=== PATIENT | male | born 1935 | race Caucasian/White ===

== ENCOUNTER 2022-09-03 10:24 | Outpatient (REF) | payer MEDICARE, SELFPAY ==
[2022-09-03 10:58] LABS: MANUAL DIFF FLAG NO
[2022-09-03 11:45] LABS: Basophils Percent Auto 0.4 % (0-2); Eosinophils Absolute Auto 0.2 X10*3/uL (0.0-0.4); Eosinophils Percent Auto 2.1 % (0-4); Hemoglobin 14.7 g/dl (14.0-18.0); Imm Gran Abs Auto 0.02 X10*3/uL (0.00-0.03); Imm Gran Pct Auto 0.3 % (0.0-0.4); Lymphocytes Absolute Auto 1.5 X10*3/uL (1.2-4.9); Lymphocytes Percent Auto 20.7 % (20-40); Mean Corpuscular Hemoglobin 29.1 pg (27.0-33.0); Mean Corpuscular Volume 91.1 fL (80.0-98.0); Mean Platelet Volume 9.2 fL (9.4-12.4); Monocytes Absolute Auto 0.7 X10*3/uL (0.1-1.2); Monocytes Percent Auto 9.5 % (2-11); Neutrophils Absolute Auto 4.9 x10*3/uL (2.0-8.3); Platelet Count 308 X10*3/uL (160-400); Red Blood Count 5.05 X10*6/uL (4.60-5.80); Red Cell Distribution Width 14.5 % (11.0-16.0); White Blood Count 7.3 X10*3/uL (4.8-10.8)
[2022-09-03 12:59] LABS: Alanine Aminotransferase 15 U/L (0-40); Albumin Level 4.3 g/dL (3.5-5.0); Alkaline Phosphatase 86 U/L (39-117); Anion Gap 12 (12-20); Aspartate Amino Transferase 20 U/L (5-37); Bilirubin Total 1.4 mg/dL (0.0-1.0); Blood Urea Nitrogen 18 mg/dL (9-16); Calcium 9.9 mg/dL (8.4-10.2); Carbon Dioxide 28 mmol/L (22-29); Chloride 105 mmol/L (96-108); Cholesterol 179 mg/dL; Estimated Glomerular Filt Rate > 60; Glucose Fasting 105 mg/dL (60-99); HDL Cholesterol 74 mg/dL; LDL Cholesterol Calculated 81 mg/dl; Potassium 5.7 mmol/L (3.3-5.1); Sodium 139 mmol/L (135-145); Total Protein 6.7 g/dL (6.5-8.0); Triglycerides 121 mg/dL
[2022-09-03 13:18] LABS: Prostate Specific Antigen 0.44 ng/mL (<0.05-4.0)
== END 2022-09-03 10:25 | disposition home or self-care (01) ==
LOC: HO.LAB 10:24
PROVIDERS: PCP Internal Medicine; Visit Provider Internal Medicine
DX: Z12.5 Encounter for screening for malignant neoplasm of prostate (principal); I25.10 Atherosclerotic heart disease of native coronary artery without angina pectoris; I10 Essential (primary) hypertension; E78.00 Pure hypercholesterolemia, unspecified; N40.0 Benign prostatic hyperplasia without lower urinary tract symptoms
CPT/HCPCS: 36415; 80053; 80061; 84153; 85025

== ENCOUNTER 2022-10-01 12:22 | Outpatient (REF) | payer MEDICARE, SELFPAY ==
--- NOTE | ~2022-10-01 | XR_ITS ---
EXAMINATION: XR HIP, RIGHT CLINICAL INFORMATION: Right hip pain COMPARISON: None TECHNIQUE: Two views of the right hip. FINDINGS: Anatomic alignment of the right hip joint. Mild superolateral joint space narrowing, lateral acetabular osteophyte, acetabular roof sclerosis. No acute fracture or dislocation. There is apparent prominent area of sclerosis in the right ilium, extending to the SI joint. There appears to be right sacral sclerosis marginating the joint as well. Spondylosis in the visualized lower lumbar spine. Abnormal soft tissue calcification.. XR/XR hip RT min 2V IMPRESSION: Mild right hip arthritis. No acute fracture or dislocation. Apparent prominent sclerosis in the right ilium of indeterminate etiology., Apparent right sacral sclerosis marginating the SI joint as well.. Recommend pelvic radiograph for further evaluation.
== END 2022-10-01 12:23 | disposition home or self-care (01) ==
LOC: HO.XRAY 12:22
PROVIDERS: PCP Internal Medicine; Visit Provider Internal Medicine
DX: M25.551 Pain in right hip (principal)
CPT/HCPCS: 73502

== ENCOUNTER 2022-10-03 12:54 | Outpatient (REF) | payer MEDICARE, SELFPAY | END 2022-10-03 12:55 | disposition home or self-care (01) | LOC: HO.MRI 12:54 | PROVIDERS: Visit Provider Internal Medicine | DX: Z13.89 Encounter for screening for other disorder (principal) ==

== ENCOUNTER 2022-10-04 05:51 | Emergency (ER) | payer OTHER, SELFPAY ==
[2022-10-04] VITALS (7 sets, daily range): BP systolic 115–178; BP diastolic 64–90; PULSE 71–83; RESP 14–20; TEMP 36.7; O2SAT 94–99; BMI 27.1
--- NOTE | ~2022-10-04 | MR_ITS ---
EXAMINATION: MR LUMBAR SPINE WITHOUT CONTRAST CLINICAL INFORMATION: Radicular pain. COMPARISON: None TECHNIQUE: MRI of the lumbar spine was obtained using routine sequences without contrast. The examination is markedly motion degraded and was prematurely terminated. The axial acquisitions are nondiagnostic. FINDINGS: The lumbar vertebral bodies maintain normal heights. There is minimal retrolisthesis of L2 on L3 and grade 1 anterolisthesis of L4 on L5. There is multilevel intervertebral disc height loss. At L3-L4 there is disc bulging with large disc herniation resulting in severe spinal canal stenosis with compression of the thecal sac. At L4-L5 there is apparent high-grade spinal canal stenosis related to disc bulging with ligamentum flavum infolding. MR/MR lumbar spine wo con IMPRESSION: Limited exam which was prematurely terminated. High-grade spinal canal stenosis with thecal sac compression at L3-L4 and L4-L5. Repeat examination recommended when patient is able.
--- NOTE | 2022-10-04 06:11 | ECG_ITS ---
Test Reason : FALL Blood Pressure : / mmHG Vent. Rate : 074 BPM Atrial Rate : 074 BPM P-R Int : 180 ms QRS Dur : 074 ms QT Int : 404 ms P-R-T Axes : 102 021 045 degrees QTc Int : 448 ms Sinus rhythm with Premature atrial complexes Otherwise normal ECG No previous ECGs available Referred By: Generic ED Physician Electronically Signed By:Monroe Garsia
--- NOTE | 2022-10-04 06:50 | ED.FALL ---
HPI - Fall General Chief Complaint: Fall Stated Complaint: fall Time Seen by Provider: 10/04/22 06:44 Source: patient Mode of arrival: EMS Limitations: no limitations History of Present Illness HPI Narrative: went to get into his wheelchair but he fell. His right leg does not work well at baseline. Yesterday he was unable to get an MRI do to pain. The pain is in the lumbar area. His pain is worse when her moves his left leg complaint: fall Onset (ago): week(s) Fall from: standing Fall witnessed: yes, by family Place fall occurred: home Loss of consciousness: none Context: tripped/slipped Location of injury: other (no new injury) Related Data Allergies Allergy/AdvReac Type Severity Reaction Status Date / Time No Known Allergies Allergy Verified 10/04/22 07:36 Review of Systems Review of Systems: Yes all other systems are reviewed and are negative Musculoskeletal: Musculoskeletal: Reports back pain Neurologic: Denies Sensory deficit (Neuro) [facility] Social History Social History Advance Directives: Yes Advance Directives Information Provided: Yes Advance Directives on File: No Physical Exam Vital Signs: Vital Signs: Last Vital Signs Temp 98.1 F 10/04/22 06:02 Pulse 83 10/04/22 14:46 Resp 18 10/04/22 14:46 BP 145/80 H 10/04/22 14:46 Pulse Ox 97 10/04/22 14:46 O2 Del Method 10/04/22 14:46 BMI result Body Mass Index 27.1 Const: Other: elderly male Nutritional Appearance: average body habitus Orientation/consciousness: oriented to person and patient oriented x3 Limitations: no limitations HEENT: Head: Yes normal to inspection Ears: external ears normal General nose exam: Normal external nose present Mouth: Normal oral and palatal mucosa present and oropharynx normal Throat: Yes posterior oropharynx normal Eyes: General: appearance normal, both eyes and all related structures Neck: Other: supple Neck: Yes normal visual inspection Chest: Chest palpation & inspection: normal inspection of the chest Resp: Auscultation: clear to auscultation bilaterally Cardio: Jugular venous distension: no JVD Rate: regular rate Rhythm: regular rhythm Heart sounds: S1 normal heart sound present and S2 normal heart sound present GI: Inspection: Yes normal to inspection Palpation (GI): Soft to palpation, nontender and No hepatosplenomegaly present Auscultation: normal bowel sounds Back/Spine/Pelvis: Other: lumbar back pain Skin: General skin exam: no rashes or lesions noted Neuro: General: oriented to person and patient oriented x3 Cranial nerves: Yes CN's II-XII intact bilaterally Motor exam (neuro): 5/5 motor strength present throughout Sensory Exam: No Sensory deficit (Neuro) Extrem: General: Yes normal to inspection Psych: Appearance: grossly normal Course Reevaluation(s) Reevaluation #1: patient unable to get MRI due to pain will give ketamine and ativan and retry Time: 15:12 Reevaluation #2: despite being sedated patient unable to keep still for his MRI will dc home Time: 16:41 Medications Administered Discontinued Medications Generic Name Dose Route Start Last Admin Trade Name Freq PRN Reason Stop Dose Admin Ketamine HCl 180 mg 10/04/22 15:10 10/04/22 16:05 Ketamine Hcl/Ns 50 Mg/5 Ml Syringe IVPUSH 10/04/22 15:11 180 mg ONCE ONE Administration Lorazepam 2 mg 10/04/22 12:21 10/04/22 13:01 Lorazepam 2 Mg/Ml Vial IVPUSH 10/04/22 12:22 2 mg ONCE ONE Administration Lorazepam 2 mg 10/04/22 15:10 10/04/22 16:05 Lorazepam 2 Mg/Ml Vial IVPUSH 10/04/22 15:11 2 mg ONCE ONE Administration Morphine Sulfate 4 mg 10/04/22 07:39 10/04/22 11:28 Morphine Sulfate 4 Mg/Ml Cartridge IVPUSH 10/04/22 07:40 4 mg ONCE ONE Administration Protocol Morphine Sulfate 4 mg 10/04/22 12:21 10/04/22 13:01 Morphine Sulfate 4 Mg/Ml Cartridge IVPUSH 10/04/22 12:22 4 mg ONCE ONE Administration Protocol Medical Decision Making Differential Diagnosis Differential Diagnoses: The differential diagnosis associated with the presentation includes disc herniation, lumbar radiculopathy Independent Interpretation Interpretation: MRI was not able to be done Independent Historian Clinical information obtained from an independent historian. History obtained from or confirmed by: Spouse Discharge Plan Discharge Clinical Impression: Lumbar radiculopathy, Back pain Patient Disposition: Home, Self-Care Instructions: Acute Low Back Pain (ED), Lumbar Radiculopathy (ED), Back Pain (ED) Referrals: Mauro Richards MD [Primary Care Provider] - 1 week
--- NOTE | 2022-10-04 09:00 | PC.NURSE ---
PT TO ED FOR FALL EVAL. WAS TO HAVE MRI DONE YESTERDAY BUT NOT DONE DUE TO L LEG PAIN R/T TO THE FALL. NEW ORDER FOR MRI TO BE DONE TODAY. MRI BOOKED, WILL CALL ED WHEN READY FOR PT TO BE BROUGHT DOWN.
[2022-10-04] MEDS: Morphine Sulfate 4 MG/ML CARTRIDGE IVPUSH ×2 (11:28→13:01)
[2022-10-04] MEDS: LORazepam 2 MG/ML VIAL IVPUSH ×2 (13:01→16:05)
[2022-10-04] MEDS: Ketamine HCl/NS 50 MG/5 ML SYRINGE 180 MG IVPUSH (16:05)
--- NOTE | 2022-10-04 17:00 | PC.NURSE ---
PT WAS PREMEDICATED AND BROUGHT TO MRI. MRI CALLED AND REPORTED THAT PT NOT TOLERATING PROCEDURE, PT MEDICATED IN MRI BY THIS RN. PT BROUGHT BACK FROM MRI WITH REPORT THAT HE DID NOT TOLERATE PROCEDURE THEREFORE MRI NOT DONE. PT PREMEDICATED ONCE MORE AND BROUGHT TO MRI BY DR. AMIN AND ANOTHER RN. MRI WAS DONE. PT'S AND DAUGHTER AT HIS BEDSIDE.
[2022-10-04 17:11] LABS: MANUAL DIFF FLAG NO
[2022-10-04 17:12] LABS: Basophils Percent Auto 0.4 % (0-2); Eosinophils Absolute Auto 0.1 X10*3/uL (0.0-0.4); Eosinophils Percent Auto 1.6 % (0-4); Hematocrit 39.7 % (42.0-52.0); Hemoglobin 13.2 g/dl (14.0-18.0); Imm Gran Abs Auto 0.02 X10*3/uL (0.00-0.03); Imm Gran Pct Auto 0.3 % (0.0-0.4); Lymphocytes Absolute Auto 1.4 X10*3/uL (1.2-4.9); Lymphocytes Percent Auto 18.2 % (20-40); Mean Corpuscular HGB Conc 33.2 g/dl (31.0-36.0); Mean Corpuscular Hemoglobin 29.9 pg (27.0-33.0); Mean Corpuscular Volume 89.8 fL (80.0-98.0); Monocytes Absolute Auto 0.9 X10*3/uL (0.1-1.2); Monocytes Percent Auto 12.1 % (2-11); Neutrophils Absolute Auto 5.1 x10*3/uL (2.0-8.3); Neutrophils Percent Auto 67.4 % (45-73); Platelet Count 288 X10*3/uL (160-400); Red Blood Count 4.42 X10*6/uL (4.60-5.80); Red Cell Distribution Width 14.2 % (11.0-16.0); White Blood Count 7.5 X10*3/uL (4.8-10.8)
[2022-10-04 17:27] LABS: COVID-19 Test Negative (Negative); IDNOW Serial# 16C4AD1C
[2022-10-04 17:33] LABS: Anion Gap 16 (12-20); Blood Urea Nitrogen 19 mg/dL (9-16); Calcium 8.9 mg/dL (8.4-10.2); Carbon Dioxide 22 mmol/L (22-29); Chloride 105 mmol/L (96-108); Creatinine Clr Calc Pharmacy 67.6; Estimated Glomerular Filt Rate > 60; Glucose Random 119 mg/dL (60-115); Potassium 4.1 mmol/L (3.3-5.1); Sodium 139 mmol/L (135-145)
--- NOTE | 2022-10-04 18:28 | MHC.CM.ED ---
CM referral from Dr. Reyna. Pt with multiple falls and lumbar back pain. HX Spinal Stenosis. Attempted MRI, with pre-medication. Pt unable to complete testing. Pt and live at [facility], independent living. Recently moved here from [place] in July. 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 Family involved, but do not live locally. HCP/daughter China ([phone]). Not on file. Attempting to obtain copy. If unavailable, will obtain when patient wakes. Pt sleeping after being medicated for MRI. Unable to participate in CM interview. Spoke with , Sally ([phone] H) and daughter, Radhika. Pt and recently (Jul) moved into [facility] from [place]. 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 Family lives in [facility]. Pt was very independent and mobile until about 2 weeks ago. Worsening back pain. Family reports about 10 falls in past 10 days. Pt [place] services [place] [facility] and [place] [facility] [place] for some of his medications. Dr. Love is provider at [facility] and Dr. Richards is PCP. Pt has received 5 vaccinations for Covid (09/21/20, 10/12/20, 05/29/21, 11/28/21 and 07/31/22). Pt had Covid in March. Uses a walker and recently a wheelchair. Family agreeable to STR. Will review when patient wakes. PT pending. Local referrals placed. Care Port and CM contact card given to daughter, Radhika and Sally. CM will follow for discharge planning.
--- NOTE | 2022-10-04 18:49 | PC.NURSE ---
INCONTINENT CARE AND COMPLETE BED CHANGE DONE
--- NOTE | 2022-10-04 19:58 | PC.NURSE ---
This investment underwriter assumed care of this PT at 1900. PT A&O to self. PT states I thought we went to [place] but we are in [place] and it's sailing . PT reports 11/08 R leg pain. Incontinent care provided. Family at bedside.
--- NOTE | 2022-10-04 22:05 | MHC.EDTECH ---
PT Soiled Linen and gown changed. Pt changed into clean gown and stretcher dressed with fresh linens
[2022-10-04 23:44] LABS: Appearance Urine Clear; Color Urine Yellow; Glucose Urine UA Negative (Negative); Leukocyte Esterase Urine Negative (Negative); Nitrite Urine Negative (Negative); Specific Gravity - Urine 1.025 (1.005-1.025); Urine Blood Negative (Negative); Urine Ketones 15 mg/dL (Negative); Urine Protein Negative (Neg-Trace)
[2022-10-05 02:53] VITALS: BP 152/91; PULSE 82; RESP 18; O2SAT 94
[2022-10-05 06:50] VITALS: BP 133/70; PULSE 89; RESP 14; TEMP 36.9; O2SAT 97
[2022-10-05 11:25] VITALS: BP 150/86; PULSE 87; RESP 16; O2SAT 99
--- NOTE | 2022-10-05 13:48 | MHC.CM.ED ---
Addendum entered by Nori Short 10/05/22 15:46: [facility] accept patient on Friday 10/06. Transport booked for 1pm. Patient, Radhika English, Arlene RN and Doretha MITCHELL. Original Note: Patient remains in ER. Physical therapy eval completed. Short term rehab is recommended. Met with patient, Amando and daughter Radhika. All are aware [facility] is unable to offer a bed. Patient has VA benefits but is not service connected for short term rehab benefits. Patient will go to short term rehab under Medicare. Facility choices discussed with patient and family. [facility] choice. Clinical updates sent via [facility]. [facility] completed, signed and witnessed. Original given to patient. Copy placed in chart. Continue to monitor for d/c needs.
[2022-10-05 16:53] VITALS: BP 147/79; PULSE 86; RESP 16; O2SAT 97
[2022-10-05] MEDS: Acetaminophen 325 MG TABLET 975 MG PO (17:42)
[2022-10-05] MEDS: Cyclobenzaprine HCl 10 MG TABLET PO (17:43)
[2022-10-05 20:17] VITALS: BP 143/84; PULSE 91; RESP 20; TEMP 36.8; O2SAT 96
--- NOTE | 2022-10-05 22:05 | PC.NURSE ---
[place] cathether was previously placed on pt. Pt reported [place] catheter came off. Pt noted to be incontinent of urine.Rn and tech provided shwetha care. Pt reported R 6/10 buttock pain; skin is intact. pillow placed under R buttock.
--- NOTE | 2022-10-05 22:13 | PC.NURSE ---
See previous note. Per Dr. Sampson will review pt chart.
[2022-10-05] MEDS: oxyCODONE HCl Immed Release 5 MG TABLET PO (23:33)
--- NOTE | 2022-10-05 23:39 | PC.NURSE ---
Pt medicated per MAR.
--- NOTE | 2022-10-06 00:57 | PC.NURSE ---
Pt prefers to sleep in position. Pt transferred to a hospital bed. Heat pack applied to pt Right buttock to aid in pain management. Pt reports he feels more comfortable in hospital bed. texas cath continues to drain well.
[2022-10-06] MEDS: Acetaminophen 325 MG TABLET 975 MG PO ×2 (01:50→09:23)
[2022-10-06] MEDS: Cyclobenzaprine HCl 10 MG TABLET PO ×2 (01:51→09:23)
--- NOTE | 2022-10-06 01:53 | PC.NURSE ---
Pt c/o 12/09 R leg R hip pain. Pt medicated per Oct.
--- NOTE | 2022-10-06 03:14 | MHC.EDTECH ---
PT got out of bed alone and went to bedside commode. PT tex[place] fell off. Pt 1x assisted back to bed. Pt given pericare and lino lópez hendrix applied. Pt bed alarm armed and pt reminded to use call haq when assistance is needed. Pt reminded that he is a high risk for falls and needs assistance when getting out bed. PT stated I understand and will call for help PT given warm blankets. Pt hendrix emptied at 600cc
[2022-10-06 06:47] VITALS: BP 146/95; PULSE 92; RESP 16; TEMP 36.2; O2SAT 95
[2022-10-06] MEDS: Docusate Sodium 100 MG CAPSULE PO ×2 (09:42→12:59)
--- NOTE | 2022-10-06 09:46 | PC.NURSE ---
pt is a/o x 4 no sob/bandar noted lungs -diminished all lobes. speaks in full sentences. heart sounds - irregular. abd soft and non-tender, bx + x 4 quads. no edema noted. pt c/o constipation, multi attempts in using the commode without any success. colace 100mg po given prn. pt is eating breakfast. daughter and at bedside. pt to be [facility] later today. pt c/0 8/10 r hip/buttocks pain med as per oct. pt/family aware of plan of care.
[2022-10-06 10:43] VITALS: BP 137/62; PULSE 92; RESP 16; TEMP 36.4; O2SAT 98
--- NOTE | 2022-10-06 10:43 | MHC.EDTECH ---
Patient helped to commode. Linen and hospital gown soiled; changed bedding and helped Patient clean up, fresh hospital gown given. Patient assisted back to bed. Family (daughter, ) at bedside.
[2022-10-06] MEDS: DULoxetine HCl 30 MG CAPSULE.DR PO (10:47)
[2022-10-06] MEDS: Aspirin Enteric Coated 81 MG TABLET.DR PO (10:49)
[2022-10-06] MEDS: Multivitamin TABLET 1 TAB PO (10:49)
[2022-10-06] MEDS: Metoprolol Tartrate 25 MG TABLET PO (10:49)
[2022-10-06] MEDS: Clopidogrel Bisulfate 75 MG TABLET PO (10:49)
--- NOTE | 2022-10-06 11:29 | PC.NURSE ---
rn to rn report given to akbar at [facility]. pt/family aware of plan of care for transfer to [facility] via [facility].
[2022-10-06 12:11] VITALS: BP 155/97; PULSE 80; TEMP 36.6; O2SAT 96
[2022-10-06] MEDS: polyethylene glycoL 3350 17 GM POWD.PACK PO (12:59)
[2022-10-06] MEDS: Finasteride 5 MG TABLET PO (12:59)
--- NOTE | 2022-10-06 13:26 | PC.NURSE ---
report given to em[facility].
== END 2022-10-06 13:49 | disposition skilled nursing facility (03) ==
PROVIDERS: Emergency Provider Emergency Medicine; PCP Internal Medicine
DX: M54.16 Radiculopathy, lumbar region (principal); M54.50 Low back pain, unspecified; Z20.822 Contact with and (suspected) exposure to COVID-19; Z20.828 Contact with and (suspected) exposure to other viral communicable diseases; Z79.899 Other long term (current) drug therapy
CPT/HCPCS: 72148; 80048; 81003; 85025; 87635; 93005; 96374; 96375; 96376; 97163; 99285; J2060; J2270

== ENCOUNTER 2023-02-03 11:05 | Outpatient (REF) | payer MEDICARE, SELFPAY ==
--- NOTE | ~2023-02-03 | CT_ITS ---
EXAMINATION: CT CHEST WITH CONTRAST CLINICAL INFORMATION: Paraesophageal hernia COMPARISON: None available. TECHNIQUE: Multidetector volumetric CT imaging of the chest was obtained after the administration of 65 mL of Omnipaque 350 intravenous contrast without immediate adverse reactions. Axial MIP volume rendering provided. Sagittal and coronal reformatted images were obtained. This CT examination was performed using dose optimization techniques as appropriate, variously including the following: *Automated exposure control *Adjustment of mA and/or kV according to patient size (this includes techniques or standardized protocols for targeted exams where dose is matched to indication/reason for exam; i.e. extremities or head) *Use of iterative reconstruction technique DLP: 241 mGy-cm FINDINGS: LUNGS: Irregularly-shaped nodule in the right upper lobe. This is difficult to measure due to irregular shape. This measures 0.5 x 1.5 cm axial image 51 series 7 and may contain air bronchogram component. There are adjacent smaller satellite nodules measuring 2 to 3 mm. There is adjacent pleural thickening axial image 54 series 7. 5 mm calcified right upper lobe nodule near the major and minor fissure axial image 113 series 7. 5 mm and 5 x 8 mm calcified left lower lobe nodules axial image 183 series 7 and 197 series 7. These probably represent calcified granulomas. Scarring or subsegmental atelectasis in the medial right lower lobe adjacent to vertebral body bony osteophyte. Question mild increased peripheral reticular markings and traction bronchiolectasis in the right lower lobe/mild interstitial lung disease. MEDIASTINUM: There is a moderate size esophageal hernia. By CT this appears to represent a hiatal hernia. No paraesophageal hernia is seen. Normal heart size. No pericardial effusion. Normal caliber thoracic aorta. Small partially calcified right precarinal mediastinal lymph node. Probably related to old granulomatous disease. Mild coronary artery calcification. PLEURA: There is no pleural effusion. No pleural mass or thickening. AXILLA: No lymphadenopathy. UPPER ABDOMEN: 2 low-attenuation liver lesions in the left lobe suggestive of simple cysts. 8 mm slightly complex cyst with wall calcification high in the dome of the right lobe axial image 50 series 3. Probable right renal peripelvic cyst. This is partially visualized. OSSEOUS STRUCTURES: Degenerative changes of the spine and shoulders. CT/CT chest w IV con IMPRESSION: Moderate size hiatal hernia. Evidence of old granulomatous disease. Irregularly shaped right upper lobe nodule. Chest CT follow-up in 6-12 and 18-24 months recommended. Question mild interstitial lung disease at the lung bases. Fleischner guidelines were followed.
[2023-02-03] MEDS: iohexoL 350 MG/ML 100 ML INFUS..BTL 65 ML IV (13:34)
[2023-02-03 14:42] LABS: Creatinine POC 0.5 mg/dL (0.5-1.4); GFR POC > 60
== END 2023-02-03 11:06 | disposition home or self-care (01) ==
LOC: HO.CT 11:05
PROVIDERS: PCP Internal Medicine; Visit Provider Student in an Organized Health Care Education/Training Program
DX: K44.9 Diaphragmatic hernia without obstruction or gangrene (principal)
CPT/HCPCS: 71260; 82565; Q9967

== ENCOUNTER 2023-02-07 08:20 | Outpatient (REF) | payer MEDICARE, SELFPAY ==
--- NOTE | ~2023-02-07 | FL_ITS ---
EXAMINATION: FL BARIUM SWALLOW CLINICAL INFORMATION: Diaphragmatic hernia COMPARISON: Previous chest CT 02/03/2023 TECHNIQUE: Barium swallow examination is performed using fluoroscopic evaluation in addition to multiple fluoroscopic spot views. The patient is imaged both upright and prone and using both thick and thin sulfate along with effervescent granules. Barium tablet was also administered. Exam is limited due to patient mobility. Fluoroscopy time: 1.5 minutes DAP: 13.7 Gycm2 total dose 72 mg Images: 54 FINDINGS: Exam is limited due to limited patient mobility. The swallowing mechanism is normal. No aspiration or penetration. Esophageal motility is normal. There is a moderate size hiatal hernia. There is mild gastroesophageal reflux. Barium tablet passed freely into the stomach. FL/FL barium swallow IMPRESSION: Moderate size hiatal hernia. Mild gastroesophageal reflux.
== END 2023-02-07 08:21 | disposition home or self-care (01) ==
LOC: HO.XRAY 08:20
PROVIDERS: PCP Internal Medicine; Visit Provider Student in an Organized Health Care Education/Training Program
DX: K44.9 Diaphragmatic hernia without obstruction or gangrene (principal)
CPT/HCPCS: 74220

== ENCOUNTER 2023-02-17 10:08 | Outpatient (REF) | payer MEDICARE, SELFPAY ==
[2023-02-17 11:33] LABS: Hematocrit 32.2 % (42.0-52.0); Hemoglobin 9.8 g/dl (14.0-18.0); Mean Corpuscular HGB Conc 30.4 g/dl (31.0-36.0); Mean Corpuscular Hemoglobin 21.5 pg (27.0-33.0); Mean Corpuscular Volume 70.8 fL (80.0-98.0); Platelet Count 432 X10*3/uL (160-400); Red Blood Count 4.55 X10*6/uL (4.60-5.80); Red Cell Distribution Width 20.6 % (11.0-16.0); White Blood Count 6.7 X10*3/uL (4.8-10.8)
== END 2023-02-17 10:09 | disposition home or self-care (01) ==
LOC: HO.LAB 10:08
PROVIDERS: PCP Internal Medicine; Visit Provider Internal Medicine
DX: K44.9 Diaphragmatic hernia without obstruction or gangrene (principal); K92.2 Gastrointestinal hemorrhage, unspecified; I25.10 Atherosclerotic heart disease of native coronary artery without angina pectoris
CPT/HCPCS: 36415; 85027; 99202

== ENCOUNTER 2023-03-28 15:06 | Outpatient (REF) | payer OTHER, MEDICARE, SELFPAY ==
[2023-03-28 16:10] LABS: Basophils Percent Auto 0.4 % (0-2); Eosinophils Absolute Auto 0.2 X10*3/uL (0.0-0.4); Eosinophils Percent Auto 3.1 % (0-4); Hematocrit 40.4 % (42.0-52.0); Hemoglobin 12.5 g/dl (14.0-18.0); Imm Gran Abs Auto 0.03 X10*3/uL (0.00-0.03); Imm Gran Pct Auto 0.4 % (0.0-0.4); Lymphocytes Absolute Auto 1.4 X10*3/uL (1.2-4.9); Lymphocytes Percent Auto 20.8 % (20-40); Mean Corpuscular HGB Conc 30.9 g/dl (31.0-36.0); Mean Corpuscular Hemoglobin 24.1 pg (27.0-33.0); Mean Corpuscular Volume 77.8 fL (80.0-98.0); Mean Platelet Volume 9.1 fL (9.4-12.4); Monocytes Absolute Auto 0.7 X10*3/uL (0.1-1.2); Monocytes Percent Auto 10.5 % (2-11); Neutrophils Absolute Auto 4.3 x10*3/uL (2.0-8.3); Neutrophils Percent Auto 64.8 % (45-73); White Blood Count 6.7 X10*3/uL (4.8-10.8)
[2023-03-28 16:14] LABS: MANUAL DIFF FLAG SCAN
[2023-03-28 17:00] LABS: Alanine Aminotransferase 16 U/L (0-40); Alkaline Phosphatase 93 U/L (39-117); Anion Gap 18 (12-20); Aspartate Amino Transferase 14 U/L (5-37); Bilirubin Total 0.5 mg/dL (0.0-1.0); Blood Urea Nitrogen 19 mg/dL (9-16); Calcium 9.8 mg/dL (8.4-10.2); Carbon Dioxide 20 mmol/L (22-29); Chloride 104 mmol/L (96-108); Estimated Glomerular Filt Rate > 60; Glucose Random 126 mg/dL (60-115); Potassium 4.2 mmol/L (3.3-5.1); Sodium 138 mmol/L (135-145); Total Protein 6.9 g/dL (6.5-8.0)
[2023-03-28 17:31] LABS: Red Blood Count 5.19 X10*6/uL (4.60-5.80)
[2023-03-28 17:32] LABS: Platelet Count 327 X10*3/uL (160-400); SLIDE REVIEW VERIFIED
== END 2023-03-28 15:07 | disposition home or self-care (01) ==
LOC: HO.LAB 15:06
PROVIDERS: PCP Internal Medicine; Visit Provider Internal Medicine
DX: I10 Essential (primary) hypertension (principal); E78.00 Pure hypercholesterolemia, unspecified; N40.0 Benign prostatic hyperplasia without lower urinary tract symptoms
CPT/HCPCS: 36415; 80053; 85025

== ENCOUNTER 2023-04-22 11:25 | Outpatient (AMB) | payer OTHER, MEDICARE, SELFPAY ==
--- NOTE | 2023-04-22 11:25 | MHC.OFFVIS ---
Intake Intake Visit Reasons: BPH/Incontinence Intake Note: New Patient presents for initial visit BPH/Incontinence Urology Medications: none Blood Thinner: aspirin, clopidogrel PVR: 264ml's Senior Living Sales Counselor Required: No Accompanied by: Self / Same As Patient Allergies No Known Allergies Allergy (Verified 04/22/23 13:13) Medication List - Last Reconciled 04/22/23 by JENI Cesar- aspirin 81 mg PO DAILY atorvastatin 20 mg PO BEDTIME bethanechol chloride 50 mg PO BID 30 days duloxetine 30 mg PO DAILY ferrous sulfate 325 mg PO DAILY finasteride 5 mg PO DAILY latanoprost 0.005% 1 drp ophthalmic (eye) QPM metoprolol tartrate 25 mg PO DAILY omeprazole 20 mg PO DAILY simvastatin 20 mg PO DAILY vit C,G-Jy-grilb-lutein-zeaxan 250-90-40-1 mg (PreserVision AREDS-2) 1 tab PO BID HPI HPI Comments History of Present Illness Details Liliam Hsieh Is a very pleasant 87-year-old male patient of Dr. Richards the was accompanied by his Shannan at today's visit. He has a past medical history of coronary disease status post PCI 2016, hypertension, hyperlipidemia, glaucoma, macular degeneration, type 3 paraesophageal hernia, recent L3-L4 lumbar spinal stenosis leading to cauda equina syndrome status post lumbar decompression and partial laminectomy October 2022 with resultant right leg weakness.?He presents to the office today as a new patient for ongoing lower urinary tract symptoms. In discussed with the patient today he reports having had recent spinal surgery in October of this year and is feeling much better in regards to lower back pain and bilateral lower extremity pain he had been experiencing however, he reports feeling lower urinary tract symptoms he has been experiencing for many years have worsened. He discusses for many years following up with the [facility] at which time they have been following his PSA and he has been taking finasteride 5 mg daily. He discusses noting an increase in sense of urgency with episodes of incontinence as well as having fecal incontinence. He discusses living at [facility] in a 1 bedroom apartment in feels the bathroom is not far from his bedroom and he is unable to make it there and experiences incontinence. Unable to obtain urine for urinalysis as patient unable to void however PVR 264 mL. Discussed obtaining retroperitoneal ultrasound for further assessment evaluation.Discussed at length affects and potential causes for incomplete bladder emptying. Discussed attempting to sit when voiding to assist with incomplete bladder emptying. Discussed at length potential side effects of most recent spinal surgery could be related however will attempt to assist in improving symptoms if possible. In review of patient's chart it appears PSA 09/23--0.4. PFSH Surgical History History of esophagogastroduodenoscopy (EGD) History of lumbar surgery Hx of colonoscopy Social History Alcohol intake: current Alcohol intake frequency: holidays/special occasions only Patient Tobacco Use Status: Never used Tobacco Review of Systems Const Reports as per HPI Eyes Reports no additional complaints ENT Reports no additional complaints Card Reports as per HPI Resp Reports no additional complaints GI Reports no additional complaints Reports as per HPI Musc Reports as per HPI Neuro Reports as per HPI Psych Reports no additional complaints Bam/Lymph Reports no additional complaints Aller/Immun Reports no additional complaints Physical Exam Const General: cooperative, healthy appearing, comfortable, no acute distress, well developed, alert and awake Orientation/consciousness: patient oriented x3 Limitations: wheelchair HEENT Head: Yes normal to inspection, Yes normocephalic and Yes atraumatic Ears: hearing grossly normal bilaterally Eyes General: appearance normal, both eyes and all related structures Neck Neck: Yes normal visual inspection and Yes trachea midline Chest Chest palpation & inspection: normal inspection of the chest Resp Effort & Inspection: normal respiratory effort and able to speak in complete sentences Cardio Rate: regular rate GI Inspection: Yes normal to inspection General: Yes no CVA tenderness Back/Spine/Pelvis Back: no CVA tenderness Skin General skin exam: no rashes or lesions noted Neuro General: patient oriented x3 Extrem General: Yes normal to inspection Psych Appearance: grossly normal and well kempt Mental Status: mental status grossly normal Speech and movement: Clear speech present Affect: normal affect Attitude: cooperative Thought process: Normal thought process present Thought content: Normal thought content present Insight: Fair insight present (Psych) Judgement: Fair judgement present (Psych) Office Procedures Post Void Residual Post Residual Void Post Void Residual (PVR): 264 20743-Ywgy Void Residual by ultrasound Assessment & Plan Assessment & Plan (1) Urinary incontinence, urge: Code(s): N39.41 - Urge incontinence (2) Urinary urgency: Code(s): R39.15 - Urgency of urination Plan Unable to obtain urine for urinalysis today as patient unable to void PVR 264 mL. Discussed at length potential causes as well as affects of incomplete bladder emptying. Discussed obtaining retroperitoneal ultrasound for further assessment evaluation. Discussed possible near future in office cystoscopy if symptoms persist and/or worsen. Start bethanechol as discussed and prescribed. Discussed possible InterStim placement however patient with recent spinal surgery discussed at length importance of allowing time for healing Discussed worsening urinary urgency, urinary incontinence, and fecal incontinence could possibly related to most recent spinal surgery however will attempt to further investigate and manage symptoms Follow-up in 6-8 weeks with imaging to be completed prior or sooner with any issues, concerns, or questions Orders: Orders US retroperitoneal comp Today N39.41 - Urge incontinence, R39.15 - Urgency of urination AMB Urinalysis Automated Today Z13.9 - Encounter for screening, unspecified AMB Post Void Residual by ultrasound Today Z13.9 - Encounter for screening, unspecified Medications: New bethanechol chloride 50 mg PO BID 30 days 60 tabs 1RF N39.0 - Urinary tract infection, site not specified Patient Instructions: The patient had an opportunity to ask questions regarding the treatment plan. All questions were answered. Physical exam, labs, and imaging were discussed and reviewed in detail. As well as risks, benefits, and discussion of treatment choices. No major barriers to understanding were identified. The patient expressed understanding and agreement with the above treatment plan. The patient was made aware they should contact our office by phone for worsening of their current condition, the appearance of new symptoms, or with any questions or concerns. Compliance is encouraged with any medications and follow up testing that is ordered. It is a privilege to be allowed the opportunity to participate in? your urological care.? Again, if you have any questions or concerns If you have any questions or concerns please do not hesitate to contact me. The office is [phone]. This note is constructed using voice recognition software. While every effort has been made to ensure accuracy pathology laboratory aides teacher errors may have been included. Yours sincerely, ESTELA Cesar Coding Level of Care Code New Pt Level 4 (88624) Diagnoses Urinary incontinence, urge N39.41 Urinary urgency R39.15 CPT Codes Post Residual Void - PVR CPT Code: 56826-Dwji Void Residual by ultrasound ([id number])
== END 2023-04-22 12:29 | disposition home or self-care (01) ==
LOC: HO.HUSH 11:25
PROVIDERS: PCP Internal Medicine; Visit Provider Nurse Practitioner Family
DX: N39.41 Urge incontinence (principal); R39.15 Urgency of urination
CPT/HCPCS: 99204

== ENCOUNTER → 2023-04-22 11:25 | Outpatient (BNVA) | payer OTHER, MEDICARE, SELFPAY | PROVIDERS: PCP Internal Medicine; Visit Provider Nurse Practitioner Family | DX: N39.41 Urge incontinence (principal); R39.15 Urgency of urination | CPT/HCPCS: 51798; 99202 ==

== ENCOUNTER 2023-05-28 15:00 | Outpatient (REF) | payer OTHER, MEDICARE, SELFPAY ==
--- NOTE | ~2023-05-28 | US_ITS ---
EXAMINATION: US RETROPERITONEAL COMPLETE (RENAL) CLINICAL INFORMATION: Urgency of urination. COMPARISON: None available. TECHNIQUE: Real-time imaging of the kidneys and bladder. FINDINGS: RIGHT KIDNEY: 11.7 x 6.2 x 5.3 cm (SAG x AP x TRV). The kidney is normal in size, contour, and echogenicity. Renal cortical thickness is normal. No renal calculi or hydronephrosis. 2.4 cm simple parapelvic cyst. No follow-up imaging is recommended. LEFT KIDNEY: 10.4 x 5.4 x 4.0 cm (SAG x AP x TRV). The kidney is normal in size, contour, and echogenicity. Renal cortical thickness is normal. No renal calculi or hydronephrosis. 1.5 cm simple cyst in the mid kidney. No follow-up imaging is recommended. BLADDER: Partially distended. Bilateral ureteral jets are demonstrated. Prevoid bladder volume is 132 mL. The patient was not able to void. ADDITIONAL FINDINGS: Enlarged prostate measuring 43 mL. US/US retroperitoneal comp IMPRESSION: Enlarged prostate. No hydronephrosis. The patient was unable to void for a post void residual measurement.
== END 2023-05-28 15:01 | disposition home or self-care (01) ==
LOC: HO.US 15:00
PROVIDERS: PCP Internal Medicine; Visit Provider Nurse Practitioner Family
DX: R39.15 Urgency of urination (principal)
CPT/HCPCS: 76770

== ENCOUNTER 2023-06-02 09:42 | Outpatient (AMB) | payer OTHER, SELFPAY ==
--- NOTE | 2023-06-02 10:37 | MHC.OFFVIS ---
Intake Intake Visit Reasons: BPH/Incontinence- follow up/US(set) Intake Note: Patient presents for tele visit follow up visit BPH/Incontinence Urology Medications: Finasteride, Bethanechol (stopped taking a week ago was only taking 1/2 dose ) Blood Thinner: aspirin Card Tape Converter Operator Required: No Accompanied by: Self / Same As Patient Allergies No Known Allergies Allergy (Verified 06/02/23 18:51) Medication List - Last Reconciled 06/02/23 by JENI Cesar- aspirin 81 mg PO DAILY atorvastatin 20 mg PO BEDTIME bethanechol chloride 50 mg PO BID 30 days duloxetine 30 mg PO DAILY ferrous sulfate 325 mg PO DAILY finasteride 5 mg PO DAILY latanoprost 0.005% 1 drp ophthalmic (eye) QPM metoprolol tartrate 25 mg PO DAILY omeprazole 20 mg PO DAILY simvastatin 20 mg PO DAILY vit C,A-Gf-elgny-lutein-zeaxan 250-90-40-1 mg (PreserVision AREDS-2) 1 tab PO BID HPI HPI Comments History of Present Illness Details Liliam Hsieh Is a very pleasant 88-year-old male patient of Dr. Richards the was accompanied by his Shannan at today's visit. He has a past medical history of coronary disease status post PCI 2016, hypertension, hyperlipidemia, glaucoma, macular degeneration, type 3 paraesophageal hernia, recent L3-L4 lumbar spinal stenosis leading to cauda equina syndrome status post lumbar decompression and partial laminectomy October 2022 with resultant right leg weakness.?He is being followed up on today telehealth. Of note, patient was to follow up in office today for a PVR and further assessment however patient has recently been exposed to COVID and does not feel well thus this appointment was switched to telehealth. Patient was seen approximately 6 weeks ago as a new patient for ongoing lower urinary tract symptoms at which time the patient was noted to have increased PVR. The patient was started on bethanechol and a retroperitoneal ultrasound was ordered for further assessment evaluation. These results were reviewed with the patient today. Right kidney with no calculi or hydronephrosis. 2.4 cm simple peripelvic cysts. No follow-up imaging is recommended. Left kidney with no calculi or hydronephrosis. 1.5 cm simple cyst in the mid kidney. No follow-up imaging is recommended per radiology report. The bladder is partially distended. Bilateral ureteral jets are demonstrated. Pre void bladder volume is 132 mL. The patient was not able to void. The prostate is enlarged at 43 mLs. When asked patient reports feeling urinary symptoms have somewhat improved on bethanechol. However, recommendations were made for 50 mg bethanechol b.i.d. patient reports he has been taking 50 mg daily. He continues to be compliant with 5 mg of finasteride daily. Discussed importance of follow-up in office to assess PVR. Discussed attempting to sit when voiding to assist with incomplete bladder emptying. Discussed at length potential side effects of most recent spinal surgery could be related however will attempt to assist in improving symptoms if possible. In review of patient's chart it appears PSA 09/23--0.4. Patient otherwise denies hematuria, dysuria, foul smelling urine, changes to urinary stream, flank pain, fever, and or chills. PFSH Surgical History History of esophagogastroduodenoscopy (EGD) History of lumbar surgery Hx of colonoscopy Social History Alcohol intake: current Alcohol intake frequency: holidays/special occasions only Patient Tobacco Use Status: Never used Tobacco Review of Systems Const Reports as per HPI Eyes Reports no additional complaints ENT Reports no additional complaints Card Reports as per HPI Resp Reports no additional complaints GI Reports no additional complaints Reports as per HPI Musc Reports as per HPI Neuro Reports as per HPI Psych Reports no additional complaints Bam/Lymph Reports no additional complaints Aller/Immun Reports no additional complaints Physical Exam Const General: cooperative Resp Effort & Inspection: able to speak in complete sentences Psych Speech and movement: Clear speech present Attitude: cooperative Insight: Fair insight present (Psych) Judgement: Fair judgement present (Psych) Results Reviewed Results Reviewed: Date of Service: 05/28/23 EXAMINATION: US RETROPERITONEAL COMPLETE (RENAL) FINDINGS: RIGHT KIDNEY: 11.7 x 6.2 x 5.3 cm (SAG x AP x TRV). The kidney is normal in size, contour, and echogenicity. Renal cortical thickness is normal. No renal calculi or hydronephrosis. 2.4 cm simple parapelvic cyst. No follow-up imaging is recommended. LEFT KIDNEY: 10.4 x 5.4 x 4.0 cm (SAG x AP x TRV). The kidney is normal in size, contour, and echogenicity. Renal cortical thickness is normal. No renal calculi or hydronephrosis. 1.5 cm simple cyst in the mid kidney. No follow-up imaging is recommended. BLADDER: Partially distended. Bilateral ureteral jets are demonstrated. Prevoid bladder volume is 132 mL. The patient was not able to void. ADDITIONAL FINDINGS: Enlarged prostate measuring 43 mL. IMPRESSION: Enlarged prostate. No hydronephrosis. The patient was unable to void for a post void residual measurement. Assessment & Plan Assessment & Plan (1) Incomplete bladder emptying: Code(s): R33.9 - Retention of urine, unspecified (2) Urinary urgency: Code(s): R39.15 - Urgency of urination (3) Peripelvic (lymphatic) cyst: Code(s): N28.1 - Cyst of kidney, acquired Plan Recent retroperitoneal ultrasound results reviewed with the patient today; as noted above. Continue finasteride 5 mg daily as discussed and prescribed. Continue bethanechol as discussed and prescribed. Patient reports somewhat improvement in lower urinary tract symptoms on bethanechol will continue. Discussed follow-up in office with PVR for further assessment evaluation Follow-up in 1 month with PVR; or sooner with any issues, concerns, and or questions. Patient Instructions: The patient had an opportunity to ask questions regarding the treatment plan. All questions were answered. Physical exam, labs, and imaging were discussed and reviewed in detail. As well as risks, benefits, and discussion of treatment choices. No major barriers to understanding were identified. The patient expressed understanding and agreement with the above treatment plan. The patient was made aware they should contact our office by phone for worsening of their current condition, the appearance of new symptoms, or with any questions or concerns. Compliance is encouraged with any medications and follow up testing that is ordered. It is a privilege to be allowed the opportunity to participate in? your urological care.? Again, if you have any questions or concerns If you have any questions or concerns please do not hesitate to contact me. The office is [phone]. This note is constructed using voice recognition software. While every effort has been made to ensure accuracy customer success intern errors may have been included. Yours sincerely, Ml Narayanan [facility] Telehealth Telehealth Location of provider rendering services: practice address Location of patient: address on file Patient Identification confirmed using: Name, : Yes Telehealth method: voice only Patient verbally consented to treatment: Yes Patient verbally consented to billing insurance company: Yes Patient informed of any privacy concerns related to visit: Yes Minutes spent on Phone/Video with Pt.: 15 Coding Level of Care Code Tele Est Pt Level 3 (09549) Diagnoses Incomplete bladder emptying R33.9 Urinary urgency R39.15 Peripelvic (lymphatic) cyst N28.1
== END 2023-06-02 11:41 | disposition home or self-care (01) ==
PROVIDERS: PCP Internal Medicine; Visit Provider Nurse Practitioner Family
DX: R33.9 Retention of urine, unspecified (principal); R39.15 Urgency of urination; N28.1 Cyst of kidney, acquired
CPT/HCPCS: 99213

== ENCOUNTER → 2023-06-02 09:42 | Outpatient (BNVA) | payer OTHER, MEDICARE, SELFPAY | PROVIDERS: PCP Internal Medicine; Visit Provider Nurse Practitioner Family ==

== ENCOUNTER 2023-06-12 14:19 | Outpatient (REF) | payer MEDICARE, OTHER, SELFPAY ==
[2023-06-12 14:33] LABS: MANUAL DIFF FLAG NO
[2023-06-12 15:41] LABS: Basophils Percent Auto 0.3 % (0-2); Eosinophils Absolute Auto 0.2 X10*3/uL (0.0-0.4); Eosinophils Percent Auto 2.3 % (0-4); Hematocrit 45.4 % (42.0-52.0); Hemoglobin 14.7 g/dl (14.0-18.0); Imm Gran Abs Auto 0.02 X10*3/uL (0.00-0.03); Imm Gran Pct Auto 0.3 % (0.0-0.4); Lymphocytes Absolute Auto 1.4 X10*3/uL (1.2-4.9); Lymphocytes Percent Auto 19.1 % (20-40); Mean Corpuscular HGB Conc 32.4 g/dl (31.0-36.0); Mean Corpuscular Hemoglobin 28.1 pg (27.0-33.0); Mean Corpuscular Volume 86.8 fL (80.0-98.0); Monocytes Absolute Auto 0.7 X10*3/uL (0.1-1.2); Monocytes Percent Auto 9.7 % (2-11); Neutrophils Absolute Auto 5.2 x10*3/uL (2.0-8.3); Neutrophils Percent Auto 68.3 % (45-73); Platelet Count 310 X10*3/uL (160-400); Red Blood Count 5.23 X10*6/uL (4.60-5.80); Red Cell Distribution Width 16.2 % (11.0-16.0); White Blood Count 7.5 X10*3/uL (4.8-10.8)
[2023-06-12 16:21] LABS: Alanine Aminotransferase 11 U/L (0-40); Alkaline Phosphatase 98 U/L (39-117); Anion Gap 16 (12-20); Aspartate Amino Transferase 14 U/L (5-37); Bilirubin Total 0.6 mg/dL (0.0-1.0); Blood Urea Nitrogen 16 mg/dL (9-16); Calcium 9.6 mg/dL (8.4-10.2); Carbon Dioxide 25 mmol/L (22-29); Chloride 105 mmol/L (96-108); Estimated Glomerular Filt Rate > 60; Glucose Random 99 mg/dL (60-115); Iron 62 mcg/dL (45-160); Percent Iron Saturation 25 % (15-50); Potassium 4.7 mmol/L (3.3-5.1); Sodium 141 mmol/L (135-145); Total Iron Binding Capacity 244 mcg/dL (228-428); Total Protein 6.6 g/dL (6.5-8.0); Unsaturated Iron Binding 182 ug/dL
== END 2023-06-12 14:20 | disposition home or self-care (01) ==
LOC: HO.LAB 14:19
PROVIDERS: PCP Internal Medicine; Visit Provider Internal Medicine
DX: D64.9 Anemia, unspecified (principal); I25.10 Atherosclerotic heart disease of native coronary artery without angina pectoris; I10 Essential (primary) hypertension; N40.0 Benign prostatic hyperplasia without lower urinary tract symptoms
CPT/HCPCS: 36415; 80053; 83540; 85025

== ENCOUNTER → 2023-06-13 10:58 | Outpatient (BNVA) | payer MEDICARE, OTHER, SELFPAY | PROVIDERS: PCP Internal Medicine; Visit Provider Nurse Practitioner Family | DX: R33.9 Retention of urine, unspecified (principal) | CPT/HCPCS: 51701; 51798 ==

== ENCOUNTER 2023-07-15 11:27 | Outpatient (AMB) | payer OTHER, SELFPAY ==
--- NOTE | 2023-07-15 11:47 | A.OFFVIS_ITS ---
Intake Intake Visit Reasons: 1m/PVR Intake Note: Patient presents for tele visit follow up visit BPH/Incontinence Urology Medications: Finasteride, Bethanechol Blood Thinner: aspirin PVR: 0ml's Carbide Tool Maker Required: No Accompanied by: Spouse Allergies No Known Allergies Allergy (Verified 07/15/23 22:24) Medication List - Last Reconciled 07/15/23 by JENI Cesar- aspirin 81 mg PO DAILY atorvastatin 20 mg PO BEDTIME bethanechol chloride 50 mg PO BID 30 days duloxetine 30 mg PO DAILY ferrous sulfate 325 mg PO DAILY finasteride 5 mg PO DAILY latanoprost 0.005% 1 drp ophthalmic (eye) QPM metoprolol tartrate 25 mg PO DAILY omeprazole 20 mg PO DAILY simvastatin 20 mg PO DAILY vit C,Y-Ty-fhjlm-lutein-zeaxan 250-90-40-1 mg (PreserVision AREDS-2) 1 tab PO BID HPI HPI Comments History of Present Illness Details Liliam Hsieh Is a very pleasant 88-year-old male patient of Dr. Richards the was accompanied by his Shannan at today's visit. He has a past medical history of coronary disease status post PCI 2016, hypertension, hyperlipidemia, glaucoma, macular degeneration, type 3 paraesophageal hernia, recent L3-L4 lumbar spinal stenosis leading to cauda equina syndrome status post lumbar decompression and partial laminectomy October 2022 with resultant right leg weakness.? He presents to the office today for follow-up of his incomplete bladder emptying, neurogenic bladder, and lower urinary tract symptoms. In discussion with the patient today reports compliance with bethanechol and finasteride daily as prescribed. He reports to be doing and feeling well. In office urinalysis unable to be obtain as patient is unable to void however PVR 0 mL. Patient discusses feeling timed voiding is helpful. Recent workup has included a retroperitoneal ultrasound noting right kidney with no calculi or hydronephrosis. 2.4 cm simple peripelvic cysts. No follow-up imaging is recommended per radiology report. Left kidney with no calculi or hydronephrosis. 1.5 cm simple cyst in the mid kidney. No follow-up imaging is recommended per radiology report. The bladder is partially distended. Bilateral ureteral jets are demonstrated. Pre void bladder volume is 132 mL. The patient was not able to void. The prostate is enlarged at 43 mLs. Discussed at length potential side effects of most recent spinal surgery could be related however will attempt to assist in improving symptoms if possible. In review of patient's chart it appears PSA 09/23--0.4. Patient otherwise denies hematuria, dysuria, foul smelling urine, changes to urinary stream, flank pain, fever, and or chills. PFSH Surgical History History of lumbar surgery History of esophagogastroduodenoscopy (EGD) Hx of colonoscopy Social History Alcohol intake: current Alcohol intake frequency: holidays/special occasions only Patient Tobacco Use Status: Never used Tobacco Review of Systems Const Reports as per HPI Eyes Reports no additional complaints ENT Reports no additional complaints Card Reports as per HPI Resp Reports no additional complaints GI Reports no additional complaints Reports as per HPI Musc Reports as per HPI Neuro Reports as per HPI Psych Reports no additional complaints Bam/Lymph Reports no additional complaints Aller/Immun Reports no additional complaints Physical Exam Const General: cooperative, healthy appearing, comfortable, no acute distress, well developed, alert and awake Orientation/consciousness: patient oriented x3 Limitations: wheelchair HEENT Head: Yes normal to inspection, Yes normocephalic and Yes atraumatic Ears: hearing grossly normal bilaterally Eyes General: appearance normal, both eyes and all related structures Neck Neck: Yes normal visual inspection and Yes trachea midline Chest Chest palpation & inspection: normal inspection of the chest Resp Effort & Inspection: able to speak in complete sentences Cardio Rate: regular rate GI Inspection: Yes normal to inspection General: Yes no CVA tenderness Back/Spine/Pelvis Back: no CVA tenderness Skin General skin exam: no rashes or lesions noted Neuro General: patient oriented x3 Extrem General: Yes normal to inspection Psych Appearance: grossly normal and well kempt Mental Status: mental status grossly normal Speech and movement: Clear speech present Affect: normal affect Attitude: cooperative Thought process: Normal thought process present Thought content: Normal thought content present Insight: Fair insight present (Psych) Judgement: Fair judgement present (Psych) Office Procedures Post Void Residual Post Residual Void Post Void Residual (PVR): 0 [id number]-[id number] Void Residual by ultrasound Assessment & Plan Assessment & Plan (1) Incomplete bladder emptying: Code(s): R33.9 - Retention of urine, unspecified (2) Urinary incontinence, urge: Code(s): N39.41 - Urge incontinence (3) Renal cyst: Code(s): N28.1 - Cyst of kidney, acquired (4) Neurogenic bladder: Code(s): N31.9 - Neuromuscular dysfunction of bladder, unspecified Plan Unable to obtain urine for urinalysis as patient unable to void however PVR 0 mL. Continue bethanechol and finasteride as discussed and prescribed. Patient denies any bothersome urinary issues or concerns at this time. Continue with scheduled toileting Follow-up in 3 months with PVR; or sooner with any issues, concerns, and or questions. Orders: Orders AMB Post Void Residual by ultrasound Today N39.41 - Urge incontinence Medications: Refilled bethanechol chloride 50 mg PO BID 30 days 60 tabs 3RF N39.0 - Urinary tract infection, site not specified Patient Instructions: The patient had an opportunity to ask questions regarding the treatment plan. All questions were answered. Physical exam, labs, and imaging were discussed and reviewed in detail. As well as risks, benefits, and discussion of treatment choices. No major barriers to understanding were identified. The patient expressed understanding and agreement with the above treatment plan. The patient was made aware they should contact our office by phone for worsening of their current condition, the appearance of new symptoms, or with any questions or concerns. Compliance is encouraged with any medications and follow up testing that is ordered. It is a privilege to be allowed the opportunity to participate in? your urological care.? Again, if you have any questions or concerns If you have any questions or concerns please do not hesitate to contact me. The office is [phone]. This note is constructed using voice recognition software. While every effort has been made to ensure accuracy office support clerk errors may have been included. Yours sincerely, ESTELA Cesar Coding Level of Care Code Est Pt Level 3 (76399) Diagnoses Incomplete bladder emptying R33.9 Urinary incontinence, urge N39.41 Renal cyst N28.1 Neurogenic bladder N31.9 CPT Codes Post Residual Void - PVR CPT Code: 36857-Lfnc Void Residual by ultrasound ([id number])
== END 2023-07-15 12:14 | disposition home or self-care (01) ==
LOC: HO.HUSH 11:27
PROVIDERS: PCP Internal Medicine; Visit Provider Nurse Practitioner Family
DX: R33.9 Retention of urine, unspecified (principal); N39.41 Urge incontinence; N28.1 Cyst of kidney, acquired; N31.9 Neuromuscular dysfunction of bladder, unspecified
CPT/HCPCS: 99213

== ENCOUNTER → 2023-07-15 11:27 | Outpatient (BNVA) | payer OTHER, SELFPAY | PROVIDERS: PCP Internal Medicine; Visit Provider Nurse Practitioner Family | DX: N39.41 Urge incontinence (principal); N28.1 Cyst of kidney, acquired; N31.9 Neuromuscular dysfunction of bladder, unspecified; R33.9 Retention of urine, unspecified | CPT/HCPCS: 51798; 99212 ==

== ENCOUNTER 2023-10-07 15:34 | Outpatient (REF) | payer MEDICARE, SELFPAY ==
[2023-10-07 15:50] LABS: MANUAL DIFF FLAG NO
[2023-10-07 17:09] LABS: Basophils Percent Auto 0.4 % (0-2); Eosinophils Absolute Auto 0.4 X10*3/uL (0.0-0.4); Eosinophils Percent Auto 5.2 % (0-4); Hematocrit 43.3 % (42.0-52.0); Hemoglobin 14.6 g/dl (14.0-18.0); Imm Gran Abs Auto 0.03 X10*3/uL (0.00-0.03); Imm Gran Pct Auto 0.4 % (0.0-0.4); Lymphocytes Absolute Auto 1.2 X10*3/uL (1.2-4.9); Lymphocytes Percent Auto 14.5 % (20-40); Mean Corpuscular HGB Conc 33.7 g/dl (31.0-36.0); Mean Corpuscular Hemoglobin 29.9 pg (27.0-33.0); Mean Corpuscular Volume 88.7 fL (80.0-98.0); Mean Platelet Volume 9.4 fL (9.4-12.4); Monocytes Absolute Auto 0.8 X10*3/uL (0.1-1.2); Monocytes Percent Auto 10.2 % (2-11); Neutrophils Absolute Auto 5.6 x10*3/uL (2.0-8.3); Neutrophils Percent Auto 69.3 % (45-73); Platelet Count 292 X10*3/uL (160-400); Red Blood Count 4.88 X10*6/uL (4.60-5.80); Red Cell Distribution Width 13.2 % (11.0-16.0); White Blood Count 8.1 X10*3/uL (4.8-10.8)
[2023-10-07 17:46] LABS: Alanine Aminotransferase 22 U/L (0-40); Albumin Level 3.8 g/dL (3.5-5.0); Alkaline Phosphatase 124 U/L (39-117); Anion Gap 15 (12-20); Aspartate Amino Transferase 18 U/L (5-37); Bilirubin Total 0.5 mg/dL (0.0-1.0); Blood Urea Nitrogen 16 mg/dL (9-16); Calcium 9.1 mg/dL (8.4-10.2); Carbon Dioxide 22 mmol/L (22-29); Chloride 106 mmol/L (96-108); Estimated Glomerular Filt Rate > 60; Glucose Random 109 mg/dL (60-115); Potassium 4.1 mmol/L (3.3-5.1); Sodium 139 mmol/L (135-145); Total Protein 6.7 g/dL (6.5-8.0)
== END 2023-10-07 15:35 | disposition home or self-care (01) ==
LOC: HO.LAB 15:34
PROVIDERS: PCP Internal Medicine; Visit Provider Internal Medicine
DX: I10 Essential (primary) hypertension (principal); I25.10 Atherosclerotic heart disease of native coronary artery without angina pectoris; R25.1 Tremor, unspecified
CPT/HCPCS: 36415; 80053; 84439; 85025

== ENCOUNTER 2023-11-18 11:52 | Outpatient (AMB) | payer OTHER, SELFPAY ==
--- NOTE | 2023-11-18 11:57 | A.OFFVIS_ITS ---
Intake Intake Visit Reasons: 3 month flu PVR Intake Note: Patient presents today for a follow-up Meds- Finasteride Allergies to Antibiotic- No Known Allergies Blood Thinner- Aspirin Post Void Residual: 72ml No urine was provided in today's visit Customs And Immigration Officer Required: No Accompanied by: Self / Same As Patient Allergies No Known Allergies Allergy (Verified 11/18/23 20:21) Medication List - Last Reconciled 11/18/23 by JENI Cesar- aspirin 81 mg PO DAILY atorvastatin 20 mg PO BEDTIME bethanechol chloride 50 mg PO BID 30 days duloxetine 30 mg PO DAILY ferrous sulfate 325 mg PO DAILY finasteride 5 mg PO DAILY latanoprost 0.005% 1 drp ophthalmic (eye) QPM metoprolol tartrate 25 mg PO DAILY omeprazole 20 mg PO DAILY simvastatin 20 mg PO DAILY vit C,C-Og-vnkxb-lutein-zeaxan 250-90-40-1 mg (PreserVision AREDS-2) 1 tab PO BID HPI HPI Comments History of Present Illness Details Liliam Hsieh Is a very pleasant 88-year-old male patient of Dr. Richards the was accompanied by his Shannan at today's visit. He has a past medical history of coronary disease status post PCI 2016, hypertension, hyperlipidemia, glaucoma, macular degeneration, type 3 paraesophageal hernia, recent L3-L4 lumbar spinal stenosis leading to cauda equina syndrome status post lumbar decompression and partial laminectomy October 2022 with resultant right leg weakness.? He presents to the office today for follow-up of his incomplete bladder emptying, neurogenic bladder, and lower urinary tract symptoms. In discussion with the patient today reports compliance with bethanechol and finasteride daily as prescribed. He reports to be doing and feeling well. Unable to obtain urine for urinalysis however PVR 72mls. Previous workup has included a retroperitoneal ultrasound noting right kidney with no calculi or hydronephrosis. 2.4 cm simple peripelvic cysts. No follow-up imaging is recommended per radiology report. Left kidney with no calculi or hydronephrosis. 1.5 cm simple cyst in the mid kidney. No follow-up imaging is recommended per radiology report. The bladder is partially distended. Bilateral ureteral jets are demonstrated. Pre void bladder volume is 132 mL. The patient was not able to void. The prostate is enlarged at 43 mLs. Discussed at length potential side effects of most recent spinal surgery could be related however will attempt to assist in improving symptoms if possible. In review of patient's chart it appears PSA 09/23--0.4. He discusses continuation of urinary incontinence. He otherwise denies hematuria, dysuria, foul smelling urine, changes to urinary stream, flank pain, fever, and or chills. PFSH Surgical History History of lumbar surgery History of esophagogastroduodenoscopy (EGD) Hx of colonoscopy Social History Alcohol intake: current Alcohol intake frequency: holidays/special occasions only Patient Tobacco Use Status: Never used Tobacco Review of Systems Const Reports as per HPI Eyes Reports no additional complaints ENT Reports no additional complaints Card Reports as per [facility] Resp Reports no additional complaints GI Reports no additional complaints Reports as per HPI Musc Reports as per HPI Neuro Reports as per HPI Psych Reports no additional complaints Bam/Lymph Reports no additional complaints Aller/Immun Reports no additional complaints Physical Exam Const General: cooperative, healthy appearing, comfortable, no acute distress, well developed, alert and awake Orientation/consciousness: patient oriented x3 Limitations: wheelchair HEENT Head: Yes normal to inspection, Yes normocephalic and Yes atraumatic Ears: hearing grossly normal bilaterally Eyes General: appearance normal, both eyes and all related structures Neck Neck: Yes normal visual inspection and Yes trachea midline Chest Chest palpation & inspection: normal inspection of the chest Resp Effort & Inspection: able to speak in complete sentences Cardio Rate: regular rate GI Inspection: Yes normal to inspection General: Yes no CVA tenderness Back/Spine/Pelvis Back: no CVA tenderness Skin General skin exam: no rashes or lesions noted Neuro General: patient oriented x3 Extrem General: Yes normal to inspection Psych Appearance: grossly normal and well kempt Mental Status: mental status grossly normal Speech and movement: Clear speech present Affect: normal affect Attitude: cooperative Thought process: Normal thought process present Thought content: Normal thought content present Insight: Fair insight present (Psych) Judgement: Fair judgement present (Psych) Office Procedures Post Void Residual Post Residual Void Post Void Residual (PVR): 72 [id number]-[id number] Void Residual by ultrasound Assessment & Plan Assessment & Plan (1) Incomplete bladder emptying: Code(s): R33.9 - Retention of urine, unspecified (2) Urinary incontinence, urge: Code(s): N39.41 - Urge incontinence (3) Renal cyst: Code(s): N28.1 - Cyst of kidney, acquired (4) Neurogenic bladder: Code(s): N31.9 - Neuromuscular dysfunction of bladder, unspecified Plan Unable to obtain urine for urinalysis as patient unable to void however PVR 72ml's Continue bethanechol and finasteride as discussed and prescribed. Discussed obtaining dribble stop to assist with urinary incontinence. Continue with scheduled toileting. Discussed in office cystoscopy for further assessment evaluation. Discussed given history of incomplete bladder emptying/urinary retention ove ractive bladder medications can cause an increase in these issues. Follow-up in office cystoscopy; or sooner with any issues, concerns, and or questions. Orders: Orders AMB Post Void Residual by ultrasound Today R33.9 - Retention of urine, unspecified Patient Instructions: The patient had an opportunity to ask questions regarding the treatment plan. All questions were answered. Physical exam, labs, and imaging were discussed and reviewed in detail. As well as risks, benefits, and discussion of treatment choices. No major barriers to understanding were identified. The patient expressed understanding and agreement with the above treatment plan. The patient was made aware they should contact our office by phone for worsening of their current condition, the appearance of new symptoms, or with any questions or concerns. Compliance is encouraged with any medications and follow up testing that is ordered. It is a privilege to be allowed the opportunity to participate in? your urological care.? Again, if you have any questions or concerns If you have any questions or concerns please do not hesitate to contact me. The office is [phone]. This note is constructed using voice recognition software. While every effort h as been made to ensure accuracy keg varnisher errors may have been included. Yours sincerely, ESTELA Cesar Coding Level of Care Code Est Pt Level 3 (38831) Diagnoses Incomplete bladder emptying R33.9 Urinary incontinence, urge N39.41 Renal cyst N28.1 Neurogenic bladder N31.9 CPT Codes Post Residual Void - PVR CPT Code: 36344-Sgoz Void Residual by ultrasound ([id number])
== END 2023-11-18 12:26 | disposition home or self-care (01) ==
LOC: HO.HUSH 11:52
PROVIDERS: PCP Internal Medicine; Visit Provider Nurse Practitioner Family
DX: R33.9 Retention of urine, unspecified (principal); N39.41 Urge incontinence; N28.1 Cyst of kidney, acquired; N31.9 Neuromuscular dysfunction of bladder, unspecified
CPT/HCPCS: 99213

== ENCOUNTER → 2023-11-18 11:52 | Outpatient (BNVA) | payer OTHER, SELFPAY | PROVIDERS: PCP Internal Medicine; Visit Provider Nurse Practitioner Family | DX: N40.1 Benign prostatic hyperplasia with lower urinary tract symptoms (principal); N13.8 Other obstructive and reflux uropathy; R33.9 Retention of urine, unspecified; N31.9 Neuromuscular dysfunction of bladder, unspecified; N39.41 Urge incontinence; N28.1 Cyst of kidney, acquired | CPT/HCPCS: 51798; 99212 ==

== ENCOUNTER 2024-01-01 16:03 | Outpatient (REF) | payer OTHER, SELFPAY ==
[2024-01-01 17:50] LABS: Prostate Specific Antigen 0.55 ng/mL (<0.05-4.0)
== END 2024-01-01 16:04 | disposition home or self-care (01) ==
LOC: HO.LAB 16:03
PROVIDERS: PCP Internal Medicine; Visit Provider Nurse Practitioner Family
DX: Z12.5 Encounter for screening for malignant neoplasm of prostate (principal); R33.9 Retention of urine, unspecified
CPT/HCPCS: 36415; 84153

== ENCOUNTER 2024-01-08 10:27 | Outpatient (AMB) | payer OTHER, SELFPAY ==
--- NOTE | 2024-01-08 10:33 | MHC.OFFVIS ---
Intake Visit Reasons: cysto/PSA(set) Intake Note: Patient is Present for Cystoscopy. Previously seen Ml JESSICA Urology Med: Bethanechol, Finasteride Antibiotic Allergy:None Blood Thinner:Aspirin Last PVR: 72 URO- G Disposable Cystoscope lot:[id number] exp:07/10/26 Allergies No Known Allergies Allergy (Verified 01/08/24 10:34) HPI Comments Details: Jori is a very pleasant male. He is a patient of Dr. Richards. He seen for the following urologic conditions - neurogenic bladder - lower urinary tract symptoms Cystoscopy with incomplete bladder emptying Has combination of overflow incontinence in on sensor incontinence Discussed CIC versus penile clamp Will trial CIC. May need suprapubic catheter with clamp or deflux injection Successful CIC teaching. Is expected to use 14 Anguillan straight catheter indefinitely for neurogenic bladder. Lower urinary tract symptoms Symptoms started after lumbar decompression and partial laminectomy in October 2022 Has been treated with bethanechol and finasteride Prior PVR under 100 cc Prostate ultrasound measured at 40 cc PSA 09/23 0.4, 01/22 0.6 PFSH Surgical History History of lumbar surgery History of esophagogastroduodenoscopy (EGD) Hx of colonoscopy Social History Alcohol intake: current Alcohol intake frequency: holidays/special occasions only Patient Tobacco Use Status: Never used Tobacco Review of Systems Const Denies chills and Denies fever(s) Card Reports no additional complaints and Denies syncope Resp Denies cough GI Denies abdominal pain and Denies heartburn Reports as per HPI and Denies change in libido Neuro Denies syncope Psych Denies change in libido Endo Denies change in libido Physical Exam Const General: cooperative, healthy appearing, comfortable and no acute distress Orientation/consciousness: patient oriented x3 HEENT Face and sinus: Yes normal facial exam Mouth: moist mucous membranes Neck Neck: Yes normal visual inspection, Yes full ROM and Yes trachea midline Chest Chest palpation & inspection: normal inspection of the chest Resp Effort & Inspection: normal respiratory effort, able to speak in complete sentences and no respiratory distress GI Inspection: Yes normal to inspection Back/Spine/Pelvis Cervical Spine: normal cervical lordosis Thoracic/Lumbar Spine: thoracic and lumbar spine normal to inspection Skin General skin exam: no rashes or lesions noted Neuro General: patient oriented x3, gait normal, tone normal and moves all extremities Extrem General: Yes normal to inspection and Yes capillary refill normal Office Procedures Cystoscopy Consent Discussed risk and benefit or proposed procedure with the patient. Information consent for procedure given to the patient. Discussed technical aspects, risks, benefits and alternatives in full. Addressed all of the patient's questions and concerns regarding the procedure. The patient demonstrated knowledge and understanding. They wish to proceed with this procedure. Preparation The patient was prepped in the usual manner. A log raft worker was present and in the room. Genitalia was prepped with betadine solution in a sterile manner. Lidocaine Jelly 2% was placed into the urethra and 16Fr flexible Olympus cystoscope was inserted into the meatus after adequate lubrication. Procedure Cystoscopy performed using a disposable Urovue digital 16 Anguillan cystoscope. Meatus circumcised Urethra anterior and posterior urethra normal Prostatic Urethra unremarkable Bladder examination with retroflexion of cystoscope Bladder Orifices normal shape and position Bladder Capacity large Trabeculations moderate Cellule Formation - Diverticulum Formation - Mucosal Erythema -- Bladder Tumor - 29310-[id number] DISPOSABLE SCOPE URO-G FLEXIBLE SCOPE Procedure code (CPT) selection complete Office Meds lidocaine HCl 2 % mucosal jelly in applicator Performing Provider: Calro Camacho MD Performing Location: [facility] Administered by: Kia Shi RN on 01/08/24 10:49 Dose Route Admin Location Dispensed Lot Number Expiration Date ND Shank Threader 10 mL intra-urethral 10 mL nitrofurantoin monohydrate/macrocrystals 100 mg capsule Performing Provider: Carlo Camacho MD Performing Location: [facility] Administered by: Kia Shi RN on 01/08/24 10:49 Dose Route Admin Location Dispensed Lot Number Expiration Date NDC Shank Threader 100 mg PO 1 cap naproxen 500 mg tablet Performing Provider: Carlo Camacho MD Performing Location: [facility] Administered by: Kia Shi RN on 01/08/24 10:49 Dose Route Admin Location Dispensed Lot Number Expiration Date NDC Shank Threader 500 mg PO 1 tab Assessment & Plan Assessment & Plan (1) Neurogenic bladder: Code(s): N31.9 - Neuromuscular dysfunction of bladder, unspecified Category: Medical (2) Urinary incontinence, urge: Code(s): N39.41 - Urge incontinence Category: Medical (3) Incomplete bladder emptying: Code(s): R33.9 - Retention of urine, unspecified Category: Medical Plan Progressive neurogenic bladder Nursing staff was able to instruct and teach CIC Fourteen Anguillan straight cath Initial instruction 4 times daily Orders: Orders AMB Cystoscopy Today R33.9 - Retention of urine, unspecified AMB Urinalysis Automated Today Z13.9 - Encounter for screening, unspecified Patient Instructions: Imaging studies, laboratory and physical exam results were discussed and reviewed in detail. No major barriers to patient understanding were identified. An opportunity to ask questions regarding the treatment plan was provided. All questions were answered. The patient expressed understanding and agreement with the above treatment plan. The patient is aware they should contact our office by phone for worsening of their current condition or the appearance of new urologic symptoms. Compliance is encouraged with any medications and followup testing that is ordered. It is a privilege to participate in the urologic care of your patient. If you have any questions or concerns regarding treatment for the above conditions, or other urologic issues, please do not hesitate to contact me. The office telephone contact is [phone]. This note is constructed using voice recognition software. While every effort has been made to ensure accuracy regional medical director errors may have been included. Yours sincerely, Dr Carlo Camacho MD, [facility] - Urology Providers of Expert, Compassionate Care for the Genitourinary System Coding Level of Care Code Est Pt Level 5 (68254) Diagnoses Neurogenic bladder N31.9 Urinary incontinence, urge N39.41 Incomplete bladder emptying R33.9 CPT Codes Cystoscopy - CPT: 62702-Rjlaejubeb ([id number])
== END 2024-01-08 11:44 | disposition home or self-care (01) ==
LOC: HO.HUSH 10:27
PROVIDERS: PCP Internal Medicine; Visit Provider Urology
DX: N31.9 Neuromuscular dysfunction of bladder, unspecified (principal); N39.41 Urge incontinence; R33.9 Retention of urine, unspecified
CPT/HCPCS: 52000; 99214

== ENCOUNTER → 2024-01-08 10:27 | Outpatient (BNVA) | payer OTHER, SELFPAY | PROVIDERS: PCP Internal Medicine; Visit Provider Urology | DX: N31.9 Neuromuscular dysfunction of bladder, unspecified (principal); N39.41 Urge incontinence; R33.9 Retention of urine, unspecified | CPT/HCPCS: 52000; 99212 ==

== ENCOUNTER 2024-07-09 10:43 | Outpatient (AMB) | payer MEDICARE, SELFPAY ==
--- NOTE | 2024-07-09 11:10 | MHC.OFFVIS ---
Intake Visit Reasons: 6m follow up Intake Note: Patient is Present for Follow Up Neurogenic Bladder Urology Medication: Bethanechol, Finasteride Antibiotic Allergies: None Blood Thinners: Aspirin Had successful CIC Teaching Recent PSA: 01/01/2024 0.55 Circular Sawyer Stone Required: No Slitter And Cutter Operator: Slitter And Cutter Operator Present Accompanied by: Spouse Allergies No Known Allergies Allergy (Verified 07/09/24 11:17) HPI Comments Details: Jori is a very pleasant male. He is a patient of Dr. Richards. He seen for the following urologic conditions - neurogenic bladder - lower urinary tract symptoms Follow-up from CIC teaching - has been unable to perform secondary to hand dexterity issues Uses 14 Estonian straight catheter Expected to continue for indefinite period secondary to neurogenic bladder with detrusor dysfunction Using 5-6 pads per day Trial Hendrix catheter Neurogenic bladder Prior cystoscopy with incomplete emptying Combination of overflow incontinence and unsensed incontinence Lower urinary tract symptoms Symptoms started after lumbar decompression and partial laminectomy in October 2022 Has been treated with bethanechol and finasteride Prior PVR under 100 cc Prostate ultrasound measured at 40 cc PSA 09/23 0.4, 01/22 0.6 PFSH Surgical History History of lumbar surgery History of esophagogastroduodenoscopy (EGD) Hx of colonoscopy Social History Alcohol intake: current Alcohol intake frequency: holidays/special occasions only Patient Tobacco Use Status: Never used Tobacco Review of Systems Const Denies chills and Denies fever(s) Card Reports no additional complaints and Denies syncope Resp Denies cough GI Denies abdominal pain and Denies heartburn Reports as per HPI and Denies change in libido Neuro Denies syncope Psych Denies change in libido Endo Denies change in libido Physical Exam Const General: cooperative, healthy appearing, comfortable and no acute distress Orientation/consciousness: patient oriented x3 HEENT Face and sinus: Yes normal facial exam Mouth: moist mucous membranes Neck Neck: Yes normal visual inspection, Yes full ROM and Yes trachea midline Chest Chest palpation & inspection: normal inspection of the chest Resp Effort & Inspection: normal respiratory effort, able to speak in complete sentences and no respiratory distress GI Inspection: Yes normal to inspection Back/Spine/Pelvis Cervical Spine: normal cervical lordosis Thoracic/Lumbar Spine: thoracic and lumbar spine normal to inspection Skin General skin exam: no rashes or lesions noted Neuro General: patient oriented x3, gait normal, tone normal and moves all extremities Extrem General: Yes normal to inspection and Yes capillary refill normal Office Procedures Bladder/Catheter Procedure Details: Per Dr. Camacho insert catheter for patient as he continues to have trouble with doing CIC. Inserted 16fr hendrix catheter 10ml balloon with blue plug, patient tolerated well. Patient to schedule change in 4 weeks with nursing and provider to schedule SPT if patient cannot void at next scheduled appt with nursing. [id number] Temporary Bladder Catheter Procedure code (CPT) selection complete Assessment & Plan Assessment & Plan (1) Urinary incontinence, urge: Code(s): N39.41 - Urge incontinence Category: Medical (2) Neurogenic bladder: Code(s): N31.9 - Neuromuscular dysfunction of bladder, unspecified Category: Medical Plan Indwelling Hendrix catheter with cap Orders: Orders AMB Bladder/Catheter Procedure 07/09/24 N31.9 - Neuromuscular dysfunction of bladder, unspecified, N39.41 - Urge incontinence, R39.15 - Urgency of urination Patient Instructions: Imaging studies, laboratory and physical exam results were discussed and reviewed in detail. No major barriers to patient understanding were identified. An opportunity to ask questions regarding the treatment plan was provided. All questions were answered. The patient expressed understanding and agreement with the above treatment plan. The patient is aware they should contact our office by phone for worsening of their current condition or the appearance of new urologic symptoms. Compliance is encouraged with any medications and followup testing that is ordered. It is a privilege to participate in the urologic care of your patient. If you have any questions or concerns regarding treatment for the above conditions, or other urologic issues, please do not hesitate to contact me. The office telephone contact is [phone]. This note is constructed using voice recognition software. While every effort has been made to ensure accuracy wool sorter errors may have been included. Yours sincerely, Dr Carlo Camacho MD, [facility] - Urology Providers of Expert, Compassionate Care for the Genitourinary System Coding Level of Care Code Est Pt Level 4 (33470) Diagnoses Urinary incontinence, urge N39.41 Neurogenic bladder N31.9 CPT Codes Bladder/Catheter Procedure - CPT: 63624-[id number] Temporary Bladder Catheter ([id number])
== END 2024-07-09 11:51 | disposition home or self-care (01) ==
PROVIDERS: PCP Internal Medicine; Visit Provider Urology
DX: N31.9 Neuromuscular dysfunction of bladder, unspecified (principal)
CPT/HCPCS: 51702; 99214

== ENCOUNTER → 2024-07-09 10:43 | Outpatient (BNVA) | payer MEDICARE, SELFPAY | PROVIDERS: PCP Internal Medicine; Visit Provider Urology | DX: N31.9 Neuromuscular dysfunction of bladder, unspecified (principal); N39.41 Urge incontinence | CPT/HCPCS: 51702; 99212 ==

== ENCOUNTER 2025-01-12 11:39 | Outpatient (AMB) | payer MEDICARE, SELFPAY ==
--- NOTE | 2025-01-12 09:14 | MHC.PC.OV ---
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 Accompanied by: Self / Same As Patient Allergies No Known Allergies Allergy (Verified 01/12/25 09:15) Tobacco use date assessed: 01/12/25 Fall risk assessment: 1 Fall in past year Last assessed Fall Risk: 01/12/25 Dental Screening Dental Screen Date: 01/12/25 Did you have a dental visit in the last 12 months?: Yes Did you have a dental problem in the last 6 months where you did not have access to dental care?: No [facility] Surgical History History of lumbar surgery History of esophagogastroduodenoscopy (EGD) Hx of colonoscopy Family History (Updated 01/12/25 @ 11:52 by Eliz Soares MA) Mother No problems noted. Father No problems noted. Social History Housing: House Alcohol intake: current Alcohol intake frequency: holidays/special occasions only Patient Tobacco Use Status: Former Tobacco user e-Cigarette/Vaping Use: Former Use service: No Current occupational status: retired Cognitive needs: Yes (walker) Hearing needs: Yes (bilateral hearing aids) Vision needs: Yes (rx glasses) Questionnaire PHQ-9 Over the last 2 weeks, how often have you been bothered by any of the following problems? 1. Little interest or pleasure in doing things: not at all 2. Feeling down, depressed, or hopeless: not at all 3. Trouble falling or staying asleep, or sleeping too much: not at all 4. Feeling tired or having little energy: not at all 5. Poor appetite or overeating: not at all 6. Feeling bad about yourself - or that you are a failure or have let yourself or your family down: not at all 7. Trouble concentrating on things, such as reading the newspaper or watching television: not at all 8. Moving or speaking so slowly that other people could have noticed. Or the opposite - being so fidgety or restless that you have been moving around a lot more than usual: not at all 9. Thoughts that you would be better off or of hurting yourself in some way: not at all Total score: 0 Source: Developed by Drs. Octavio Carrillo, Shannan Vargas, Rene Carrillo and colleagues, with an educational glenna from [employer]. Thrive Questionnaire Date Thrive assessed: 01/12/25 I am a: Patient Within the past 12 months, did the food you bought not last and you didn't have the money to get more?: Never true Within the past 12 months, did you worry whether your food would run out before you got money to buy more?: Never true Do you have trouble paying for medicines?: No Do you have trouble getting transportation to medical appointments?: No Do you have trouble paying your heating and electricity bill?: No Do you have trouble taking care of your child, family member or friend?: No Do you have trouble with day-to-day activities such as bathing, preparing meals, shopping, managing finances, etc.?: No Are you currently unemployed and looking for a job?: No Are you interested in more education?: No THRIVE Score: 0 AUDIT C Alcohol Use Questionnaire (AUDIT-C) 1. How often do you have a drink containing alcohol?: Monthly or less 2. How many drinks containing alcohol do you have on a typical day when you are drinking?: 1 or 2 3. How often do you have six or more drinks on one occasion?: Less than monthly Total Score: 2 DAISY-7 AMB Questionnaire DAISY-7 Date DAISY - 7 assessed: 01/12/25 Feeling nervous, anxious, or on edge: 0 = Not at all Not being able to stop or control worryin = Not at all Worrying too much about different things: 0 = Not at all Trouble relaxin = Not at all Being so restless that it is hard to sit still: 0 = Not at all Becoming easily annoyed or irritable: 0 = Not at all Feeling afraid as if something awful might happen: 0 = Not at all Total DAISY-7 score (0-4 normal; 5-9 mild; 10-14 moderate; 15-21 severe): 0 Source: Developed by Drs. Octavio Carrillo, Shannan Vargas, Rene Carrillo and colleagues, with an educational glenna from [employer]. Physical exam (Primary Care) Vital Signs: Last Vital Signs Temp 97.6 F 01/12/25 09:22 Pulse 80 01/12/25 09:22 BP 130/76 01/12/25 09:22 Pulse Ox 98 01/12/25 09:22 Oxygen Delivery Method Room Air 01/12/25 09:22 BMI result Body Mass Index 31.0 Tobacco/Smoking Status: Tobacco use Status Tobacco use date assessed 01/12/25 01/12/25 09:18 Patient Tobacco Use Status Former Tobacco user 01/12/25 11:53 e-Cigarette/Vaping Use Former Use 01/12/25 11:53 PHQ-9: PHQ-9 Score PHQ-9: Total score 0 01/12/25 11:58 Thrive Assessment: Date of Thrive Assessment Date Thrive assessed 01/12/25 01/12/25 09:20 Coding Level of Care Code New Pt Level 4 (16922) Complex EM visit Add On G2211 Diagnoses Coronary artery disease I25.10 Assessment & Plan Assessment & Plan (1) Coronary artery disease: Code(s): I25.10 - Atherosclerotic heart disease of [place] coronary artery without angina pectoris Category: Medical Plan: Condition is stable Plan History of Present Illness The patient is an 89-year-old male presenting with the need for medication review and management of his chronic conditions. Recently, the patient and his family discussed stopping some medications, raising concerns about their necessity. He mentions post-surgical diminished sensation and struggles with urinary incontinence ever since a spinal decompression surgery. Previously, he had a suspected urinary tract infection in July, which caused dizziness and instability. The patient has had intermittent physical therapy which is now ongoing, but a lapse due to provider transition had adversely affected his strength and brace use. Concerns regarding memory issues were expressed. Furthermore, findings of a hiatal and esophageal hernia revealed in a past follow-up after spinal surgery have currently shown no symptoms warranting immediate surgery. The patient lives independently with his spouse at a long term facility. Social History - Resides in an independent long term facility, [facility], with his . - Meals are provided at his residence. 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 - Has a daughter who is actively involved in his care. - Patient has not been personally driving for the past year. Review of Systems - Neurological: Reports challenges with memory. - Gastrointestinal: Reports no current symptoms from hiatal hernia. - Genitourinary: Reports urinary incontinence. Denies urinary retention. - Musculoskeletal: Reports using physical therapy for strengthening. - Psychiatric: Reports history of depression. Physical Exam General: Cooperative and healthy appearing Nutritional Appearance: Well nourished Orientation/consciousness: Patient oriented x3 Limitations: No limitations Head: Normal to inspection General: Appearance normal, both eyes and all related structures Neck: Normal visual inspection Chest: Normal palpation of entire chest wall Respiratory: N ormal respiratory effort Neurology: Patient occasionally feels confused and does not keep track of the day and dates. Results Plan 1. Urinary Incontinence - Continue finasteride, monitor symptoms, consult urologist as required. 2. Spinal Decompression Surgery - Maintain physical therapy, reinforce leg brace use. 3. Hiatal And Esophageal Hernia - Monitor symptoms, not currently requiring surgery. 4. Memory Loss - Provide supportive measures for memory maintenance. 5. Hyperlipidemia - Option to stop statin discussed. 6. Depression - Continue duloxetine. 7. Prostatic Hypertrophy - Maintain current management. Discussion Notes During the consultation, we discussed the patient's multiple chronic conditions and their management. Urinary incontinence management was emphasized, with a focus on the continuing need for finasteride. We thoroughly reviewed his medication regimen, allowing the option to discontinue certain medications like the statin if desired, while emphasizing the importance of his current prostate medications. The role of physical therapy in recovering muscle strength post-spinal surgery was underscored. The patient and family were reassured about the current symptom-free status of his hiatal hernia, which does not need surgical intervention at this time. Memory concerns were addressed with suggestions on supportive strategies. I advised on making necessary changes to ensure continuity in his physical therapy to prevent loss of progress due to care gaps, and we agreed to continue ongoing management strategies for his depression. Patient Instructions - Continue taking current prescribed medications unless advised otherwise. - Stay consistent with physical therapy to improve strength and mobility. - Monitor and report any changes in urinary symptoms or new health concerns. - Optionally discontinue the statin medication, but keep in touch regularly to reassess. - Use supportive measures for memory, such as a routine and memory aids. - Contact my office if any new or worsening symptoms arise or for further assistance with physical therapy needs. - Bloodwork can be done at convenience, but not urgently needed. Orders: Orders Lipid Panel 01/12/25 I25.10 - Atherosclerotic heart disease of [place] coronary artery without angina pectoris Basic Metabolic Panel 01/12/25 I25.10 - Atherosclerotic heart disease of [place] coronary artery without angina pectoris Complete Blood Count no Diff 01/12/25 I25.10 - Atherosclerotic heart disease of [place] coronary artery without angina pectoris Liver Panel 01/12/25 I25.10 - Atherosclerotic heart disease of [place] coronary artery without angina pectoris Thyroid Stimulating Hormone 01/12/25 I25.10 - Atherosclerotic heart disease of [place] coronary artery without angina pectoris UA and rflx microscopic 01/12/25 I25.10 - Atherosclerotic heart disease of [place] coronary artery without angina pectoris
[2025-01-12 09:22] VITALS: BP 130/76; PULSE 80; TEMP 36.4; O2SAT 98; BMI 31.0
--- OUTSIDE RECORDS SUMMARY | 2025-01-12 12:32 | XMS_ITS ---
Author Name [facility] [place] [facility] [place] Address [address] [place] [id number] Care Team Providers Care Slubber Hand Name Role Phone RUEL DOUGLASS Primary Care Provider Unav ailable SILVIA DAVID Primary Care Provider Unavailabl e Insurance Providers: All historical and current Section Date Range: From patient's date of to the date document was created. This section includes the names of all active insurance providers for the patient. Insurance Provider Type of Coverage Plan Name Start of Policy Coverage End of Policy Coverage Group Number Member ID Insurance Provider's Telephone Number Policy Soliz's Name Patient's Relationship to Policy Soliz [employer] MEDICARE SUPPLEMEN RUBÉN PLAN G Aug 01, 2017 PLAN G [id number] Raymond ARAIZA PATIENT AARP MED SUPP MEDIGAP PLAN G PLAN G Aug 01, 2017 PLAN G [id number] Raymond ARAIZA PATIENT AARP MED SUPP MEDICARE SUPPLEMEN RUBÉN PLANG Aug 01, 2017 PLANG [id number] [phone] Raymond ARAIZA PATIENT AARP MED SUPP MEDICARE SUPPLEMEN RUBÉN PLANG Aug 01, 2017 PLANG [id number] [phone] Raymond ARAIZA PATIENT AARP MED SUPP MEDIGAP PLAN G PLAN G Aug 01, 2017 PLAN G [id number] GERRIRaymond MALHOTRASWORTH PATIENT AARP MED SUPP MEDIGAP PLAN G PLAN G Aug 01, 2017 PLAN G [id number] GERRITZ,E LLSWORTH PATIENT MEDICARE (WNR) MEDICARE (M) PART B Sep 01, 2002 PART B [id number] GERRITZ,E LLSWORTH PATIENT MEDICARE (WNR) MEDICARE (M) PART B Sep 01, 2002 PART B [id number] GERRITZ,E LLSWORTH PATIENT MEDICARE (WNR) MEDICARE (M) PART B Sep 01, 2002 PART B [id number] GERRITZ,E LLSWORTH PATIENT MEDICARE (WNR) MEDICARE (M) PART B Sep 01, 2002 PART B [id number] GERRITZ,E LLSWORTH PATIENT MEDICARE (WNR) MEDICARE (M) PART A Apr 01, 2002 PART A [id number] GERRITZ,E LLSWORTH PATIENT MEDICARE (WNR) MEDICARE (M) PART A Apr 01, 2002 PART A [id number] GERRITZ,E LLSWORTH PATIENT MEDICARE (WNR) MEDICARE (M) PART A Apr 01, 2002 PART A [id number] GERRITZ,E LLSWORTH PATIENT MEDICARE (WNR) MEDICARE (M) PART A Apr 01, 2002 PART A [id number] GERRITZ,Raymond LLSWORTH PATIENT Selected Encounter This section includes the information on record at [place] for the Encounter. Date/Time Encounter Type Encounter Description Reason Provider Source Feb 02, 2024 11:00 AM OFFICE O/P EST MOD 30 MIN PRIMARY CARE/MEDICINE ICD-10-CM M25.562 Pain in left knee CAROLYN DOUGLASS Encounter Template Text not used by [place] Assessments - Encounter Diagnoses This section includes the primary and secondary diagnoses documented for the Encounter. Date/Time Primary/Secondary Diagnosis Diagnosis Name Provider Source Feb 02, 2024 11:40 AM PRIMARY Pain in left knee Davy DOUGLASS [place] [facility] [place] [facility] Feb 02, 2024 11:40 AM SECONDARY Seborrheic dermatitis, unspecified Davy DOUGLASS [place] [facility] [place] [facility] Plan of Treatment: Future Appointments (+ 6 months) and Future Tests (+/- 45 days) The Plan of Treatment section includes future care activities for the patient from all [place] [facility]. This section includes future appointments and future orders which are active, pending or scheduled. Future Appointments This section includes appointments that were scheduled to occur 6 months from the date of the Encounter, up to a maximum of 20 appointments. The data comes from all [place] treatment facilities. Appointment Date/Time Appointment Type Appointme nt Facility Name Feb 19, 2024 10:30 AM AMBULATORY [facility] MEDICINE [facility] [place] [facility] Mar 10, 2024 09:30 AM AMBULATORY - REHAB MEDICIN E [facility] [place] [facility] Mar 29, 2024 03:30 PM AMBULATORY - MEDICINE [place] [facility] [place] [facility] Apr 12, 2024 10:30 AM AMBULATORY - REHAB MEDICIN E [facility] Apr 20, 2024 12:00 PM AMBULATORY - REHAB MEDICIN E [facility] [place] [facility] Apr 21, 2024 02:30 PM AMBULATORY - REHAB MEDICIN E [facility] [place] [facility] Apr 27, 2024 11:00 AM AMBULATORY - REHAB MEDICIN E [facility] [place] [facility] May 04, 2024 11:00 AM AMBULATORY - REHAB MEDICIN E [facility] [place] [facility] May 18, 2024 10:30 AM AMBULATORY - MEDICINE [facility] [place] [facility] May 18, 2024 11:00 AM AMBULATORY - REHAB MEDICIN E [facility] [place] [facility] May 25, 2024 10:30 AM AMBULATORY - REHAB MEDICIN E [facility] [place] [facility] May 25, 2024 11:00 AM AMBULATORY - REHAB MEDICIN E [facility] [place] [facility] Jun 08, 2024 11:30 AM AMBULATORY - REHAB MEDICIN E [facility] Jul 09, 2024 11:00 AM AMBULATORY - MEDICINE [facility] [place] [facility] Jul 21, 2024 11:00 AM AMBULATORY - REHAB MEDICIN E [facility] Lab Results: +/- 30 days of the encounter This section includes the Chemistry and Hematology Lab Results on record with [facility] for the patient. Radiology Reports and Pathology Reports are provided separately, in subsequent sections. Lab Results This section contains the Chemistry/Hematology Results that were resulted 30 days before or 30 daysafter the date of the Encounter. Date/Time Source Result Type Result - Unit Interpretation Reference Range Specimen Type Comment Feb 02, 2024 11:37 AM [facility] BASIC METABOLIC PANEL (non-fasting) SERUM Spe cimen Type: SERUM No comment entered. Ordering Provider: CAROLYN DOUGLASS Report Released Date/Time: Feb 02, 2024 11:25 AM Reporting Lab: [address] [address] Performing Lab: [address] [address] UREA NITROGEN 17 mg/dL 7-25 GLUCOSE 119 mg/dL H 65-100 SODIUM 136 mmol/L 135-145 POTASSIUM 4.4 mmol/L 3.5-5.0 CHLORIDE 105 mmol/L 100-110 CO2 23 meq/L 20-30 CREATININE, Serum 0.86 mg/dL 0.50-1.40 eGFR(CKD-EPI 2020) 84 mL/min >60 Feb 02, 2024 11:37 AM [facility] LIVER FUNCTION SERUM Specimen Type: SERUM No comment entered. Ordering Provider: RUEL DOUGLASS Report Released Date/Time: Feb 02, 2024 11:25 AM Reporting Lab: [facility] [address] [facility] [address] Performing Lab: [address] [address] PROTEIN,TOTAL 6.2 g/dL 6.0-8.3 ALBUMIN 3.8 g/dL 3.5-5.0 ALKALINE PHOSPHATASE 106 U/L 40-150 AST 16 U/L 5-34 ALT 14 U/L BILIRUBIN, TOTAL 0.8 mg/dL 0.2-1.2 Feb 02, 2024 11:37 AM [facility]ENTERAvvenu [facility] HEMOGLOBIN A1C PANEL BLOOD Specimen Type: BLO OD Comment: Values obtained from A1C measurements can vary. For atypical A1C assays, a reported value of 7.0 could actually be between 6.72 and 7.28 if measured by a reference method. A reported value of 9.0 could actually be between 8.73 and 9.27. Ref: http://www.ngsp.org/CAPdata.asp Ordering Provider: RUEL DOUGLASS Report Released Date/Time: Feb 02, 2024 11:25 AM Reporting Lab: [facility] [id number] [address] Performing Lab: [address] [address] HEMOGLOBIN A1C 5.7 H 4.0-5.6 Feb 02, 2024 11:37 AM [facility] TSH SERUM Specimen Type: SERUM No comment entered. Ordering Provider: RUEL DOUGLASS Report Released Date/Time: Feb 02, 2024 11:25 AM Reporting Lab: [address] [address] Performing Lab: [address] [address] TSH 1.65 u[IU]/mL 0.35-5.00 Vital Signs: All taken on the encounter date This section contains inpatient and outpatient Vital Signs collected on the date of the Encounter. Date/Time Temperature Pulse Blood Pressure Respiratory Rate SP02 Pain Height Weight Body Mass Index Source Feb 02, 2024 11:14 AM 96.3 93 136/80 16 95 4 [facility] Social History: Smoking Status (Most current) and Tobacco Use (All prior to encounter date) This section includes the most current, and the historical, smoking and tobacco- related health factors from the [place] facility where the Encounter took place. Current Smoking Status This section includes the most current smoking, or tobacco-related health factor, from the [place] facility where the Encounter took place. Date/Time Current Smoking Status Comment Chris quigley Nov 20, 2023 11:00 AM VA-TOBACCO FORMER USER [facility] Tobacco Use History This section includes a history of the smoking, or tobacco-related health factors, that were collected on or before the date of the Encounter. The data comes from the [place] facility where the Encounter took place. Date/Time Smoking Status/Tobacco Use Comment F acility Nov 20, 2023 11:00 AM VA-TOBACCO QUIT 15 YRS OR MORE [facility] Sep 05, 2022 11:00 AM VA-TOBACCO FORMER USER [facility] Sep 05, 2022 11:00 AM [place]-TOBACCO QUIT 15 YRS OR MORE [facility] Radiology Reports: +/- 30 days of the encounter Radiology Reports For cases when an order for radiology services may have been completed prior to the date of the Encounter, the report list includes the Radiology Reports that were completed up to 30 days before dateof the Encounter. For cases when an order for radiology services may have been completed after the date of the Encounter, the report list also includes the Radiology Reports that were completed up to30 days after date of the Encounter. The data comes from all [place] treatment facilities. Date/Time Radiology Report Provider Source Feb 02, 2024 11:52 AM KNEE 3 VIEWS (LEFT ): LUBNA ARAIZA [id number] -[id number] M Ex Date: FEB 02, 2024@11:52 Req Phys: RUEL DOUGLASS Loc: CWM/NO/PACT 4 (Req'g Loc) Im Loc: [facility] 1 Service: Unknown [facility] , (Case 42 COMPLETE) KNEE 3 VIEWS (LEFT) (RAD Detailed) CPT:35631 Reason for Study: long hx of left knee pain Clinical History: Report Status: Verified Date Reported: FEB 02, 2024 Date Verified: FEB 02, 2024 Secondary Spanish Teacher E-Sig:/ES/COLLEEN SILVERIO JR Report: Study: AP weight-bearing views of the knees with lateral and sunrise views of the left knee. Comparison: None. Findings: Moderate bilateral medial compartment degenerative narrowing is present. The left knee lateral joint compartment is well maintained while there is moderate narrowing of the right knee lateral joint compartment. The patella is moderately laterally subluxated with prominent narrowing of the lateral patellofemoral joint space. There is no suprapatellar joint effusion present. No bony fracture, dislocation or subluxation is seen. The bony mineralization is normal. Scattered vascular calcifications present. Impression: Bilateral knee degenerative osteoarthritic changes, as described above. Primary Diagnostic Code: No immediate attention required Primary Interpreting Staff: COLLEEN SILVERIO JR, Radiologist (Secondary Spanish Teacher) /COLLEEN MILLIGAN JR [facility] Encounter Notes: All associated encounter notes This section contains the clinical notes associated to the Encounter. Date/Time Encounter Note(s) Provider Source Feb 02, 2024 11:17 AM PREVENTIVE MEDICINE NURSING NOTE: LOCAL TITLE: CLINICAL REMINDERS/NURSING STANDARD TITLE: PREVENTIVE MEDICINE NURSING NOTE DATE OF NOTE: FEB 02, 2024@11:17 ENTRY DATE: FEB 02, 2024@11:17:49 AUTHOR: LUCILLE SALAZAR EXP COSIGNER: URGENCY: STATUS: COMPLETED Sexual Orientation: The patient thinks of their sexual orientation as: Straight or Heterosexual /es/ LUCILLE SALAZAR LPN License Practical Nurse Signed: 02/02/2024 11:18 LUCILLE SALAZAR [facility] Feb 02, 2024 08:38 AM PHYSICIAN NOTE: LOCAL TITLE: MD NOTE STANDARD TITLE: PHYSICIAN NOTE DATE OF NOTE: FEB 02, 2024@08:38 ENTRY DATE: FEB 02, 2024@08:38:38 AUTHOR: NÉSTOR DOUGLASS EXP COSIGNER: URGENCY: STATUS: COMPLETED HISTORY OF PRESENT ILLNESS: = LUBNA ARAIZA, is a 88 yo WHITE MALE who [facility] [place] [facility]. left knee pain HPI. vet has noted intermittent left knee pain for past year. worse in past 3 mos due to his walking with limp and favoring right side due to back pain. vet had spine surgery few mos ago. he has NO hx of signif left knee effusion/no injury, no hx of joint replacement in past. multilevel DJD of spine. 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 [facility] nonsmoker Active problems - Computerized Problem List is the source for the followin. History of actinic keratosis 2. Onychomycosis of toenails 3. Urinary incontinence 4. Hyperlipidemia ([facility] [id number]) 5. CAD - Coronary artery disease 6. Benign Prostatic Hypertrophy with Outflow Obstruction ([facility]CT [id number]) 7. Varicose veins of lower extremity 8. HTN - Hypertension ([facility] [id number]) 9. Degenerative lumbar spinal stenosis 10. 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 COMBAT SERVICE INDICATED: No SERVICE CONNECTED % - NONE FOUND VITAL SIGNS: Temperature 97.8 F [36.6 C] (03/06/2023 15:04) Blood Pressure 111/73 (11/20/2023 11:15) Pulse 86 (11/20/2023 11:15) Respiration 20 (11/20/2023 11:15) Pain 3 (03/06/2023 15:04) BMI BMI: 0.0 Weight Unavailable (11/20/2023 11:16) Pulse Oximetry 98% (11/20/2023 11:15) Review of Systems: CONSTITUTIONAL: No fever, no loss of appetite ENT: No sore throat, no cough CARDIOVASCULAR: No chest pain, no palpitations RESPIRATORY: No SOB, no wheezing GASTROINTESTINAL: No abd pain, no N/V/D, no change in stool EXAMINATION General: this is older gentleman in no obvious distress./seated in transport chair Mental Status: Alert and oriented x 3 Head: Normocephalic. Ext: bilat bony enlargement both knees/left worse than Right. NONtender to palpation around joint line bilat Integument: Skin is warm and dry/forehead glabella area with scale/excoriation and scale. mild redness/ no open ulcers/no concerning lesions for neoplasms Psych: Normal mood and affect. Normal judgment. DATA REVIEW >> MEDICATIONS Reviewed Today (VA & Non VA) ALLERGIES: Patient has answered NKA Active Outpatient Medications (including Supplies): Issue Date Status Last Fill Active Outpatient Medications Refills Expiration 1) ASPIRIN 81MG EC TAB Qty: 120 for 90 ACTIVE Issu:08-11-23 days Sig: TAKE ONE TABLET BY MOUTH Refills: 2 Last:11-01-23 ONCE DAILY TO PREVENT STROKE/HEART Expr:08-11-24 ATTACK 2) BETHANECHOL CHLORIDE 25MG TAB Qty: 360 ACTIVE Issu:12-12-23 for 90 days Sig: TAKE TWO TABLETS BY Refills: 3 Last:12-14-23 MOUTH TWICE DAILY FOR URINARY Expr:12-12-24 RETENTION 3) CLOPIDOGREL BISULFATE 75MG TAB Qty: 90 ACTIVE Issu:07-28-23 for 90 days Sig: TAKE ONE TABLET BY Refills: 2 Last:11-05-23 MOUTH ONCE DAILY TO PREVENT BLOOD Expr:07-28-24 CLOTS 4) DULOXETINE HCL 30MG EC CAP Qty: 90 for ACTIVE Issu:11-06-23 90 days Sig: TAKE ONE CAPSULE BY Refills: 3 Last:11-07-23 MOUTH ONCE DAILY Expr:11-06-24 5) FERROUS SULFATE 325MG TAB Qty: 100 for ACTIVE Issu:07-28-23 90 days Sig: TAKE ONE TABLET BY MOUTH Refills: 1 Last:11-05-23 ONCE DAILY TO SUPPLEMENT IRON Expr:07-28-24 6) FINASTERIDE 5MG TAB Qty: 90 for 90 days ACTIVE Issu:11-03-23 Sig: TAKE ONE TABLET BY MOUTH ONCE Refills: 3 Last:11-04-23 DAILY Expr:11-03-24 7) LATANOPROST 0.005% OPH SOLN Qty: 7.5 ACTIVE (S) Issu:12-04-23 for 90 days Sig: INSTILL 1 DROP INTO Refills: 2 Last:04-01-24 EACH EYE AT BEDTIME FOR INCREASED Expr:12-04-24 PRESSURE IN THE EYE 8) METOPROLOL SUCCINATE 25MG SA TAB Qty: ACTIVE Issu:11-06-23 90 for 90 days Sig: TAKE ONE TABLET Refills: 3 Last:11-20-23 BY MOUTH ONCE DAILY FOR BLOOD Expr:11-06-24 PRESSURE/HEART 9) MULTIVIT/OPHTH AREDS2/LUTE/ZEAX CAP/TAB ACTIVE Issu:10-13-23 Qty: 120 for 60 days Sig: TAKE 1 Refills: 4 Last:12-04-23 CAPSULE BY MOUTH TWICE DAILY IN THE Expr:10-13-24 MORNING AND EVENING, WITH FOOD 10) OMEPRAZOLE 20MG EC CAP Qty: 90 for 90 ACTIVE Issu:03-31-23 days Sig: TAKE ONE CAPSULE BY MOUTH Refills: 0 Last:09-17-23 ONCE DAILY Expr:03-31-24 11) SIMVASTATIN 40MG TAB Qty: 90 for 90 ACTIVE Issu:11-06-23 days Sig: TAKE ONE TABLET BY MOUTH Refills: 3 Last:11-07-23 ONCE DAILY FOR CHOLESTEROL Expr:11-06-24 Start Date Active Non-VA Medications Refills Expiration 1) Non-VA ASPIRIN 81MG EC TAB SiMG BY ACTIVE MOUTH ONCE DAILY 2) Non-VA MULTIVIT/OPHTH AREDS2/LUTE/ZEAX ACTIVE CHEW TAB Si TABLETS BY MOUTH ONCE DAILY 13 Total Medications >> LABS REVIEWED TODAY: CHEM 7 TREND LAB CUMULATIVE SELECTED Collection DT Spec GLUCOSE BUN CREATIN Sodium K+/Pot CL CO2 03/06/2023 16:08 SERUM 132 H 21 1.11 138 4.6 105 25 LAB CUMULATIVE SELECTED 2 No selection items chosen for this component. CHEM 7 Results Collection DT Spec Sodium K+/Pot CL CO2 GLUCOSE BUN 03/06/2023 16:08 SERUM 138 4.6 105 25 132 H 21 === CBC TREND Collection DT Spec WBC RBC HGB HCT MCV MCH PLT 07/28/2023 13:55 BLOOD 8.28 4.58 13.2 40.7 88.9 28.8 314 03/06/2023 16:08 BLOOD 7.30 4.72 10.3 L 34.5 L 73.1 L 21.8 L 410 H === HEMOGLOBIN A1C TREND Collection DT Spec HGBA1c 03/06/2023 16:08 BLOOD 5.5 === LIPID PANEL TREND Collection DT Spec CHOL HDL CHO/HDL LDL-c TRIG 03/06/2023 16:08 SERUM 151 70 H 2.2 64 83 === UREA NITROGEN 03/06/23 16:08 21 CREATININE-EGFR 7/6/23 16:08 1.11 === LIVER PANEL TREND Collection DT Spec AST ALT T BILI ALK SAJI T. PROT ALBUMIN 03/06/2023 16:08 SERUM 15 11 0.5 96 6.3 3.8 === PSA TREND No data available = Collection DT Spec TSH 03/06/2023 16:08 SERUM 1.16 == ANEMIA PANEL TREND Collection DT Spec HCT Ferrit IRON TIBC 07/28/2023 13:55 BLOOD 40.7 07/28/2023 13:55 SERUM 76 32 L 259 03/06/2023 16:08 BLOOD 34.5 L 03/06/2023 16:08 SERUM 25 === PT INR TREND No data available === >> HEALTH MAINTENANCE PREVENTIVE MEDICINE GOALS Advance Directive Screen MH AD January 25 Toxic Exposure Screening DUE NOW Medication Reconciliation DUE NOW COVID-19 Immunization DUE NOW Herpes Zoster (Shingles) Vaccine DUE NOW Sexual Orientation Sep 05 RHS Screen DUE NOW Eye Care At-Risk Screen Mar 20 (Optional) Whole Health Documentation DUE NOW ASSESSMENT/PLAN: 1. left knee pain 2. seborrhea/glabella-forehe ad area Plan 1. check baseline labs/use tylenol PRN/heating pad also 2. check knee films today/plus med rehab consult for injxn 3. reassured about skin appearance/consider derm consult in future 4. f/u w/ PCP in 3 mos LAB ORDERS FOR NEXT APPT. spent in patient care and education No barriers; Patient understands and agrees to current treatment plan. If pt has any questions, concerns, or changes in current health status he/she will call or come in to the [facility]. Medication Reconciliation: Outpatient: Has the patient been taking medications as documented in the EMLR? YES: The patient has been taking medications as documented in the EMLR. Essential Medication List for Review used to complete this medication reconciliation. INCLUDED IN THIS LIST: Alphabetical list of active outpatient prescriptions dispensed from this [facility] (local) and dispensed from another VA or DoD facility (remote) as well as inpatient orders (local, pending and active), local clinic medications, locally documented non-VA medications, and local prescriptions that have or been discontinued in the past 90 days. - All changes in medications, including all non-VA/Herbal/OTC medications were entered into CPRS. - If there were any medications the patient should no longer take, they were discontinued. - The patient/caregiver was instructed to update this list, discard old lists, and take this list to the next appointment, whether with a VA or non-VA provider. /berenice/ RUEL DOUGLASS MD PHYSICIAN Signed: 02/02/2024 11:40 NÉSTOR DOUGLASS [facility]
--- OUTSIDE RECORDS SUMMARY | 2025-01-12 12:32 | XMS_ITS ---
Author Name [facility] Organization [facility] [place] Address [address] [place] [id number] Care Team Providers Care Director Housekeeping Name Role Phone RUEL DOUGLASS Primary Care Provider Unanereyda ailable SILVIA DAVID Primary Care Provider Unavailabl [...] PLAN G Aug 01, 2017 PLAN G [id number] [phone] Raymond ARAIZA PATIENT AARP MED SUPP MEDICARE SUPPLEMEN RUBÉN PLANG Aug 01, 2017 PLANG [id number] [phone] Raymond ARAIZA PATIENT AARP MED SUPP MEDICARE SUPPLEMEN RUBÉN PLANG Aug 01, 2017 PLANG [id number] [phone] Raymond ARAIZA PATIENT AARP MED SUPP MEDIGAP PLAN G PLAN G Aug 01, 2017 PLAN G [id number] [phone] Raymond ARAIZA PATIENT AARP MED SUPP MEDIGAP PLAN G PLAN G Aug 01, 2017 PLAN G [id number] [phone] ARIRIRaymond MALHOTRA PATIENT AARP MED SUPP MEDIGAP PLAN G PLAN G Aug 01, 2017 PLAN G [id number] [phone] GERRITZ,Raymond LLSWORTH PATIENT MEDICARE (WNR) MEDICARE (M) PART B Sep 01, 2002 PART B [id number] GERRITZ,E LLSWORTH PATIENT MEDICARE (WNR) MEDICARE (M) PART B Sep 01, 2002 PART B [id number] [phone] GERRITZ,E LLSWORTH PATIENT MEDICARE (WNR) MEDICARE (M) PART B Sep 01, 2002 PART B [id number] [phone] GERRITZ,E LLSWORTH PATIENT MEDICARE (WNR) MEDICARE (M) PART B Sep 01, 2002 PART B [id number] GERRITZ,Raymond LLSWORTH PATIENT MEDICARE (WNR) MEDICARE (M) PART A Apr 01, 2002 PART A [id number] [phone] GERRITZ,Raymond LLSWORTH PATIENT MEDICARE (WNR) MEDICARE (M) PART A Apr 01, 2002 PART A [id number] GERRITZ,Raymond LLSWORTH PATIENT MEDICARE (WNR) MEDICARE (M) PART A Apr 01, 2002 PART A [id number] [phone] GERRITZ,Raymond LLSWORTH PATIENT MEDICARE (WNR) MEDICARE (M) PART A Apr 01, 2002 PART A [id number] GERRITZRaymondSWORTH PATIENT Selected Encounter This section includes the information on record at [place] for the Encounter. Date/Time Encounter Type Encounter Description Reason Provider Source Nov 15, 2024 02:00 PM OFFICE O/P EST MOD 30 MIN PRIMARY CARE/MEDICINE ICD-10-CM N31.9 Neuromuscular dysfunction of bladder, unspecified RUEL DOUGLASS [facility] Encounter Template Text not used by [place] Assessments - Encounter Diagnoses This section includes the primary and secondary diagnoses documented for the Encounter. Date/Time Primary/Secondary Diagnosis Diagnosis Name Provider Source Nov 15, 2024 04:24 PM PRIMARY Neuromuscular dysfunction of bladder, unspecified RUEL DOUGLASS [facility] [place] [facility] Nov 15, 2024 04:24 PM SECONDARY Athscl heart disease of [place] coronary artery w/o ang pctrs LaneTimmyFLORESRUEL [place] [facility] [place] [facility] Nov 15, 2024 04:24 PM SECONDARY Pain in left knee RUEL DOUGLASS [facility] [place] [facility] Nov 15, 2024 04:24 PM SECONDARY Unspecified glaucoma LaneTimmyFLORESRUEL [facility] Plan of Treatment: Future Appointments (+ 6 months) and Future Tests (+/- 45 days) The Plan of Treatment section includes future care activities for the patient [facility] [place] [facility] This section includes future appointments and future orders which are active, pending or scheduled. Future Appointments This section includes appointments that were scheduled to occur 6 months from the date of the Encounter, up to a maximum of 20 appointments. The data comes from all [place] treatment facilities. Appointment Date/Time Appointment Type Appointme nt Facility Name Dec 03, 2024 09:45 AM AMBULATORY - MEDICINE [place] [facility] [place] [facility] Dec 06, 2024 10:00 AM AMBULATORY - SURGERY DE [facility] [place] [facility] Feb 01, 2025 11:30 AM AMBULATORY - MEDICINE [place] [facility] [place] [facility] Mar 11, 2025 02:00 PM AMBULATORY - MEDICINE [place] [facility] [place] [facility] Mar 30, 2025 02:00 PM AMBULATORY - MEDICINE [place] [facility] [place] [facility] Active, Pending, and Scheduled Orders This section includes a listing of several types of active, pending, and scheduled orders, including clinic medications orders, diagnostic test orders, procedure orders and consult orders; where the start date of the order is 45 days before the date of the Encounter or 45 days after the date of theEncounter. The data comes from all [place] treatment facilities. Test Date/Time Test Type Test Details Facility Name Nov 30, 2024 05:13 PM Consult Order COMMUNITY CARE-RADIOLOGY XRAY [employer] [place] [facility] [place] [facility] Dec 01, 2024 08:48 AM Consult Order COMMUNITY CARE-THORACIC SURGERY [employer] [facility] Vital Signs: All taken on the encounter date This section contains inpatient and outpatient Vital Signs collected on the date of the Encounter. Date/Time Temperature Pulse Blood Pressure Respiratory Rate SP02 Pain Height Weight Body Mass Index Source Nov 15, 2024 02:15 PM 86 133/78 20 95 194 27 [place] [facility] [place] [facility] Social History: Smoking Status (Most current) and Tobacco Use (All prior to encounter date) This section includes the most current, and the historical, smoking and tobacco- related health factors from the [place] facility where the Encounter took place. Current Smoking Status This section includes the most current smoking, or tobacco-related health factor, from the [place] facility where the Encounter took place. Date/Time Current Smoking Status Comment Facil ity Nov 15, 2024 02:00 PM VA-TOBACCO NEVER U SED OTHER TYPE DE [facility]TR [facility] Tobacco Use History This section includes a history of the smoking, or tobacco-related health factors, that were collected on or before the date of the Encounter. The data comes from the [place] facility where the Encounter took place. Date/Time Smoking Status/Tobacco Use Comment F acility Nov 15, 2024 02:00 PM VA-TOBACCO NEVER U SED OTHER TYPE [place] [facility] [place] [facility] Nov 20, 2023 11:00 AM VA-TOBACCO FORMER USER [place] [facility] [place] [facility] Nov 20, 2023 11:00 AM VA-TOBACCO QUIT 15 YRS OR MORE [facility] [place] [facility] Sep 05, 2022 11:00 AM VA-TOBACCO FORMER USER [place] [facility] [place] [facility] Sep 05, 2022 11:00 AM VA-TOBACCO QUIT 15 YRS OR MORE [facility] [place] [facility] Encounter Notes: All associated encounter notes This section contains the clinical notes associated to the Encounter. Date/Time Encounter Note(s) Provider Source Nov 15, 2024 02:25 PM PREVENTIVE MEDICINE NURSING NOTE: LOCAL TITLE: CLINICAL REMINDERS/NURSING STANDARD TITLE: PREVENTIVE MEDICINE NURSING NOTE DATE OF NOTE: NOV 15, 2024@14:25 ENTRY DATE: NOV 15, 2024@14:25:48 AUTHOR: STEPHANIE SZYMANSKI COSIGNER: URGENCY: STATUS: COMPLETED Suicide Screen: C-SSRS Screening Jamul Suicide Severity Rating Scale (C-SSRS) screener 1. Over the past month, have you wished you were or wished you could go to sleep and not wake up? No 2. Over the past month, have you had any actual thoughts of killing yourself? No 3. Over the past month, have you been thinking about how you might do this? Response not required due to responses to other questions. 4. Over the past month, have you had these thoughts and had some intention of acting on them? Response not required due to responses to other questions. 5. Over the past month, have you started to work out or worked out the details of how to kill yourself? Response not required due to responses to other questions. 6. If yes, at any time in the past month did you intend to carry out this plan? Response not required due to responses to other questions. 7. In your lifetime, have you ever done anything, started to do anything, or prepared to do anything to end your life (for example, collected pills, obtained a gun, gave away valuables, went to the roof but didn't jump)? No 8. If YES, was this within the past 3 months? Response not required due to responses to other questions. Depression Screening: Perform PHQ-2 A PHQ-2 screen was performed. The score was 0 which is a negative screen for depression. Over the past two weeks, how often have you been bothered by the following problems? 1. Little interest or pleasure in doing things Not at all 2. Feeling down, depressed, or hopeless Not at all Falls & Incontinence Screen: Falls Screen: During the past 12 months, did the patient report any falls? 4. No falls within the past year. Incontinence Screen: During the past 12 months, has the patient has any characteristics of incontinence (ability, voiding, leakage, etc.)? No incontinence. Tobacco Use Screening: The patient has never smoked cigarettes. The patient has never used other types of tobacco. Influenza Immunization: Deferral / Refusal The patient declines to receive the recommended dose of seasonal influenza vaccine. Immunization: INFLUENZA, UNSPECIFIED FORMULATION Refusal Reason: PATIENT DECISION Patient refuses all immunization(s) in the FLU group Date Documented: 11/15/24 14:36 Alcohol Use Screen (AUDIT-C): Alcohol Screen: SCREEN FOR ALCOHOL (AUDIT-C) An alcohol screening test (AUDIT-C) was negative (score=0). 1. How often did you have a drink containing alcohol in the past year? Consider a drink to be a 12 ounce can or bottle of regular beer, 8 ounces of malt liquor, a 5 ounce glass of table wine, or a 1.5 ounce shot of liquor (like scotch, gin, or vodka). Never 2. How many drinks containing alcohol did you have on a typical day when you were drinking in the past year? Response not required due to responses to other questions. 3. How often did you have six or more drinks on one occasion in the past year? Response not required due to responses to other questions. COVID-19 Immunization: Refused Moderna Monovalent COVID-19 vaccine Immunization: COVID-19 (MODERNA), MRNA, LNP-S, PF, 50 MCG/0.5 ML (AGES 12+ YEARS) Refusal Reason: PATIENT DECISION Patient refuses all immunization(s) in the COVID-19 group Date Documented: 11/15/24 14:37 Herpes Zoster (Shingles) Vaccine: The patient declines to receive the recommended dose of zoster (shingles) vaccine. Immunization: ZOSTER RECOMBINANT Refusal Reason: PATIENT DECISION Patient refuses all immunization(s) in the ZOSTER group Date Documented: 11/15/24 14:37 /berenice/ STEPHANIE Cummings [facility] Primary Care Staff Nurse Signed: 11/15/2024 14:38 [facility] Nov 15, 2024 09:00 AM PHYSICIAN NOTE: LOCAL TITLE: MD NOTE STANDARD TITLE: PHYSICIAN NOTE DATE OF NOTE: NOV 15, 2024@09:00 ENTRY DATE: NOV 15, 2024@09:00:12 AUTHOR: NÉSTOR DOUGLASS EXP COSIGNER: URGENCY: STATUS: COMPLETED HISTORY OF PRESENT ILLNESS: LUBNA Moyer TEODORA, is a 89 yo WHITE MALE Naylor who presents at the [place] [facility]. vet has questions about his medical problems and meds HPI. he admits to poor memory and did not recall that he was hospitalize for UTI with possible sepsis at [facility] 5mos ago. he has hx of BPH with neurogenic bladder and sees [facility]/Dr Camacho . BUT vet and did NOT recall seeing the specialist nor about the problem. Vet denies dysuria, he does c/o knee pain but no effusion, no fevers, no hematuria. he has hx of CAD and needs meds for BP and chol, no chest pain, no cough. d[facility] also [facility] and [facility] but could not recall if he had glaucoma. SH, nonsmoker Active problems - Computerized Problem List is the source for the followin. Neurogenic dysfunction of urinary bladder 2. Pain of left knee joint 3. History of actinic keratosis 4. Onychomycosis of toenails 5. Urinary incontinence 6. Hyperlipidemia ([facility] [id number]) 7. CAD - Coronary artery disease 8. Benign Prostatic Hypertrophy with Outflow Obstruction ([facility] [id number]) 9. Varicose veins of lower extremity 10. HTN - Hypertension ([facility] [id number]) 11. Degenerative lumbar spinal stenosis 12. 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 COMBAT SERVICE INDICATED: No SERVICE CONNECTED % - NONE FOUND VITAL SIGNS: Temperature 97.3 F [36.3 C] (03/29/2024 15:33) Blood Pressure 130/70 (05/18/2024 10:41) Pulse 80 (03/29/2024 15:33) Respiration 16 (03/29/2024 15:33) Pain 5 (05/18/2024 10:41) BMI BMI: 0.0 Weight Unavailable (11/20/2023 11:16) Pulse Oximetry 94% (03/29/2024 15:33) Review of Systems: CONSTITUTIONAL: No fever, no loss of appetite ENT: No sore throat, no cough CARDIOVASCULAR: No chest pain, no palpitations RESPIRATORY: No SOB, no wheezing GASTROINTESTINAL: No abd pain, no N/V/D, no change in stool EXAMINATION General: this is chronically ill-appearing, 89 yo gentleman in no obvious distress/ seated in transport chair and transfers to exam table in exam room with difficulty but is able to slowly stand and pivot onto exam table and back to chair. Mental Status: Alert Head: Normocephalic. Lungs: CTA. no crackles, no wheezing CV: RRR. No murmur Neuro: Normal speech & very limited gait/ vet has poor short term memory DATA REVIEW >> MEDICATIONS Reviewed Today (VA & Non VA) ALLERGIES: Patient has answered NKA Active Outpatient Medications (including Supplies): Issue Date Status Last Fill Active Outpatient Medications Refills Expiration 1) BETHANECHOL CHLORIDE 25MG TAB Qty: 360 for ACTIVE Issue: 12/12/23 90 days Sig: TAKE TWO TABLETS BY MOUTH TWICE Refills: 0 Last : 08/30/24 DAILY Expr : 12/12/24 Indication: FOR URINARY RETENTION 2) BRIEF,PROTECTIVE EXTRA ABS X-LG ATTENDS Qty: ACTIVE Issue: 02/11/24 112 for 28 days Sig: USE 1 BRIEF DIRECTED Refills: 2 Last : 11/05/24 FOUR TIMES A DAY Expr : 02/11/25 Indication: INCONTINENCE 3) CLOTRIMAZOLE 1% TOP SOLN Qty: 60 for 90 days ACTIVE Issue: 02/19/24 Sig: APPLY 1 DROP TOPICALLY ONCE DAILY FOR Refills: 3 Last : 02/19/24 FUNGAL INFECTION APPLY TO AFFECTED TOE NAILS Expr : 02/19/25 WHEN DRY Indication: TOE NAIL FUNGUS 4) DULOXETINE HCL 30MG EC CAP Qty: 90 for 90 ACTIVE Issue: 03/29/24 days Sig: TAKE ONE CAPSULE BY MOUTH ONCE Refills: 3 Last : 03/30/24 DAILY Expr : 03/30/25 Indication: FOR CHRONIC MUSCLE OR BONE PAIN 5) INCONT LINER DEPEND GUARDS Qty: 208 for 55 ACTIVE Issue: 08/12/24 days Sig: USE 1 PAD TOPICALLY FOUR TIMES A Refills: 1 Last : 11/20/24 DAY Expr : 08/13/25 Indication: INCONTINENCE 6) IPRATROPIUM BR 0.06% NASAL SPRAY Qty: 45 for ACTIVE Issue: 03/29/24 90 days Sig: INSTILL 2 SPRAYS INTO EACH Refills: 2 Last : 03/30/24 NOSTRIL THREE TIMES A DAY Expr : 03/30/25 Indication: FOR RUNNY NOSE 7) LATANOPROST 0.005% OPH SOLN Qty: 7.5 for 90 ACTIVE Issue: 12/04/23 days Sig: INSTILL 1 DROP INTO EACH EYE AT Refills: 1 Last : 11/11/24 BEDTIME Expr : 12/04/24 Indication: FOR INCREASED PRESSURE IN THE EYE 8) OMEPRAZOLE 20MG EC CAP Qty: 90 for 90 days ACTIVE Issue: 03/11/24 Sig: TAKE ONE CAPSULE BY MOUTH EVERY MORNING Refills: 1 Last : 08/28/24 30 MINUTES BEFORE BREAKFAST Expr : 03/12/25 Indication: FOR EXCESSIVE PRODUCTION OF STOMACH ACID 9) SUCRALFATE 1GM TAB Qty: 180 for 90 days Sig: ACTIVE Issue: 03/11/24 TAKE ONE TABLET BY MOUTH TWICE DAILY Refills: 1 Last : 03/11/24 Indication: FOR ULCER Expr : 03/12/25 Start Date Active Non-VA Medications Status Stop Date 1) Non-VA ASPIRIN 81MG EC TAB SiMG BY ACTIVE MOUTH ONCE DAILY Indication: FOR MYOCARDIAL REINFARCTION PREVENTION 2) Non-VA MULTIVIT/OPHTH AREDS2/LUTE/ZEAX CHEW ACTIVE TAB Si TABLETS BY MOUTH ONCE DAILY Indication: FOR VITAMIN SUPPLEMENTATION 11 Total Medications >> LABS REVIEWED TODAY: CHEM 7 TREND LAB CUMULATIVE SELECTED Collection DT Spec GLUCOSE BUN CREATIN Sodium K+/Pot CL CO2 02/02/2024 11:37 SERUM 119 H 17 0.86 136 4.4 105 23 03/06/2023 16:08 SERUM 132 H 21 1.11 138 4.6 105 25 LAB CUMULATIVE SELECTED 2 No selection items chosen for this component. CHEM 7 Results Collection DT Spec Sodium K+/Pot CL CO2 GLUCOSE BUN 02/02/2024 11:37 SERUM 136 4.4 105 23 119 H 17 03/06/2023 16:08 SERUM 138 4.6 105 25 132 H 21 CBC TREND Collection DT Spec WBC RBC HGB HCT MCV MCH PLT 07/28/2023 13:55 BLOOD 8.28 4.58 13.2 40.7 88.9 28.8 314 03/06/2023 16:08 BLOOD 7.30 4.72 10.3 L 34.5 L 73.1 L 21.8 L 410 H HEMOGLOBIN A1C TREND Collection DT Spec HGBA1c 02/02/2024 11:37 BLOOD 5.7 H 03/06/2023 16:08 BLOOD 5.5 LIPID PANEL TREND Collection DT Spec CHOL HDL CHO/HDL LDL-c TRIG 03/06/2023 16:08 SERUM 151 70 H 2.2 64 83 UREA NITROGEN 02/02/24 11:37 17 CREATININE-EGFR 02/02/24 11:37 0.86 LIVER PANEL TREND Collection DT Spec AST ALT T BILI ALK SAJI T. PROT ALBUMIN 02/02/2024 11:37 SERUM 16 14 0.8 106 6.2 3.8 03/06/2023 16:08 SERUM 15 11 0.5 96 6.3 3.8 PSA TREND No data available Collection DT Spec TSH 02/02/2024 11:37 SERUM 1.65 ANEMIA PANEL TREND Collection DT Spec HCT Ferrit IRON TIBC 07/28/2023 13:55 BLOOD 40.7 07/28/2023 13:55 SERUM 76 32 L 259 03/06/2023 16:08 BLOOD 34.5 L 03/06/2023 16:08 SERUM 25 PT INR TREND No data available >> HEALTH MAINTENANCE PREVENTIVE MEDICINE GOALS Advance Directive Screen MH AD January 25 Suicide Screen Nov 19 Toxic Exposure Screening DUE NOW Depression Screening Nov 19 Falls & Incontinence Screen DUE NOW Tobacco Use Screening Nov 19 Influenza Immunization DUE NOW Medication Reconciliation DUE NOW Alcohol Use Screen (AUDIT-C) Nov 19 COVID-19 Immunization DUE NOW Herpes Zoster (Shingles) Vaccine DUE NOW RSV Immunization DUE NOW RHS Screen DUE NOW Eye Care At-Risk Screen DUE NOW (Optional) Whole Health Documentation DUE NOW ASSESSMENT/PLAN: 1. neurogenic bladder 2. glaucoma 3. knee osteoarthritis 4. CAD Plan 1. vet needs f/u w/ [facility]-/vet given verbal and written instructions with name/# of Dr Camacho in [facility]-continue bethanecol until conversation with urology 2. [facility], he will remain on eye meds and vits 3. prosthetics consult for hector wrap for knee pain 4. vet may need med rehab injxn if pain persists 5. vet will continue beta carmela and ASA and statin 6. [facility]4 [facility] LAB ORDERS FOR NEXT APPT. spent [...] of active outpatient prescriptions dispensed from this [place] (local) and dispensed from another [place] or [facility] facility (remote) as well as inpatient orders [...] provider. /berenice/ RUEL DOUGLASS MD PHYSICIAN Signed: 11/15/2024 16:24 DARRON DOUGLASS DE [facility]
--- OUTSIDE RECORDS SUMMARY | 2025-01-12 12:32 | XMS_ITS ---
Author Name [facility] Address [address] [place] [address] Care Team Providers Care Mold Stamper Name Role Phone RUEL DOUGLASS Primary Care [...] PLAN G Aug 01, 2017 PLAN G [id number] Raymond ARAIZA PATIENT AARP MED SUPP MEDIGAP PLAN G PLAN G Aug 01, 2017 PLAN G [id number] Raymond ARAIZA PATIENT AARP MED SUPP MEDIGAP PLAN G PLAN G Aug 01, 2017 PLAN G [id number] Raymond ARAIZA PATIENT AARP MED SUPP MEDICARE SUPPLEMEN RUBÉN PLANG Aug 01, 2017 PLANG [id number] Raymond ARAIZA PATIENT AARP MED SUPP MEDICARE SUPPLEMEN RUBÉN PLANG Aug 01, 2017 PLANG [id number] Raymond ARAIZA PATIENT AARP MED SUPP MEDIGAP PLAN G PLAN G Aug 01, 2017 PLAN G [id number] ARIRITZRaymond PATIENT MEDICARE (WNR) MEDICARE (M) PART B Sep 01, 2002 PART B [id number] GERRITZRaymondSWORTH PATIENT MEDICARE (WNR) MEDICARE (M) PART B Sep 01, 2002 PART B [id number] GERRITZ,Raymond HALLMANSWORTH PATIENT MEDICARE (WNR) MEDICARE (M) PART B Sep 01, 2002 PART B [id number] [phone] GERRITZRaymondSWRONDA PATIENT MEDICARE (WNR) MEDICARE (M) PART B Sep 01, 2002 PART B [id number] GERRITZRaymondSWRONDA PATIENT MEDICARE (WNR) MEDICARE (M) PART A Apr 01, 2002 PART A [id number] GERRITZRaymondSWORTH PATIENT MEDICARE (WNR) MEDICARE (M) PART A Apr 01, 2002 PART A [id number] GERRITZRaymondSWORTH PATIENT MEDICARE (WNR) MEDICARE (M) PART A Apr 01, 2002 PART A [id number] GERRIRaymond MALHOTRA PATIENT MEDICARE (WNR) MEDICARE (M) PART A Apr 01, 2002 PART A [id number] ARIRIRaymond MALHOTRA PATIENT Selected Encounter This section includes the information on record at [place] for the Encounter. Date/Time Encounter Type Encounter Description Reason Pro vider Source Feb 11, 2024 02:14 PM Outpatient Encounter ADMIN PAT ACTIVTIES (MASNONCT) IHE Encounter Template Text not used by [place] Plan of Treatment: Future Appointments (+ 6 months) and Future Tests (+/- 45 days) The Plan of Treatment section includes future care activities for the patient from all [place] treatmentfacilities. This section includes future appointments and future orders which are active, pending or scheduled. Future Appointments This section includes appointments that were scheduled to occur 6 months from the date of the Encounter, up to a maximum of 20 appointments. The data comes from all [place] treatment facilities. Appointment Date/Time Appointment Type Appointme nt Facility Name Feb 19, 2024 10:30 AM AMBULATORY [facility] MEDICINE [facility] [place] [facility] Mar 10, 2024 09:30 AM AMBULATORY - REHAB MEDICIN [facility] [place] [facility] Mar 29, 2024 03:30 PM AMBULATORY - MEDICINE [facility] [place] [facility] Apr 12, 2024 10:30 AM AMBULATORY - [facility] MEDICIN [place] Apr 20, 2024 12:00 PM AMBULATORY - REHAB MEDICIN E [facility] [place] [facility] Apr 21, 2024 02:30 PM AMBULATORY - REHAB MEDICIN E [facility] [place] [facility] Apr 27, 2024 11:00 AM AMBULATORY - REHAB MEDICIN E [facility] [place] [facility] May 04, 2024 11:00 AM AMBULATORY - REHAB MEDICIN E [facility] [place] [facility] May 18, 2024 10:30 AM AMBULATORY - MEDICINE [facility] [place] [facility] May 18, 2024 11:00 AM AMBULATORY - REHAB MEDICIN [facility] [place] [facility] May 25, 2024 10:30 AM AMBULATORY - REHAB MEDICIN E [facility] [place] [facility] May 25, 2024 11:00 AM AMBULATORY - REHAB MEDICIN E [facility] [place] [facility] Jun 08, 2024 11:30 AM AMBULATORY - [facility]IN [facility] [place] Jul 09, 2024 11:00 AM AMBULATORY - MEDICINE [facility] [place] [facility] Jul 21, 2024 11:00 AM AMBULATORY - REHAB MEDICIN [facility] [place] [facility] Lab Results: +/- 30 days of the encounter This section includes the Chemistry and Hematology Lab Results on record with [place] for the patient. Radiology Reports and Pathology Reports are provided separately, in subsequent sections. Lab Results This section contains the Chemistry/Hematology Results that were resulted 30 days before or 30 daysafter the date of the Encounter. Date/Time Source Result Type Result - Unit Interpretation Reference Range Specimen Type Comment Feb 02, 2024 11:37 AM [facility] [place] [facility] LIVER FUNCTION SERUM Specimen Type: SERUM No comment entered. Ordering Provider: DANGELO DOUGLASS Report Released Date/Time: Feb 02, 2024 11:25 AM Reporting Lab: [facility] [address] [facility] [address] Performing Lab: [address] [address] PROTEIN,TOTAL 6.2 g/dL 6.0-8.3 ALBUMIN 3.8 g/dL 3.5-5.0 ALKALINE PHOSPHATASE 106 U/L 40-150 AST 16 U/L 5-34 ALT 14 U/L BILIRUBIN, TOTAL 0.8 mg/dL 0.2-1.2 Feb 02, 2024 11:37 AM [facility] HEMOGLOBIN A1C PANEL BLOOD Specimen [...] Feb 02, 2024 11:25 AM Reporting Lab: [address] [address] Performing Lab: [address] [address] HEMOGLOBIN A1C 5.7 H 4.0-5.6 Feb 02, 2024 11:37 AM [facility] BASIC METABOLIC PANEL (non-fasting) SERUM Spe cimen Type: SERUM No comment entered. Ordering Provider: RUEL DOUGLASS Report Released Date/Time: Feb 02, 2024 11:25 AM Reporting Lab: [facility] [address] [facility] [address] Performing Lab: [address] [address] UREA NITROGEN 17 mg/dL 7-25 GLUCOSE 119 mg/dL H 65-100 SODIUM 136 mmol/L 135-145 POTASSIUM 4.4 mmol/L 3.5-5.0 CHLORIDE 105 mmol/L 100-110 CO2 23 meq/L 20-30 CREATININE, Serum 0.86 mg/dL 0.50-1.40 eGFR(CKD-EPI 2020) 84 mL/min >60 Feb 02, 2024 11:37 AM [facility] TSH SERUM Specimen Type: SERUM No comment entered. Ordering Provider: RUEL DOUGLASS Report Released Date/Time: Feb 02, 2024 11:25 AM Reporting Lab: [address] [address] Performing Lab: [address] [address] TSH 1.65 u[IU]/mL 0.35-5.00 Social History: Smoking Status (Most current) and Tobacco Use (All prior to encounter date) This section includes the most current, and the historical, smoking and tobacco- related health factors from the [place] facility where the Encounter took place. Current Smoking Status This section includes the most current smoking, or tobacco-related health factor, from the [place] facility where the Encounter took place. Date/Time Current Smoking Status Comment Chris quigley Nov 20, 2023 11:00 AM [place]-TOBACCO FORMER USER [facility] Tobacco Use History This section includes a history of the smoking, or tobacco-related health factors, that were collected on or before the date of the Encounter. The data comes from the [place] facility where the Encounter took place. Date/Time Smoking Status/Tobacco Use Comment F acnelson Nov 20, 2023 11:00 AM AR-TOBACCO QUIT 15 YRS OR MORE [facility] Sep 05, 2022 11:00 AM AR-TOBACCO FORMER USER [facility] Sep 05, 2022 11:00 AM AR-TOBACCO QUIT 15 YRS OR MORE [facility] Radiology Reports: +/- 30 days [...] the Encounter. The data comes from all [place] treatment facilities. Date/Time Radiology Report Provider Source Feb 02, 2024 11:52 AM KNEE 3 VIEWS (LEFT ): LUBNA ARAIZA [id number] -[id number] M Exm Date: FEB 02, 2024@11:52 Req Phys: RUEL DOUGLASS Loc: CWM/NO/PACT 4 (Req'g Loc) Img Loc: [facility] 1 Service: Unknown [facility] , (Case [id number] COMPLETE) KNEE 3 VIEWS (LEFT) (RAD Detailed) CPT:94930 Reason for Study: long hx of left knee pain Clinical History: Report Status: Verified Date Reported: FEB 02, 2024 Date Verified: FEB 02, 2024 Humane Officer E-Sig:/ES/COLLEEN SILVERIO JR Report: Study: AP weight-bearing [...] Primary Interpreting Staff: COLLEEN SILVERIO JR, Radiologist (Humane Officer) /COLLEEN MILLIGAN JR [facility] Encounter Notes: All associated encounter notes This section contains the clinical notes associated to the Encounter. Date/Time Encounter Note(s) Provider Source Feb 11, 2024 02:14 PM PHARMACY NOTE: LOCAL TITLE: V1 PHARMACY CUSTOMER CARE MEDICATION RENEWAL STANDARD TITLE: PHARMACY NOTE DATE OF NOTE: FEB 11, 2024@14:14 ENTRY DATE: FEB 11, 2024@14:14:30 AUTHOR: BETO CARDENAS V EXP COSIGNER: URGENCY: STATUS: COMPLETED Date: Jan Division: [facility] referred by Pharmacy Call Center for medication renewal: Non-controlled/maintenan ce medication Medications requested: [id number] BRIEF,PROTECTIVE EXTRA ABS X-LG ATTENDS Defer to primary care provider To be mailed . Please review and renew if appropriate. *This note was generated by [facility]/ID Pharmacy Customer Care. If you have any questions or need assistance, do not contact this author. Please refer all questions to your local, on-site pharmacy departments. /berenice/ BETO CARDENAS CPhT Validation Architect, MS/Pharmacy Customer Care Signed: 02/11/2024 14:15 Receipt Acknowledged By: 02/11/2024 15:04 /berenice/ RUEL DOUGLASS MD PHYSICIAN 02/11/2024 15:44 /berenice/ SURAJ LOVE, MSN, RN, CNL PRIMARY CARE TEAM NURSE BETO CARDENAS [facility]
--- OUTSIDE RECORDS SUMMARY | 2025-01-12 12:32 | XMS_ITS | Continuity of Care Document ---
Author Name [facility] Organization [facility] Care Team Providers Care Repair Cameraman Name Role Phone [facility] Unavailable Unavailable Problems Combined list of problems from Department of Defense and Veterans Affairs facilities. It does not include entries that were removed or entered in error. 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 [facility] Bilateral osteoarthritis of knees Active Condition Nov 15, 2024 Entered By: CAROLYN DOUGLASS Comment: mod DJD per xrays done 2023 [facility] CAD - Coronary artery disease Active Condition [facility] Coronary artery disease Active Condition [facility] Degenerative lumbar spinal stenosis Active Condition Sep 05, 2022 Entered By: CAROLYN DOUGLASS Comment: vet has tried epidural injxns w/o relief/ Duloxetine helps [facility] Dry skin dermatitis Active Condition [facility] Enlarged prostate Active Condition [facility] First myocardial infarction Active Condition Feb 05, 2017 Entered By: ATUL FAUSTIN Comment: 01/31/17 with stent placement [facility] Glaucoma Active Condition [facility] History of actinic keratosis Active Condition [facility] HTN - Hypertension (SCT [id number]) Active Condition [facility] Hyperlipidemia Active Condition [facility] Hyperlipidemia (SCT 76146665) Active Condition [facility] Hypertension Active Condition [facility] Neurogenic dysfunction of urinary bladder Active Condition Jun 23, 2024 Entered By: CAROLYN DOUGLASS Comment: followed by [facility] Onychomycosis of toenails Active Condition Jul 28, 2023 Entered By: CAROLYN DOUGLASS Comment: vet needs podiatry eval [facility] Pain of left knee joint Active Condition Feb 02, 2024 Entered By: CAROLYN DOUGLASS Comment: intermittent pain/bony enlargement on exam-2023 [facility] Seborrheic dermatitis Active Condition [facility] Seborrhoeic eczema Active Condition Sep 05, 2022 Entered By: CAROLYN DOUGLASS Comment[facility] for precancerous growths- 2019 [facility] Tinea unguium Active Condition [facility] Urinary incontinence Active Condition [facility] Varicose veins of bilateral lower limbs Active Condition [facility] Varicose veins of lower extremity Active Condition [facility] Diagnosis: ICD-10-CM N31.9 Neuromuscular dysfunction of bladder, unspecified Active Diagnosis [facility] Diagnosis: ICD-10-CM 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 Active Diagnosis [facility] Diagnosis: ICD-10-CM M48.062 Spinal stenosis, lumbar region with neurogenic claudication Active Diagnosis [place] Diagnosis: ICD-10-CM Z46.1 Encounter for fitting and adjustment of hearing aid Active Diagnosis [facility] Diagnosis: ICD-10-CM M17.12 Unilateral primary osteoarthritis, left knee Active Diagnosis [facility] Diagnosis: ICD-10-CM 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 [facility] Diagnosis: ICD-10-CM M25.562 Pain in left knee Active Diagnosis [facility] Diagnosis: ICD-10-CM B35.1 Tinea unguium Active Diagnosis [facility] Diagnosis: ICD-10-CM L21.9 Seborrheic dermatitis, unspecified Active Diagnosis [facility] Diagnosis: ICD-10-CM R60.1 Generalized edema Active Diagnosis [facility] Diagnosis: ICD-10-CM M48.061 Spinal stenosis, lumbar region without neurogenic ying Active Diagnosis [facility] Medications Combined list of outpatient medications from Department of Defense and [facility] Affairs facilities.Medications provided include 1) outpatient medications from the last 15 months, and 2) patient-reported medications. Medication Details Route Status Patient Instructions Prescription Expires Prescription Number Last Dispense Date Ordering Provider Order Date Order Qty Source AMMONIUM LACTATE 12% LOTION APPLY MODERATE AMOUNT TO AFFECTED AREA TWICE A DAY NEEDED JOANA ALVERTO JONES 2015 [facility] ASPIRIN 81MG TAB,EC TAKE ONE TABLET BY MOUTH ONCE DAILY TO PREVENT STROKE/H EART ATTACK ORAL 08/11/2024 [id number] 4 DARRON OSMAN 2022 120 [facility] ASPIRIN 81MG TAB,EC TAKE ONE TABLET BY MOUTH ONCE DAILY ORAL DARRON HICKS 2022 [facility] ASPIRIN EC (U/D) 81 MG ORAL TBEC TAKE ONE TABLET BY MOUTH ONCE DAILY TO PREVENT STROKE/H EART ATTACK 08/11/2024 [id number] 4 RUEL PRICE 2023 120 [facility] ASPIRIN. TAB TAKE 81MG BY MOUTH EVERY OTHER DAY ORAL ALVERTO REESE 2015 [facility] atorvastati n (U/D) 20 MG ORAL TAB TAKE ONE TABLET BY MOUTH ONCE DAILYFOR CHOLESTE ROL 01/14/2024 [id number] STEFFANY MCINTOSH 2023 30 [facility] ATORVASTATI N CA 20MG TAB TAKE ONE TABLET BY MOUTH ONCE DAILY FOR CHOLESTE ROL ORAL 01/14/2024 [id number] 4 GERMANIA MCINTOSHS M 2022 30 [facility] Bethanechol Chloride (Urecholine Eq.) Tablet 25mg Oral TAKE TWO TABLETS BY MOUTH TWICE DAILY FOR URINARY RETENTIO N 12/12/2024 [id number] RUEL PRICE 2023 360 [facility] Bethanechol Chloride (Urecholine Eq.) Tablet 25mg Oral TAKE TWO TABLETS BY MOUTH TWICE DAILYFOR URINARY RETENTIO N Discont inued 07/15/2024 [id number] 4 EDGAR MUNOZ 2023 120 [facility] BETHANECHOL CL 25MG TAB TAKE TWO TABLETS BY MOUTH TWICE DAILY FOR URINARY RETENTIO N ORAL DISCONT INUED (EDIT) 07/15/2024 [id number] 4 YULIANA MUNOZ [address] [facility] BETHANECHOL CL 25MG TAB TAKE TWO TABLETS BY MOUTH TWICE DAILY FOR URINARY RETENTIO N ORAL 12/12/2024 [id number] 4 DARRON OSMAN [address] [facility] CARAFATE (BRAND) 1 GM/10 ML ORAL SUSP TAKE 5ML (1 TEASPOON ) BY MOUTH TWICE DAILY FOR ULCER Active 02/16/2025 [id number] 4 RUEL PRICE 2023 828 [facility] CHOLECALCIF BOBBY (VITAMIN D3) LOW TAB TAKE 200 UNITS BY MOUTH EVERY DAY ORAL ACTIVE ALVERTO SANTOS 2015 [facility] CLOPIDOGREL (U/D) 75 MG ORAL TAB TAKE ONE TABLET BY MOUTH ONCE DAILY TO PREVENT BLOOD CLOTS 07/28/2024 [id number] 4 RUEL PRICE 2023 90 [facility] CLOPIDOGREL BISULFATE 75MG TAB TAKE ONE TABLET BY MOUTH ONCE DAILY TO PREVENT BLOOD CLOTS ORAL 07/28/2024 [id number] 4 DARRON OSMAN 2022 90 [facility] CLOPIDOGREL BISULFATE 75MG TAB TAKE ONE TABLET BY MOUTH EVERY DAY ORAL ACTIVE ALVERTO SANTOS 2017 [facility] [place] CLOTRIMAZOL E 1 % TOP SOLN [30 ML] APPLY 1 DROP TOPICALL Y ONCE DAILY FOR FUNGAL INFECTIO N APPLY TO AFFECTED TOE NAILS WHEN DRY Active 02/19/2025 [id number] 4 CORINA WAYNE D 2023 60 [facility] CLOTRIMAZOL E 1% SOLN,TOP APPLY 1 DROP TOPICALL Y ONCE DAILY FOR FUNGAL INFECTIO N APPLY TO AFFECTED TOE NAILS WHEN DRY TOPICA L ACTIVE 02/19/2025 [id number] 4 GERMÁN WAYNE D 2023 60 [facility] CYMBALTA (BRAND) 30 MG ORAL CPDR TAKE ONE CAPSULE BY MOUTH ONCE DAILY 11/06/2024 [id number] 4 RUEL PRICE 2023 90 [facility] DULOXETINE HCL 30MG CAP,EC TAKE ONE CAPSULE BY MOUTH ONCE DAILY ORAL ACTIVE 03/30/2025 [id number] 4 DARRON OSMAN 2023 90 [facility] DULOXETINE HCL 30MG CAP,EC TAKE ONE CAPSULE BY MOUTH ONCE DAILY ORAL DISCONT INUED (EDIT) 11/06/2024 [id number] 4 DARRON OSMAN 2023 90 [facility] FERROUS SO4 325MG TAB TAKE ONE TABLET BY MOUTH ONCE DAILY TO SUPPLEME NT IRON ORAL 07/28/2024 [id number] 4 DARRON OSMAN 2022 100 [facility] ferrous sulf (U/D) 65MG (325MG) ORAL TAB TAKE ONE TABLET BY MOUTH ONCE DAILYTO SUPPLEME NT IRON 07/28/2024 [id number] 4 RUEL PRICE 2023 100 [facility] FINASTERIDE 5 MG ORAL TAB TAKE ONE TABLET BY MOUTH ONCE DAILY 11/03/2024 [id number] 4 RUEL PRICE 2023 90 [facility] FINASTERIDE 5MG TAB TAKE ONE TABLET BY MOUTH ONCE DAILY ORAL 11/03/2024 [id number] 4 DARRON OSMAN 2023 90 [facility] FINASTERIDE 5MG TAB TAKE ONE TABLET BY MOUTH EVERY DAY ORAL ACTIVE JOSE SALGUERO 2015 [facility] Hydrocortis one (ProctoCrea m-HC Eq.) Cream 2.5% Topical APPLY A SMALL AMOUNT TOPICALL Y ONCE DAILY NEEDED FOR ITCHING 12/20/2023 [id number] 4 RYLEY KING RUEL Carney 2023 60 [facility] HYDROCORTIS ONE 2.5% CREAM,TOP APPLY A SMALL AMOUNT TOPICALL Y ONCE DAILY NEEDED FOR ITCHING TOPICA L 12/20/2023 [id number] 4 DARRON OSMAN 2023 60 [facility] IPRATROPIUM BR 0.06% SOLN,SPRAY, NASAL INSTILL 2 SPRAYS INTO EACH NOSTRIL THREE TIMES A DAY FOR RUNNY NOSE NASAL ACTIVE 03/30/2025 [id number] 4 DARRON OSMAN 2023 45 [facility] KETOCONAZOL E 2% SHAMPOO SHAMPOO MODERATE AMOUNT INTO AFFECTED AREA DIRECTED TOPICA L ACTIVE ALVERTO SANTOS 2015 [facility] Latanoprost (Xalatan Eq.) Solution 0.005% Optical INSTILL 1 DROP INTO EACH EYE AT BEDTIME FOR INCREASE D PRESSURE IN THE EYE 12/04/2024 [id number] 4 KHARI WRIGHT 2023 0 [facility] Latanoprost (Xalatan Eq.) Solution 0.005% Optical INSTILL 1 DROP INTO EACH EYE AT BEDTIME FOR INCREASE D PRESSURE IN THE EYE Discont inued 11/06/2024 [id number] 4 [facility], KHARI B 2023 0 [facility] LATANOPROST 0.005% SOLN,OPH INSTILL 1 DROP INTO EACH EYE AT BEDTIME FOR INCREASE D PRESSURE IN THE EYE OPHTHA LMIC DISCONT INUED 11/06/2024 [id number] 4 [facility] B 2023 12.5 [facility] LATANOPROST 0.005% SOLN,OPH INSTILL 1 DROP INTO EACH EYE AT BEDTIME FOR INCREASE D PRESSURE IN THE EYE OPHTHA LMIC 12/04/2024 [id number] 5 [facility] 2023 7.5 [facility] LATANOPROST 0.005% SOLN,OPH INSTILL 1 DROP INTO BOTH EYES EVERY DAY OPHTHA LMIC ACTIVE ALVERTO SANTOS 2015 [facility] LATANOPROST 0.005% SOLN,OPH INSTILL 1 DROP INTO BOTH EYES DAILY AT BEDTIME BOTH EYES complet ed MACARIO KING 2018 [facility] metoprolol succ (U/D) 25 MG ORAL TB24 TAKE ONE TABLET BY MOUTH ONCE DAILY FOR BLOOD PRESSURE /HEART 11/06/2024 [id number] 4 RUEL PRICE 2023 90 [facility] METOPROLOL SUCCINATE 100MG TAB,SA TAKE ONE-HALF TABLET BY MOUTH EVERY DAY ORAL ACTIVE SALLIE LEROY 2016 [facility] METOPROLOL SUCCINATE 25MG TAB,SA TAKE ONE TABLET BY MOUTH ONCE DAILY FOR BLOOD PRESSURE /HEART ORAL 11/06/2024 [id number] 4 DARRON OSMAN 2023 90 [facility] MULTIVIT/OP HTH AREDS2/LUTE IN/ZEAXANTH IN CAP/TAB TAKE 1 CAPSULE BY MOUTH TWICE DAILY IN THE MORNING AND EVENING, WITH FOOD ORAL 10/13/2024 [id number] 4 CHAPO WRIGHT 2023 120 [facility] MULTIVIT/OP HTH AREDS2/LUTE IN/ZEAXANTH IN CAP/TAB TAKE 1 CAP/TAB BY MOUTH TWICE DAILY WITH MEALS ORAL ACTIVE [facility]ANTOS [facility] MULT[facility]/OP HTH AREDS2/LUTE IN/ZEAXANTH IN TAB,CHEW CHEW TWO TABLETS BY MOUTH ONCE DAILY ORAL ACTIVE DARRON OSMAN [address] [facility] MULTIVITAMI N/OPTH AREDS2/LUTE /ZEAX CAP/TAB TAKE BY MOUTH TWICE DAILY WITH MEALS ORAL complet MACARIO Puentes 2018 [facility] MULTIVITAMI NS CAP/TAB TAKE 1 CAP/TAB BY MOUTH EVERY DAY ORAL ACTIVE ALVERTO SANTOS 2015 [facility] OMEPRAZOLE 20MG CAP,EC TAKE ONE CAPSULE BY MOUTH EVERY MORNING 30 MINUTES BEFORE BREAKFAS T ORAL ACTIVE 03/12/2025 [id number] 4 DARRON OSMAN 2023 90 [facility] simvastatin (U/D) 40 MG ORAL TAB TAKE ONE TABLET BY MOUTH ONCE DAILY FOR CHOLESTE ROL 11/06/2024 [id number] RUEL PRICE 2023 90 [facility] SIMVASTATIN 40MG TAB TAKE ONE TABLET BY MOUTH ONCE DAILY FOR CHOLESTE ROL ORAL 11/06/2024 [id number] 4 DARRON OSMAN [address] [facility] SIMVASTATIN 80MG TAB TAKE ONE-HALF TABLET BY MOUTH EVERY EVENING ORAL ACTIVE ALVERTO SANTOS 2017 [facility] sucralfate (U/D) 1 GM ORAL TAB TAKE ONE TABLET BY MOUTH TWICE DAILY 01/31/2024 [id number] RUEL PRICE 2023 180 [facility] sucralfate (U/D) 1 GM ORAL TAB TAKE ONE TABLET BY MOUTH TWICE DAILY 01/31/2024 [id number] 4 RUEL PRICE 2023 180 [facility] SUCRALFATE 1GM TAB TAKE ONE TABLET BY MOUTH TWICE DAILY FOR ULCER ORAL ACTIVE 03/12/2025 [id number] 4 DARRON OSMAN 2023 180 [facility] SUCRALFATE 1GM TAB TAKE ONE TABLET BY MOUTH TWICE DAILY ORAL 01/31/2024 [id number] 4 DARRON OSMAN 2022 180 [facility] SUCRALFATE 500MG/5ML SUSP,ORAL TAKE 5ML (1 TEASPOON ) BY MOUTH TWICE DAILY FOR ULCER ORAL DISCONT INUED BY PROVIDE R 02/16/2025 [id number] 4 D[facility] OSMAN [facility]23 [facility] Immunizations Combined list of available immunizations from the Department of Defense and Veterans Affairs facilities. Immunization Series Date Given Administered By Site Reaction Lot Number CVX Code Drug Brand Marketing Coordinator Status Comments Source INFLUENZA, UNSPECIFIED FORMULATION 2022 88 complet ed HISTORICA L INFORMATI ON - SOURCE UNSPECIFI , [facility] COVID-19 (MODERNA), MRNA, LNP-S, BIVALENT BOOSTER, PF, 50 MCG/0.5 ML OR 25MCG/0.25 ML DOSE 2021 229 complet ed HISTORICA L INFORMATI ON - SOURCE UNSPECIFI , [facility] INFLUENZA, UNSPECIFIED FORMULATION 2021 88 complet ed HISTORICA L INFORMATI ON - SOURCE UNSPECIFI ED, [facility] (MODERNA), MRNA, LNP-S, PF, 100 MCG/0.5ML DOSE OR 50 MCG/0.25ML DOSE 2021 207 complet ed HISTORICA L INFORMATI ON - SOURCE UNSPECIFI ED, [facility] COVID-19 (MODERNA), MRNA, LNP-S, PF, 100 MCG/0.5ML DOSE OR 50 MCG/0.25ML DOSE 3 2020 207 complet ed HISTORICA L INFORMATI ON - SOURCE UNSPECIFI ED, [facility] COVID-19 (MODERNA), MRNA, LNP-S, PF, 100 MCG/0.5ML DOSE OR 50 MCG/0.25ML DOSE 2 2020 207 complet ed HISTORICA L INFORMATI ON - SOURCE UNSPECIFI ED, [facility]-19 (MODERNA), MRNA, LNP-S, PF, 100 MCG/0.5ML DOSE OR 50 MCG/0.25ML DOSE 1 2020 207 complet ed HISTORICA L INFORMATI ON - SOURCE UNSPECIFI ED, [facility] INFLUENZA, UNSPECIFIED FORMULATION 2019 88 complet ed [facility] INFLU[facility], UNSPECIFIED FORMULATION 2018 88 complet ed verbal [facility] TDAP 2017 115 complet ed HISTORICA L INFORMATI ON - SOURCE UNSPECIFI ED, Given at another [facility] PNEUMOCOCCAL POLYSACCHARID E PPV23 2016 33 complet ed HISTORICA L INFORMATI ON - FROM OTHER REGISTRY, Records in [facility] PNEUMOCOCCAL POLYSACCHARID E PPV23 2016 33 complet ed yes [facility] INFLUEN[facility], UNSPECIFIED FORMULATION 2015 88 complet ed Verbal [facility] PNEUMOCOCCAL CONJUGATE PCV 13 2014 133 complet ed HISTORICA L INFORMATI ON - FROM OTHER REGISTRY, Had out another [facility] PNEUMOCOCCAL CONJUGATE PCV 13 2014 133 complet ed Yes. ASHLI GONZALEZ [facility] Results Combined list of recent chemistry, hematology and other laboratory results from Department of Defense and Veterans Affairs, ranging from 15 months to all on record, depending upon the facility. Order Name Results Value Reference Range Date Interpretation Specimen Comments Source LIVER FUNCTION PROTEIN [MASS/VOLUM E] IN SERUM OR PLASMA 6.2 g/dL 6.0 - 8.3 02/01 Specimen Type: SERUM No comment entered. Ordering Provider: RUEL BROOKS Report Released Date/Time: Feb 02, 2024 11:25 AM Reporting Lab: [facility] [place] [address] [address] Performing Lab: [facility] [place] [address] [address] [facility] LIVER FUNCTION ALBUMIN [MASS/VOLUM E] IN SERUM OR PLASMA 3.8 g/dL 3.5 - 5.0 02/01 Specimen Type: SERUM No comment entered. Ordering Provider: RUEL BROOKS Report Released Date/Time: Feb 02, 2024 11:25 AM Reporting Lab: [facility] [place] [address] [address] Performing Lab: [facility] [place] [address] [address] [facility] LIVER FUNCTION ALKALINE PHOSPHATASE [ENZYMATIC ACTIVITY/VO LUME] IN SERUM OR PLASMA 106 U/L 40 - 150 02/01 Specimen Type: SERUM No comment entered. Ordering Provider: RUEL BROOKS Report Released Date/Time: Feb 02, 2024 11:25 AM Reporting Lab: [facility] [place] [facility] [address] [facility] [address] Performing Lab: [facility] [place] [address] [address] [facility] [place] [facility] LIVER FUNCTION ASPARTATE AMINOTRANSF ERASE [ENZYMATIC ACTIVITY/VO LUME] IN SERUM OR PLASMA 16 U/L 5 - 34 02/01 Specimen Type: SERUM No comment entered. Ordering Provider: RUEL BROOKS Report Released Date/Time: Feb 02, 2024 11:25 AM Reporting Lab: [facility] [place] [address] [address] Performing Lab: [facility] [place] [address] [address] [facility] [place] [facility] LIVER FUNCTION ALANINE AMINOTRANSF ERASE [ENZYMATIC ACTIVITY/VO LUME] IN SERUM OR PLASMA 14 U/L 02/01 Specimen Type: SERUM No comment entered. Ordering Provider: RUEL BROOKS Report Released Date/Time: Feb 02, 2024 11:25 AM Reporting Lab: [facility] [place] [address] [address] Performing Lab: [facility] [place] [address] [address] [facility] [facility] LIVER FUNCTION BILIRUBIN.T OTAL [MASS/VOLUM E] IN SERUM OR PLASMA 0.8 mg/dL 0.2 - 1.2 02/01 Specimen Type: SERUM No comment entered. Ordering Provider: RUEL BROOKS Report Released Date/Time: Feb 02, 2024 11:25 AM Reporting Lab: [facility] [place] [address] [address] Performing Lab: [facility] [place] [address] [address] [facility] [place] [facility] BASIC METABOLIC PANEL (non-fast ing) UREA NITROGEN [MASS/VOLUM E] IN SERUM OR PLASMA 17 mg/dL 7 - 02/01 Specimen Type: SERUM No comment entered. Ordering Provider: RUEL BROOKS Report Released Date/Time: Feb 02, 2024 11:25 AM Reporting Lab: [facility] [place] [address] [address] Performing Lab: [facility] [place] [facility] [address] [facility] [address] [facility] BASIC METABOLIC PANEL (non-fast ing) GLUCOSE [MASS/VOLUM E] IN SERUM OR PLASMA 119 mg/dL 65 - 100 02/01 H Specimen Type: SERUM No comment entered. Ordering Provider: RUEL BROOKS Report Released Date/Time: Feb 02, 2024 11:25 AM Reporting Lab: [facility] [address] [facility] [address] Performing Lab: [address] [address] [facility] BASIC METABOLIC PANEL (non-fast ing) SODIUM [MOLES/VOLU ME] IN SERUM OR PLASMA 136 mmol/L 135 - 145 02/01 Specimen Type: SERUM No comment entered. Ordering Provider: RUEL BROOKS Report Released Date/Time: Feb 02, 2024 11:25 AM Reporting Lab: [facility] [address] [facility] [address] Performing Lab: [address] [address] [facility] BASIC METABOLIC PANEL (non-fast ing) POTASSIUM [MOLES/VOLU ME] IN SERUM OR PLASMA 4.4 mmol/L 3.5 - 5.0 02/01 Specimen Type: SERUM No comment entered. Ordering Provider: RUEL BROOKS Report Released Date/Time: Feb 02, 2024 11:25 AM Reporting Lab: [facility] [address] [facility] [address] Performing Lab: [address] [address] [facility] BASIC METABOLIC PANEL (non-fast ing) CHLORIDE [MOLES/VOLU ME] IN SERUM OR PLASMA 105 mmol/L 100 - 110 02/01 Specimen Type: SERUM No comment entered. Ordering Provider: RUEL BROOKS Report Released Date/Time: Feb 02, 2024 11:25 AM Reporting Lab: [facility] [address] Performing Lab: [facility] [address] [facility] BASIC METABOLIC PANEL (non-fast ing) CARBON DIOXIDE, TOTAL [MOLES/VOLU ME] IN SERUM OR PLASMA 23 meq/L 20 - 30 02/01 Specimen Type: SERUM No comment entered. Ordering Provider: RUEL BROOKS Report Released Date/Time: Feb 02, 2024 11:25 AM Reporting Lab: [facility] [address] Performing Lab: [facility] [address] [facility] BASIC METABOLIC PANEL (non-fast ing) CREATININE [MASS/VOLUM E] IN SERUM OR PLASMA 0.86 mg/dL 0.50 - 1.40 02/01 Specimen Type: SERUM No comment entered. Ordering Provider: RUEL BROOKS Report Released Date/Time: Feb 02, 2024 11:25 AM Reporting Lab: [facility] [address] [address] Performing Lab: [facility] [address] [facility] BASIC METABOLIC PANEL (non-fast ing) GLOMERULAR FILTRATION RATE/1.73 SQ M.PREDICTED [VOLUME RATE/AREA] IN SERUM, PLASMA OR BLOOD BY CREATININE- BASED FORMULA (CKD-EPI 2020) 84 mL/min 60 02/01 Specimen Type: SERUM No comment entered. Ordering Provider: RUEL BROOKS Report Released Date/Time: Feb 02, 2024 11:25 AM Reporting Lab: [facility] [address] [address] Performing Lab: [facility] [address] [facility] [place] [facility] HEMOGLOBI N A1C PANEL HEMOGLOBIN A1C/HEMOGLO BIN.TOTAL IN BLOOD BY HPLC 5.7 4.0 - 5.6 02/01 H Specimen Type: BLOOD Comment: Values obtained from A1C measurement s can vary. For atypical A1C assays, a reported value of 7.0 could actually be between 6.72 and 7.28 if measured by a reference method. A reported value of 9.0 could actually be between 8.73 and 9.27. Ref: [email or web address] ngsp.org/[place] Pdata.asp Ordering Provider: RUEL BROOKS Report Released Date/Time: Feb 02, 2024 11:25 AM Reporting Lab: [facility] [address] Performing Lab: [facility] [address] [address] [facility] TSH THYROTROPIN [UNITS/VOLU ME] IN SERUM OR PLASMA 1.65 u[IU]/ mL 0.35 - 5.00 02/01 Specimen Type: SERUM No comment entered. Ordering Provider: RUEL BROOKS Report Released Date/Time: Feb 02, 2024 11:25 AM Reporting Lab: [facility] [address] Performing Lab: [facility] [address] [facility] IRON & TIBC PANEL IRON BINDING CAPACITY [MASS/VOLUM E] IN SERUM OR PLASMA 259 ug/dL 204 - 475 07/28 Specimen Type: SERUM No comment entered. Ordering Provider: RUEL BROOKS Report Released Date/Time: Jul 28, 2023 01:41 PM Reporting Lab: [facility] [address] Performing Lab: [facility] [address] [facility] IRON & TIBC PANEL IRON [MASS/VOLUM E] IN SERUM OR PLASMA 32 ug/dL 40 - 160 07/28 L Specimen Type: SERUM No comment entered. Ordering Provider: RUEL BROOKS Report Released Date/Time: Jul 28, 2023 01:41 PM Reporting Lab: [facility] [facility] [address] [facility] [address] Performing Lab: [facility] [place] [facility] [address] [facility] [address] [facility] IRON & TIBC PANEL IRON/IRON BINDING CAPACITY.TO RUBÉN [MASS RATIO] IN SERUM OR PLASMA 12.4 20.0 - 50.0 07/28 L Specimen Type: SERUM No comment entered. Ordering Provider: RUEL BROOKS Report Released Date/Time: Jul 28, 2023 01:41 PM Reporting Lab: [facility] [address] Performing Lab: [facility] [address] [facility] FERRITIN FERRITIN [MASS/VOLUM E] IN SERUM OR PLASMA 76 ng/mL 20 - 300 07/28 Specimen Type: SERUM No comment entered. Ordering Provider: RUEL BROOKS Report Released Date/Time: Jul 28, 2023 01:41 PM Reporting Lab: [facility] [address] Performing Lab: [facility]OMERYN [facility] [address] [facility]ITALUSE [facility] CBC AND DIFF (AUTO) LEUKOCYTES [#/VOLUME] IN BLOOD BY AUTOMATED COUNT 8.28 10*3/u L 4.50 - 11.00 07/28 Specimen Type: BLOOD No comment entered. Ordering Provider: RUEL BROOKS Report Released Date/Time: Jul 28, 2023 01:41 PM Reporting Lab: [facility]ERY[facility] [address] Performing Lab: [facility] [place] [facility] [address] [facility] [address] [facility] [place] [facility] CBC AND DIFF (AUTO) ERYTHROCYTE S [#/VOLUME] IN BLOOD BY AUTOMATED COUNT 4.58 10*6/u L 4.23 - 5.66 07/28 Specimen Type: BLOOD No comment entered. Ordering Provider: RUEL BROOKS Report Released Date/Time: Jul 28, 2023 01:41 PM Reporting Lab: [facility] [place] [facility] [address] [facility] [address] Performing Lab: [facility] [place] [facility] [address] [facility] [address] [facility] [place] [facility] CBC AND DIFF (AUTO) HEMOGLOBIN [MASS/VOLUM E] IN BLOOD 13.2 g/dL 12.8 - 17 07/28 Specimen Type: BLOOD No comment entered. Ordering Provider: RUEL BROOKS Report Released Date/Time: Jul 28, 2023 01:41 PM Reporting Lab: [facility] [place] [facility] [address] [facility] [address] Performing Lab: [facility] [place] [facility] [address] [facility] [address] [facility] [place] [facility] CBC AND DIFF (AUTO) HEMATOCRIT [VOLUME FRACTION] OF BLOOD BY AUTOMATED COUNT 40.7 39.2 - 50.4 07/28 Specimen Type: BLOOD No comment entered. Ordering Provider: RUEL BROOKS Report Released Date/Time: Jul 28, 2023 01:41 PM Reporting Lab: [facility] [place] [facility] [address] [facility] [address] Performing Lab: [facility] [place] [facility] [address] [facility] [address] [facility] [place] [facility] CBC AND DIFF (AUTO) MCV [ENTITIC VOLUME] BY AUTOMATED COUNT 88.9 fL 82 - 99 07/28 Specimen Type: BLOOD No comment entered. Ordering Provider: RUEL BROOKS Report Released Date/Time: Jul 28, 2023 01:41 PM Reporting Lab: [facility] [place] [facility] [address] [facility] [address] Performing Lab: [facility] [place] [facility] [address] [facility] [address] [facility] CBC AND DIFF (AUTO) MCHC [MASS/VOLUM E] BY AUTOMATED COUNT 32.4 g/dL 30.8 - 35.1 07/28 Specimen Type: BLOOD No comment entered. Ordering Provider: RUEL BROOKS Report Released Date/Time: Jul 28, 2023 01:41 PM Reporting Lab: [facility] [place] [facility] [address] [facility] [address] Performing Lab: [facility] [place] [facility] [address] [facility] [address] [facility] [place] [facility] CBC AND DIFF (AUTO) PLATELETS [#/VOLUME] IN BLOOD BY AUTOMATED COUNT 314 10*3/u L 140 - 360 07/28 Specimen Type: BLOOD No comment entered. Ordering Provider: RUEL BROOKS Report Released Date/Time: Jul 28, 2023 01:41 PM Reporting Lab: [facility] [place] [facility] [address] [facility] [address] Performing Lab: [facility] [place] [address] [address] [facility] CBC AND DIFF (AUTO) ERYTHROCYTE DISTRIBUTIO N WIDTH [RATIO] BY AUTOMATED COUNT 14.2 12.0 - 16.0 07/28 Specimen Type: BLOOD No comment entered. Ordering Provider: RUEL BROOKS Report Released Date/Time: Jul 28, 2023 01:41 PM Reporting Lab: [facility] [place] [facility] [address] [facility] [address] Performing Lab: [facility] [place] [address] [address] [facility] [place] CBC AND DIFF (AUTO) MONOCYTES [#/VOLUME] IN BLOOD BY AUTOMATED COUNT 0.97 10*3/u L 0.30 - 1.10 07/28 Specimen Type: BLOOD No comment entered. Ordering Provider: RUEL BROOKS Report Released Date/Time: Jul 28, 2023 01:41 PM Reporting Lab: [facility] [place] [address] [address] Performing Lab: [facility] [place] [facility] [address] [facility] [address] [facility] [place] [facility] CBC AND DIFF (AUTO) MCH [ENTITIC MASS] BY AUTOMATED COUNT 28.8 pg 26.2 - 32.6 07/28 Specimen Type: BLOOD No comment entered. Ordering Provider: RUEL BROOKS Report Released Date/Time: Jul 28, 2023 01:41 PM Reporting Lab: [facility] [place] [address] [address] Performing Lab: [facility] [place] [address] [address] [facility] [place] [facility] CBC AND DIFF (AUTO) NEUTROPHILS /100 LEUKOCYTES IN BLOOD BY AUTOMATED COUNT 66.7 43.7 - 75.8 07/28 Specimen Type: BLOOD No comment entered. Ordering Provider: RUEL BROOKS Report Released Date/Time: Jul 28, 2023 01:41 PM Reporting Lab: [facility] [place] [address] [address] Performing Lab: [facility] [place] [address] [address] [facility] [place] [facility] CBC AND DIFF (AUTO) LYMPHOCYTES /100 LEUKOCYTES IN BLOOD BY AUTOMATED COUNT 17.3 14.0 - 42.3 07/28 Specimen Type: BLOOD No comment entered. Ordering Provider: RUEL BROOKS Report Released Date/Time: Jul 28, 2023 01:41 PM Reporting Lab: [facility] [place] [address] [address] Performing Lab: [facility] [place] [facility] [address] [facility] [address] [facility] [place] [facility] CBC AND DIFF (AUTO) MONOCYTES/1 00 LEUKOCYTES IN BLOOD BY AUTOMATED COUNT 11.7 5.1 - 13.7 07/28 Specimen Type: BLOOD No comment entered. Ordering Provider: RUEL BROOKS Report Released Date/Time: Jul 28, 2023 01:41 PM Reporting Lab: [facility] [place] [facility] [address] [facility] [address] Performing Lab: [facility] [place] [facility] [address] [facility] [address] [facility] [place] [facility] CBC AND DIFF (AUTO) EOSINOPHILS /100 LEUKOCYTES IN BLOOD BY AUTOMATED COUNT 3.7 0.4 - 6.8 07/28 Specimen Type: BLOOD No comment entered. Ordering Provider: RUEL BROOKS Report Released Date/Time: Jul 28, 2023 01:41 PM Reporting Lab: [facility] [place] [facility] [address] [facility] [address] Performing Lab: [facility] [place] [facility] [address] [facility] [address] [facility] [place] [facility] CBC AND DIFF (AUTO) BASOPHILS/1 00 LEUKOCYTES IN BLOOD BY AUTOMATED COUNT 0.4 0.1 - 2.0 07/28 Specimen Type: BLOOD No comment entered. Ordering Provider: RUEL BROOKS Report Released Date/Time: Jul 28, 2023 01:41 PM Reporting Lab: [facility] [place] [facility] [address] [facility] [address] Performing Lab: [facility] [place] [facility] [address] [facility] [address] [facility] [place] CBC AND DIFF (AUTO) NEUTROPHILS [#/VOLUME] IN BLOOD BY AUTOMATED COUNT 5.52 10*3/u L 2.20 - 7.60 07/28 Specimen Type: BLOOD No comment entered. Ordering Provider: RUEL BROOKS Report Released Date/Time: Jul 28, 2023 01:41 PM Reporting Lab: [facility] [place] [facility] [address] [facility] [address] Performing Lab: [facility] [place] [facility] [address] [facility] [address] [facility] CBC AND DIFF (AUTO) LYMPHOCYTES [#/VOLUME] IN BLOOD BY AUTOMATED COUNT 1.43 10*3/u L 1.00 - 3.20 07/28 Specimen Type: BLOOD No comment entered. Ordering Provider: RUEL BROOKS Report Released Date/Time: Jul 28, 2023 01:41 PM Reporting Lab: [facility] [place] [facility] [address] [facility] [address] Performing Lab: [facility] [place] [facility] [address] [facility] [address] [facility] CBC AND DIFF (AUTO) EOSINOPHILS [#/VOLUME] IN BLOOD BY AUTOMATED COUNT 0.31 10*3/u L 0.03 - 0.44 07/28 Specimen Type: BLOOD No comment entered. Ordering Provider: RUEL BROOKS Report Released Date/Time: Jul 28, 2023 01:41 PM Reporting Lab: [facility] [place] [facility] [address] [facility] [address] Performing Lab: [facility] [place] [facility] [address] [facility] [address] [facility] [place] CBC AND DIFF (AUTO) BASOPHILS [#/VOLUME] IN BLOOD BY AUTOMATED COUNT 0.03 10*3/u L 0.01 - 0.13 07/28 Specimen Type: BLOOD No comment entered. Ordering Provider: RUEL BROOKS Report Released Date/Time: Jul 28, 2023 01:41 PM Reporting Lab: [facility] [place] [facility] [address] [facility] [address] Performing Lab: [facility] [place] [facility] [address] [facility] [address] [facility] [place] CBC AND DIFF (AUTO) IMMATURE GRANULOCYTE S/100 LEUKOCYTES IN BLOOD BY AUTOMATED COUNT 0.2 0.0 - 0.7 07/28 Specimen Type: BLOOD No comment entered. Ordering Provider: RUEL BROOKS Report Released Date/Time: Jul 28, 2023 01:41 PM Reporting Lab: [facility] [address] [address] Performing Lab: [facility] [address] [facility] CBC AND DIFF (AUTO) IMMATURE GRANULOCYTE S [#/VOLUME] IN BLOOD 0.02 10*3/u L 0.00 - 0.06 07/28 Specimen Type: BLOOD No comment entered. Ordering Provider: RUEL BROOKS Report Released Date/Time: Jul 28, 2023 01:41 PM Reporting Lab: [facility] [address] [address] Performing Lab: [facility] [address] [address] [facility] THYROID T4 FREE(FT4) THYROXINE (T4) FREE [MASS/VOLUM E] IN SERUM OR PLASMA 0.80 ng/dL 0.6 - 1.6 03/06 Specimen Type: SERUM No comment entered. Ordering Provider: RUEL BROOKS Report Released Date/Time: Mar 06, 2023 03:28 PM Reporting Lab: [facility] [address] Performing Lab: [facility] [address] [facility] [address] [facility] SMEAR EXAMINATI ON PLATELET MORPHOLOGY FINDING [IDENTIFIER ] IN BLOOD ADEQ10 *3/uL 03/06 Specimen Type: BLOOD No comment entered. Ordering Provider: RUEL BROOKS Report Released Date/Time: Mar 06, 2023 03:28 PM Reporting Lab: [facility] [address] [place] [address] Performing Lab: [facility] [place] [facility] [address] [facility] [address] [facility] SMEAR EXAMINATI ON ANISOCYTOSI S [PRESENCE] IN BLOOD BY LIGHT MICROSCOPY 03/06 Specimen Type: BLOOD No comment entered. Ordering Provider: RUEL BROOKS Report Released Date/Time: Mar 06, 2023 03:28 PM Reporting Lab: [facility] [place] [facility] [address] [facility] [address] Performing Lab: [facility] [place] [facility] [address] [facility] [address] [facility] [place] [facility] SMEAR EXAMINATI ON MICROCYTES [PRESENCE] IN BLOOD BY LIGHT MICROSCOPY 03/06 Specimen Type: BLOOD No comment entered. Ordering Provider: RUEL BROOKS Report Released Date/Time: Mar 06, 2023 03:28 PM Reporting Lab: [facility] [place] [facility] [address] [facility] [address] Performing Lab: [facility] [place] [facility] [address] [facility] [address] [facility] [place] [facility] SMEAR EXAMINATI ON MACROCYTES [PRESENCE] IN BLOOD BY LIGHT MICROSCOPY 03/06 Specimen Type: BLOOD No comment entered. Ordering Provider: RUEL BROOKS Report Released Date/Time: Mar 06, 2023 03:28 PM Reporting Lab: [facility] [place] [facility] [address] [facility] [address] Performing Lab: [facility] [place] [facility] [address] [facility] [address] [facility] [place] [facility] SMEAR EXAMINATI ON POLYCHROMAS IA [PRESENCE] IN BLOOD BY LIGHT MICROSCOPY 03/06 Specimen Type: BLOOD No comment entered. Ordering Provider: RUEL BROOKS Report Released Date/Time: Mar 06, 2023 03:28 PM Reporting Lab: [facility] [place] [facility] [address] [facility] [address] Performing Lab: [facility] [place] [facility] [address] [facility] [address] [facility] [place] [facility] SMEAR EXAMINATI ON HYPOCHROMIA [PRESENCE] IN BLOOD BY LIGHT MICROSCOPY 1+ 03/06 Specimen Type: BLOOD No comment entered. Ordering Provider: RUEL BROOKS Report Released Date/Time: Mar 06, 2023 03:28 PM Reporting Lab: [facility] [place] [facility] [address] [facility] [address] Performing Lab: [facility] [place] [facility] [address] [facility] [address] [facility] [place] [facility] HEMOGLOBI N A1C PANEL HEMOGLOBIN A1C/HEMOGLO BIN.TOTAL IN BLOOD BY HPLC 5.5 4.0 - 5.6 03/06 Specimen Type: BLOOD Comment: Values obtained from A1C measurement s can vary. For atypical A1C assays, a reported value of 7.0 could actually be between 6.72 and 7.28 if measured by a reference method. A reported value of 9.0 could actually be between 8.73 and 9.27. Ref: http://www. ngsp.org/[place] Pdata.asp Ordering Provider: RUEL BROOKS Report Released Date/Time: Mar 06, 2023 03:28 PM Reporting Lab: [facility] [place] [facility] [address] [facility] [address] Performing Lab: [facility] [place] [facility] [address] [facility] [address] [facility] Vital Signs Combined list of inpatient and outpatient Vital Signs from Department of Defense and Veterans Affairs, ranging from 12 months to all on record, depending upon the facility. Vital Sign Value Date Comments Source SYSTOLIC BLOOD PRESSURE 133 11/16/19 25 14:15:15 [facility] [place] [facility] DIASTOLIC BLOOD PRESSURE 78 025 14:15:15 [facility] [place] [facility] PULSE OXIMETRY 95 11/15/2024 14:15:15 [facility] WEIGHT 194 11/15/2024 14[facility]15:15 [facility] BMI 27 kg/m2 11/15/2024 14:15:15 [facility] PULSE 86 11/15/2024 14:15:15 [facility] RESPIRATION 20 11/15/2024 14:15:15 [facility] SYSTOLIC BLOOD PRESSURE 130 05/18/20 24 10:41:17 [facility] DIASTOLIC BLOOD PRESSURE 70 024 10:41:17 [facility] PAIN 5 05/18/2024 10:41:17 [facility] [place] SYSTOLIC BLOOD PRESSURE 110 03/29/20 24 15:33:04 [facility] DIASTOLIC BLOOD PRESSURE 70 024 15:33:04 [facility] PULSE OXIMETRY 94 03/29/2024 15:33:04 [facility] PAIN 2 03/29/2024 15:33:04 [facility] TEMPERATURE 97.3 03/29/2024 15:33:04 [facility] PULSE 80 03/29/2024 15[facility]33:04 [facility] RESPIRATION 16 03/29/2024 15:33:04 [facility] SYSTOLIC BLOOD PRESSURE 122 03/10/20 24 09:56:45 [facility] DIASTOLIC BLOOD PRESSURE 80 024 09:56:45 [facility] PAIN 2 03/10/2024 09:56:45 [facility] SYSTOLIC BLOOD PRESSURE 136 02/02/20 24 11:14:35 [facility] DIASTOLIC BLOOD PRESSURE 80 024 11:14:35 [facility] PULSE OXIMETRY 95 02/02/2024 11:14:35 [facility] PAIN 4 02/02/2024 11:14:35 [facility] TEMPERATURE 96.3 02/02/2024 11:14:35 [facility] PULSE 93 02/02/2024 11:14:35 [facility] RESPIRATION 16 02/02/2024 11:14:35 [facility] Encounters Combined list of: 1) Encounters from Department of Veterans Affairs facilities going backup to the last 18 months, not all VA inpatient encounters are included; 2) Encounters from the Department of Defense facilities going backup to 280 months. Location Location Details Encounter Type Encounter Number Reason For Visit Attending Provider ADM Date DC Date Status Disposition Source [facility] OUTPATIENT [id number] LUMBAR SPINE STENOSI S PARIS GARZA 03/19 Released w/o Limitations [facility] Encounter [id number] 07/15 [facility] OFF[facility] O/P EST MOD 30-39 MIN [id number] Diagnos is: ICD-10- CM M48.061 Spinal stenosi s, lumbar region without neuroge ashley ying KIARA SZYMANSKI H 07/28 [facility] En[facility] [id number] 08/04 [facility] En[facility] [id number] 08/11 [facility] OFFICE O/P NEW SF 15 MIN [id number] Diagnos is: ICD-10- CM R60.[address] edema [address] PHIPPS JUAN PABLOD 10/01 [facility] En[facility] [id number] 10/01 [facility] En[facility] [id number] 10/13 [facility] En[facility] [id number] 11/02 [facility] En[facility] [id number] 11/05 [facility] Encounter [id number] 11/05 [facility] [id number] 11/17 [facility] Encounter [id number] DAKSHA WAYNE 11/18 [facility] OFF[facility] O/P EST MOD 30 MIN [id number] Diagnos is: ICD-10- CM L21.9 Seborrh eic dermati tis, unspeci RUEL Bowens 11/19 [facility] En[facility] [id number] 11/25 [facility] En[facility] [id number] 12/11 [facility] Encounter [id number] 12/22 [facility] En[facility] [id number] 01/04 [facility] En[facility] [id number] 01/07 [facility] En[facility] [id number] 01/21 [facility] En[facility] [id number]/21 [facility] HEARING AID REPAIR/MOD IFYING [id number] Diagnos is: ICD-10- CM Z46.1 Encount er for fitting and adjustm ent of hearing aid AKIL HOLDEN 01/29 [facility] OFF[facility] O/P EST MOD 30 MIN [id number] Diagnos is: ICD-10- CM M25.562 Pain in left knee DRUEL WILSON 02/01 [facility] En[facility] [id number] 02/10 [facility] En[facility] [id number] 02/15 [facility] TRIM NAIL(S) ANY NUMBER [id number] Diagnos is: ICD-10- CM B35.1 Tinea unguialex WAYNE CHA DELTAM[address]LEINE Lane 02/18 [facility] En[facility] [id number] 03/01 [facility] OFFICE O/P NEW MOD 45 MIN [id number] Diagnos is: ICD-10- CM M25.562 Pain in left knee [address] ROME 03/10 [facility] Out[facility] Encounter [id number] 03/11 [facility]counter [id number] 03/19 [facility] Out[facility]counter [id number] 03/26 [facility] Out[facility]counter [id number] 03/26 [facility] Out[facility] Encounter [id number] 03/26 [facility] OFF[facility] O/P EST LOW 20 MIN [id number] Diagnos is: ICD-10- CM J30.0 Vasomot or rhiniti s RUEL RICE 03/29 [facility] Out[facility] Encounter [id number] 03/30 [facility] GAIT TRAINING THERAPY [id number] Diagnos is: ICD-10- CM M48.062 Spinal stenosi s, lumbar region with neuroge ashley claudic ation ALBARADO TOBIAS REA 04/12 [place] [facility] Out[facility] Encounter [id number] SCOT KINGRUEL Carney 04/12 [facility] HEARING AID REPAIR/MOD IFYING [id number] Diagnos is: ICD-10- CM Z46.1 Encount er for fitting and adjustm ent of hearing aid ORTIZ REAL 04/20 [facility] THERAPEUTI C EXERCISES [id number] Diagnos is: ICD-10- CM M48.062 Spinal stenosi s, lumbar region with neuroge ashley claudic ation Davy ALANIZ JODIE 04/21 [facility] THERAPEUTI C EXERCISES [id number] Diagnos is: ICD-10- CM M48.062 Spinal stenosi s, lumbar region with neuroge ashley claudic ation Davy ALANIZ JODIE 04/27 [facility] THERAPEUTI C EXERCISES [id number] Diagnos is: ICD-10- CM M48.062 Spinal stenosi s, lumbar region with neuroge ashley claudic ation Davy ALANIZ JODIE 05/04 [facility] OFFICE O/P EST LOW 20 MIN [id number] Diagnos is: ICD-10- CM M17.12 Unilate ral primary osteoar thritis , left knee WILDLane MATHEW Norm 05/18 [facility] Out[facility] Encounter [id number] 05/18 [facility] SELF CARE MNGMENT TRAINING [id number] Diagnos is: ICD-10- CM M48.062 Spinal stenosi s, lumbar region with neuroge ashley Davy Mathews 05/18 [facility] Out[facility] Encounter [id number] RUEL RICE 05/19 [facility] HEARING AID REPAIR/MOD IFYING [id number] Diagnos is: ICD-10- CM Z46.1 Encount er for fitting and adjustm ent of hearing aid SENIORASHLEY 05/25 [facility] THERAPEUTI C EXERCISES [id number] Diagnos is: ICD-10- CM M48.062 Spinal stenosi s, lumbar region with neuroge ashley claudDavy Alonso 05/25 [facility] [place] S[facility]ARE MNGMENT TRAINING [id number] Diagnos is: ICD-10- CM M48.062 Spinal stenosi s, lumbar region with neuroge ashley claudic atTOBIAS Andrews 06/08 [place] [facility] Outpatient Encounter [id number] [facility] Encounter [id number] [facility] Out[facility] Encounter [id number] 07/09 [facility]counter [id number] 07/13 [facility] Encounter [id number] 1.07/13 [facility] [id number] 1.07/14 [facility]counter [id number] 07/15 [facility]counter [id number] 07/21 [facility]counter [id number] 08/11 [facility] [id number] 1.08/11 [facility] Encounter [id number] 1[facility]08/12 [facility] [id number] 1.08/13 [facility]counter [id number] 08/13 [facility] [id number] 08/14 [facility] Encounter [id number] 08/16 [facility] OFFICE O/P EST MOD 30 MIN [id number] Diagnos is: ICD-10- CM 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 ROSANA,JESSICA RLES D 08/19 [facility] En[facility] [id number] 08/19 [facility] En[facility] [id number] [facility] Encounter [id number] 09/03 [facility] Encounter [id number] 09/09 [facility] Encounter [id number] 09/14 [facility] Encounter [id number] 09/15 [facility] Encounter [id number] 09/16 [facility] Encounter [id number] 09/29 [facility] Encounter [id number] 09/29 [facility] Encounter [id number] 09/29 [facility] Encounter [id number] 10/01 [facility] Encounter [id number] 10/04 [facility] Out[facility] Encounter [id number] 10/06 [facility]counter [id number] 10/08 [facility] Encounter [id number] 10/08 [facility] Encounter [id number] 10/11 [facility] Out[facility] Encounter [id number] 10/11 [facility] Out[facility] Encounter [id number] RUEL RICE 10/12 [facility] Encounter [id number] 10/14 [facility]counter [id number] 10/20 [facility] Out[facility] Encounter [id number] 10/20 [facility] Out[facility] Encounter [id number] 11/15 [facility] OFFICE O/P EST MOD 30 MIN [id number] Diagnos is: ICD-10- CM 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 , unspeci fied RUEL RICE 11/15 [facility] Out[facility] En[facility] [id number] 11/19 [facility] Encounter [id number] 11/30 [facility] Out[facility] Encounter [id number] 12/03 [facility] Out[facility] Encounter [id number] 12/06 [facility] [id number] 04/10 /2025 [facility] Out[facility] En[facility] [id number] 12/30 [facility] Out[facility] Encounter [id number] 01/04 [facility] Out[facility] Encounter [id number] 01/10 [facility] Out[facility] Encounter [id number] 01/12 [facility] Social History Combined list of available smoking, tobacco, and other social history from Department of Defense and Veterans Affairs facilities. Social History Type Response Date Comment Sour e Tobacco smoking status NHIS VA-TOBACCO NEVER USED CIGARETTES 11/15/2024 [facility] History of tobacco use SC-TOBACCO NEVER USED OTHER TYPE 11/15/2024 [facility] History of tobacco use VA-TOBACCO FORMER USER 11/20/2023 [facility] History of tobacco use VA-TOBACCO FORMER USER 09/05/2022 [facility] History of tobacco use VA-TOBACCO FORMER USER 03/26/2021 [facility] [place] of [place] use VA-TOBACCO NEVER USED 03[place]2020 [facility] [place] of tobacco use LIFETIME NON-USER OF TOBACCO 04/15/2017 [facility] [place] This section is an empty social history section. DoD Plan of Care List of future care activities from Department of Veterans Affairs facilities. Additional future care activities may be listed in the Assessment and Plan section. Date/Time Care Activity Care Activity Detail Facili ty 02/01/2025 AMBULATORY - MEDICINE AMBULATORY - MEDICI [facility]
--- OUTSIDE RECORDS SUMMARY | 2025-01-12 12:32 | XMS_ITS | Encounter Summary ---
Author Organization [facility] Address [address] [place] [address] Care Team Providers Care Bed Worker Name Role Phone Keaton Anton MD Primary Care Provider [phone] Encounter Details Date Type Department Care Team (Latest Contact Info) Description 07/23/2024 Lab Requisition [facility] - Main Lab [address] [place] [address] Keaton Anton MD [address] [place] [phone] Atherosclerotic heart disease of [place] coronary artery without angina pectoris; Elevated lipoprotein(a) Social History Tobacco Use Types Packs/Day Years Used Date Smoking Tobacco: Never Assessed Sex and Gender Information Value Date Recorded Sex Assigned at Not on file Legal Sex Male 8:27 PM EST Gender Identity Not on file Sexual Orientation Not on file documented as of this encounter Plan of Treatment Not on file documented as of this encounter Procedures Procedure Name Priority Date/Time Associated Diagnosis Comments COMPLETE BLOOD COUNT Routine 07/26/2024 6:19 AM EST 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 Potassium 4.6 3.5 - 5.5 mmol/L LAB CHEMISTRY METHOD 07/26/2024 10:19 AM [facility] Chloride 108 96 - 110 mmol/L LAB CHEMISTRY METHOD 07/26/2024 10:19 AM [facility] CO2 24 21 - 32 mmol/L LAB CHEMISTRY METHOD 07/26/2024 10:19 AM [facility] Anion Gap 7 3 - 11 LAB CHEMISTRY METHOD 07/26/2024 10:19 AM [facility] Glucose 96 70 - 100 mg/dL LAB CHEMISTRY METHOD 07/26/2024 10:19 AM [facility] BUN 18 5 - 25 mg/dL LAB CHEMISTRY METHOD 07/26/2024 10:19 AM [facility] Creatinine 0.87 0.70 - 1.30 mg/dL LAB CHEMISTRY METHOD 07/26/2024 10:19 AM [facility] eGFR 84 >=60 mL/min/1. 73m2 LAB CHEMISTRY METHOD 07/26/2024 10:19 AM [facility] Comment:Calculation based on the??Chronic Kidney Disease Epidemiology Collaboration (CKD-EPI) equation refit??without adjustment for race. BUN/Creatinine Ratio 20.7 LAB CHEMISTRY METHOD 07/26/2024 10:19 AM [facility] Calcium 8.9 8.5 - 10.5 mg/dL LAB CHEMISTRY METHOD 07/26/2024 10:19 AM [facility] AST (SGOT) 19 10 - 42 unit/L LAB CHEMISTRY METHOD 07/26/2024 10:19 AM [facility] ALT (SGPT) 28 10 - 60 unit/L LAB CHEMISTRY METHOD 07/26/2024 10:19 AM [facility] Alkaline Phosphatase 111 42 - 121 unit/L LAB CHEMISTRY METHOD 07/26/2024 10:19 AM [facility] Total Protein 5.8(L) 6.0 - 8.0 g/dL LAB CHEMISTRY METHOD 07/26/2024 10:19 AM [facility] Albumin 3.1(L) 3.2 - 5.0 g/dL LAB CHEMISTRY METHOD 07/26/2024 10:19 AM [facility] Total Bilirubin 0.9 0.0 - 1.4 mg/dL LAB CHEMISTRY METHOD 07/26/2024 10:19 AM [facility] Blood Venous blood specimen / Unknown Venipuncture / Unknown 07/26/2024 6:19 AM EST 07/26/2024 9:35 AM EST us Keaton Anton MD LAB BLOOD ORDERABLES Final Resu lt [facility] [address] [place] [address], [place] [phone] * Complete blood count (07/26/2024 6:19 AM EST) WBC 7.0 4.8 - 10.8 K/mcL LAB HEMETOLOGY METHOD 07/26/2024 9:53 AM [facility] RBC 4.80 4.50 - 5.50 M/mcL LAB HEMETOLOGY METHOD 07/26/2024 9:53 AM [facility] Hemoglobin 14.0 13.5 - 17.5 g/dL LAB HEMETOLOGY METHOD 07/26/2024 9:53 AM [facility] Hematocrit 43.3 42.0 - 54.0 % LAB HEMETOLOGY METHOD 07/26/2024 9:53 AM [facility] MCV 91.2 79.0 - 98.0 FL LAB HEMETOLOGY METHOD 07/26/2024 9:53 AM [facility] MCH 29.5 27.0 - 32.0 pcg LAB HEMETOLOGY METHOD 07/26/2024 9:53 AM [facility] MCHC 32.3 32.0 - 37.0 g/dL LAB HEMETOLOGY METHOD 07/26/2024 9:53 AM EST [facility] RDW 13.8 11.0 - 15.0 % LAB HEMETOLOGY METHOD 07/26/2024 9:53 AM EST [facility] Platelets 382 130 - 400 K/mcL LAB HEMETOLOGY METHOD 07/26/2024 9:53 AM [facility] MPV 9.6 7.0 - 11.0 FL LAB HEMETOLOGY METHOD 07/26/2024 9:53 AM EST [facility] NRBC 0.0 <1.0 % LAB HEMETOLOGY METHOD 07/26/2024 9:53 AM [facility] NRBC Absolute 0.00 <0.10 K/mcL LAB HEMETOLOGY METHOD 07/26/2024 9:53 AM [facility] Blood Venous blood specimen / Unknown Venipuncture / Unknown 07/26/2024 6:19 AM EST 07/26/2024 9:35 AM EST us Keaton Anton MD LAB BLOOD ORDERABLES Final Resu lt [facility] [address] [place] [address], documented in this encounter Visit Diagnoses Diagnosis 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
--- OUTSIDE RECORDS SUMMARY | 2025-01-12 12:32 | XMS_ITS ---
Author Name [facility] [place] Address [address] [place] [id number] Care Team Providers Care Enrober Tender Name Role Phone SILVIA DAVID Primary Care Provider RUEL Claudio Primary Care Provider Unanereyda ailable Insurance Providers: All historical and current Section [...] PLAN G Aug 01, 2017 PLAN G [id number] Raymond ARAIZA PATIENT AARP MED SUPP MEDIGAP PLAN G PLAN G Aug 01, 2017 PLAN G [id number] Raymond ARAIZA PATIENT AARP MED SUPP MEDIGAP PLAN G PLAN G Aug 01, 2017 PLAN G [id number] Raymond ARAIZA PATIENT AARP MED SUPP MEDICARE SUPPLEMEN RUBÉN PLANG Aug 01, 2017 PLAN [id number] Raymond ARAIZA PATIENT AARP MED SUPP MEDICARE SUPPLEMEN RUBÉN PLANG Aug 01, 2017 PLANG [id number] GERRIRaymond MALHOTRASWORTH PATIENT AARP MED SUPP MEDIGAP PLAN G PLAN G Aug 01, 2017 PLAN G [id number] GERRITZ,Raymond LLSWORTH PATIENT MEDICARE (WNR) MEDICARE () PART B Sep 01, 2002 PART B [id number] GERRITZ,E LLSWORTH PATIENT MEDICARE (WNR) MEDICARE (M) PART B Sep 01, 2002 PART B [id number] GERRITZ,E LLSWORTH PATIENT MEDICARE (WNR) MEDICARE (M) PART B Sep 01, 2002 PART B [id number] [id number] GERRITZ,E LLSWORTH PATIENT MEDICARE (WNR) MEDICARE () PART B Sep 01, 2002 PART B [id number] GERRITZ,E LLSWORTH PATIENT MEDICARE (WNR) MEDICARE () PART A Apr 01, 2002 PART A [id number] GERRITZ,Raymond LLSWORTH PATIENT MEDICARE (WNR) MEDICARE () PART A Apr 01, 2002 PART A [id number] [phone] GERRITZ,Raymond LLSWORTH PATIENT MEDICARE (WNR) MEDICARE () PART A Apr 01, 2002 PART A [id number] GERRITZ,Raymond LLSWORTH PATIENT MEDICARE (WNR) MEDICARE () PART A Apr 01, 2002 PART A [id number] GERRITZ,Raymond HALLMANSWORTH PATIENT Selected Encounter This section includes the information on record at [place] for the Encounter. 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 Date/Time Primary/Secondary Diagnosis Diagnosis Name Provider Source Mar 29, 2024 04:10 PM PRIMARY Vasomotor rhinitis Davy DOUGLASS [place] [facility] [place] [facility] Mar 29, 2024 04:10 PM SECONDARY Other fatigue Davy DOUGLASS [place] [facility] [place] [facility] Mar 29, 2024 04:10 PM SECONDARY Spinal stenosis, lumbar region without neurogenic ying Davy DOUGLASS [place] [facility] [place] [facility] Plan of Treatment: Future Appointments (+ 6 months) and Future Tests (+/- 45 days) The Plan of Treatment section includes future care activities for the patient from all [place] [facility]. This section includes future appointments and future orders which are active, pending or scheduled. Future Appointments This section includes appointments that were scheduled to occur 6 months from the date of the Encounter, up to a maximum of 20 appointments. The data comes from all [place] treatment facilities. Appointment Date/Time Appointment Type Appointme nt Facility Name Apr 12, 2024 10:30 AM AM[facility]ULATORY - [facility] [place] Apr 20, 2024 12:00 PM [facility]BUL[facility] [place] [facility] [place] [facility] Apr 21, 2024 02:30 PM AMBULATORY - [facility] [place] [facility] Apr 27, 2024 11:00 AM AMBULATORY - [facility] [place] [facility] May 04, 2024 11:00 AM AMBULATORY - [facility] [place] [facility] May 18, 2024 10:30 AM AMBULATORY - MEDICINE [place] [facility] [place] [facility] May 18, 2024 11:00 AM AMBULATORY - [facility] [place] [facility] May 25, 2024 10:30 AM AMBULATORY - [facility] [place] [facility] May 25, 2024 11:00 AM AMBULATORY - [facility] [place] [facility] Jun 08, 2024 11:30 AM AMBULATORY - [facility] [facility] [place] Jul 09, 2024 11:00 AM AMBULATORY - MEDICINE [place] [facility] [facility] Jul 21, 2024 11:00 AM AMBULATORY - [facility] [place] [facility] Aug 19, 2024 11:30 AM [facility] Vital Signs: All taken on the encounter date This section contains inpatient and outpatient Vital Signs collected on the date of the Encounter. Date/Time Temperature Pulse Blood Pressure Respiratory Rate SP02 Pain Height Weight Body Mass Index Source Mar 29, 2024 03:33 PM 97.3 80 110/70 16 94 2 [facility] Social History: Smoking Status (Most current) and Tobacco Use (All prior to encounter date) This section includes the most current, and the historical, smoking and tobacco- related health factors from the [place] facility where the Encounter took place. Current Smoking Status This section includes the most current smoking, or tobacco-related health factor, from the [place] facility where the Encounter took place. Date/Time Current Smoking Status Comment Facil ity Nov 20, 2023 11:00 AM [place]-TOBACCO [facility] Tobacco Use History This section includes a history of the smoking, or tobacco-related health factors, that were collected on or before the date of the Encounter. The data comes from the [place] facility where the Encounter took place. Date/Time Smoking Status/Tobacco Use Comment F acility Nov 20, 2023 11:00 AM [place]-TOBACCO QUIT 15 YRS OR MORE [place] [facility] Sep 05, 2022 11:00 AM [place]-[facility]AC[facility] Sep 05, 2022 11:00 AM [place]-TOBACCO QUIT [facility] YRS OR MORE [facility] Encounter Notes: All associated encounter notes This section contains the clinical notes associated to the Encounter. Date/Time Encounter Note(s) Provider Source Mar 29, 2024 03:35 PM PHYSICIAN NOTE: LOCAL TITLE: MD NOTE STANDARD TITLE: PHYSICIAN NOTE DATE OF NOTE: MAR 29, 2024@15:35 ENTRY DATE: MAR 29, 2024@15:35:15 AUTHOR: NÉSTOR DOUGLASS EXP COSIGNER: URGENCY: STATUS: COMPLETED HISTORY OF PRESENT ILLNESS: = LUBNA Moyer TEODORA, is a 88 yo WHITE MALE who presents at the [place] [facility] CC. fatigue and other problems HPI. vet has used duloxetine for many years. It was started at [facility] in [place] and dora has been on low dose for chronic back pain for years. He admits to some forgetfulness but this med has not been refilled for almost 5 mos. He reports feeling fatigue which is multifactorial ( age/ s/p back surgery/ deconditioned-comorbiditi es etc...). He has no fevers, angina or cough. He reprts he has clear rhinorrhea with no signif sneezing, no itchy water eyes. dora is pleased that surg for lumbar stenosis relieved most of his chronic back pain. SH. nonsmoker Active problems - Computerized Problem List is the source for the followin. Pain of left knee joint 2. History of actinic keratosis 3. Onychomycosis of toenails 4. Urinary incontinence 5. Hyperlipidemia ([facility] [id number]) 6. CAD - Coronary artery disease 7. Benign Prostatic Hypertrophy with Outflow Obstruction ([facility] [id number]) 8. Varicose veins of lower extremity 9. HTN - Hypertension ([facility] [id number]) 10. Degenerative lumbar spinal stenosis 11. 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 HISTORY: PERIOD OF SERVICE - Hochy eto FROM Jan TO Apr COMBAT SERVICE INDICATED: No SERVICE CONNECTED % - NONE FOUND VITAL SIGNS: Temperature 96.3 F [35.7 C] (02/02/2024 11:14) Blood Pressure 122/80 (03/10/2024 09:56) Pulse 93 (02/02/2024 11:14) Respiration 16 (02/02/2024 11:14) Pain 2 (03/10/2024 09:56) BMI BMI: 0.0 Weight Unavailable (11/20/2023 11:16) Pulse Oximetry 95% (02/02/2024 11:14) Review of Systems: CONSTITUTIONAL: No fever, no loss of appetite ENT: No sore throat, no cough CARDIOVASCULAR: No chest pain, no palpitations RESPIRATORY: No SOB, no wheezing GASTROINTESTINAL: No abd pain, no N/V/D, no change in stool EXAMINATION General: this is a pleasant, older gentleman in no obvious distress./seated in transport chair Mental Status: Alert and oriented x 3 Head: Normocephalic. Lungs: CTA. no crackles, no wheezing CV: RRR. No murmur DATA REVIEW >> MEDICATIONS Reviewed Today (VA [...] days Sig: TAKE TWO TABLETS BY Refills: 2 Last:03-03-24 MOUTH TWICE DAILY FOR URINARY Expr:12-12-24 RETENTION 3) BRIEF,PROTECTIVE EXTRA ABS X-LG ATTENDS ACTIVE Issu:02-11-24 Qty: 112 for 28 days Sig: USE 1 BRIEF Refills: 6 Last:03-23-24 DIRECTED FOUR TIMES A DAY Expr:02-11-25 4) CLOPIDOGREL BISULFATE 75MG TAB Qty: 90 ACTIVE Issu:07-28-23 for 90 days Sig: TAKE ONE TABLET BY Refills: 2 Last:11-05-23 MOUTH ONCE DAILY TO PREVENT BLOOD Expr:07-28-24 CLOTS 5) CLOTRIMAZOLE 1% TOP SOLN Qty: 60 for 90 ACTIVE Issu:02-19-24 days Sig: APPLY 1 DROP TOPICALLY ONCE Refills: 3 Last:02-19-24 DAILY FOR FUNGAL INFECTION APPLY TO Expr:02-19-25 AFFECTED TOE NAILS WHEN DRY 6) DULOXETINE HCL 30MG EC CAP Qty: 90 for ACTIVE Issu:11-06-23 90 days Sig: TAKE ONE CAPSULE BY Refills: 3 Last:11-07-23 MOUTH ONCE DAILY Expr:11-06-24 7) FERROUS SULFATE 325MG TAB Qty: 100 for ACTIVE Issu:07-28-23 90 days Sig: TAKE ONE TABLET BY MOUTH Refills: 1 Last:11-05-23 ONCE DAILY TO SUPPLEMENT IRON Expr:07-28-24 8) FINASTERIDE 5MG TAB Qty: 90 for 90 days ACTIVE Issu:11-03-23 Sig: TAKE ONE TABLET BY MOUTH ONCE Refills: 3 Last:11-04-23 DAILY Expr:11-03-24 9) LATANOPROST 0.005% OPH SOLN Qty: 7.5 ACTIVE Issu:12-04-23 for 90 days Sig: INSTILL 1 DROP INTO Refills: 2 Last:04-01-24 EACH EYE AT BEDTIME FOR INCREASED Expr:12-04-24 PRESSURE IN THE EYE 10) METOPROLOL SUCCINATE 25MG SA TAB Qty: ACTIVE Issu:11-06-23 90 for 90 days Sig: TAKE ONE TABLET Refills: 2 Last:03-23-24 BY MOUTH ONCE DAILY FOR BLOOD Expr:11-06-24 PRESSURE/HEART 11) MULTIVIT/OPHTH AREDS2/LUTE/ZEAX CAP/TAB ACTIVE Issu:10-13-23 Qty: 120 for 60 days Sig: TAKE 1 Refills: 3 Last:02-29-24 CAPSULE BY MOUTH TWICE DAILY IN THE Expr:10-13-24 MORNING AND EVENING, WITH FOOD 12) OMEPRAZOLE 20MG EC CAP Qty: 90 for 90 ACTIVE (S) Issu:03-11-24 days Sig: TAKE ONE CAPSULE BY MOUTH Refills: 2 Last:05-30-24 EVERY MORNING 30 MINUTES BEFORE Expr:03-12-25 BREAKFAST 13) SIMVASTATIN 40MG TAB Qty: 90 for 90 ACTIVE Issu:11-06-23 days Sig: TAKE ONE TABLET BY MOUTH Refills: 3 Last:11-07-23 ONCE DAILY FOR CHOLESTEROL Expr:11-06-24 14) SUCRALFATE 1GM TAB Qty: 180 for 90 days ACTIVE Issu:03-11-24 Sig: TAKE ONE TABLET BY MOUTH TWICE Refills: 1 Last:03-11-24 DAILY FOR ULCER Expr:03-12-25 Start Date Active Non-VA Medications Refills Expiration 1) Non-VA ASPIRIN 81MG EC TAB SiMG BY ACTIVE MOUTH ONCE DAILY 2) Non-VA MULTIVIT/OPHTH AREDS2/LUTE/ZEAX ACTIVE CHEW TAB Si TABLETS BY MOUTH ONCE DAILY 16 Total Medications >> LABS REVIEWED TODAY: CHEM [...] BLOOD 5.7 H 03/06/2023 16:08 BLOOD 5.5 === LIPID PANEL TREND Collection DT Spec CHOL HDL CHO/HDL LDL-c TRIG 03/06/2023 16:08 SERUM 151 70 H 2.2 64 83 === UREA NITROGEN 02/02/24 11:37 17 CREATININE-EGFR 02/02/24 11:37 0.86 === LIVER PANEL TREND Collection DT Spec AST ALT T BILI ALK SAJI T. PROT ALBUMIN 02/02/2024 11:37 SERUM 16 14 0.8 106 6.2 3.8 03/06/2023 16:08 SERUM 15 11 0.5 96 6.3 3.8 === PSA TREND No data available = Collection DT Spec TSH 02/02/2024 11:37 SERUM 1.65 == ANEMIA PANEL TREND Collection DT Spec HCT Ferrit IRON TIBC 07/28/2023 13:55 BLOOD 40.7 07/28/2023 13:55 SERUM 76 32 L 259 03/06/2023 16:08 BLOOD 34.5 L 03/06/2023 16:08 SERUM 25 === PT INR TREND No data available === >> HEALTH MAINTENANCE PREVENTIVE MEDICINE GOALS Advance Directive Screen MH AD May Toxic Exposure Screening DUE NOW Medication Reconciliation DUE NOW COVID-19 Immunization DUE NOW Herpes Zoster (Shingles) Vaccine DUE NOW RHS Screen DUE NOW (Optional) Whole Health Documentation DUE NOW ASSESSMENT/PLAN: 1. chronic rhinitis/ probably vasomotor 2. lumbar stenosis 3. fatigue Plan 1. ipratropium 0.6 % nasal spray 2 sprays tid 2. refill duloxetine 3. reassured vet that labs are normal and is deconditioned/he needs to do more walking on daily basis 4. reassess in 10 weeks w/ PCP LAB ORDERS FOR NEXT APPT. spent in [...] of active outpatient prescriptions dispensed from this [place] (local) and dispensed from another [place] or [place] facility (remote) as well as [...] provider. /berenice/ RUEL DOUGLASS MD PHYSICIAN Signed: 03/29/2024 16:11 [facility]
--- OUTSIDE RECORDS SUMMARY | 2025-01-12 12:32 | XMS_ITS | Encounter Summary ---
Author Name Department of [place] Organization [facility] Address [address] [place] [address] Care Team Providers Care Floral Design Teacher Name Role Phone RUEL DOUGLASS Primary Care [...] PLAN G Aug 01, 2017 PLAN G [id number] Raymond ARAIZA PATIENT AARP MED SUPP MEDICARE SUPPLEMEN RUBÉN PLANG Aug 01, 2017 PLANG [id number] Raymond ARAIZA PATIENT AARP MED SUPP MEDICARE SUPPLEMEN RUBÉN PLANG Aug 01, 2017 PLANG [id number] Raymond ARAIZA PATIENT AARP MED SUPP MEDIGAP PLAN G PLAN G Aug 01, 2017 PLAN G [phone] Raymond ARAIZA PATIENT AARP MED SUPP MEDIGAP PLAN G PLAN G Aug 01, 2017 PLAN G [id number] GERRITZ,E LLSWORTH PATIENT AARP MED SUPP MEDIGAP PLAN G PLAN G Aug 01, 2017 PLAN G [id number] GERRITZ,Raymond LLSWORTH PATIENT MEDICARE (WNR) MEDICARE (M) PART B Sep 01, 2002 PART B [id number] GERRITZ,Raymond LLSWORTH PATIENT MEDICARE (WNR) MEDICARE (M) PART B Sep 01, 2002 PART B [id number] [phone] GERRITZ,Raymond LLSWORTH PATIENT MEDICARE (WNR) MEDICARE (M) PART B Sep 01, 2002 PART B [id number] [phone] GERRITZ,Raymond LLSWORTH PATIENT MEDICARE (WNR) MEDICARE (M) PART B Sep 01, 2002 PART B [id number] GERRITZ,Raymond LLSWORTH PATIENT MEDICARE (WNR) MEDICARE (M) PART A Apr 01, 2002 PART A [id number] GERRITZ,Raymond LLSWORTH PATIENT MEDICARE (WNR) MEDICARE (M) PART A Apr 01, 2002 PART A [id number] GERRITZ,Raymond LLSWORTH PATIENT MEDICARE (WNR) MEDICARE (M) PART A Apr 01, 2002 PART A [id number] GERRITZ,Raymond LLSWORTH PATIENT MEDICARE (WNR) MEDICARE (M) PART A Apr 01, 2002 PART A [id number] GERRITZ,Raymond HALLMANSWORTH PATIENT Selected Encounter This section includes the information on record at [place] for the Encounter. Date/Time Encounter Type Encounter Description Reason Pro vider Source IHE Encounter Template Text not used by [place]
--- OUTSIDE RECORDS SUMMARY | 2025-01-12 12:33 | XMS_ITS ---
Author Name [facility] [place] Organization [place] Address [address] [place] [address] Care Team Providers Care Lepidopterist Name Role Phone SILVIA DAVID Primary Care [...] PLAN G Aug 01, 2017 PLAN G [id number] Raymond ARAIZA PATIENT AARP MED SUPP MEDIGAP PLAN G PLAN G Aug 01, 2017 PLAN G [id number] Raymond ARAIZA PATIENT AARP MED SUPP MEDIGAP PLAN G PLAN G Aug 01, 2017 PLAN G [id number] Raymond ARAIZA PATIENT AARP MED SUPP MEDICARE SUPPLEMEN RUBÉN PLANG Aug 01, 2017 PLAN [id number] Raymond ARAIZA PATIENT AARP MED SUPP MEDICARE SUPPLEMEN RUBÉN PLANG Aug 01, 2017 PLAN [phone] GERRITZ,E LLSWORTH PATIENT AARP MED SUPP MEDIGAP PLAN G PLAN G Aug 01, 2017 PLAN G [id number] GERRITZ,E LLSWORTH PATIENT MEDICARE (WNR) MEDICARE (M) PART B Sep 01, 2002 PART B [id number] GERRITZ,E LLSWORTH PATIENT MEDICARE (WNR) MEDICARE (M) PART B Sep 01, 2002 PART B [id number] GERRITZ,E LLSWORTH PATIENT MEDICARE (WNR) MEDICARE (M) PART B Sep 01, 2002 PART B [id number] [phone] GERRITZ,E LLSWORTH PATIENT MEDICARE (WNR) MEDICARE (M) PART B Sep 01, 2002 PART B [id number] GERRITZ,E LLSWORTH PATIENT MEDICARE (WNR) MEDICARE (M) PART A Apr 01, 2002 PART A [id number] GERRITZ,E LLSWORTH PATIENT MEDICARE (WNR) MEDICARE (M) PART A Apr 01, 2002 PART A [id number] GERRITZ,E LLSWORTH PATIENT MEDICARE (WNR) MEDICARE (M) PART A Apr 01, 2002 PART A [id number] [phone] GERRITZ,E LLSWORTH PATIENT MEDICARE (WNR) MEDICARE (M) PART A Apr 01, 2002 PART A [id number] [id number] GERRITZ,E LLSWORTH PATIENT Selected Encounter This section includes the information on record at [place] for the Encounter. Date/Time Encounter Type Encounter Description Reason Provider Source May 25, 2024 10:30 AM HEARING AID REPAIR/MODIFYIN G AUDIOLOGY ICD-10-CM Z46.1 Encounter for fitting and adjustment of hearing aid VANGIE WAITE Encounter Template Text not used by [place] Assessments - Encounter Diagnoses This section includes the primary and secondary diagnoses documented for the Encounter. Date/Time Primary/Secondary Diagnosis Diagnosis Name Provider Source May 25, 2024 10:45 AM PRIMARY Encounter for fitting and adjustment of hearing aid [facility] May 25, 2024 10:45 AM SECONDARY Sensorineural hearing loss, bilateral [facility] Plan of Treatment: Future Appointments (+ 6 months) and Future Tests (+/- 45 days) The Plan of Treatment section includes future care activities for the patient from all [place] [facility] This section includes future appointments and future orders which are active, pending or scheduled. Future Appointments This section includes appointments that were scheduled to occur 6 months from the date of the Encounter, up to a maximum of 20 appointments. The data comes from all [place] treatment facilities. Appointment Date/Time Appointment Type Appointme nt Facility Name Jun 08, 2024 11:30 AM AMBULATORY - RE[facility] MEDIC[facility] [place] Jul 09, 2024 11:00 AM AMBULATORY - [facility] Jul 21, 2024 11:00 AM [facility] [place] [facility] Aug 19, 2024 11:30 AM AMBULATORY - MEDICINE [facility] [place] [place] [facility] Oct 04, 2024 11:30 AM AMBULATORY - MEDICINE [facility] [place] [place] [facility] Nov 15, 2024 02:00 PM [facility] Social History: Smoking Status (Most current) [...] 20, 2023 11:00 AM [place]-TOBACCO [facility] Tobacco Use History This section includes a history of the smoking, or tobacco-related health factors, that were collected on or before the date of the Encounter. The data comes from the [place] facility where the Encounter took place. Date/Time Smoking Status/Tobacco Use Comment F eliel Nov 20, 2023 11:00 AM [place]-TOBACCO QUIT 15 YRS OR MORE [facility] Sep 05, 2022 11:00 AM [facility] Sep 05, 2022 11:00 AM [place]-TOBACCO QUIT 15 YRS OR MORE [facility] Encounter Notes: All associated encounter notes This section contains the clinical notes associated to the Encounter. Date/Time Encounter Note(s) Provider Source May 25, 2024 07:50 AM AUDIOLOGY NOTE: LOCAL TITLE: AUDIOLOGY HEALTH SPEECH LANGUAGE PATHOLOGIST ASSISTANT STANDARD TITLE: AUDIOLOGY NOTE DATE OF NOTE: MAY 25, 2024@07:50 ENTRY DATE: MAY 25, 2024@07:50:24 AUTHOR: JERRY HSU COSIGNER: VANGIE WAITE URGENCY: STATUS: COMPLETED May 25, 2024 History/Background: was seen for a hearing aid follow up, accompanied by his . The presented today reporting his tubes are too short. The [place] stated he is not able to get he left dome into the ear canal due to the short wire. Visual inspection confirmed this. Hearing aids: PHONAK [id number] [id number] SAMMI- Issued from [facility] Serial Numbers: [id number] Battery size: 312 Date Issued: 03/01/2022 Hearing aid check: Both hearing aids were cleaned and checked. Replaced 2M assistant family teacher with a 3M assistant family teacher and replaced the medium vented dome with a small vented dome on the LEFT aid. Replaced wax guard, dome and retention line on the right. Biologic check was good for both. The Ol[place]o reported satisfaction with changes made today. Plan: Follow up as needed. /berenice/ JERRY HSU [facility] Brick Mason Signed: 05/25/2024 10:47 /berenice/ PALMA KOWALSKI, [facility]-A STAFF WEBSITE DEVELOPER Cosigned: 05/25/2024 11:50 J[facility]Y [facility]
--- OUTSIDE RECORDS SUMMARY | 2025-01-12 12:33 | XMS_ITS | Encounter Summary ---
Author Organization [facility] Address [address] [place] [address] Care Team Providers Care Advertising Associate Name Role Phone Keaton Anton MD Primary Care Provider [phone] Encounter Details Date Type Department Care Team (Late st Contact Info) Description 07/19/2024 Lab Requisition [facility] - Main Lab [address] [place] [address] Keaton Anton MD [address] [place] [address] Other hyperlipidemia Social History Tobacco Use Types Packs/Day Years [...] Associated Diagnosis Comments COMPLETE BLOOD COUNT Routine 07/19/2024 6:20 AM EST Other hyperlipidemia COMPREHENSIVE METABOLIC PANEL Routine 07/19/2024 6:20 AM EST Other hyperlipidemia BASIC METABOLIC PANEL Routine 07/19/2024 6:20 AM EST Other hyperlipidemia documented in this encounter Results * (ABNORMAL) Comprehensive metabolic panel (07/19/2024 6:20 AM EST) Sodium 136 133 - 145 mmol/L LAB CHEMISTRY METHOD 07/19/2024 12:43 PM EST [facility] Potassium 4.2 3.5 - 5.5 mmol/L LAB CHEMISTRY METHOD 07/19/2024 12:43 PM EST [facility] Chloride 104 96 - 110 mmol/L LAB CHEMISTRY METHOD 07/19/2024 12:[address] [facility] CO2 22 21 - 32 mmol/L LAB CHEMISTRY METHOD 07/19/2024 12:[address] [facility] Anion Gap 10 3 - 11 LAB CHEMISTRY METHOD 07/19/2024 12:[address] [facility] Glucose 87 70 - 100 mg/dL LAB CHEMISTRY METHOD 07/19/2024 12:[address] [facility] BUN 20 5 - 25 mg/dL LAB CHEMISTRY METHOD 07/19/2024 12:[address] [facility] Creatinine 0.82 0.70 - 1.30 mg/dL LAB CHEMISTRY METHOD 07/19/2024 12:[address] [facility] eGFR 85 >=60 mL/min/1. 73m2 LAB CHEMISTRY METHOD 07/19/2024 12:[address] [facility] Comment:Calculation based on the??Chronic Kidney Disease Epidemiology Collaboration (CKD-EPI) equation refit??without adjustment for race. BUN/Creatinine Ratio 24.4 LAB CHEMISTRY METHOD 07/19/2024 12:[address] [facility] Calcium 8.9 8.5 - 10.5 mg/dL LAB CHEMISTRY METHOD 07/19/2024 12:[address] [facility] AST (SGOT) 47(H) 10 - 42 unit/L LAB CHEMISTRY METHOD 07/19/2024 12:[address] [facility] ALT (SGPT) 75(H) 10 - 60 unit/L LAB CHEMISTRY METHOD 07/19/2024 12:[address] [facility] Alkaline Phosphatase 113 42 - 121 unit/L LAB CHEMISTRY METHOD 07/19/2024 12:[address] [facility] Total Protein 5.4(L) 6.0 - 8.0 g/dL LAB CHEMISTRY METHOD 07/19/2024 12:[address] [facility] Albumin 2.9(L) 3.2 - 5.0 g/dL LAB CHEMISTRY METHOD 07/19/2024 12:43 PM EST [facility] Total Bilirubin 0.6 0.0 - 1.4 mg/dL LAB CHEMISTRY METHOD 07/19/2024 12:[address] [facility] Blood Venous blood specimen / Unknown Venipuncture / Unknown 07/19/2024 6:20 AM EST 07/19/2024 9:39 AM EST us Keaton Anton MD LAB BLOOD ORDERABLES Final Resu lt [facility] [address] [place] [address], * Basic metabolic panel (07/19/2024 6:20 AM EST) Sodium 140 133 - 145 mmol/L LAB CHEMISTRY METHOD 07/19/2024 11:[address] [facility] Potassium 4.3 3.5 - 5.5 mmol/L LAB CHEMISTRY METHOD 07/19/2024 11:[address] [facility] Chloride 108 96 - 110 mmol/L LAB CHEMISTRY METHOD 07/19/2024 11:[address] [facility] CO2 23 21 - 32 mmol/L LAB CHEMISTRY METHOD 07/19/2024 11:[address] [facility] Anion Gap 9 3 - 11 LAB CHEMISTRY METHOD 07/19/2024 11:[address] [facility] Glucose 83 70 - 100 mg/dL LAB CHEMISTRY METHOD 07/19/2024 11:[address] [facility] BUN 20 5 - 25 mg/dL LAB CHEMISTRY METHOD 07/19/2024 11:[address] [facility] Creatinine 0.84 0.70 - 1.30 mg/dL LAB CHEMISTRY METHOD 07/19/2024 11:[address] [facility] eGFR 84 >=60 mL/min/1. 73m2 LAB CHEMISTRY METHOD 07/19/2024 11:[address] [facility] Comment:Calculation based on the??Chronic Kidney Disease Epidemiology Collaboration (CKD-EPI) equation refit??without adjustment for race. BUN/Creatinine Ratio 23.8 LAB CHEMISTRY METHOD 07/19/2024 11:[address] [facility] Calcium 8.8 8.5 - 10.5 mg/dL LAB CHEMISTRY METHOD 07/19/2024 11:[address] [facility] Blood Venous blood specimen / Unknown Venipuncture / Unknown 07/19/2024 6:20 AM EST 07/19/2024 9:39 AM EST us Keaton Anton MD LAB BLOOD ORDERABLES Final Resu lt [facility] [address] [place] [address], * (ABNORMAL) Complete blood count (07/19/2024 6:20 AM EST) WBC 11.2(H) 4.8 - 10.8 K/[facility] LAB HEMETOLOGY METHOD 07/19/2024 10:[address] [facility] RBC 4.70 4.50 - 5.50 M/[facility] LAB HEMETOLOGY METHOD 07/19/2024 10:[address] [facility] Hemoglobin 14.0 13.5 - 17.5 g/dL LAB HEMETOLOGY METHOD 07/19/2024 10:[address] [facility] Hematocrit 43.5 42.0 - 54.0 % LAB HEMETOLOGY METHOD 07/19/2024 10:[address] [facility] MCV 91.8 79.0 - 98.0 [place] LAB HEMETOLOGY METHOD 07/19/2024 10:[address] [facility] MCH 29.5 27.0 - 32.0 pcg LAB HEMETOLOGY METHOD 07/19/2024 10:43 AM EST [facility] MCHC 32.2 32.0 - 37.0 g/dL LAB HEMETOLOGY METHOD 07/19/2024 10:[address] [facility] RDW 13.4 11.0 - 15.0 % LAB HEMETOLOGY METHOD 07/19/2024 10:[address] [facility] Platelets 276 130 - 400 K/mcL LAB HEMETOLOGY METHOD 07/19/2024 10:[address] [facility] MPV 9.9 7.0 - 11.0 [place] LAB HEMETOLOGY METHOD 07/19/2024 10:[address] [facility] NRBC 0.0 <1.0 % LAB HEMETOLOGY METHOD 07/19/2024 10:[address] [facility] NRBC Absolute 0.00 <0.10 K/mcL LAB HEMETOLOGY METHOD 07/19/2024 10:[address] [facility] Blood Venous blood specimen / Unknown Venipuncture / Unknown 07/19/2024 6:20 AM EST 07/19/2024 9:39 AM EST us Keatno Anton MD LAB BLOOD ORDERABLES Final Resu lt [facility] [address] [place] [address], documented in this encounter Visit Diagnoses Diagnosis Other hyperlipidemia documented in this encounter Care Teams Advertising Associate Relationship Specialty Start Date End Date Keaton Anton MD [address] [place] [address] PCP - General Internal Medicine 07/19/24 documented as of this encounter
--- OUTSIDE RECORDS SUMMARY | 2025-01-12 12:33 | XMS_ITS ---
Author Name [facility] [place] [facility] [facility] [place] Address [address] [place] [address] Care Team Providers Care Machine Greaser Name Role Phone SILVIA DAVID Primary Care [...] PLAN G Aug 01, 2017 PLAN G [id number] Raymond ARAIZA PATIENT AARP MED SUPP MEDIGAP PLAN G PLAN G Aug 01, 2017 PLAN G [id number] Raymond ARAIZA PATIENT AARP MED SUPP MEDIGAP PLAN G PLAN G Aug 01, 2017 PLAN G [id number] Raymond ARAIZA PATIENT AARP MED SUPP MEDICARE SUPPLEMEN RUBÉN PLANG Aug 01, 2017 PLANG [id number] Raymond ARAIZA PATIENT AARP MED SUPP MEDICARE SUPPLEMEN RUBÉN PLANG Aug 01, 2017 PLANG [id number] Raymond ARAIZA PATIENT AARP MED SUPP MEDIGAP PLAN G PLAN G Aug 01, 2017 PLAN G [id number] ARIRITZ,Raymond YEBOAH PATIENT MEDICARE (WNR) MEDICARE (M) PART B Sep 01, 2002 PART B [id number] GERRITZ,Raymond LLSWORTH PATIENT MEDICARE (WNR) MEDICARE (M) PART B Sep 01, 2002 PART B [id number] GERRITZ,Raymond LLSWORTH PATIENT MEDICARE (WNR) MEDICARE (M) PART B Sep 01, 2002 PART B [id number] GERRITZ,Raymond LLSWORTH PATIENT MEDICARE (WNR) MEDICARE (M) PART B Sep 01, 2002 PART B [id number] GERRITZ,Raymond LLSWORTH PATIENT MEDICARE (WNR) MEDICARE (M) PART A Apr 01, 2002 PART A [id number] GERRITZ,Raymond LLSWORTH PATIENT MEDICARE (WNR) MEDICARE (M) PART A Apr 01, 2002 PART A [id number] GERRITZ,Raymond LLSWORTH PATIENT MEDICARE (WNR) MEDICARE (M) PART A Apr 01, 2002 PART A [id number] [phone] [id number] GERRITZRaymondSWORTH PATIENT MEDICARE (WNR) MEDICARE (M) PART A Apr 01, 2002 PART A [id number] GERRIRaymond MALHOTRA PATIENT Selected Encounter This section includes the information on record at [place] for the Encounter. Date/Time Encounter Type Encounter Description Reason Pro vider Source January 10, 2025 04:19 PM Outpatient Encounter ADMIN PAT ACTIVTIES (MASNONCT) IHE Encounter Template Text not used by [place] Plan of Treatment: Future Appointments (+ 6 months) and Future Tests (+/- 45 days) The Plan of Treatment section includes future care activities for the patient from all [place] treatmentfacilities. This section includes future appointments and future orders which are active, pending or scheduled. Future Appointments This section includes appointments that were scheduled to occur 6 months from the date of the Encounter, up to a maximum of 20 appointments. The data comes from all [place] treatment facilities. Appointment Date/Time Appointment Type Appointme nt Facility Name Feb 01, 2025 11:30 AM AM[place]UL[place] [place]IC[place] [facility] Mar 11, 2025 02:00 PM [facility]BUL[facility] - MEDICINE [facility] Mar 30, 2025 02:00 PM AMBULATORY - MEDICINE [facility] Active, Pending, and Scheduled Orders This section includes a listing of several types of active, pending, and scheduled orders, including clinic medications orders, diagnostic test orders, procedure orders and consult orders; where the start date of the order is 45 days before the date of the Encounter or 45 days after the date of theEncounter. The data comes from all [facility] facilities. Test Date/Time Test Type Test Details Facility Name Nov 30, 2024 05:13 PM Consult Order COMMUNITY CARE-RADIOLOGY XRAY Cons [facility]D [facility] Dec 01, 2024 08:48 AM Consult Order COMMUNITY CARE-THORACIC SURGERY Cons 3D [facility] January 12, 2025 09:21 AM Consult Order BENEFICIAR Y TRAVEL (BT) CONSULT [facility] 3D Technologist's Choice [facility] Social History: Smoking Status (Most current) and Tobacco Use (All prior to encounter date) This section includes the most current, and the historical, smoking and tobacco- related health factors from the [place] facility where the Encounter took place. Current Smoking Status This section includes the most current smoking, or tobacco-related health factor, from the [place] facility where the Encounter took place. Date/Time Current Smoking Status Comment Facil ity Nov 15, 2024 02:00 PM VA-TOBACCO NEVER U SED CIGARETTES [facility] Tobacco Use History This section includes a history of the smoking, or tobacco-related health factors, that were collected on or before the date of the Encounter. The data comes from the [place] facility where the Encounter took place. Date/Time Smoking Status/Tobacco Use Comment F acility Nov 15, 2024 02:00 PM VA-TOBACCO NEVER U SED OTHER [facility] Nov 20, 2023 11:00 AM VA-TOBACCO FORMER USER [facility] [place] [facility] Nov 20, 2023 11:00 AM VA-TOBACCO QUIT 15 YRS OR MORE [facility] [place] [facility] Sep 05, 2022 11:00 AM VA-TOBACCO FORMER USER [facility] [place] [facility] Sep 05, 2022 11:00 AM VA-TOBACCO QUIT 15 YRS OR MORE [place] [facility] [place] [facility] Encounter Notes: All associated encounter notes This section contains the clinical notes associated to the Encounter. Date/Time Encounter Note(s) Provider Source January 10, 2025 04:19 PM ADMINISTRATIVE NOTE: LOCAL TITLE: CCC: SCHEDULING ADMINISTRATION STANDARD TITLE: ADMINISTRATIVE NOTE DATE OF NOTE: JANUARY 10, 2025@16:19:13 ENTRY DATE: JANUARY 10, 2025@16:19:13 AUTHOR: BERNARD CALLES EXP COSIGNER: URGENCY: STATUS: COMPLETED CCC: SCHEDULING ADMINISTRATION Has ADDENDA Caller Verification Emergency Contact: ROMI CHAPMANSOPHIE Emergency Contact Phone: [phone] Caller/Recipient Relation to Patient: Self Caller Name: LUBNA ARAIZA Administrative Administrative Note Reason: Other Administrative Note Comments: Call the [phone] - the is not able to drive anymore and would like to discuss/request transportation for his upcoming appts (Podiatry, optometry and PCP) IMPORTANT: This note was created by [facility] Clinical Contact Center staff. Please do not alert the staff member by adding them as a signer for future communications. Alerts are not monitored by this user. /berenice/ BERNARD CALLES VISN 1 CCC AMSA Signed: 01/10/2025 16:19 Receipt Acknowledged By: * AWAITING SIGNATURE * ATUL REED * AWAITING SIGNATURE * STEPHANIE SZYMANSKI 01/12/2025 ADDENDUM STATUS: COMPLETED review with PCP Rosalind for review entered /berenice/ ATUL REED REGISTERED NURSE Signed: 01/12/2025 09:44 BERNARD CALLES [place] [facility]
--- OUTSIDE RECORDS SUMMARY | 2025-01-12 12:33 | XMS_ITS | Encounter Summary ---
Author Name [facility] [place] Organization [facility] Address [address] [place] [address] Care Team Providers Care Clay Dry Press Helper Name Role Phone SILVIA DAVID Primary Care [...] PLAN G Aug 01, 2017 PLAN G [id number] Raymond ARAIZA PATIENT AARP MED SUPP MEDIGAP PLAN G PLAN G Aug 01, 2017 PLAN G [id number] [phone] Raymond ARAIZA PATIENT AARP MED SUPP MEDICARE SUPPLEMEN RUBÉN PLANG Aug 01, 2017 PLAN [id number] Raymond ARAIZA PATIENT AARP MED SUPP MEDICARE SUPPLEMEN RUBÉN PLANG Aug 01, 2017 PLAN [id number] [phone] Raymond ARAIZA PATIENT AARP MED SUPP MEDIGAP PLAN G PLAN G Aug 01, 2017 PLAN G [id number] GERRITZ,E LLSWORTH PATIENT AARP MED SUPP MEDIGAP PLAN G PLAN G Aug 01, 2017 PLAN G [id number] GERRITZ,Raymond LLSWORTH PATIENT MEDICARE (WNR) MEDICARE (M) PART B Sep 01, 2002 PART B [id number] GERRITZ,Raymond LLSWORTH PATIENT MEDICARE (WNR) MEDICARE (M) PART B Sep 01, 2002 PART B [id number] [phone] GERRITZ,Raymond LLSWORTH PATIENT MEDICARE (WNR) MEDICARE (M) PART B Sep 01, 2002 PART B [id number] GERRITZ,Raymond LLSWORTH PATIENT MEDICARE (WNR) MEDICARE (M) PART B Sep 01, 2002 PART B [id number] [phone] GERRITZ,Raymond LLSWORTH PATIENT MEDICARE (WNR) MEDICARE (M) PART A Apr 01, 2002 PART A [id number] GERRITZ,Raymond LLSWORTH PATIENT MEDICARE (WNR) MEDICARE (M) PART A Apr 01, 2002 PART A [id number] GERRITZ,Raymond LLSWORTH PATIENT MEDICARE (WNR) MEDICARE (M) PART A Apr 01, 2002 PART A [id number] GERRITZ,Raymond LLSWORTH PATIENT MEDICARE (WNR) MEDICARE (M) PART A Apr 01, 2002 PART A [id number] GERRITZ,Raymond LLSWORTH PATIENT Selected Encounter This section includes the information on record at [place] for the Encounter. Date/Time Encounter Type Encounter Description Reason Pro vider Source IHE Encounter Template Text not used by [place]
--- OUTSIDE RECORDS SUMMARY | 2025-01-12 12:33 | XMS_ITS | Encounter Summary ---
Author Organization [employer] [facility] Address [address] [place] [address] Care Team Providers Care Custom Protection Officer Name Role Phone Keaton Anton MD Primary Care Provider [phone] Encounter Details Date Type Department Care Team (Latest Contact Info) Description 07/30/2024 Lab Requisition [facility] - Main Lab [address] [place] [address] Keaton Anton MD [address] [place] [address] Atherosclerotic heart disease of [place] coronary artery without angina pectoris; Elevated lipoprotein(a) [...] Associated Diagnosis Comments COMPLETE BLOOD COUNT Routine 08/02/2024 6:02 AM EST 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) COMPREHENSIVE METABOLIC PANEL Routine 08/02/2024 6:02 AM EST 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) documented in this encounter Results * (ABNORMAL) Comprehensive metabolic panel (08/02/2024 6:02 AM EST) Sodium 140 133 - 145 mmol/L LAB CHEMISTRY METHOD 08/02/2024 9:10 AM EST [facility] Potassium 4.7 3.5 - 5.5 mmol/L LAB CHEMISTRY METHOD 08/02/2024 9:10 AM [facility] Chloride 108 96 - 110 mmol/L LAB CHEMISTRY METHOD 08/02/2024 9:10 AM [facility] CO2 26 21 - 32 mmol/L LAB CHEMISTRY METHOD 08/02/2024 9:10 AM [facility] Anion Gap 6 3 - 11 LAB CHEMISTRY METHOD 08/02/2024 9:10 AM [facility] Glucose 97 70 - 100 mg/dL LAB CHEMISTRY METHOD 08/02/2024 9:10 AM [facility] BUN 17 5 - 25 mg/dL LAB CHEMISTRY METHOD 08/02/2024 9:10 AM [facility] Creatinine 0.94 0.70 - 1.30 mg/dL LAB CHEMISTRY METHOD 08/02/2024 9:10 AM [facility] LAB eGFR 78 >=60 mL/min/1. 73m2 LAB CHEMISTRY METHOD 08/02/2024 9:10 AM [facility] Comment:Calculation based on the??Chronic Kidney Disease Epidemiology Collaboration (CKD-EPI) equation refit??without adjustment for race. BUN/Creatinine Ratio 18.1 LAB CHEMISTRY METHOD 08/02/2024 9:10 AM [facility] Calcium 8.8 8.5 - 10.5 mg/dL LAB CHEMISTRY METHOD 08/02/2024 9:10 AM [facility] AST (SGOT) 20 10 - 42 unit/L LAB CHEMISTRY METHOD 08/02/2024 9:10 AM [facility] ALT (SGPT) 20 10 - 60 unit/L LAB CHEMISTRY METHOD 08/02/2024 9:10 AM [facility] Alkaline Phosphatase 111 42 - 121 unit/L LAB CHEMISTRY METHOD 08/02/2024 9:10 AM [facility] Total Protein 5.7(L) 6.0 - 8.0 g/dL LAB CHEMISTRY METHOD 08/02/2024 9:10 AM [facility] Albumin 3.0(L) 3.2 - 5.0 g/dL LAB CHEMISTRY METHOD 08/02/2024 9:10 AM [facility] Total Bilirubin 0.8 0.0 - 1.4 mg/dL LAB CHEMISTRY METHOD 08/02/2024 9:10 AM [facility] Blood Venous blood specimen / Unknown Venipuncture / Unknown 08/02/2024 6:02 AM EST 08/02/2024 8:25 AM EST us Keaton Anton MD LAB BLOOD ORDERABLES Final Resu lt [facility] [address] [place] [address], [place] [phone] * (ABNORMAL) Complete blood count (08/02/2024 6:02 AM EST) WBC 6.4 4.8 - 10.8 K/mcL LAB HEMETOLOGY METHOD 08/02/2024 8:40 AM [facility] RBC 4.60 4.50 - 5.50 M/mcL LAB HEMETOLOGY METHOD 08/02/2024 8:40 AM [facility] Hemoglobin 13.7 13.5 - 17.5 g/dL LAB HEMETOLOGY METHOD 08/02/2024 8:40 AM [facility] Hematocrit 42.9 42.0 - 54.0 % LAB HEMETOLOGY METHOD 08/02/2024 8:40 AM [facility] MCV 92.9 79.0 - 98.0 [place] LAB HEMETOLOGY METHOD 08/02/2024 8:40 AM [facility] MCH 29.7 27.0 - 32.0 pcg LAB HEMETOLOGY METHOD 08/02/2024 8:40 AM [facility] MCHC 31.9(L) 32.0 - 37.0 g/dL LAB HEMETOLOGY METHOD 08/02/2024 8:40 AM EST [facility] RDW 14.1 11.0 - 15.0 % LAB HEMETOLOGY METHOD 08/02/2024 8:40 AM [facility] Platelets 336 130 - 400 K/mcL LAB HEMETOLOGY METHOD 08/02/2024 8:40 AM EST [facility] MPV 9.6 7.0 - 11.0 [place] LAB HEMETOLOGY METHOD 08/02/2024 8:40 AM EST [facility] NRBC 0.0 <1.0 % LAB HEMETOLOGY METHOD 08/02/2024 8:40 AM [facility] NRBC Absolute 0.00 <0.10 K/mcL LAB HEMETOLOGY METHOD 08/02/2024 8:40 AM [facility] Blood Venous blood specimen / Unknown Venipuncture / Unknown 08/02/2024 6:02 AM EST 08/02/2024 8:17 AM EST us Keaton Anton MD LAB BLOOD ORDERABLES Final Resu lt [facility] [address] [place] [address], documented in this encounter Visit Diagnoses Diagnosis 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
--- OUTSIDE RECORDS SUMMARY | 2025-01-12 12:33 | XMS_ITS ---
Author Name [facility] [place] [facility] [place] Address [address] [place] [address] Care Team Providers Care Vacuum Kettle Cook Name Role Phone SILVIA DAVID Primary Care [...] PLAN G Aug 01, 2017 PLAN G [id number] Raymond ARAIZA PATIENT AARP MED SUPP MEDIGAP PLAN G PLAN G Aug 01, 2017 PLAN G [id number] Raymond ARAIZA PATIENT AARP MED SUPP MEDIGAP PLAN G PLAN G Aug 01, 2017 PLAN G [id number] Raymond ARAIZA PATIENT AARP MED SUPP MEDICARE SUPPLEMEN RUBÉN PLANG Aug 01, 2017 PLAN [id number] Raymond ARAIZA PATIENT AARP MED SUPP MEDICARE SUPPLEMEN RUBÉN PLANG Aug 01, 2017 PLAN [id number] [phone] GERRITZRaymondSWORTH PATIENT AARP MED SUPP MEDIGAP PLAN G PLAN G Aug 01, 2017 PLAN G [id number] [phone] GERRITZ,E LLSWORTH PATIENT MEDICARE (WNR) MEDICARE (M) PART B Sep 01, 2002 PART B [id number] [phone] GERRITZ,E LLSWORTH PATIENT MEDICARE (WNR) MEDICARE (M) PART B Sep 01, 2002 PART B [id number] GERRITZ,E LLSWORTH PATIENT MEDICARE (WNR) MEDICARE (M) PART B Sep 01, 2002 PART B [id number] GERRITZ,E LLSWORTH PATIENT MEDICARE (WNR) MEDICARE (M) PART B Sep 01, 2002 PART B [id number] GERRITZ,E LLSWORTH PATIENT MEDICARE (WNR) MEDICARE (M) PART A Apr 01, 2002 PART A [id number] GERRITZ,E LLSWORTH PATIENT MEDICARE (WNR) MEDICARE (M) PART A Apr 01, 2002 PART A [id number] GERRITZ,E LLSWORTH PATIENT MEDICARE (WNR) MEDICARE (M) PART A Apr 01, 2002 PART A [id number] GERRITZ,E LLSWORTH PATIENT MEDICARE (WNR) MEDICARE (M) PART A Apr 01, 2002 PART A [id number] GERRITZ,Raymond LLSWORTH PATIENT Selected Encounter This section includes the information on record at [place] for the Encounter. Date/Time Encounter Type Encounter Description Reason Provider Source Apr 27, 2024 11:00 AM THERAPEUTIC EXERCISES PHYSICAL THERAPY ICD-10-CM M48.062 Spinal stenosis, lumbar region with neurogenic claudication AGUSTIN ALANIZ IN E Encounter Template Text not used by [facility] Assessments - Encounter Diagnoses This section includes the primary and secondary diagnoses documented for the Encounter. Date/Time Primary/Secondary Diagnosis Diagnosis Name Provider Source Apr 27, 2024 02:07 PM PRIMARY Spinal stenosis, lumbar region with neurogenic claudication AGUSTIN ALANIZ [facility] Plan of Treatment: Future Appointments (+ 6 months) and Future Tests (+/- 45 days) The Plan of Treatment section includes future care activities for the [facility] [place] [facility] This section includes future appointments and future orders which are active, pending or scheduled. Future Appointments This section includes appointments that were scheduled to occur 6 months from the date of the Encounter, up to a maximum of 20 appointments. The data comes from all [place] treatment facilities. Appointment Date/Time Appointment Type Appointme nt Facility Name May 04, 2024 11:00 AM AMBULATORY - [place] [place] [facility] May 18, 2024 10:30 AM AM[place]ATORY [place]IC[place] [facility] [place] [facility] May 18, 2024 11:00 AM AMBULATORY - [facility] MEDICIN [facility] [place] [facility] May 25, 2024 10:30 AM AMBULATORY - RE[facility] MEDICIN [facility] [place] [facility] May 25, 2024 11:00 AM AMBULATORY - [place] [facility] [place] [facility] Jun 08, 2024 11:30 AM AMBULATORY - [place] MEDICIN [place] Jul 09, 2024 11:00 AM AM[place]ULATORY [place] [facility] [facility] Jul 21, 2024 11:00 AM AMBULATORY - REHAB MEDICIN E [facility] [place] [facility] Aug 19, 2024 11:30 AM AMBULATORY - MEDICINE [place] [facility] [place] [facility] Oct 04, 2024 11:30 AM AM[place]ULATORY [place] [facility] [facility] Social History: Smoking Status (Most current) and Tobacco Use (All prior to encounter date) This section includes the most current, and the historical, smoking and tobacco- related health factors from the [place] facility where the Encounter took place. Current Smoking Status This section includes the most current smoking, or tobacco-related health factor, from the [place] facility where the Encounter took place. Date/Time Current Smoking Status Comment Chris ity Nov 20, 2023 11:00 AM [place] Tobacco Use History This section includes a history of the smoking, or tobacco-related health factors, that were collected on or before the date of the Encounter. The data comes from the [place] facility where the Encounter took place. Date/Time Smoking Status/Tobacco Use Comment F acility Nov 20, 2023 11:00 AM [place]-TOBACCO QUIT 15 YRS OR MORE [place] [facility] [facility] Sep 05, 2022 11:00 AM [place]-TOBACCO FORMER USER [place] [facility] [facility] Sep 05, 2022 11:00 AM [place]-TOBACCO QUIT 15 YRS OR MORE [facility] Encounter Notes: All associated encounter notes This section contains the clinical notes associated to the Encounter. Date/Time Encounter Note(s) Provider Source Apr 27, 2024 02:03 PM PHYSICAL THERAPY NOTE: LOCAL TITLE: PHYSICAL THERAPY STANDARD TITLE: PHYSICAL THERAPY NOTE DATE OF NOTE: APR 27, 2024@14:03 ENTRY DATE: APR 27, 2024@14:03:29 AUTHOR: TABATHA ALANIZ COSIGNER: URGENCY: STATUS: COMPLETED Initial Evaluation date: 04/12/24 Treatment #: 2 Treatment time: 30 min Diagnosis: Spinal stenosis, lumbar region with neurogenic claudication (ICD-10- CM M48.062) (Primary) Provider: RAFAT SUBJECTIVE: States that feeling ok, arrived late to appt on this date, states that his L knee is sore, not wearing the brace and he did not bring his AFO OBJECTIVE: THERAPEUTIC EXERCISE: MINUTES: 30 mins Nu-step 10 mins L3 standing marching with counter support standing hip abd with counter support standing mini squats with counter support MANUAL THERAPY: MINUTES: GAIT TRAINING: MINUTES: NEUROMUSCULAR EDUCATION: MINUTES: OTHER: MINUTES: MODALITIES: MINUTES: [] Contraindication screen completed prior to modality [] Skin intact pre/post SELF CARE/EDUCATION: MINUTES: encouraged to bring his knee brace and AFO to the next appt. Access Code: [email or web address] URL: [email or web address] Date: 04/27/2024 Prepared by: [employer] Exercises - Seated March - 1 x daily - 7 x weekly - 3 sets - 10 reps - Seated Long Arc Quad - 1 x daily - 7 x weekly - 3 sets - 10 reps - Seated Hip Adduction Isometrics with Ball - 1 x daily - 7 x weekly - 3 sets - 10 reps - Standing March with Counter Support - 1 x daily - 7 x weekly - 3 sets - 10 reps - Mini Squat with Counter Support - 1 x daily - 7 x weekly - 3 sets - 10 reps - Standing Hip Abduction with Counter Support - 1 x daily - 7 x weekly - 3 sets - 10 reps Patient education was provided for all aspects of care during this clinical encounter. ASSESSMENT: Tolerated session well, no c/o increase discomfort after session PLAN: Please have bring in AFO for right drop foot for education to increase compliancy. Aerobic exercise. Mat hip and core stability. Parallel bars balance and proprioception activities. Functional movement patterns. Pre-gait and gait training. Edu on [employer], may be a possible referral. /berenice/ DONATO TAYLOR LICENSE CHIEF INFORMATION OFFICER Signed: 04/27/2024 14:08 TABATHA ALANIZ [place] [facility]
--- OUTSIDE RECORDS SUMMARY | 2025-01-12 12:33 | XMS_ITS | Encounter Summary ---
Author Organization [facility] Address [address] [place] [address] Care Team Providers Care Graphite Disk Assembler Name Role Phone Keaton Anton MD Primary Care Provider Encounter Details Date Type Department Care Team (Late st Contact Info) Description 07/17/2024 Lab Requisition [facility] - Main Lab [address] [place] [address] Keaton Anton MD [address] [place] [address] Other hyperlipidemia; Atherosclerotic heart disease of [place] coronary artery without angina pectoris Social History Tobacco Use Types Packs/Day Years [...] Associated Diagnosis Comments COMPLETE BLOOD COUNT Routine 07/17/2024 6:46 AM EST Other hyperlipidemia Atherosclerotic heart disease of [place] coronary artery without angina pectoris COMPREHENSIVE METABOLIC PANEL Routine 07/17/2024 6:46 AM EST Other hyperlipidemia Atherosclerotic heart disease of [place] coronary artery without angina pectoris documented in this encounter Results * (ABNORMAL) Comprehensive metabolic panel (07/17/2024 6:46 AM EST) Sodium 138 133 - 145 mmol/L LAB CHEMISTRY METHOD 07/17/2024 8:32 AM EST [facility] Potassium 4.3 3.5 - 5.5 mmol/L LAB CHEMISTRY METHOD 07/17/2024 8:32 AM [facility] LAB Chloride 108 96 - 110 mmol/L LAB CHEMISTRY METHOD 07/17/2024 8:32 AM [facility] LAB CO2 25 21 - 32 mmol/L LAB CHEMISTRY METHOD 07/17/2024 8:32 AM [facility] LAB Anion Gap 5 3 - 11 LAB CHEMISTRY METHOD 07/17/2024 8:32 AM [facility] LAB Glucose 101(H) 70 - 100 mg/dL LAB CHEMISTRY METHOD 07/17/2024 8:32 AM [facility] LAB BUN 19 5 - 25 mg/dL LAB CHEMISTRY METHOD 07/17/2024 8:32 AM [facility] LAB Creatinine 0.80 0.70 - 1.30 mg/dL LAB CHEMISTRY METHOD 07/17/2024 8:32 AM [facility] LAB eGFR 86 >=60 mL/min/1. 73m2 LAB CHEMISTRY METHOD 07/17/2024 8:32 AM [facility] LAB Comment:Calculation based on the??Chronic Kidney Disease Epidemiology Collaboration (CKD-EPI) equation refit??without adjustment for race. BUN/Creatinine Ratio 23.8 LAB CHEMISTRY METHOD 07/17/2024 8:32 AM [facility] LAB Calcium 9.0 8.5 - 10.5 mg/dL LAB CHEMISTRY METHOD 07/17/2024 8:32 AM [facility] LAB AST (SGOT) 55(H) 10 - 42 unit/L LAB CHEMISTRY METHOD 07/17/2024 8:32 AM [facility] LAB ALT (SGPT) 70(H) 10 - 60 unit/L LAB CHEMISTRY METHOD 07/17/2024 8:32 AM [facility] LAB Alkaline Phosphatase 122(H) 42 - 121 unit/L LAB CHEMISTRY METHOD 07/17/2024 8:32 AM [facility] Total Protein 5.5(L) 6.0 - 8.0 g/dL LAB CHEMISTRY METHOD 07/17/2024 8:32 AM [facility] LAB Albumin 2.8(L) 3.2 - 5.0 g/dL LAB CHEMISTRY METHOD 07/17/2024 8:32 AM [facility] LAB Total Bilirubin 0.6 0.0 - 1.4 mg/dL LAB CHEMISTRY METHOD 07/17/2024 8:32 AM [facility] LAB Blood Venous blood specimen / Unknown Venipuncture / Unknown 07/17/2024 6:46 AM EST 07/17/2024 7:29 AM EST us Keaton Anton MD LAB BLOOD ORDERABLES Final Resu lt [facility] [address] [place] [address], [place] [phone] * Complete blood count (07/17/2024 6:46 AM EST) WBC 8.8 4.8 - 10.8 K/mcL LAB HEMETOLOGY METHOD 07/17/2024 8:15 AM [facility] LAB RBC 4.80 4.50 - 5.50 M/[facility] LAB HEMETOLOGY METHOD 07/17/2024 8:15 AM [facility] LAB Hemoglobin 14.2 13.5 - 17.5 g/dL LAB HEMETOLOGY METHOD 07/17/2024 8:15 AM [facility] LAB Hematocrit 43.3 42.0 - 54.0 % LAB HEMETOLOGY METHOD 07/17/2024 8:15 AM [facility] LAB MCV 90.6 79.0 - 98.0 FL LAB HEMETOLOGY METHOD 07/17/2024 8:15 AM [facility] LAB MCH 29.7 27.0 - 32.0 pcg LAB HEMETOLOGY METHOD 07/17/2024 8:15 AM [facility] LAB MCHC 32.8 32.0 - 37.0 g/dL LAB HEMETOLOGY METHOD 07/17/2024 8:15 AM EST [facility] RDW 13.3 11.0 - 15.0 % LAB HEMETOLOGY METHOD 07/17/2024 8:15 AM EST [facility] Platelets 237 130 - 400 K/mcL LAB HEMETOLOGY METHOD 07/17/2024 8:15 AM EST [facility] LAB MPV 10.0 7.0 - 11.0 FL LAB HEMETOLOGY METHOD 07/17/2024 8:15 AM EST [facility] LAB NRBC 0.2 <1.0 % LAB HEMETOLOGY METHOD 07/17/2024 8:15 AM [facility] LAB NRBC Absolute 0.02 <0.10 K/mcL LAB HEMETOLOGY METHOD 07/17/2024 8:15 AM [facility] LAB Blood Venous blood specimen / Unknown Venipuncture / Unknown 07/17/2024 6:46 AM EST 07/17/2024 7:29 AM EST us Keaton Anton MD LAB BLOOD ORDERABLES Final Resu lt [facility] [address] [place] [address], documented in this encounter Visit Diagnoses Diagnosis Other hyperlipidemia Atherosclerotic heart disease of [place] coronary artery without angina pectoris documented in this encounter Care Teams Graphite Disk Assembler Relationship Specialty Start Date End Date Keaton Anton MD [address] [place] [address] PCP - General Internal Medicine 07/19/24 documented as of this encounter
--- OUTSIDE RECORDS SUMMARY | 2025-01-12 12:33 | XMS_ITS | Encounter Summary ---
Author Name [facility] [facility] [place] [facility] [place] Address [address] [place] [address] Care Team Providers Care Structural Ironworker Name Role Phone SILVIA DAVID Primary Care [...] PLAN G Aug 01, 2017 PLAN G [id number] Raymond ARAIZA PATIENT AARP MED SUPP MEDIGAP PLAN G PLAN G Aug 01, 2017 PLAN G [id number] Raymond ARAIZA PATIENT AARP MED SUPP MEDIGAP PLAN G PLAN G Aug 01, 2017 PLAN G [id number] Raymond ARAIZA PATIENT AARP MED SUPP MEDICARE SUPPLEMEN RUBÉN PLANG Aug 01, 2017 PLAN [id number] Raymond ARAIZA PATIENT AARP MED SUPP MEDICARE SUPPLEMEN RUBÉN PLANG Aug 01, 2017 PLAN [id number] [phone] GERRITZRaymondSWORTH PATIENT AARP MED SUPP MEDIGAP PLAN G PLAN G Aug 01, 2017 PLAN G [id number] [phone] GERRITZ,E LLSWORTH PATIENT MEDICARE (WNR) MEDICARE (M) PART B Sep 01, 2002 PART B [id number] [phone] GERRITZ,E LLSWORTH PATIENT MEDICARE (WNR) MEDICARE (M) PART B Sep 01, 2002 PART B [id number] GERRITZ,E LLSWORTH PATIENT MEDICARE (WNR) MEDICARE (M) PART B Sep 01, 2002 PART B [id number] [phone] GERRITZ,E LLSWORTH PATIENT MEDICARE (WNR) MEDICARE (M) PART B Sep 01, 2002 PART B [id number] GERRITZ,E LLSWORTH PATIENT MEDICARE (WNR) MEDICARE (M) PART A Apr 01, 2002 PART A [id number] GERRITZ,E LLSWORTH PATIENT MEDICARE (WNR) MEDICARE (M) PART A Apr 01, 2002 PART A [id number] GERRITZ,E LLSWORTH PATIENT MEDICARE (WNR) MEDICARE (M) PART A Apr 01, 2002 PART A [id number] GERRITZ,E LLSWORTH PATIENT MEDICARE (WNR) MEDICARE (M) PART A Apr 01, 2002 PART A [id number] GERRITZ,Raymond LLSWORTH PATIENT Selected Encounter This section includes the information on record at [place] for the Encounter. Date/Time Encounter Type Encounter Description Reason Provider Source Apr 21, 2024 02:30 PM THERAPEUTIC EXERCISES PHYSICAL THERAPY ICD-10-CM M48.062 Spinal stenosis, lumbar region with neurogenic claudication AGUSTIN ALANIZ IN E Encounter Template Text not used by VA Assessments - Encounter Diagnoses This section includes the primary and secondary diagnoses documented for the Encounter. Date/Time Primary/Secondary Diagnosis Diagnosis Name Provider Source Apr 21, 2024 03:29 PM PRIMARY Spinal stenosis, lumbar region with neurogenic claudication AGUSTIN ALANIZ IN [facility] [place] [facility] Plan of Treatment: Future Appointments (+ 6 months) and Future Tests (+/- 45 days) The Plan of Treatment section includes future care activities for the patient from all [place] [facility]. This section includes future appointments and future orders which are active, pending or scheduled. Future Appointments This section includes appointments that were scheduled to occur 6 months from the date of the Encounter, up to a maximum of 20 appointments. The data comes from all [place] treatment facilities. Appointment Date/Time Appointment Type Appointme nt Facility Name Apr 27, 2024 11:00 AM AMBULATORY - REHAB MEDICIN E [facility] [place] [facility] May 04, 2024 11:00 AM AMBULATORY - REHAB MEDICIN [place] [facility] [facility] May 18, 2024 10:30 AM [place]ORY [place] [facility] May 18, 2024 11:00 AM AMBULATORY - REHAB MEDICIN [place] [facility] [facility] May 25, 2024 10:30 AM AMBULATORY - REHAB MEDICIN [facility] [facility] May 25, 2024 11:00 AM AMBULATORY - REHAB MEDICIN [facility] [place] [facility] Jun 08, 2024 11:30 AM AMBULATORY - REHAB MEDICIN E [place] Jul 09, 2024 11:00 AM AM[place]ATORY [place] [facility] [facility] Jul 21, 2024 11:00 AM AMBULATORY - REHAB MEDICIN [place] [facility] [facility] Aug 19, 2024 11:30 AM AM[place]ATORY [place] [facility] [place] [facility] Oct 04, 2024 11:30 AM AM[place]ORY [place] [facility] [place] [facility] Social History: Smoking Status (Most current) and Tobacco Use (All prior to encounter date) This section includes the most current, and the historical, smoking and tobacco- related health factors from the [place] facility where the Encounter took place. Current Smoking Status This section includes the most current smoking, or tobacco-related health factor, from the [place] facility where the Encounter took place. Date/Time Current Smoking Status Comment Chris quigley Nov 20, 2023 11:00 AM [facility] Tobacco Use History This section includes a history of the smoking, or tobacco-related health factors, that were collected on or before the date of the Encounter. The data comes from the [place] facility where the Encounter took place. Date/Time Smoking Status/Tobacco Use Comment F acility Nov 20, 2023 11:00 AM [place]-TO[place] 15 YRS OR MORE [facility] Sep 05, 2022 11:00 AM [place] FORMER USER [facility] Sep 05, 2022 11:00 AM [place]-TO[place] QUIT 15 YRS OR MORE [facility] Encounter Notes: All associated encounter notes This section contains the clinical notes associated to the Encounter. Date/Time Encounter Note(s) Provider Source Apr 21, 2024 03:23 PM PHYSICAL THERAPY NOTE: LOCAL TITLE: PHYSICAL THERAPY STANDARD TITLE: PHYSICAL THERAPY NOTE DATE OF NOTE: APR 21, 2024@15:23 ENTRY DATE: APR 21, 2024@15:23:15 AUTHOR: TABATHA ALANIZ EXP COSIGNER: URGENCY: STATUS: COMPLETED Initial Evaluation date: 04/12/24 Treatment #: 1 Treatment time: 30 min Diagnosis: Spinal stenosis, lumbar region with neurogenic claudication (ICD-10- CM M48.062) (Primary) Provider: RAFAT PRECAUTIONS: Absent right ankle dorsiflexion strength, high risk of tripping on his right foot. He endorses having an AFO but chooses not to use it. Pt. identified by full name and SUBJECTIVE: States that he's doing ok, arrived in transport chair, did not have his AFO and wasn't wearing his knee brace. OBJECTIVE: Donned his Knee brace on L knee THERAPEUTIC EXERCISE: MINUTES: 20 mins Nu-step 10 mins L3 Seated knee ext seated hip flexor seated hip add. tball squeeze MANUAL THERAPY: MINUTES: GAIT TRAINING: MINUTES: NEUROMUSCULAR EDUCATION: MINUTES: OTHER: MINUTES: MODALITIES: MINUTES: [] Contraindication screen completed prior to modality [] Skin intact pre/post SELF CARE/EDUCATION: MINUTES: 10 mins issued and educated on the use of front wheeled walker Access Code: [email or web address] URL: [email or web address] Date: 04/21/2024 Prepared by: [facility] Exercises - Seated October - x daily - 7 x weekly - [...] this clinical encounter. ASSESSMENT: Tolerated session well, states that the knee pain felt much better with the knee brace on, was able to ambulate with FWW with no issues. PLAN: Please have bring in AFO for right drop foot for education to increase compliancy. Aerobic exercise. Mat hip and core stability. Parallel bars balance and proprioception activities. Functional movement patterns. Pre-gait and gait training. [facility], may be a possible referral. /berenice/ DONATO TAYLOR LICENSE ASSOCIATE PROFESSOR OF PSYCHOLOGY Signed: 04/21/2024 15:30 TABATHA ALANIZ [place] [facility]
--- OUTSIDE RECORDS SUMMARY | 2025-01-12 12:33 | XMS_ITS ---
Author Name [facility] [facility] [place] [facility] [place] Address [address] [place] [address] Care Team Providers Care Epic Cadence Specialists Name Role Phone SILVIA DAVID Primary Care [...] PLAN G Aug 01, 2017 PLAN G [id number] Raymond ARAIZA PATIENT AARP MED SUPP MEDIGAP PLAN G PLAN G Aug 01, 2017 PLAN G [id number] Raymond ARAIZA PATIENT AARP MED SUPP MEDIGAP PLAN G PLAN G Aug 01, 2017 PLAN G [id number] Raymond ARAIZA PATIENT AARP MED SUPP MEDICARE SUPPLEMEN RUBÉN PLANG Aug 01, 2017 PLAN [id number] [phone] Raymond ARAIZA PATIENT AARP MED SUPP MEDICARE SUPPLEMEN RUBÉN PLANG Aug 01, 2017 PLAN [id number] GERRITZ,E LLSWORTH PATIENT AARP MED SUPP MEDIGAP PLAN G PLAN G Aug 01, 2017 PLAN G [id number] [phone] GERRITZ,E LLSWORTH PATIENT MEDICARE (WNR) MEDICARE (M) PART B Sep 01, 2002 PART B [id number] GERRITZ,E LLSWORTH PATIENT MEDICARE (WNR) MEDICARE (M) PART B Sep 01, 2002 PART B [id number] GERRITZ,E LLSWORTH PATIENT MEDICARE (WNR) MEDICARE (M) PART B Sep 01, 2002 PART B [id number] GERRITZ,E LLSWORTH PATIENT MEDICARE (WNR) MEDICARE (M) PART B Sep 01, 2002 PART B [id number] GERRITZ,E LLSWORTH PATIENT MEDICARE (WNR) MEDICARE (M) PART A Apr 01, 2002 PART A [id number] GERRITZ,E LLSWORTH PATIENT MEDICARE (WNR) MEDICARE (M) PART A Apr 01, 2002 PART A [id number] GERRITZ,E LLSWORTH PATIENT MEDICARE (WNR) MEDICARE (M) PART A Apr 01, 2002 PART A [id number] GERRITZ,E LLSWORTH PATIENT MEDICARE (WNR) MEDICARE (M) PART A Apr 01, 2002 PART A [id number] GERRITZ,E LLSWORTH PATIENT Selected Encounter This section includes the information on record at [place] for the Encounter. Date/Time Encounter Type Encounter Description Reason Provider Source Apr 20, 2024 12:00 PM HEARING AID REPAIR/MODIFYING AUDIOLOGY ICD-10-CM Z46.1 Encounter for fitting and adjustment of hearing aid DARION REAL Raymond Encounter Template Text not used by [place] Assessments - Encounter Diagnoses This section includes the primary and secondary diagnoses documented for the Encounter. Date/Time Primary/Secondary Diagnosis Diagnosis Name Provider Source Apr 20, 2024 04:36 PM PRIMARY Encounter for fitting and adjustment of hearing aid DARION REAL [place] [facility] [place] [facility] Apr 20, 2024 04:36 PM SECONDARY Sensorineural hearing loss, bilateral DARION REAL [place] [facility] [place] [facility] Plan of Treatment: Future Appointments (+ 6 months) and Future Tests (+/- 45 days) The Plan of Treatment section includes future care activities for the patient [facility] [place] [facility] This section includes future appointments and future orders which are active, pending or scheduled. Future Appointments This section includes appointments that were scheduled to occur 6 months from the date of the Encounter, up to a maximum of 20 appointments. The data comes from all [place] treatment facilities. Appointment Date/Time Appointment Type Appointme nt Facility Name Apr 21, 2024 02:30 PM AMBULATORY - REHAB MEDICIN E [facility] [place] [facility] Apr 27, 2024 11:00 AM AMBULATORY - REHAB MEDICIN E [facility] [place] [facility] May 04, 2024 11:00 AM AMBULATORY - REHAB MEDICIN E [facility] [place] [facility] May 18, 2024 10:30 AM AMBULATORY - MEDICINE [place] [facility] [place] [facility] May 18, 2024 11:00 AM AMBULATORY - REHAB MEDICIN E [facility] [place] [facility] May 25, 2024 10:30 AM AMBULATORY - REHAB MEDICIN E [facility] [place] [facility] May 25, 2024 11:00 AM AMBULATORY - REHAB MEDICIN E [facility] [place] [facility] Jun 08, 2024 11:30 AM AMBULATORY - REHAB MEDICIN E [place] Jul 09, 2024 11:00 AM AMBULATORY - MEDICINE [place] [facility] [place] [facility] Jul 21, 2024 11:00 AM AMBULATORY - REHAB MEDICIN E [facility] [place] [facility] Aug 19, 2024 11:30 AM AMBULATORY - MEDICINE [place] [facility] [place] [facility] Oct 04, 2024 11:30 AM AMBULATORY - MEDICINE [place] [facility] [place] [facility] Social History: Smoking Status (Most current) and Tobacco Use (All prior to encounter date) This section includes the most current, and the historical, smoking and tobacco- related health factors from the [place] facility where the Encounter took place. Current Smoking Status This section includes the most current smoking, or tobacco-related health factor, from the [place] facility where the Encounter took place. Date/Time Current Smoking Status Comment Facil ity Nov 20, 2023 11:00 AM VA-TOBACCO FORMER USER [facility] Tobacco Use History This section includes a history of the smoking, or tobacco-related health factors, that were collected on or before the date of the Encounter. The data comes from the [place] facility where the Encounter took place. Date/Time Smoking Status/Tobacco Use Comment F acility Nov 20, 2023 11:00 AM [facility] [place] [facility] Sep 05, 2022 11:00 AM [facility] Sep 05, 2022 11:00 AM [place]-TOBACCO QUIT 15 YRS OR MORE [facility] Encounter Notes: All associated encounter notes This section contains the clinical notes associated to the Encounter. Date/Time Encounter Note(s) Provider Source Apr 20, 2024 12:00 PM AUDIOLOGY E & M NO TE: [facility] TITLE: AUDIOLOGY CLINIC STANDARD TITLE: AUDIOLOGY E & M NOTE DATE OF NOTE: APR 20, 2024@12:00 ENTRY DATE: APR 20, 2024@12:00:39 AUTHOR: DARION REAL COSIGNER: URGENCY: STATUS: COMPLETED was seen April 20, 2024 without benefit of appointment reporting his right Phonak aid was . Inspection of both aids revealed receivers completely blocked with cerumen. Domes, retention lines and wax guards replaced on both aids and biologic check good. Otoscopy revealed minimal non-occluding cerumen in both ears. advised to brush aids daily and shown again how to change cerushield wax guards. Willard will contact us with problems/concerns. Patient Education Education provided on the following topics: See above Education provided to: Teja SO Response to Education: AYESHA Russell Patient P Family F Significant Other SO Verbalizes Understanding VU Returns Demonstration RD Performs Independently PI Lacks Comprehension LC Refused Education RE Not Applicable NA /berenice/ DARION Mei, CCC-Emiliano CHIEF, AUDIOLOGY/DIRECTOR CHILD ABUSE THERAPY Signed: 04/20/2024 16:36 DARION REAL [facility]
--- OUTSIDE RECORDS SUMMARY | 2025-01-12 12:33 | XMS_ITS ---
Author Name [facility] [place] [facility] [place] [facility] [place] Address [address] [place] [address] Care Team Providers Care Ribbon Lapper Tender Name Role Phone SILVIA DAVID Primary [...] PLAN G Aug 01, 2017 PLAN G [id number] Raymond ARAIZA PATIENT AARP MED SUPP MEDIGAP PLAN G PLAN G Aug 01, 2017 PLAN G [id number] Raymond ARAIZA PATIENT AARP MED SUPP MEDIGAP PLAN G PLAN G Aug 01, 2017 PLAN G [id number] Raymond ARAIZA PATIENT AARP MED SUPP MEDICARE SUPPLEMEN RUBÉN PLANG Aug 01, 2017 PLAN [id number] Raymond ARAIZA PATIENT AARP MED SUPP MEDICARE SUPPLEMEN RUBÉN PLANG Aug 01, 2017 PLAN [id number] Raymond ARAIZA PATIENT AARP MED SUPP MEDIGAP PLAN G PLAN G Aug 01, 2017 PLAN G [id number] ARIRITZRaymond PATIENT MEDICARE (WNR) MEDICARE (M) PART B Sep 01, 2002 PART B [id number] GERRITZ,Raymond LLSWORTH PATIENT MEDICARE (WNR) MEDICARE (M) PART B Sep 01, 2002 PART B [id number] GERRITZ,Raymond LLSWORTH PATIENT MEDICARE (WNR) MEDICARE (M) PART B Sep 01, 2002 PART B [id number] GERRITZ,Raymond LLSWORTH PATIENT MEDICARE (WNR) MEDICARE (M) PART B Sep 01, 2002 PART B [id number] GERRITZ,Raymond LLSWORTH PATIENT MEDICARE (WNR) MEDICARE (M) PART A Apr 01, 2002 PART A [id number] GERRITZ,Raymond [place] PATIENT MEDICARE (WNR) MEDICARE (M) PART A Apr 01, 2002 PART A [id number] GERRITZ,Raymond LLSWORTH PATIENT MEDICARE (WNR) MEDICARE (M) PART A Apr 01, 2002 PART A [id number] [phone] GERRITZ,Raymond [place] PATIENT MEDICARE (WNR) MEDICARE (M) PART A Apr 01, 2002 PART A [id number] GERRIRaymond MALHOTRA PATIENT Selected Encounter This section includes the information on record at [place] for the Encounter. Date/Time Encounter Type Encounter Description Reason Pro vider Source Nov 30, 2024 02:28 PM Outpatient Encounter COMM[facility]ITY CARE CONSULT I[facility] Encounter Template Text not used by [facility] Plan of Treatment: Future Appointments (+ 6 months) and Future Tests (+/- 45 days) The Plan of Treatment section includes future care activities for the patient from all [place] treatmentfacilities. This section includes future appointments and future orders which are active, pending or scheduled. Future Appointments This section includes appointments that were scheduled to occur 6 months from the date of the Encounter, up to a maximum of 20 appointments. The data comes from all [place] treatment facilities. Appointment Date/Time Appointment Type Appointme nt Facility Name Dec 03, 2024 09:45 AM AMBULATORY - MEDICINE [place] [facility] [place] [facility] Dec 06, 2024 10:00 AM AMBULATORY - SURGERY [facility] [place] [facility] Feb 01, 2025 11:30 AM AMBULATORY - MEDICINE [facility] [place] [facility] Mar 11, 2025 02:00 PM AMBULATORY - MEDICINE [facility] [place] [facility] Mar 30, 2025 02:00 PM [facility] Active, Pending, and Scheduled Orders This section includes a listing of several types of active, pending, and scheduled orders, including clinic medications orders, diagnostic test orders, procedure orders and consult orders; where the start date of the order is 45 days before the date of the Encounter or 45 days after the date of theEncounter. The data comes from all [place] treatment facilities. Test Date/Time Test Type Test Details Facility Name Nov 30, 2024 05:13 PM Consult Order COMMUNITY CARE-RADIOLOGY XRAY Cons Distributed [employer] Project Manager's Choice [place] [facility] [place] [facility] Dec 01, 2024 08:48 AM Consult Order COMMUNITY CARE-THORACIC SURGERY Cons Distributed [employer] Project Manager's Choice [facility] [place] [facility] January 12, 2025 09:21 AM Consult Order BENEFICIAR Y TRAVEL (BT) CONSULT Cons Distributed Generation Project Manager's Choice [facility] [place] [facility] Social History: Smoking Status [...] PM [facility]ACCO [facility] SED [facility] Tobacco Use History This section includes a history of the smoking, or tobacco-related health factors, that were collected on or before the date of the Encounter. The data comes from the [place] facility where the Encounter took place. Date/Time Smoking Status/Tobacco Use Comment F acility Nov 15, 2024 02:00 PM VA-TOBACCO NEVER U SED OTHER TYPE [facility] [place] [facility] Nov 20, 2023 11:00 AM VA-TOBACCO FORMER USER [facility] [place] [facility] Nov 20, 2023 11:00 AM VA-TOBACCO QUIT 15 YRS OR MORE [facility] [place] [facility] Sep 05, 2022 11:00 AM VA-TOBACCO FORMER USER [facility] [place] [facility] Sep 05, 2022 11:00 AM VA-TOBACCO QUIT 15 YRS OR MORE [facility] [place] [facility] Encounter Notes: All associated encounter notes This section contains the clinical notes associated to the Encounter. Date/Time Encounter Note(s) Provider Source Nov 30, 2024 03:40 PM ADDENDUM: LOCAL TITLE: Addendum STANDARD TITLE: ADDENDUM DATE OF NOTE: NOV 30, 2024@15:40:13 ENTRY DATE: NOV 30, 2024@15:40:14 AUTHOR: ATUL REED EXP COSIGNER: URGENCY: STATUS: COMPLETED adding PCP for [facility]-Thoracic Surgery [facility]-radiology for barium swallow study. /es/ ATUL REED REGISTERED NURSE Signed: 11/30/2024 15:41 Receipt Acknowledged By: 11/30/2024 17:13 /es/ RUEL DOUGLASS MD PHYSICIAN === --- Original Document --- 11/30/24 [facility]-REQUEST FOR SERVICE NOTE: Request for Services (RFS) documentation has been sent for scanning to [email or web address] Consult: [facility]-Thoracic Surgery [facility] Thoracic Surgery [address] [place] [address] , [address] [facility] [address] Fax for New Referrals only: [phone] Group dx paraesophageal hiatal hernia Appt on 12/06 at 10 am [facility]-radiology for barium swallow study. Alert to APCT to enter consults if in agreement. Thank you /berenice/ JOSIE SALINAS [facility] Care RN Signed: 11/30/2024 15:19 Receipt Acknowledged By: * AWAITING SIGNATURE * ATUL REED * AWAITING SIGNATURE * STEPHANIE SZYMANSKI MELISSA H [facility] [place] [facility] Nov 30, 2024 02:28 PM NONVA NOTE: LOCAL TITLE: [facility]-REQUEST FOR SERVICE NOTE STANDARD TITLE: NONVA NOTE DATE OF NOTE: NOV 30, 2024@14:28 ENTRY DATE: NOV 30, 2024@14:28:28 AUTHOR: JOSIE SALINAS COSIGNER: URGENCY: STATUS: COMPLETED [facility]-REQUEST FOR SERVICE NOTE Has ADDENDA Request for Services (RFS) documentation has been sent for scanning to [facility] Consult: [facility]-Thoracic Surgery [facility] Thoracic Surgery [address] [place] [address] , [address] [place] [address] Fax for New Referrals only: [phone] Group dx paraesophageal hiatal hernia Appt on 12/06 at 10 am [facility]-radiology for barium swallow study. Alert to APCT to enter consults if in agreement. Thank you /berenice/ JOSIE SALINAS [facility] Care RN Signed: 11/30/2024 15:19 Receipt Acknowledged By: 12/01/2024 09:53 /berenice/ ATUL REED REGISTERED NURSE 12/01/2024 09:57 /es/ STEPHANIE SZYMANSKI Primary Care Staff Nurse 11/30/2024 ADDENDUM STATUS: COMPLETED adding PCP for [facility]-Thoracic Surgery [facility]-radiology for barium swallow study. /berenice/ ATUL REED REGISTERED NURSE Signed: 11/30/2024 15:41 Receipt Acknowledged By: 11/30/2024 17:13 /berenice/ RUEL DOUGLASS MD PHYSICIAN J[facility]IE SALINAS [facility]
--- OUTSIDE RECORDS SUMMARY | 2025-01-12 12:33 | XMS_ITS | Data Portability ---
Author Organization [facility], ORTHOPAEDICS - OFFICE Address [address] [place] [address] Care Team Providers Care Bar Host Name Role Phone CHI SNYDER MD Primary Care Provider [phone] CHI SNYDER MD Referring Provider Assessment Encounter Date Assessment Date Assessment LastModified by Organization Details LastModified Time 03/21/2014 03/21/2014 Electrodiagnosti c Evaluation of the Lower Limbs: ??1. Generalized peripheral sensorimotor neuropathy. The neuropathy is primarily axonal in type, without evidence of significant demyelination. The neuropathy is length-dependent, and is chronic in nature. Overall electrodiagnostic severity is mild to moderate. 2. Otherwise normal study with no evidence of lumbosacral radiculopathy severe enough to cause axon loss, plexopathy, myopathy,?? or focal entrapment neuropathies. Thank you for allowing me to participate in the care of your patient. Please do not hesitate to contact me with any questions or concerns about the neurologic care of this patient.? [email or web address] Not available 03/21/2014 11:41:09 Plan of Treatment Reminders Order Date Submit Date Provider Last Modified By Organization Details Last Modified Time Details Appointments None recorded. Lab urinalysis , dipstick 2020 021 [email or web address] In-Office Order, Internal Use Only DO Not Attach Compendium DO Not Attach Compendium, Do Not Delete/merge, [id number] 10:44:28 Referral None recorded. Procedures None recorded. Surgeries None recorded. Imaging None recorded. Medication Orders Myrbetriq 25 mg tablet,ext ended release 2021 022 [facility] [id number], [address] [place], [address], 10:32:42 Myrbetriq 25 mg tablet,ext ended release 2020 021 [facility] [id number], [address] [place], [address], 09:23:17 Patient TargetsNo targets recorded. Patient Instructions Encounter Date Encounter Id Patient Instructions Last Modified By Organization Details Last Modified Time 08/03/2021 [id number] mybetrq 25 [email or web address] Not available 10/2020 09:55:20 08/31/2021 [id number] continue myberq 25 [email or web address] Not available 08/31/2021 09:23:46 Reason for Referral None Reported. Results Created Date Observation Date Name Description Value Unit Range Abnormal Flag Note LastModifiedBy Organization Detail LastModifiedTime 08/03/2008/03/2021 urina lysis , dipst ick Leukocytes Negati ve Not Available In-Office Order Internal Use Only DO Not Attach Compendium DO Not Attach Compendium, Do Not Delete/merge, [id number] 08/03/2021 09:53:34 08/03/2008/03/2021 urina lysis , dipst ick Nitrate negati ve Not Available In-Office Order Internal Use Only DO Not Attach Compendium DO Not Attach Compendium, Do Not Delete/merge, [id number] 08/03/2021 09:53:34 08/03/20 21 08/03/2021 urina lysis , dipst ick Urobilinogen 0.2 Not Available In-Of fice Order Internal Use Only DO Not Attach Compendium DO Not Attach Compendium, Do Not Delete/merge, [id number] 08/03/2021 09:53:34 08/03/20 21 08/03/2021 urina lysis , dipst ick Protein Negati ve Not Available In-Office Order Internal Use Only DO Not Attach Compendium DO Not Attach Compendium, Do Not Delete/merge, [id number] 08/03/2021 09:53:34 08/03/20 21 08/03/2021 urina lysis , dipst ick pH 7.0 Not Available In-Office Order Internal Use Only DO Not Attach Compendium DO Not Attach Compendium, Do Not Delete/merge, [id number] 08/03/2021 09:53:34 08/03/20 21 08/03/2021 urina lysis , dipst ick Blood Negati ve Not Available In-Office Order Internal Use Only DO Not Attach Compendium DO Not Attach Compendium, Do Not Delete/merge, [id number] 08/03/2021 09:53:34 08/03/20 21 08/03/2021 urina lysis , dipst ick Specific Latham 1.025 Not Available In-Off ice Order Internal Use Only DO Not Attach Compendium DO Not Attach Compendium, Do Not Delete/merge, [id number] 08/03/2021 09:53:34 08/03/20 21 08/03/2021 urina lysis , dipst ick Ketone Negati ve Not Available In-Office Order Internal Use Only DO Not Attach Compendium DO Not Attach Compendium, Do Not Delete/merge, [id number] 08/03/2021 09:53:34 08/03/20 21 08/03/2021 urina lysis , dipst ick Bilirubin Negati ve Not Available In-Office Order Internal Use Only DO Not Attach Compendium DO Not Attach Compendium, Do Not Delete/merge, [id number] 08/03/2021 09:53:34 08/03/20 21 08/03/2021 urina lysis , dipst ick Glucose Negati ve Not Available In-Office Order Internal Use Only DO Not Attach Compendium DO Not Attach Compendium, Do Not Delete/merge, [id number] 08/03/2021 09:53:34 08/03/20 21 08/03/2021 urina lysis , dipst ick Appearance Cloudy Not Available In-Offi ce Order Internal Use Only DO Not Attach Compendium DO Not Attach Compendium, Do Not Delete/merge, [id number] 08/03/2021 09:53:34 08/03/20 21 08/03/2021 urina lysis , dipst ick Color Dark Yellow Not Available In-Office Order Internal Use Only DO Not Attach Compendium DO Not Attach Compendium, Do Not Delete/merge, [id number] 08/03/2021 09:53:34 03/21/20 14 03/21/2014 imagi ng/di agnos tic resul t No observ ation record ed. [email or web address] Not Available 2013 15:36:34 04/10/20 15 imagi ng/di agnos tic resul t No observ ation record ed. sdeboard Not Available 2014 09:54:17 Result Notes None recorded. Problems Name Problem SNOMED Code Status Onset Date Resolution Date Notes Provider Name and Address Organization Details Recorded Time Paresthesia 29587976 Active Rhett Tyson D.O. 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 [address] [place], [address] , [facility] 4 11:45:26 Problem Notes None recorded. Procedures Surgical History Date Name Laterality Status Provider Name and Address Organization Details Recorded Time 03/21/20 14 EMG Lower Limb - Bilateral completed Rhett Tyson D.O. [address] [place] [address], [address], [facility] 03/21/2014 11:45:26 Appendectomy completed Jade Mason [facility] 08/03/2021 09:31:36 open reduction of fracture of zygoma or zygomatic arch completed Archana Holley [facility] 12/28/2021 10:24:41 Imaging Results Imaging Date Name Status LastModified by Organiz ation Details LastModified Time 03/21/2014 imaging/diag nostic result completed [email or web address] Information not available 03/21/2014 15:36:34 04/10/2015 imaging/diag nostic result completed [email or web address] Information not available 04/12/2015 09:54:17 Procedure Notes None recorded. Medical Equipment None Reported. Allergies No known drug allergies Medications Name Sig Start Date Stop Date Status Note LastModified by Organization Details LastModified Time latanoprost 0.005 % eye drops active Not Available Not Available Not Available metoprolol succinate ER 50 mg tablet,exten ded release 24 hr 08/03 completed Not Available Not Available Not Available ondansetron HCl 8 mg tablet 08/03 completed Not Available Not Available Not Available simvastatin 10 mg tablet 08/03 completed Not Available Not Available Not Available clopidogrel 75 mg tablet daily active Not Available Not Available Not Available sulfamethoxa zole 800 mg-trimethop rim 160 mg tablet 08/03 completed Not Available Not Available Not Available triamcinolon e acetonide 0.1 % topical cream 08/03 completed Not Available Not Available Not Available simvastatin 40 mg tablet daily active Not Available Not Available Not Available triamcinolon e acetonide 0.1 % topical ointment active Not Available Not Available Not Available mupirocin 2 % topical ointment 08/03 completed Not Available Not Available Not Available metoprolol succinate ER 25 mg tablet,exten ded release 24 hr daily active Not Available Not Available Not Available finasteride 5 mg tablet TAKE ONE TABLET BY MOUTH DAILY 2021 active Not Available Not Available Not Avai lable Multivitamin 50 Plus tablet qd active Not Available Not Available Not Available duloxetine 30 mg capsule,miguelangel yed release Take 1 capsule every day by oral route. active Not Available Not Available No t Available selenium sulfide 2.25 % shampoo 08/03 completed Not Available Not Available Not Available Myrbetriq 25 mg tablet,exten ded release Take 1 tablet every day by oral route. 2021 active Not Available Not Available Not Avai lable [employer] [facility] qd active Not Available Not Available Not Available aspirin 81 mg capsule Take 1 capsule every day by oral route. active Not Available Not Available No t Available Vitals Date Recorded Oxygen saturation Oxygen saturation in Arterial blood by Pulse oximetry Body temperature Heart rate Systolic blood pressure Diastolic blood pressure Provider Name and Address Organization Details Last Updated DateTime 1 96 % 96 % 98 [degF] 76 /min 130 mm[Hg] 82 mm[Hg] Jade Mason [facility] 1 09:35:31 Date Recorded Body height Body mass index (BMI) Body weight Oxygen saturation Oxygen saturation in Arterial blood by Pulse oximetry Heart rate Body temperature Systolic blood pressure Diastolic blood pressure Provider Name and Address Organization Details Last Updated DateTime 1 180.34 cm 27.9 kg/m2 16293.4 7 g 98 % 98 % 78 /min 98.2 [degF] 126 mm[Hg] 78 mm[Hg] Archana Holley [facility] 09:10:46 Date Recorded Body height Oxygen saturation Oxygen saturation in Arterial blood by Pulse oximetry Heart rate Body temperature Body mass index (BMI) Body weight Systolic blood pressure Diastolic blood pressure Provider Name and Address Organization Details Last Updated DateTime 2 180.34 cm 99 % 99 % 76 /min 98.4 [degF] 27.9 kg/m2 64485.4 7 g 122 mm[Hg] 76 mm[Hg] Archana Holley [facility] 2 10:22:58 Social History Question Answer Notes LastModified by [employer] Details LastModified Time Tobacco Smoking Status Former Smoker pipe and cigars [facility] 08/03/2021 09:29:58 What Is Your Level Of Caffeine Consumption? Moderate Information not available 08/03/2021 What Is The Highest Grade Or Level Of School You Have Completed Or The Highest Degree You Have Received? [id number] Information not available 08/03/2021 When Did You Quit Smoking? 11-15yearssi ncelastcigar ette Information not available 08/03/2021 What Was The Date Of Your Most Recent Tobacco Screening? 12/28/2021 Information not available 12/28/2021 What Is Your Relationship Status? Information not available 08/03/2021 How Many Years Have You Smoked Tobacco? 6 Information not available 08/03/2021 Sex: Unknown Functional Status Question Answer Note LastModified by Organizat ion Details LastModified Time Do you use any illicit or recreational drugs? No Information not available 08/03/2021 Do you or have you ever used any other forms of tobacco or nicotine? No Information not available 08/03/2021 What is your level of alcohol consumption? Moderate Information not available 08/03/2021 What is your exercise level? None Information not available 08/03/2021 Mental Status None recorded. Family History Relationship Description Onset Age of this Age Resolved Age Notes LastModified by Organization Details LastModified Time Mother Heart disease bstorts Not available 2020 09:28:10 Mother Myocardial disease bstorts Not available 2020 09:28:18 Mother Hypertensive disorder bstorts Not available 2020 09:29:08 Father Hypertensive disorder bstorts Not available 2020 09:29:08 Medical History Condition Response Coronary Artery Disease N Metal Implants or Objects N Blood Diseases N Kidney Stones N Enlarged Prostate N Drug/Latex Allergies/Reactions N Defibrillator N Depression N COPD N Blood Clots N Pacemaker N Frequent Stomach Pain N Urinary Problems N Frequent colds or sore throats N Anesthesia Complications N History of STI N Heart Attack (NM) Y Deep Vein Thrombosis N Anxiety Disorder N Diabetes N Bleeding Disorder N Seizures/Epilepsy N Heart Problems/Disease N Hyperlipidemia N Cancer N Stroke N Neurologic/Epilepsy N Frequent Urinary Tract Infection Y Peripheral Vascular Disease N Bladder or Kidney Problems N Hepatitis N Hypertension Y Kidney Disease N Past Encounters Encounter ID Performer Location Encounter Start Date Encounter Closed Date Diagnosis/Indication Diagnosis SNOMED-CT Code Diagnosis ICD10 Code Diagnosis Note [id number] Rhett 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 Urgent danilo becki to urinate 85864241 R39.15 Nocturia 606267337 R35.1 Anticoagulant therapy 18 7848644 Z79.01 Lower urin esmer tract symptoms due to benign prostatic hypertrophy 3553662579 9101 N40.1 [id number] Ector Guthrie DO [facility] [address] [address] 08/31/2021 08:51:17 08/31/2021 09:26:35 Overactive urinary bladder 958483623 N32.81 Urgent danilo becki to urinate 20266416 R39.15 Lower urin esmer tract symptoms due to benign prostatic hypertrophy 6744908070 9101 N40.1 [id number] Ector Guthrie DO [facility] [address] [place] [address] 12/28/2021 10:05:42 12/28/2021 10:36:50 Lower urinary tract symptoms due to benign prostatic hypertrophy 2931948139 9101 N40.1 continue finasterid e Urgent danilo becki to urinate 36175138 R39.15 mybetrq 25 Health Concerns Section Related Observation LastModified by Organization Detai ls LastModified Time None Recorded Concern Status LastModified by Organization Details LastModified Time None Recorded Advance Directives Directive None Recorded Payers Insurance Date Sequence Insurance Name Policy Number Policy Soliz Covered Member ID Soliz Member ID Guarantor Name 12/28/2021 1 [place] Shakeel Cartwright [id number] Shakeel Cartwright 12/31/2021 2 [employer] HE[employer] OPTIONS (MEDICARE SUPPLEMENT) Shakeel Cartwright [id number] Shakeel Cartwright 08/03/2021 1 [employer] (MEDICARE REPLACEMENT/A DVANTAGE - PPO) [id number] Shakeel Cartwright [id number] Shakeel Cartwright Notes Date Note Type Note Provider Name and Address Organization Details Recorded Time 08/03/2021 text/html was traveling ur ge frequency incontinence on anticoagulation nocturia 3-4 Ector Guthrie DO [address] [place], [address], [facility] 08/03/2021 09:55:44 08/31/2021 text/html positive results mybertrq 25 less urge and frequency no side effcts better control Ector Guthrie DO [address] [place], [address], [facility] 08/31/2021 09:24:16 12/28/2021 text/html positive results mybertq 25 no side effects better control urine less urge Ector Guthrie DO [facility] [place], [address], [facility] 12/28/2021 10:33:05
--- OUTSIDE RECORDS SUMMARY | 2025-01-12 12:33 | XMS_ITS | Encounter Summary ---
Author Name [facility] [place] Organization [facility] [place] Address [address] [place] [address] Care Team Providers Care Engineering Project Manager Name Role Phone SILVIA DAVID Primary Care [...] PLAN G Aug 01, 2017 PLAN G [id number] Raymond ARAIZA PATIENT AARP MED SUPP MEDIGAP PLAN G PLAN G Aug 01, 2017 PLAN G [id number] Raymond ARAIZA PATIENT AARP MED SUPP MEDIGAP PLAN G PLAN G Aug 01, 2017 PLAN G [id number] Raymond ARAIZA PATIENT AARP MED SUPP MEDICARE SUPPLEMEN RUBÉN PLANG Aug 01, 2017 PLAN [id number] Raymond ARAIZA PATIENT AARP MED SUPP MEDICARE SUPPLEMEN RUBÉN PLANG Aug 01, 2017 PLAN [id number] 1911 [phone] GERRITZ,E LLSWORTH PATIENT AARP MED SUPP MEDIGAP PLAN G PLAN G Aug 01, 2017 PLAN G [id number] GERRITZ,E LLSWORTH PATIENT MEDICARE (WNR) MEDICARE (M) PART B Sep 01, 2002 PART B [id number] GERRITZ,E LLSWORTH PATIENT MEDICARE (WNR) MEDICARE (M) PART B Sep 01, 2002 PART B [id number] GERRITZ,E LLSWORTH PATIENT MEDICARE (WNR) MEDICARE (M) PART B Sep 01, 2002 PART B [id number] [phone] GERRITZ,E LLSWORTH PATIENT MEDICARE (WNR) MEDICARE (M) PART B Sep 01, 2002 PART B [id number] GERRITZ,E LLSWORTH PATIENT MEDICARE (WNR) MEDICARE (M) PART A Apr 01, 2002 PART A [id number] GERRITZ,E LLSWORTH PATIENT MEDICARE (WNR) MEDICARE (M) PART A Apr 01, 2002 PART A [id number] GERRITZ,E LLSWORTH PATIENT MEDICARE (WNR) MEDICARE (M) PART A Apr 01, 2002 PART A [id number] GERRITZ,E LLSWORTH PATIENT MEDICARE (WNR) MEDICARE (M) PART A Apr 01, 2002 PART A [id number] GERRITZ,E LLSWORTH PATIENT Selected Encounter This section includes the information on record at [place] for the Encounter. Date/Time Encounter Type Encounter Description Reason Provider Source January 30, 2024 11:30 AM HEARING AID REPAIR/MODIFYIN G AUDIOLOGY ICD-10-CM Z46.1 Encounter for fitting and adjustment of hearing aid LESLIE HOLDEN Encounter Template Text not used by [place] Assessments - Encounter Diagnoses This section includes the primary and secondary diagnoses documented for the Encounter. Date/Time Primary/Secondary Diagnosis Diagnosis Name Provider Source January 30, 2024 11:49 AM PRIMARY Encounter for fitting and adjustment of hearing aid SOREN HOLDEN [facility] January 30, 2024 11:49 AM SECONDARY Sensorineural hearing loss, bilateral HOLDEN,ANNIEBERNorm Y YADIRA [place] [facility] [place] [facility] Plan of Treatment: Future Appointments (+ 6 months) and Future Tests (+/- 45 days) The Plan of Treatment section includes future care activities for the patient from all [place] treatmentfacilities. This section includes future appointments and future orders which are active, pending or scheduled. Future Appointments This section includes appointments that were scheduled to occur 6 months from the date of the Encounter, up to a maximum of 20 appointments. The data comes from all [place] treatment facilities. Appointment Date/Time Appointment Type Appointme nt Facility Name Feb 02, 2024 11:00 AM AMBULATORY - MEDICINE DE [facility] [place] [facility] Feb 19, 2024 10:30 AM AMBULATORY - MEDICINE DE [facility] [place] [facility] Mar 10, 2024 09:30 AM AMBULATORY - REHAB MEDICIN E [facility] [place] [facility] Mar 29, 2024 03:30 PM AMBULATORY - MEDICINE [place] [facility] [place] [facility] Apr 12, 2024 10:30 AM AMBULATORY - [facility] MEDICIN E [place] Apr 20, 2024 12:00 PM AMBULATORY - REHAB MEDICIN E [facility] [place] [facility] Apr 21, 2024 02:30 PM AMBULATORY - REHAB MEDICIN E [facility] [place] [facility] Apr 27, 2024 11:00 AM AMBULATORY - REHAB MEDICIN E [facility] [place] [facility] May 04, 2024 11:00 AM AMBULATORY - REHAB MEDICIN E [facility] [place] [facility] May 18, 2024 10:30 AM AMBULATORY - MEDICINE [facility] [place] [facility] May 18, 2024 11:00 AM AMBULATORY - REHAB MEDICIN E [facility] [place] [facility] May 25, 2024 10:30 AM AMBULATORY - REHAB MEDICIN E [facility] [place] [facility] May 25, 2024 11:00 AM AMBULATORY - REHAB MEDICIN E [facility] [place] [facility] Jun 08, 2024 11:30 AM AMBULATORY - [facility]AB MEDICIN E [place] Jul 09, 2024 11:00 AM [facility] Jul 21, 2024 11:00 AM AMBULATORY - REHAB MEDICIN E [facility] Lab Results: +/- 30 days of the [...] Type Comment Feb 02, 2024 11:37 AM [facility] BASIC METABOLIC PANEL (non-fasting) SERUM Spe cimen Type: SERUM No comment entered. Ordering Provider: CAROLYN DOUGLASS Report Released Date/Time: Feb 02, 2024 11:25 AM Reporting Lab: [address] [address] Performing Lab: [address] [address] UREA NITROGEN 17 mg/dL 7-25 GLUCOSE 119 mg/dL H 65-100 SODIUM 136 mmol/L 135-145 POTASSIUM 4.4 mmol/L 3.5-5.0 CHLORIDE 105 mmol/L 100-110 CO2 23 meq/L 20-30 CREATININE, Serum 0.86 mg/dL 0.50-1.40 eGFR(CKD-EPI 2020) 84 mL/min >60 Feb 02, 2024 11:37 AM [facility] LIVER FUNCTION SERUM Specimen Type: SERUM No comment entered. Ordering Provider: RUEL DOUGLASS Report Released Date/Time: Feb 02, 2024 11:25 AM Reporting Lab: [address] [address] Performing Lab: [address] [address] PROTEIN,TOTAL 6.2 g/dL 6.0-8.3 ALBUMIN 3.8 g/dL 3.5-5.0 ALKALINE PHOSPHATASE 106 U/L 40-150 AST 16 U/L 5-34 ALT 14 U/L BILIRUBIN, TOTAL 0.8 mg/dL 0.2-1.2 Feb 02, 2024 11:37 AM [facility] HEMOGLOBIN A1C PANEL BLOOD Specimen Type: BLO [...] Feb 02, 2024 11:25 AM Reporting Lab: [address] [address] Performing Lab: [address] [address] HEMOGLOBIN A1C 5.7 H 4.0-5.6 Feb 02, 2024 11:37 AM [facility] TSH SERUM Specimen Type: SERUM No comment entered. Ordering Provider: RUEL DOUGLASS Report Released Date/Time: Feb 02, 2024 11:25 AM Reporting Lab: [address] [address] Performing Lab: [address] [address] TSH 1.65 u[IU]/mL 0.35-5.00 Social History: Smoking [...] 20, 2023 11:00 AM VA-TOBACCO FORMER USER [facility] Tobacco Use History This section includes a history of the smoking, or tobacco-related health factors, that were collected on or before the date of the Encounter. The data comes from the [place] facility where the Encounter took place. Date/Time Smoking Status/Tobacco Use Comment F acility Nov 20, 2023 11:00 AM [place]-TOBACCO QUIT 15 YRS OR MORE [facility] Sep 05, 2022 11:00 AM [place]-TOBACCO FORMER USER [facility] Sep 05, 2022 11:00 AM [place]-TOBACCO QUIT 15 YRS OR MORE [facility] Radiology Reports: +/- 30 days of the [...] the Encounter. The data comes from all [place] treatment facilities. Date/Time Radiology Report Provider Source Feb 02, 2024 11:52 AM KNEE 3 VIEWS (LEFT ): LUBNA ARAIZA [id number] -1935 Ex Date: FEB 02, 2024@11:52 Req Phys: RUEL DOUGLASS Pat Loc: CWM/NO/PACT 4 (Req'g Loc) Img Loc: [facility] Service: Unknown [facility] , (Case [id number] COMPLETE) KNEE 3 VIEWS (LEFT) (RAD Detailed) CPT:59286 Reason for Study: long hx of left knee pain Clinical History: Report Status: Verified Date Reported: FEB 02, 2024 Date Verified: FEB 02, 2024 Movement Assembly Final Inspector E-Sig:/ES/COLLEEN SILVERIO JR Report: Study: AP weight-bearing [...] Primary Interpreting Staff: COLLEEN SILVERIO JR, Radiologist (Movement Assembly Final Inspector) /COLLEEN MILLIGAN JR [facility] Encounter Notes: All associated encounter notes This section contains the clinical notes associated to the Encounter. Date/Time Encounter Note(s) Provider Source January 30, 2024 07:23 AM AUDIOLOGY E & M NOTE: LOCAL TITLE: AUDIOLOGY CLINIC STANDARD TITLE: AUDIOLOGY E & M NOTE DATE OF NOTE: JANUARY 30, 2024@07:23 ENTRY DATE: JANUARY 30, 2024@07:23:28 AUTHOR: LESLIE HOLDEN COSIGNER: URGENCY: STATUS: COMPLETED Dx CODE: Z46.1-Encounter for Fitting/Adjusting Hearing Aid(s); H90.3- Sensorineural Hearing Loss, Bilateral APPOINTMENT TYPE: Hearing Aid Maintenance Check HISTORY/BACKGROUND: The patient was seen for a hearing aid maintenance check appointment, accompanied by his . He was fit with Phonak Audeo [id number] RICs on 03/01/22 at the [facility]. He reports today his right hearing aid stopped working. Otoscopy was WNL AU. HEARING AID CHECK: The hearing aids were cleaned and checked. Replaced wax guards, domes, and retention tails AU. Right tobacco classer was defective and replaced. Listening inspection revealed both devices were working well. PLAN/RECOMMENDATION(S): 1. Follow up as needed. * Patient Education Education provided on the following topics: Hearing aids Education provided to: P, SO Response to Education: VU Russell Patient P Family F Significant Other SO Verbalizes Understanding VU Returns Demonstration RD Performs Independently PI Lacks Comprehension LC Refused Education RE Not Applicable NA * /berenice/ LESLIE HOLDEN STAFF FINANCIAL PROFESSIONAL Signed: 01/30/2024 11:50 LESLIE HOLDEN [facility] [place] [facility]
--- OUTSIDE RECORDS SUMMARY | 2025-01-12 12:33 | XMS_ITS ---
Author Name [facility] [place] [facility] [place] Address [address] [place] [address] Care Team Providers Care Executive Legal Secretary Name Role Phone RUEL DOUGLASS Primary Care [...] PLAN G Aug 01, 2017 PLAN G [id number] [phone] Raymond ARAIZA PATIENT AARP MED SUPP MEDICARE SUPPLEMEN RUBÉN PLANG Aug 01, 2017 PLANG [id number] [phone] Raymond ARAIZA PATIENT AARP MED SUPP MEDICARE SUPPLEMEN RUBÉN PLANG Aug 01, 2017 PLANG [id number] 1911 Raymond ARAIZA PATIENT AARP MED SUPP MEDIGAP PLAN G PLAN G Aug 01, 2017 PLAN G [id number] 1911 [phone] Raymond ARAIZA PATIENT AARP MED SUPP MEDIGAP PLAN G PLAN G Aug 01, 2017 PLAN G [id number] GERRIRaymond MALHOTRASWORTH PATIENT AARP MED SUPP MEDIGAP PLAN G PLAN G Aug 01, 2017 PLAN G [id number] GERRITZ,E LLSWORTH PATIENT MEDICARE (WNR) MEDICARE (M) PART B Sep 01, 2002 PART B [id number] GERRITZ,E LLSWORTH PATIENT MEDICARE (WNR) MEDICARE (M) PART B Sep 01, 2002 PART B [id number] GERRITZ,E LLSWORTH PATIENT MEDICARE (WNR) MEDICARE (M) PART B Sep 01, 2002 PART B [id number] [phone] GERRITZ,E LLSWORTH PATIENT MEDICARE (WNR) MEDICARE (M) PART B Sep 01, 2002 PART B [id number] GERRITZ,E LLSWORTH PATIENT MEDICARE (WNR) MEDICARE (M) PART A Apr 01, 2002 PART A [id number] GERRITZ,Raymond LLSWORTH PATIENT MEDICARE (WNR) MEDICARE (M) PART A Apr 01, 2002 PART A [id number] GERRITZ,E LLSWORTH PATIENT MEDICARE (WNR) MEDICARE (M) PART A Apr 01, 2002 PART A [id number] [phone] GERRITZ,E LLSWORTH PATIENT MEDICARE (WNR) MEDICARE (M) PART A Apr 01, 2002 PART A [id number] GERRITZ,Raymond LLSWORTH PATIENT Selected Encounter This section includes the information on record at [place] for the Encounter. Date/Time Encounter Type Encounter Description Reason Provider Source May 25, 2024 11:00 AM THERAPEUTIC EXERCISES PHYSICAL THERAPY ICD-10-CM M48.062 Spinal stenosis, lumbar region with neurogenic claudication AUGSTIN ALANIZ IN E Encounter Template Text not used by [facility] Assessments - Encounter Diagnoses This section includes the primary and secondary diagnoses documented for the Encounter. Date/Time Primary/Secondary Diagnosis Diagnosis Name Provider Source May 25, 2024 11:40 AM PRIMARY Spinal stenosis, lumbar region with neurogenic claudication AGUSTIN ALANIZ IN [facility] Plan of Treatment: Future Appointments (+ 6 months) and Future Tests (+/- 45 days) The Plan of Treatment section includes future care activities for the patient from all [place] [facility]. This section includes future appointments and future orders which are active, pending or scheduled. Future Appointments This section includes appointments that were scheduled to occur 6 months from the date of the Encounter, up to a maximum of 20 appointments. The data comes from all [place] treatment facilities. Appointment Date/Time Appointment Type Appointme nt Facility Name Jun 08, 2024 11:30 AM AMBULATORY - REHAB MEDICIN E [place] Jul 09, 2024 11:00 AM AMBULATORY - MEDICINE [place] [facility] [facility] [place] [facility] Jul 21, 2024 11:00 AM AMBULATORY - REHAB MEDICIN E [place] [facility] [place] [facility] Aug 19, 2024 11:30 AM AMBULATORY - MEDICINE [place] [facility] [place] [facility] Oct 04, 2024 11:30 AM AMBULATORY - MEDICINE [place] [facility] [place] [facility] Nov 15, 2024 02:00 PM AMBULATORY - MEDICINE [facility] [place] [facility] Social History: Smoking Status (Most current) and Tobacco Use (All prior to encounter date) This section includes the most current, and the historical, smoking and tobacco- related health factors from the [place] facility where the Encounter took place. Current Smoking Status This section includes the most current smoking, or tobacco-related health factor, from the [place] facility where the Encounter took place. Date/Time Current Smoking Status Comment Facil ity Nov 20, 2023 11:00 AM [facility] [place] [facility] Tobacco Use History This section includes a history of the smoking, or tobacco-related health factors, that were collected on or before the date of the Encounter. The data comes from the [place] facility where the Encounter took place. Date/Time Smoking Status/Tobacco Use Comment F acility Nov 20, 2023 11:00 AM VA-TOBACCO QUIT 15 YRS OR MORE [place] [facility] [place] [facility] Sep 05, 2022 11:00 AM VA-TOBACCO FORMER USER [place] [facility] [place] [facility] Sep 05, 2022 11:00 AM VA-TOBACCO QUIT [facility]RS [facility] [place] [facility] Encounter Notes: All associated encounter notes This section contains the clinical notes associated to the Encounter. Date/Time Encounter Note(s) Provider Source May 25, 2024 11:36 AM PHYSICAL THERAPY NOTE: LOCAL TITLE: PHYSICAL THERAPY STANDARD TITLE: PHYSICAL THERAPY NOTE DATE OF NOTE: MAY 25, 2024@11:36 ENTRY DATE: MAY 25, 2024@11:36:25 AUTHOR: TABATHA ALANIZ COSIGNER: URGENCY: STATUS: COMPLETED Initial Evaluation date: 04/12/24 Treatment #: 5 Treatment time: 30 min Diagnosis: Spinal stenosis, lumbar region with neurogenic claudication (ICD-10- CM M48.062) (Primary) Provider: RAFAT SUBJECTIVE: States that he's feeling good, Left knee pain is better, wearing the knee sleeve on this date, arrived wearing croc's for footwear, did not bring his AFO OBJECTIVE: THERAPEUTIC EXERCISE: MINUTES: 30 mins Nu-step 12 mins L3 alternating forward step in pbars side stepping in pbars standing hip Abd in pbars standing hip flexion in pbars MANUAL THERAPY: MINUTES: GAIT TRAINING: MINUTES: NEUROMUSCULAR EDUCATION: MINUTES: OTHER: MINUTES: MODALITIES: MINUTES: [] Contraindication screen completed prior to modality [] Skin intact pre/post SELF CARE/EDUCATION: MINUTES: Patient education was provided for all aspects of care during this clinical encounter. ASSESSMENT: Tolerated session well, feeling good after session, no c/o increase discomfort after session, noted foot drop R LE during therex, encouraged to bring AFO next visit PLAN: Please have bring in AFO for right drop foot for education to increase compliancy. Aerobic exercise. Mat hip and core stability. Parallel bars balance and proprioception activities. Functional movement patterns. Pre-gait and gait training. Edu on [place], may be a possible referral. /berenice/ DONATO TAYLOR LICENSE RADIO ELECTRICIAN Signed: 05/25/2024 11:41 TABAHTA ALANIZ [place] [facility]
--- OUTSIDE RECORDS SUMMARY | 2025-01-12 12:33 | XMS_ITS | Encounter Summary ---
Author Organization [facility] Address [address] [place] [address] Care Team Providers Care Plastic Surgery Assistant Name Role Phone Keaton Anton MD Primary Care Provider [phone] Encounter Details Date Type Department Care Team (Latest Contact Info) Description 07/28/2024 Lab Requisition [facility] - Main Lab [address] [place] [address] Keaton Anton MD [address] [place] [phone] Atherosclerotic heart disease of [place] coronary artery without angina pectoris; Other hyperlipidemia Social History Tobacco Use Types [...] Associated Diagnosis Comments COMPLETE BLOOD COUNT Routine 07/30/2024 6:15 AM EST Atherosclerotic heart disease of [place] coronary artery without angina pectoris Other hyperlipidemia BASIC METABOLIC PANEL Routine 07/30/2024 6:15 AM EST Atherosclerotic heart disease of [place] coronary artery without angina pectoris Other hyperlipidemia documented in this encounter Results * Basic metabolic panel (07/30/2024 6:15 AM EST) Sodium 139 133 - 145 mmol/L LAB CHEMISTRY METHOD 07/30/2024 11:26 AM EST [facility] Potassium 5.2 3.5 - 5.5 mmol/L LAB CHEMISTRY METHOD 07/30/2024 11:26 AM EST [facility] Comment:Hemolysis present Chloride 108 96 - 110 mmol/L LAB CHEMISTRY METHOD 07/30/2024 11:26 AM [facility] CO2 22 21 - 32 mmol/L LAB CHEMISTRY METHOD 07/30/2024 11:26 AM [facility] Anion Gap 9 3 - 11 LAB CHEMISTRY METHOD 07/30/2024 11:26 AM [facility] Glucose 81 70 - 100 mg/dL LAB CHEMISTRY METHOD 07/30/2024 11:26 AM [facility] BUN 20 5 - 25 mg/dL LAB CHEMISTRY METHOD 07/30/2024 11:26 AM [facility] Creatinine 0.92 0.70 - 1.30 mg/dL LAB CHEMISTRY METHOD 07/30/2024 11:26 AM [facility] eGFR 81 >=60 mL/min/1. 73m2 LAB CHEMISTRY METHOD 07/30/2024 11:26 AM [facility] Comment:Calculation based on the??Chronic Kidney Disease Epidemiology Collaboration (CKD-EPI) equation refit??without adjustment for race. BUN/Creatinine Ratio 21.7 LAB CHEMISTRY METHOD 07/30/2024 11:26 AM [facility] Calcium 8.9 8.5 - 10.5 mg/dL LAB CHEMISTRY METHOD 07/30/2024 11:26 AM [facility] Blood Venous blood specimen / Unknown Venipuncture / Unknown 07/30/2024 6:15 AM EST 07/30/2024 10:19 AM EST us Keaton Anton MD LAB BLOOD ORDERABLES Final Resu lt [facility] [address] [place] [address], [place] [phone] * Complete blood count (07/30/2024 6:15 AM EST) WBC 5.9 4.8 - 10.8 K/mcL LAB HEMETOLOGY METHOD 07/30/2024 10:42 AM [facility] RBC 4.70 4.50 - 5.50 M/mcL LAB HEMETOLOGY METHOD 07/30/2024 10:42 AM [facility] Hemoglobin 13.8 13.5 - 17.5 g/dL LAB HEMETOLOGY METHOD 07/30/2024 10:42 AM [facility] Hematocrit 43.1 42.0 - 54.0 % LAB HEMETOLOGY METHOD 07/30/2024 10:42 AM [facility] MCV 91.9 79.0 - 98.0 FL LAB HEMETOLOGY METHOD 07/30/2024 10:42 AM [facility] MCH 29.4 27.0 - 32.0 pcg LAB HEMETOLOGY METHOD 07/30/2024 10:42 AM [facility] MCHC 32.0 32.0 - 37.0 g/dL LAB HEMETOLOGY METHOD 07/30/2024 10:42 AM [facility] RDW 14.1 11.0 - 15.0 % LAB HEMETOLOGY METHOD 07/30/2024 10:42 AM [facility] Platelets 375 130 - 400 K/mcL LAB HEMETOLOGY METHOD 07/30/2024 10:42 AM [facility] MPV 9.8 7.0 - 11.0 FL LAB HEMETOLOGY METHOD 07/30/2024 10:42 AM [facility] NRBC 0.0 <1.0 % LAB HEMETOLOGY METHOD 07/30/2024 10:42 AM [facility] NRBC Absolute 0.00 <0.10 K/mcL LAB HEMETOLOGY METHOD 07/30/2024 10:42 AM [facility] Blood Venous blood specimen / Unknown Venipuncture / Unknown 07/30/2024 6:15 AM EST 07/30/2024 10:19 AM EST Keaton Anton MD LAB BLOOD ORDERABLES Final Resu lt [facility] ([facility] [address] [place] [address], documented in this encounter Visit Diagnoses Diagnosis Atherosclerotic heart disease of [place] coronary artery without angina pectoris Other hyperlipidemia documented in this encounter Care Teams Plastic Surgery Assistant Relationship Specialty Start Date End Date Keaton Anton MD [address] [place] [id number] PCP - General Internal Medicine 07/19/24 documented as of this encounter
--- OUTSIDE RECORDS SUMMARY | 2025-01-12 12:33 | XMS_ITS | Encounter Summary ---
Author Organization [facility] Address [address] [place] [address] Care Team Providers Care Plant Operator Control Room Operator Name Role Phone Keaton Anton MD Primary Care Provider [phone] Encounter Details Date Type Department Care Team (Latest Contact Info) Description 08/04/2024 Lab Requisition [facility] - Main Lab [address] [place] [address] Keaton Anton MD [address] [place] [id number] Atherosclerotic heart disease of [place] coronary artery without angina pectoris; Mixed disorder of acid-base balance Social History Tobacco Use Types Packs/Day Years [...] Associated Diagnosis Comments COMPLETE BLOOD COUNT Routine 08/05/2024 5:57 AM EST 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 BASIC METABOLIC PANEL Routine 08/05/2024 5:57 AM EST 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 documented in this encounter Results * Basic metabolic panel (08/05/2024 5:57 AM EST) Sodium 139 133 - 145 mmol/L LAB CHEMISTRY METHOD 08/05/2024 8:54 AM EST [facility] Potassium 4.0 3.5 - 5.5 mmol/L LAB CHEMISTRY METHOD 08/05/2024 8:54 AM [facility] Chloride 108 96 - 110 mmol/L LAB CHEMISTRY METHOD 08/05/2024 8:54 AM [facility] CO2 24 21 - 32 mmol/L LAB CHEMISTRY METHOD 08/05/2024 8:54 AM [facility] Anion Gap 7 3 - 11 LAB CHEMISTRY METHOD 08/05/2024 8:54 AM [facility] Glucose 91 70 - 100 mg/dL LAB CHEMISTRY METHOD 08/05/2024 8:54 AM [facility] BUN 17 5 - 25 mg/dL LAB CHEMISTRY METHOD 08/05/2024 8:54 AM [facility] Creatinine 0.85 0.70 - 1.30 mg/dL LAB CHEMISTRY METHOD 08/05/2024 8:54 AM [facility] eGFR 84 >=60 mL/min/1. 73m2 LAB CHEMISTRY METHOD 08/05/2024 8:54 AM [facility] Comment:Calculation based on the??Chronic Kidney Disease Epidemiology Collaboration (CKD-EPI) equation refit??without adjustment for race. BUN/Creatinine Ratio 20.0 LAB CHEMISTRY METHOD 08/05/2024 8:54 AM [facility] Calcium 8.9 8.5 - 10.5 mg/dL LAB CHEMISTRY METHOD 08/05/2024 8:54 AM [facility] Blood Venous blood specimen / Unknown Venipuncture / Unknown 08/05/2024 5:57 AM EST 08/05/2024 8:20 AM EST us Keaton Anton MD LAB BLOOD ORDERABLES Final Resu lt [facility] [address] [place] [address], [place] [phone] * Complete blood count (08/05/2024 5:57 AM EST) WBC 5.3 4.8 - 10.8 K/[facility] LAB HEMETOLOGY METHOD 08/05/2024 8:34 AM [facility] RBC 4.70 4.50 - 5.50 M/[facility] LAB HEMETOLOGY METHOD 08/05/2024 8:34 AM [facility] Hemoglobin 13.8 13.5 - 17.5 g/dL LAB HEMETOLOGY METHOD 08/05/2024 8:34 AM [facility] Hematocrit 42.6 42.0 - 54.0 % LAB HEMETOLOGY METHOD 08/05/2024 8:34 AM [facility] MCV 91.2 79.0 - 98.0 FL LAB HEMETOLOGY METHOD 08/05/2024 8:34 AM [facility] MCH 29.6 27.0 - 32.0 pcg LAB HEMETOLOGY METHOD 08/05/2024 8:34 AM [facility] MCHC 32.4 32.0 - 37.0 g/dL LAB HEMETOLOGY METHOD 08/05/2024 8:34 AM [facility] RDW 13.9 11.0 - 15.0 % LAB HEMETOLOGY METHOD 08/05/2024 8:34 AM [facility] Platelets 295 130 - 400 K/[facility] LAB HEMETOLOGY METHOD 08/05/2024 8:34 AM [facility] MPV 9.7 7.0 - 11.0 FL LAB HEMETOLOGY METHOD 08/05/2024 8:34 AM [facility] NRBC 0.0 <1.0 % LAB HEMETOLOGY METHOD 08/05/2024 8:34 AM [facility] NRBC Absolute 0.00 <0.10 K/[facility] LAB HEMETOLOGY METHOD 08/05/2024 8:34 AM [facility] Blood Venous blood specimen / Unknown Venipuncture / Unknown 08/05/2024 5:57 AM EST 08/05/2024 8:20 AM EST Keaton Anton MD LAB BLOOD ORDERABLES Final Resu lt 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
--- OUTSIDE RECORDS SUMMARY | 2025-01-12 12:33 | XMS_ITS | Encounter Summary ---
Author Name [facility] [place] [facility] [place] [facility] [place] Address [address] [place] [address] Care Team Providers Care Infrastructure Director Name Role Phone SILVIA DAVID Primary Care [...] PLAN G Aug 01, 2017 PLAN G [id number] Raymond ARAIZA PATIENT AARP MED SUPP MEDIGAP PLAN G PLAN G Aug 01, 2017 PLAN G [id number] Raymond ARAIZA PATIENT AARP MED SUPP MEDIGAP PLAN G PLAN G Aug 01, 2017 PLAN G [id number] Raymond ARAIZA PATIENT AARP MED SUPP MEDICARE SUPPLEMEN RUBÉN PLANG Aug 01, 2017 PLAN [id number] Raymond ARAIZA PATIENT AARP MED SUPP MEDICARE SUPPLEMEN RUBÉN PLANG Aug 01, 2017 PLANG [id number] GERRITZ,Raymond LLSWORTH PATIENT AARP MED SUPP MEDIGAP PLAN G PLAN G Aug 01, 2017 PLAN G [id number] GERRITZ,E LLSWORTH PATIENT MEDICARE (WNR) MEDICARE (M) PART B Sep 01, 2002 PART B [id number] GERRITZ,E LLSWORTH PATIENT MEDICARE (WNR) MEDICARE (M) PART B Sep 01, 2002 PART B [id number] GERRITZ,E LLSWORTH PATIENT MEDICARE (WNR) MEDICARE (M) PART B Sep 01, 2002 PART B [id number] GERRITZ,E LLSWORTH PATIENT MEDICARE (WNR) MEDICARE (M) PART B Sep 01, 2002 PART B [id number] GERRITZ,E LLSWORTH PATIENT MEDICARE (WNR) MEDICARE () PART A Apr 01, 2002 PART A [id number] GERRITZ,E LLSWORTH PATIENT MEDICARE (WNR) MEDICARE (M) PART A Apr 01, 2002 PART A [id number] GERRITZ,E LLSWORTH PATIENT MEDICARE (WNR) MEDICARE () PART A Apr 01, 2002 PART A [id number] [phone] GERRITZ,E LLSWORTH PATIENT MEDICARE (WNR) MEDICARE () PART A Apr 01, 2002 PART A [id number] GERRITZ,Raymond LLSWORTH PATIENT Selected Encounter This section includes the information on record at [place] for the Encounter. Date/Time Encounter Type Encounter Description Reason Provider Source May 18, 2024 10:30 AM OFFICE O/P EST LOW 20 MIN PM&RS PHYSICIAN ICD-10-CM M17.12 Unilateral primary osteoarthritis, left knee RACHELL MENESES E Encounter Template Text not used by [place] Assessments - Encounter Diagnoses This section includes the primary and secondary diagnoses documented for the Encounter. Date/Time Primary/Secondary Diagnosis Diagnosis Name Provider Source May 18, 2024 02:05 PM PRIMARY Unilateral primary osteoarthritis, left knee LILIA MENESES [place] [facility] [place] [facility] May 18, 2024 02:05 PM SECONDARY Spinal stenosis, lumbar region with neurogenic claudication [facility] Plan of Treatment: Future Appointments (+ 6 months) and Future Tests (+/- 45 days) The Plan of Treatment section includes future care activities for the [facility] [place] [facility] This section includes future appointments and future orders which are active, pending or scheduled. Future Appointments This section includes appointments that were scheduled to occur 6 months from the date of the Encounter, up to a maximum of 20 appointments. The data comes from all [place] treatment facilities. Appointment Date/Time Appointment Type Appointme nt Facility Name May 25, 2024 10:30 AM AMBULATORY - REH[place]ICIN [place] [facility] [place] [facility] May 25, 2024 11:00 AM AMBULATORY - [place] [facility] [place] [facility] Jun 08, 2024 11:30 AM AMBULATORY - REHAB MEDICIN E [place] Jul 09, 2024 11:00 AM AMBULATORY - MEDICINE [place] [facility] [place] [facility] Jul 21, 2024 11:00 AM AMBULATORY - [place] [facility] [place] [facility] Aug 19, 2024 11:30 AM AMBULATORY - MEDICINE [place] [facility] [place] [facility] Oct 04, 2024 11:30 AM AMBULATORY - MEDICINE [place] [facility] [place] [facility] Nov 15, 2024 02:00 PM AMBULATORY - MEDICINE [facility] [place] [facility] Vital Signs: All taken on the encounter date This section contains inpatient and outpatient Vital Signs collected on the date of the Encounter. Date/Time Temperature Pulse Blood Pressure Respiratory Rate SP02 Pain Height Weight Body Mass Index Source May 18, 2024 10:41 AM 130/70 5 [place] [facility] Social History: Smoking Status (Most current) and Tobacco Use (All prior to encounter date) This section includes the most current, and the historical, smoking and tobacco- related health factors from the [place] facility where the Encounter took place. Current Smoking Status This section includes the most current smoking, or tobacco-related health factor, from the [place] facility where the Encounter took place. Date/Time Current Smoking Status David quigley Nov 20, 2023 11:00 AM VA-TOBACCO FORMER USER [facility] Tobacco Use History This section includes a history of the smoking, or tobacco-related health factors, that were collected on or before the date of the Encounter. The data comes from the [place] facility where the Encounter took place. Date/Time Smoking Status/Tobacco Use Comment F acility Nov 20, 2023 11:00 AM VA-TOBACCO QUIT 15 YRS OR MORE [facility] Sep 05, 2022 11:00 AM VA-TOBACCO FORMER USER [facility] Sep 05, 2022 11:00 AM [place]-TOBACCO QUIT 15 YRS OR MORE [facility] Encounter Notes: All associated encounter notes This section contains the clinical notes associated to the Encounter. Date/Time Encounter Note(s) Provider Source May 18, 2024 01:56 PM PHYSICAL MEDICINE REHAB NOTE: LOCAL TITLE: PM&R BACK/JOINT PROCEDURE NOTE STANDARD TITLE: PHYSICAL MEDICINE REHAB NOTE DATE OF NOTE: MAY 18, 2024@13:56 ENTRY DATE: MAY 18, 2024@13:57:01 AUTHOR: BORIS MENESES COSIGNER: URGENCY: STATUS: COMPLETED PROCEDURE: Left intra-articular knee injection with cortisone. INDICATION: Knee pain. ANESTHESIA: None. INFORMED CONSENT: Obtained verbally, and through [facility]. Paia presents today for reevaluation of left knee. Left knee pain is not as constant as it had been but he is really very unsure as to how frequently it bothers him. He feels very unstable on the leg at the time. He feels very guarded. He is a gentleman that has previous cauda equina surgery. He continues to have profound weakness in the lower extremities. He was started on physical therapy and a brace was provided and he is unsure has not done this appropriately. He has some mild swelling in the left knee but no redness or warmth. He has taken some falls. There is a small abrasion over the kneecap but no significant erythema. He is area of tenderness is primarily in the medial joint line. He has medial compartment arthritis by x-ray. The steps of the procedure, potential risks and benefits of the intra-articular knee injection, as well as alternatives were discussed with patient. The potential risks include, but not limited to: local injection reaction, pain, bruising/hematoma, nerve damage, temporary increase in blood sugar (if applicable), adverse side effects to cortisone or lidocaine including rash/itching, infection, and swelling of the knee. Patient agreed to proceed with the injection. TIME OUT NOTE TIME:May@10:30 correctly stated: [X]Full name: LUBNA ARAIZA [X]Last 4 of #: [id number] [X]: Apr PROVIDER NAME: Boris Meneses PA-c STAFF NAME: Lot #: [id number] Exp: The procedure was performed with the patient in the seated position. Paia in the left knee cleansed with chlorhexidine x 3. Anteromedial approach was selected. 25-gauge 1/2 inch needle was advanced into the intercondylar notch. After negative aspiration for heme he was injected with 2 cc of 1% lidocaine 2 cc of bupivacaine 40 mg noand 40 complications. No blood loss. The patient tolerated the procedure well without any immediate adverse side effects. Patient was instructed on the use of ice prn post injection pain/swelling. The patient was able to ambulate out of the office today, and was discharged home with instructions to monitor for any adverse reactions/side effects, and to contact me with any issues. Pre-procedure pain level:5/10 Post-procedure pain level:1/10 89-year-old with moderate medial compartment arthritis of the left knee. Injected today. Encouraged him to continue with his strengthening exercises. Potential benefit may be somewhat limited due to the significant weakness. He is going down to physical therapy and will be reinstructed on brace use. He will contact us in the event that symptoms persist. If he has a great deal of discomfort then further consideration to genicular nerve block to be given. Medication Reconciliation: Outpatient: Has the patient been taking medications as documented in the EMLR? YES: The patient has been taking medications as documented in the EMLR. Essential Medication List for Review used to complete this medication reconciliation. INCLUDED IN THIS LIST: Alphabetical list of active outpatient prescriptions dispensed from this [place] (local) and dispensed from another [place] or DoD facility (remote) as well as [...] whether with a VA or non-VA provider. JLV Link Data on this list may not be complete. Please check JLV. Allergies/ADRs (Tool #5) FACILITY ALLERGY/ADR -------- [facility] NO KNOWN ALLERGIES [place] [facility] [place] [facility] No Known Allergies [facility] Gina (Tool #1) INCLUDED IN THIS LIST: Alphabetical list of active outpatient prescriptions dispensed from this [place] (local) and dispensed from another [place] or [facility] facility (remote) as well as inpatient orders (local pending and active), local clinic medications, locally documented non-VA medications, and local prescriptions that have or been discontinued in the past 90 days. Non-VA Meds Last Documented On: Sep 05, 2022 NOTE The display of VA prescriptions dispensed from another VA or DoD facility (remote) is limited to active outpatient prescription entries matched to National Drug File at the originating site and may not include some items such as investigational drugs, compounds, etc. NOT INCLUDED IN THIS LIST: Medications self-entered by the patient into personal health records (i.e. [employer]) are NOT included in this list. Non-VA medications documented outside this [place], remote inpatient orders (regardless of status) and remote clinic medications are NOT included in this list. The patient and provider must always discuss medications the patient is taking, regardless of where the medication was dispensed or obtained. Non-VA ASPIRIN 81MG EC TAB TAKE ONE TABLET BY MOUTH ONCE DAILY Non-VA medication recommended by VA provider. Indication: FOR MYOCARDIAL REINFARCTION PREVENTION OUTPT ASPIRIN 81MG EC TAB (Status = Active) TAKE ONE TABLET BY MOUTH ONCE DAILY TO PREVENT STROKE/HEART ATTACK Rx# [id number] Last Released: 11/04/23 Qty/Days Supply: 120 Rx Expiration Date: 08/11/24 Refills Remainin Indication: FOR TREATMENT TO PREVENT A HEART ATTACK OUTPT BETHANECHOL CHLORIDE 25MG TAB (Status = Active/Suspended) TAKE TWO TABLETS BY MOUTH TWICE DAILY FOR URINARY RETENTION Rx# [id number] Last Released: 02/18/24 Qty/Days Supply: 360/ Rx Expiration Date: 12/12/24 Refills Remainin Indication: FOR URINARY RETENTION OUTPT CLOPIDOGREL BISULFATE 75MG TAB (Status = Active) TAKE ONE TABLET BY MOUTH ONCE DAILY TO PREVENT BLOOD CLOTS Rx# [id number] Last Released: 11/06/23 Qty/Days Supply: Rx Expiration Date: 07/28/24 Refills Remainin Indication: TO PREVENT BLOOD CLOTS OUTPT CLOTRIMAZOLE 1% TOP SOLN (Status = Active) APPLY 1 DROP TOPICALLY ONCE DAILY FOR FUNGAL INFECTION APPLY TO AFFECTED TOE NAILS WHEN DRY Rx# [id number] Last Released: 02/23/24 Qty/Days Supply: 60 Rx Expiration Date: 02/19/25 Refills Remainin Indication: TOE NAIL FUNGUS OUTPT DULOXETINE HCL 30MG EC CAP (Status = Discontinued) TAKE ONE CAPSULE BY MOUTH ONCE DAILY Rx# [id number] Last Released: 11/10/23 Qty/Days Supply: Rx Expiration Date: 11/06/24 Refills Remainin Indication: FOR CHRONIC MUSCLE OR BONE PAIN OUTPT DULOXETINE HCL 30MG EC CAP (Status = Active) TAKE ONE CAPSULE BY MOUTH ONCE DAILY Rx# [id number] Last Released: 04/01/24 Qty/Days Supply: Rx Expiration Date: 03/30/25 Refills Remainin Indication: FOR CHRONIC MUSCLE OR BONE PAIN OUTPT FERROUS SULFATE 325MG TAB (Status = Active) TAKE ONE TABLET BY MOUTH ONCE DAILY TO SUPPLEMENT IRON Rx# [id number] Last Released: 04/24/24 Qty/Days Supply: 100/90 Rx Expiration Date: 07/28/24 Refills Remainin OUTPT FINASTERIDE 5MG TAB (Status = Active) TAKE ONE TABLET BY MOUTH ONCE DAILY Rx# [id number] Last Released: 11/06/23 Qty/Days Supply: 90 Rx Expiration Date: 11/03/24 Refills Remainin Indication: FOR ENLARGED PROSTATE OUTPT IPRATROPIUM BR 0.06% NASAL SPRAY (Status = Active) INSTILL 2 SPRAYS INTO EACH NOSTRIL THREE TIMES A DAY FOR RUNNY NOSE Rx# [id number] Last Released: 04/01/24 Qty/Days Supply: 45 Rx Expiration Date: 03/30/25 Refills Remainin Indication: FOR RUNNY NOSE OUTPT LATANOPROST 0.005% OPH SOLN (Status = Active) INSTILL 1 DROP INTO EACH EYE AT BEDTIME FOR INCREASED PRESSURE IN THE EYE Rx# [id number] Last Released: 03/24/24 Qty/Days Supply: 7. Rx Expiration Date: 12/04/24 Refills Remainin Indication: FOR INCREASED PRESSURE IN THE EYE OUTPT METOPROLOL SUCCINATE 25MG SA TAB (Status = Active) TAKE ONE TABLET BY MOUTH ONCE DAILY FOR BLOOD PRESSURE/HEART Rx# [id number] Last Released: 03/25/24 Qty/Days Supply: 90/ Rx Expiration Date: 11/06/24 Refills Remainin Indication: FOR HIGH BLOOD PRESSURE OUTPT MULTIVIT/OPHTH AREDS2/LUTE/ZEAX CAP/TAB (Status = Active) TAKE 1 CAPSULE BY MOUTH TWICE DAILY IN THE MORNING AND EVENING, WITH FOOD Rx# [id number] Last Released: 04/24/24 Qty/Days Supply: 120/60 Rx Expiration Date: 10/13/24 Refills Remainin Indication: FOR VITAMIN SUPPLEMENTATION Non-VA MULTIVIT/OPHTH AREDS2/LUTE/ZEAX CHEW TAB AREDS2/LUTE/ZEAX CHEW TABLET CHEW TWO TABLETS BY MOUTH ONCE DAILY Non-VA medication recommended by VA provider. Indication: FOR VITAMIN SUPPLEMENTATION OUTPT OMEPRAZOLE 20MG EC CAP (Status = Discontinued) TAKE ONE CAPSULE BY MOUTH ONCE DAILY Rx# [id number] Last Released: 09/05/23 Qty/Days Supply: 90 Rx Expiration Date: 03/31/24 Refills Remainin OUTPT OMEPRAZOLE 20MG EC CAP (Status = Active/Suspended) TAKE ONE CAPSULE BY MOUTH EVERY MORNING 30 MINUTES BEFORE BREAKFAST Rx# [id number] Last Released: 03/12/24 Qty/Days Supply: 90 Rx Expiration Date: 03/12/25 Refills Remainin Indication: FOR EXCESSIVE PRODUCTION OF STOMACH ACID OUTPT SIMVASTATIN 40MG TAB (Status = Active) TAKE ONE TABLET BY MOUTH ONCE DAILY FOR CHOLESTEROL Rx# [id number] Last Released: 04/01/24 Qty/Days Supply: 90 Rx Expiration Date: 11/06/24 Refills Remainin Indication: FOR HIGH CHOLESTEROL OUTPT SUCRALFATE 1GM TAB (Status = Active) TAKE ONE TABLET BY MOUTH TWICE DAILY FOR ULCER Rx# [id number] Last Released: 03/12/24 Qty/Days Supply: 180/ Rx Expiration Date: 03/12/25 Refills Remainin Indication: FOR ULCER OUTPT SUCRALFATE 500MG/5ML SUSP (Status = Discontinued) TAKE 5ML (1 TEASPOON) BY MOUTH TWICE DAILY FOR ULCER Rx# [id number] Last Released: 02/18/24 Qty/Days Supply: 828/82 Rx Expiration Date: 02/16/25 Refills Remainin Indication: FOR ULCER SUPPLIES OUTPT BRIEF,PROTECTIVE EXTRA ABS X-LG ATTENDS (Status = Active) USE 1 BRIEF DIRECTED FOUR TIMES A DAY Rx# [id number] Last Released: 03/25/24 Qty/Days Supply: 112 Rx Expiration Date: 02/11/25 Refills Remainin Indication: INCONTINENCE /es/ BORIS MENESES [facility] Signed: 05/18/2024 14:05 [facility]
--- OUTSIDE RECORDS SUMMARY | 2025-01-12 12:33 | XMS_ITS | Clinical Summary ---
Author Organization [address] [facility] Address [address] [place] [address] Phone Care Team Providers Care Brattice Builder Name Role Phone Keaton Anton MD Primary Care Provider [phone] Social History Tobacco Use Types Packs/Day Years Used Date Smoking Tobacco: Never Assessed Sex and Gender Information Value Date Recorded Sex Assigned at Not on file Legal Sex Male 8:27 PM EST Gender Identity Not on file Sexual Orientation Not on file Plan of Treatment Health Maintenance Due Date Last Done Comments DTaP,Tdap,and Td Vaccines (1 - Tdap) 1956 Pneumococcal Vaccine: 50+ Years (1 of 1 - PCV) 1987 Zoster Vaccines (1 of 2) 1987 RSV Immunization Adult Patients (1 - 1-dose 75+ series) 2012 Cholesterol Screening (Lipid Panel) 09/26/2023 Depression Screening 09/26/2023 Falls Risk Assessment 09/26/2023 Medicare Annual Wellness Visit 09/26/2023 Social Influencers of Health Screening 09/26/2023 COVID-19 Vaccine ( season) 2024 Influenza Vaccine (Season Ended) 2025 Hypertension/CHF/CAD Annual BMP Blood Test 08/05/2025 08/05/2024, 08/02/2024, 07/30/2024, Additional history exists HIB Vaccines Aged Out No longer eligi ble based on patient's age to complete this topic HPV Vaccines Aged Out No longer eligi ble based on patient's age to complete this topic Hepatitis A Vaccines Aged Out No long er eligible based on patient's age to complete this topic Hepatitis B Vaccines Aged Out No long er eligible based on patient's age to complete this topic IPV Vaccines Aged Out No longer eligi ble based on patient's age to complete this topic MMR Vaccines Aged Out No longer eligi ble based on patient's age to complete this topic Meningococcal ACWY Vaccine Aged Out N o longer eligible based on patient's age to complete this topic Meningococcal B Vaccine Aged Out No l onger eligible based on patient's age to complete this topic RSV Immunization Patients Under 20 months Aged Out No longer eligible based on patient's age to complete this topic Varicella Vaccines Aged Out No longer eligible based on patient's age to complete this topic Procedures Procedure Name Priority Date/Time Associated Diagnosis Comments BASIC METABOLIC PANEL Routine 08/05/2024 5:57 AM EST 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 from Last 3 Months or Most Recently Relevant to Health Maintenance Results * Basic metabolic panel (08/05/2024 5:57 AM EST) Sodium 139 133 - 145 mmol/L LAB CHEMISTRY METHOD 08/05/2024 8:54 AM [facility] Potassium 4.0 3.5 - 5.5 mmol/L LAB CHEMISTRY METHOD 08/05/2024 8:54 AM [facility] Chloride 108 96 - 110 mmol/L LAB CHEMISTRY METHOD 08/05/2024 8:54 AM [facility] CO2 24 21 - 32 mmol/L LAB CHEMISTRY METHOD 08/05/2024 8:54 AM [facility] Anion Gap 7 3 - 11 LAB CHEMISTRY METHOD 08/05/2024 8:54 AM [facility] Glucose 91 70 - 100 mg/dL LAB CHEMISTRY METHOD 08/05/2024 8:54 AM [facility] BUN 17 5 - 25 mg/dL LAB CHEMISTRY METHOD 08/05/2024 8:54 AM [facility] Creatinine 0.85 0.70 - 1.30 mg/dL LAB CHEMISTRY METHOD 08/05/2024 8:54 AM [facility] eGFR 84 >=60 mL/min/1. 73m2 LAB CHEMISTRY METHOD 08/05/2024 8:54 AM [facility] Comment:Calculation based on the??Chronic Kidney Disease Epidemiology Collaboration (CKD-EPI) equation refit??without adjustment for race. BUN/Creatinine Ratio 20.0 LAB CHEMISTRY METHOD 08/05/2024 8:[address] [facility] Calcium 8.9 8.5 - 10.5 mg/dL LAB CHEMISTRY METHOD 08/05/2024 8:[address] [facility] Blood Venous blood specimen / Unknown Venipuncture / Unknown 08/05/2024 5:57 AM EST 08/05/2024 8:20 AM EST us Keaton Anton MD LAB BLOOD ORDERABLES Final Resu lt [facility] [address] [address] [facility] [address] [place] [address], from Last 3 Months or Most Recently Relevant to Health Maintenance Insurance MEDICARE [facility] Care Teams Brattice Builder Relationship Specialty Start Date End Date Keaton Anton MD [address] [place] [id number] PCP - General Internal Medicine 07/19/24
--- OUTSIDE RECORDS SUMMARY | 2025-01-12 12:33 | XMS_ITS | Encounter Summary ---
Author Name [facility] [place] [facility] [place] Address [address] [place] [address] Care Team Providers Care Supercalender Operator Helper Name Role Phone SILVIA DAVID Primary [...] PLAN G Aug 01, 2017 PLAN G [id number] Raymond ARAIZA PATIENT AARP MED SUPP MEDIGAP PLAN G PLAN G Aug 01, 2017 PLAN G [id number] Raymond ARAIZA PATIENT AARP MED SUPP MEDIGAP PLAN G PLAN G Aug 01, 2017 PLAN G [id number] Raymond ARAIZA PATIENT AARP MED SUPP MEDICARE SUPPLEMEN RUBÉN PLANG Aug 01, 2017 PLAN [id number] Raymond ARAIZA PATIENT AARP MED SUPP MEDICARE SUPPLEMEN RUBÉN PLANG Aug 01, 2017 PLANG [id number] GERRITZ,Raymond LLSWORTH PATIENT AARP MED SUPP MEDIGAP PLAN G PLAN G Aug 01, 2017 PLAN G [id number] GERRITZ,E LLSWORTH PATIENT MEDICARE (WNR) MEDICARE (M) PART B Sep 01, 2002 PART B [id number] GERRITZ,E LLSWORTH PATIENT MEDICARE (WNR) MEDICARE (M) PART B Sep 01, 2002 PART B [id number] GERRITZ,E LLSWORTH PATIENT MEDICARE (WNR) MEDICARE (M) PART B Sep 01, 2002 PART B [id number] [phone] GERRITZ,E LLSWORTH PATIENT MEDICARE (WNR) MEDICARE (M) PART B Sep 01, 2002 PART B [id number] GERRITZ,E LLSWORTH PATIENT MEDICARE (WNR) MEDICARE (M) PART A Apr 01, 2002 PART A [id number] GERRITZ,E LLSWORTH PATIENT MEDICARE (WNR) MEDICARE (M) PART A Apr 01, 2002 PART A [id number] GERRITZ,E LLSWORTH PATIENT MEDICARE (WNR) MEDICARE (M) PART A Apr 01, 2002 PART A [id number] GERRITZ,E LLSWORTH PATIENT MEDICARE (WNR) MEDICARE (M) PART A Apr 01, 2002 PART A [id number] GERRITZ,E LLSWORTH PATIENT Selected Encounter This section includes the information on record at [place] for the Encounter. Date/Time Encounter Type Encounter Description Reason Provider Source Aug 19, 2024 11:30 AM OFFICE O/P EST MOD 30 MIN PODIATRY ICD-10-CM 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 CORINA BEASLEY [facility] Encounter Template Text not used by [place] Assessments - Encounter Diagnoses This section includes the primary and secondary diagnoses documented for the Encounter. Date/Time Primary/Secondary Diagnosis Diagnosis Name Provider Source Aug 19, 2024 12:37 PM PRIMARY Other idiopathic peripheral autonomic neuropathy CORINA BEASLEY [facility] [place] Aug 19, 2024 12:37 PM SECONDARY Foot drop, right foot CORINA BEASLEY [facility] [place] Aug 19, 2024 12:37 PM SECONDARY Nail dystrophy [facility]AS[facility] Plan of Treatment: Future Appointments (+ 6 months) and Future Tests (+/- 45 days) The Plan of Treatment section includes future care activities for the patient [facility] [place] [facility] This section includes future appointments and future orders which are active, pending or scheduled. Future Appointments This section includes appointments that were scheduled to occur 6 months from the date of the Encounter, up to a maximum of 20 appointments. The data comes from all [place] treatment facilities. Appointment Date/Time Appointment Type Appointme nt Facility Name Oct 04, 2024 11:30 AM AMBULATORY - MEDICINE [facility] [place] [facility] Nov 15, 2024 02:00 PM AMBULATORY - MEDICINE [facility] [place] [facility] Dec 03, 2024 09:45 AM AMBULATORY - MEDICINE [facility] [place] [facility] Dec 06, 2024 10:00 AM AMBULATORY - SURGERY [facility] [place] [facility] Feb 01, 2025 11:30 AM [facility] Social History: Smoking Status (Most current) [...] VA-TOBACCO FORMER USER [facility] [place] [facility] Tobacco Use History This section includes a history of the smoking, or tobacco-related health factors, that were collected on or before the date of the Encounter. The data comes from the [place] facility where the Encounter took place. Date/Time Smoking Status/Tobacco Use Comment F acnelson Nov 20, 2023 11:00 AM VA-TOBACCO QUIT 15 YRS OR MORE [facility] [place] [facility] Sep 05, 2022 11:00 AM VA-TOBACCO FORMER USER [facility] [place] [facility] Sep 05, 2022 11:00 AM VA-TOBACCO QUIT 15 YRS OR MORE [facility] [place] Encounter Notes: All associated encounter notes This section contains the clinical notes associated to the Encounter. 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 Has been seen in this clinic for nail care has not had a brace or any other assistance with dropfoot uses a walker around the house but does admit to tripping and difficulty. Was given clotrimozole freeman for nails prob not using it. HRF LE History: [ ] diabetic [ ] pvd [ ] pvd interventions [x] neuropathy [ ] meds: [ ] wound active [ ] infection active [ ] wound history yes [ ] amputation hx [ ] deformity [ ] charcot [ ] surgical deformity intervention PMH list CPRS: Active problems - Computerized Problem List is the source for the followin. Neurogenic dysfunction of urinary bladder 2. Pain of left knee joint 3. History of actinic keratosis 4. Onychomycosis of toenails 5. Urinary incontinence 6. Hyperlipidemia ([facility] [id number]) 7. CAD - Coronary artery disease 8. Benign Prostatic Hypertrophy with Outflow Obstruction ([facility] [id number]) 9. Varicose veins of lower extremity 10. HTN - Hypertension ([facility] [id number]) 11. Degenerative lumbar spinal stenosis 12. 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 Active Out Patient medications: Active Outpatient Medications (including Supplies): Active Outpatient Medications Status 1) BETHANECHOL CHLORIDE 25MG TAB TAKE TWO TABLETS BY MOUTH ACTIVE TWICE DAILY Indication: FOR URINARY RETENTION 2) BRIEF,PROTECTIVE EXTRA ABS X-LG ATTENDS USE 1 BRIEF ACTIVE DIRECTED FOUR TIMES A DAY Indication: INCONTINENCE 3) CLOTRIMAZOLE 1% TOP SOLN APPLY 1 DROP TOPICALLY ONCE DAILY ACTIVE FOR FUNGAL INFECTION APPLY TO AFFECTED TOE NAILS WHEN DRY Indication: TOE NAIL FUNGUS 4) DULOXETINE HCL 30MG EC CAP TAKE ONE CAPSULE BY MOUTH ONCE ACTIVE DAILY Indication: FOR CHRONIC MUSCLE OR BONE PAIN 5) FINASTERIDE 5MG TAB TAKE ONE TABLET BY MOUTH ONCE DAILY ACTIVE Indication: FOR ENLARGED PROSTATE 6) INCONT LINER DEPEND GUARDS USE 1 PAD TOPICALLY FOUR TIMES A ACTIVE DAY Indication: INCONTINENCE 7) IPRATROPIUM BR 0.06% NASAL SPRAY INSTILL 2 SPRAYS INTO EACH ACTIVE NOSTRIL THREE TIMES A DAY Indication: FOR RUNNY NOSE 8) LATANOPROST 0.005% OPH SOLN INSTILL 1 DROP INTO EACH EYE AT ACTIVE BEDTIME Indication: FOR INCREASED PRESSURE IN THE EYE 9) METOPROLOL SUCCINATE 25MG SA TAB TAKE ONE TABLET BY MOUTH ACTIVE ONCE DAILY FOR BLOOD PRESSURE/HEART Indication: FOR HIGH BLOOD PRESSURE 10) MULTIVIT/OPHTH AREDS2/LUTE/ZEAX CAP/TAB TAKE 1 CAPSULE BY ACTIVE MOUTH TWICE DAILY IN THE MORNING AND EVENING, WITH FOOD Indication: FOR VITAMIN SUPPLEMENTATION 11) OMEPRAZOLE 20MG EC CAP TAKE ONE CAPSULE BY MOUTH EVERY ACTIVE MORNING 30 MINUTES BEFORE BREAKFAST Indication: FOR EXCESSIVE PRODUCTION OF STOMACH ACID 12) SIMVASTATIN 40MG TAB TAKE ONE TABLET BY MOUTH ONCE DAILY FOR ACTIVE CHOLESTEROL Indication: FOR HIGH CHOLESTEROL 13) SUCRALFATE 1GM TAB TAKE ONE TABLET BY MOUTH TWICE DAILY ACTIVE Indication: FOR ULCER Active Non-VA Medications Status 1) Non-VA ASPIRIN 81MG EC TAB 81MG BY MOUTH ONCE DAILY ACTIVE Indication: FOR MYOCARDIAL REINFARCTION PREVENTION 2) Non-VA MULTIVIT/OPHTH AREDS2/LUTE/ZEAX CHEW TAB 2 TABLETS BY ACTIVE MOUTH ONCE DAILY Indication: FOR VITAMIN SUPPLEMENTATION 15 Total Medications Imaging reports: Lab Data: CREATININE-EGFR 02/02/24 11:37 0.86 No Data Available for EGFR 1 yr HEMOGLOBIN A1C TREND Collection DT Spec HGBA1c 02/02/2024 11:37 BLOOD 5.7 H 03/06/2023 16:08 BLOOD 5.5 ALBUMIN Collection DT Specimen Test Name Result Units Ref Range 02/02/2024 11:37 SERUM ALBUMIN 3.8 g/dL 3.5 - 5.0 BMI:BMI: 0.0 PE:General: Elderly 89-year-old male awake alert oriented x 3 casually dressed. Able to transfer with assistance from wheelchair to clinic chair. Bilateral 1+ ankle foot edema Bilateral cool distal skin Trace palpable pulses bilateral Right foot with 2 out of 5 polio scale muscle strength in dorsiflexion eversion, stronger plantarflexion inversion. Left foot normal strength and range of motion integument Integument: Dystrophic brittle toenails Hallux nails thickened No periungual inflammation or sign of infection Sharp pale rash over dorsal lateral foot consistent with tinea extension from toenails Webs clear No plantar calluses Sensation markedly diminished bilaterally Unable to perceive monofilament PAVE: 2 Impression: -Peripheral neuropathy/SP back surgery/dropfoot postsurgical right untreated -Nail dystrophy -Mild PVD -Tinea nails skin. Plan: -Nails debrided left and right 1 through 5 without incident -Will send clotrimazole 1% cream for rash on foot apply twice daily avoid between toes -Consult General Lithographic Worker orthotics prosthetics [employer] for footwear, accommodative insoles for neuropathy, and in shoe or external shoe option for bracing to manage dropfoot right side/ shoes bilat. Recall: 6 mons Return sooner if any clinical signs of infection such as redness, swelling drainage fever chills nausea , or go to nearest hospital emergency / urgent care for evaluation. -As part of the service the pertinent primary care, specialty care and urgent care notes have been reviewed as well as the patient's medication list, problem list, and current imaging as well as past imaging, laboratory data and other pertinent contributory consults. -All new and discontinued medications have been discussed in detail with the patient and or caregiver, including indications for additions and deletions, as well as possible side effects, interactions as foreseen, and risk of not taking as prescribed If applicable, the patient was advised clearly on application of wound care agents how to apply and when to apply. The patient was able to recitethis information back to the prescriber with good understanding and agreed to the plan of care as indicated above. -Plan of care discuss with the patient and or caregiver, including medical decision making which includes discussion of abnormal lab results, imaging and other diagnostic modalities as well as results of the physical exam and risk management consultant opinions and recommendations as sought. Alternatives to surgery or outlined care above as appropriate have also been discussed. -The patient/ caregiver has displayed good understanding of above and with no further questions at this time. Patient is aware of next appointment and agrees to follow-up interval. Patient agrees to seek sooner follow up if any irregular events occur in between such as cardinal signs of infection, increased pain or deformity. -The on this visit was given information [employer] service and encouraged to enroll if not already having done so. /berenice/ CORINA BEASLEY DPM PODIATRY ATTENDING Signed: 08/19/2024 12:37 CORINA BEASLEY [facility]
--- OUTSIDE RECORDS SUMMARY | 2025-01-12 12:33 | XMS_ITS ---
Author Name [facility] [place] [facility] [place] [facility] [place] Address [address] [place] [id number] Care Team Providers Care Instructional Media Services Technician Name Role Phone SILVIA DAVID Primary Care [...] PLAN G Aug 01, 2017 PLAN G [id number] Raymond ARAIZA PATIENT AARP MED SUPP MEDIGAP PLAN G PLAN G Aug 01, 2017 PLAN G [id number] Raymond ARAIZA PATIENT AARP MED SUPP MEDIGAP PLAN G PLAN G Aug 01, 2017 PLAN G [id number] Raymond ARAIZA PATIENT AARP MED SUPP MEDICARE SUPPLEMEN RUBÉN PLANG Aug 01, 2017 PLAN [id number] Raymond ARAIZA PATIENT AARP MED SUPP MEDICARE SUPPLEMEN RUBÉN PLANG Aug 01, 2017 PLAN [id number] GERRIRaymond MALHOTRASWORTH PATIENT AARP MED SUPP MEDIGAP PLAN G PLAN G Aug 01, 2017 PLAN G [id number] [phone] GERRITZ,Raymond LLSWORTH PATIENT MEDICARE (WNR) MEDICARE (M) PART B Sep 01, 2002 PART B [id number] GERRITZ,E LLSWORTH PATIENT MEDICARE (WNR) MEDICARE (M) PART B Sep 01, 2002 PART B [id number] GERRITZ,E LLSWORTH PATIENT MEDICARE (WNR) MEDICARE (M) PART B Sep 01, 2002 PART B [id number] GERRITZ,E LLSWORTH PATIENT MEDICARE (WNR) MEDICARE (M) PART B Sep 01, 2002 PART B [id number] GERRITZ,E LLSWORTH PATIENT MEDICARE (WNR) MEDICARE (M) PART A Apr 01, 2002 PART A [id number] GERRITZ,E LLSWORTH PATIENT MEDICARE (WNR) MEDICARE (M) PART A Apr 01, 2002 PART A [id number] GERRITZ,E LLSWORTH PATIENT MEDICARE (WNR) MEDICARE (M) PART A Apr 01, 2002 PART A [id number] GERRITZ,Raymond LLSWORTH PATIENT MEDICARE (WNR) MEDICARE (M) PART A Apr 01, 2002 PART A [id number] GERRITZ,Raymond LLSWORTH PATIENT Selected Encounter This section includes the information on record at [place] for the Encounter. Date/Time Encounter Type Encounter Description Reason Provider Source Feb 19, 2024 10:30 AM TRIM NAIL(S) ANY NUMBER PODIATRY ICD-10-CM B35.1 CORINA [place] Encounter Template Text not used by [place] Assessments - Encounter Diagnoses This section includes the primary and secondary diagnoses documented for the Encounter. Date/Time Primary/Secondary Diagnosis Diagnosis Name Provider Source Mar 26, 2024 12:29 PM PRIMARY SATHISH Sargent [place] [facility] [place] [facility] Plan of Treatment: Future Appointments (+ 6 months) and Future Tests (+/- 45 days) The Plan of Treatment section includes future care activities for the patient from all [place] [facility]. This section includes future appointments and future orders which are active, pending or scheduled. Future Appointments This section includes appointments that were scheduled to occur 6 months from the date of the Encounter, up to a maximum of 20 appointments. The data comes from all [place] treatment facilities. Appointment Date/Time Appointment Type Appointme nt Facility Name Mar 10, 2024 09:30 AM AMBULATORY - [facility]IC[facility] [place] [facility] [place] [facility] Mar 29, 2024 03:30 PM AMBULATORY - MEDICINE [place] [facility] [place] [facility] Apr 12, 2024 10:30 AM AMBULATORY - REHAB MEDICIN E [place] Apr 20, 2024 12:00 PM AMBULATORY - REHAB MEDICIN E [facility] [place] [facility] Apr 21, 2024 02:30 PM AMBULATORY - REHAB MEDICIN E [facility] [place] [facility] Apr 27, 2024 11:00 AM AMBULATORY - REHAB MEDICIN E [facility] [place] [facility] May 04, 2024 11:00 AM AMBULATORY - REHAB MEDICIN E [facility] [place] [facility] May 18, 2024 10:30 AM AMBULATORY - MEDICINE [place] [facility] [place] [facility] May 18, 2024 11:00 AM AMBULATORY - REHAB MEDICIN E [facility] [place] [facility] May 25, 2024 10:30 AM AMBULATORY - REHAB MEDICIN E [facility] [place] [facility] May 25, 2024 11:00 AM AMBULATORY - REHAB MEDICIN E [facility] [place] [facility] Jun 08, 2024 11:30 AM AMBULATORY - REHAB MEDICIN E [place] Jul 09, 2024 11:00 AM AMBULATORY - MEDICINE [place] [facility] [place] [facility] Jul 21, 2024 11:00 AM AMBULATORY - REHAB MEDICIN E [facility] [place] [facility] Aug 19, 2024 11:30 AM AMBULATORY - MEDICINE [place] [facility] [facility] Lab Results: +/- 30 days of the encounter This section includes the Chemistry and Hematology Lab Results on record with [place] for the patient. Radiology Reports and Pathology Reports are provided separately, in subsequent sections. Lab Results This section contains the Chemistry/Hematology Results that were resulted 30 days before or 30 daysafter the date of the Encounter. Date/Time Source Result Type Result - Unit Interpretation Reference Range Specimen Type Comment Feb 02, 2024 11:37 AM [facility] BASIC METABOLIC PANEL (non-fasting) SERUM Spe cimen Type: SERUM No comment entered. Ordering Provider: CAROLYN DOUGLASS Report Released Date/Time: Feb 02, 2024 11:25 AM Reporting Lab: [facility] [employer] [address] Performing Lab: [address] [address] UREA NITROGEN 17 mg/dL 7-25 GLUCOSE 119 mg/dL H 65-100 SODIUM 136 mmol/L 135-145 POTASSIUM 4.4 mmol/L 3.5-5.0 CHLORIDE 105 mmol/L 100-110 CO2 23 meq/L 20-30 CREATININE, Serum 0.86 mg/dL 0.50-1.40 eGFR(CKD-EPI 2020) 84 mL/min >60 Feb 02, 2024 11:37 AM [facility] HEMOGLOBIN A1C PANEL BLOOD Specimen Type: [...] Feb 02, 2024 11:25 AM Reporting Lab: [facility] [address] [facility] [address] Performing Lab: [address] [address] HEMOGLOBIN A1C 5.7 H 4.0-5.6 Feb 02, 2024 11:37 AM [facility] LIVER FUNCTION SERUM Specimen Type: SERUM No comment entered. Ordering Provider: RUEL DOUGLASS Report Released Date/Time: Feb 02, 2024 11:25 AM Reporting Lab: [facility] [address] [facility] [address] Performing Lab: [address] [address] PROTEIN,TOTAL 6.2 g/dL 6.0-8.3 ALBUMIN 3.8 g/dL 3.5-5.0 ALKALINE PHOSPHATASE 106 U/L 40-150 AST 16 U/L 5-34 ALT 14 U/L BILIRUBIN, TOTAL 0.8 mg/dL 0.2-1.2 Feb 02, 2024 11:37 AM [facility] TSH SERUM Specimen Type: SERUM No comment entered. Ordering Provider: RUEL DOUGLASS Report Released Date/Time: Feb 02, 2024 11:25 AM Reporting Lab: [address] [address] Performing Lab: [address] [address] TSH 1.65 u[IU]/mL 0.35-5.00 Social History: Smoking Status (Most current) and Tobacco Use (All prior to encounter date) This section includes the most current, and the historical, smoking and tobacco- related health factors from the [place] facility where the Encounter took place. Current Smoking Status This section includes the most current smoking, or tobacco-related health factor, from the [place] facility where the Encounter took place. Date/Time Current Smoking Status Comment Chris quigley Nov 20, 2023 11:00 AM VA-TOBACCO FORMER USER [facility] Tobacco Use History This section includes a history of the smoking, or tobacco-related health factors, that were collected on or before the date of the Encounter. The data comes from the [place] facility where the Encounter took place. Date/Time Smoking Status/Tobacco Use Comment F eliel Nov 20, 2023 11:00 AM VA-TOBACCO QUIT 15 YRS OR MORE [facility] Sep 05, 2022 11:00 AM VA-TOBACCO FORMER USER [facility] Sep 05, 2022 11:00 AM [place] QUIT 15 YRS OR MORE [facility] Radiology Reports: +/- 30 days of [...] the Encounter. The data comes from all [place] treatment facilities. Date/Time Radiology Report Provider Source Feb 02, 2024 11:52 AM KNEE 3 VIEWS (LEFT ): ARILUBNA BARRIOS [id number] -[id number] M Ex Date: FEB 02, 2024@11:52 Req Phys: RUEL DOUGLASS Loc: CWM/NO/PACT 4 (Req'g Loc) Img Loc: [facility] 1 Service: Unknown [facility] , (Case [id number] COMPLETE) KNEE 3 VIEWS (LEFT) (RAD Detailed) CPT:47791 Reason for Study: long hx of left knee pain Clinical History: Report Status: Verified Date Reported: FEB 02, 2024 Date Verified: FEB 02, 2024 Tangled Yarn Worker E-Sig:/ES/COLLEEN SILVERIO JR Report: Study: AP weight-bearing [...] Primary Interpreting Staff: COLLEEN SILVERIO JR, Radiologist (Tangled Yarn Worker) /COLLEEN MILLIGAN JR [facility] Encounter Notes: All associated encounter notes This section contains the clinical notes associated to the Encounter. Date/Time Encounter Note(s) Provider Source Feb 19, 2024 10:49 AM PODIATRY NOTE: LOCAL TITLE: PODIATRY NOTE STANDARD TITLE: PODIATRY NOTE DATE OF NOTE: FEB 19, 2024@10:49 ENTRY DATE: FEB 19, 2024@10:49:10 AUTHOR: CORINA WAYNE COSIGNER: URGENCY: STATUS: COMPLETED Reason for visit: Dystrophic nail care Past medical history: No history of DM peripheral vascular disease or neuropathy. Anticoagulation: Active problems - Computerized Problem List is the source for the followin. Pain of left knee joint 2. History of actinic keratosis 3. Onychomycosis of toenails 4. Urinary incontinence 5. Hyperlipidemia ([facility] [id number]) 6. CAD - Coronary artery disease 7. Benign Prostatic Hypertrophy with Outflow Obstruction ([facility] [id number]) 8. Varicose veins of lower extremity 9. HTN - Hypertension ([facility] [id number]) 10. Degenerative lumbar spinal stenosis 11. 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 Active Outpatient Medications (including Supplies): Active Outpatient Medications Status 1) ASPIRIN 81MG EC TAB TAKE ONE TABLET BY MOUTH ONCE ACTIVE DAILY TO PREVENT STROKE/HEART ATTACK 2) BETHANECHOL CHLORIDE 25MG TAB TAKE TWO TABLETS BY ACTIVE MOUTH TWICE DAILY FOR URINARY RETENTION 3) BRIEF,PROTECTIVE EXTRA ABS X-LG ATTENDS USE 1 BRIEF ACTIVE DIRECTED FOUR TIMES A DAY 4) CLOPIDOGREL BISULFATE 75MG TAB TAKE ONE TABLET BY ACTIVE MOUTH ONCE DAILY TO PREVENT BLOOD CLOTS 5) DULOXETINE HCL 30MG EC CAP TAKE ONE CAPSULE BY MOUTH ACTIVE ONCE DAILY 6) FERROUS SULFATE 325MG TAB TAKE ONE TABLET BY MOUTH ACTIVE ONCE DAILY TO SUPPLEMENT IRON 7) FINASTERIDE 5MG TAB TAKE ONE TABLET BY MOUTH ONCE ACTIVE DAILY 8) LATANOPROST 0.005% OPH SOLN INSTILL 1 DROP INTO EACH ACTIVE (S) EYE AT BEDTIME FOR INCREASED PRESSURE IN THE EYE 9) METOPROLOL SUCCINATE 25MG SA TAB TAKE ONE TABLET BY ACTIVE MOUTH ONCE DAILY FOR BLOOD PRESSURE/HEART 10) MULTIVIT/OPHTH AREDS2/LUTE/ZEAX CAP/TAB TAKE 1 ACTIVE CAPSULE BY MOUTH TWICE DAILY IN THE MORNING AND EVENING, WITH FOOD 11) OMEPRAZOLE 20MG EC CAP TAKE ONE CAPSULE BY MOUTH ONCE ACTIVE DAILY 12) SIMVASTATIN 40MG TAB TAKE ONE TABLET BY MOUTH ONCE ACTIVE DAILY FOR CHOLESTEROL 13) SUCRALFATE 500MG/5ML SUSP TAKE 5ML (1 TEASPOON) BY ACTIVE MOUTH TWICE DAILY FOR ULCER Active Non-VA Medications Status 1) Non-VA ASPIRIN 81MG EC TAB 81MG BY MOUTH ONCE DAILY ACTIVE 2) Non-VA MULTIVIT/OPHTH AREDS2/LUTE/ZEAX CHEW TAB 2 ACTIVE TABLETS BY MOUTH ONCE DAILY 15 Total Medications Data on this list may not be complete. Please check JLV. FACILITY ALLERGY/ADR -------- [facility] NO KNOWN ALLERGIES [facility] [place] [facility] No Known Allergies Vascular exam reveals: Bilateral findings: 2+ DP and PT pulses, warm pink skin normal distribution of pedal ankle and leg hair, no edema, warm pink skin, normal brisk capillary refill bilaterally. Neurological exam: Reveals intact light touch pain in temperature to dermatomes L4-5 S1 bilateral, normal muscle bulk and tone equal and symmetrical bilateral, no clonus on dorsiflexion bilateral, Babinski downgoing bilateral, no fasciculations or other abnormal spontaneous motor movement identified, motor power 5 over 5 inverters everters nurse he flexes plantar flexors bilateral. Toe rise exam normal bilateral. Orthopedic exam: Normal posterior leg ankle heel alignment, no significant inversion or eversion positional stance abnormalities in the hindfoot, normal arch formation bilateral, no forefoot positional or structural abnormalities such as varus or valgus, no hallux varus or valgus or hammertoes present. No significant tibial varum or torsion present. Equal limb length left and right. Ankle range of motion 15 degree dorsiflexion 25 degree plantarflexion bilateral subtalar joint range of motion two thirds one third inversion eversion bilateral with neutral near 0, midtarsal and metatarsophalangeal joint range of motion normal without crepitus. Dermatological exam: No abnormal pigmentation lesions no rashes or plaques present no webspace maceration no plantar lesions or calluses present no excrescences on the toes toenails: Thickened discolored delaminated with subungual debris consistent with tinea with involvement as follows: Impression: Chronic tinea of toenails No risk for amputation Plan: Aggressive debridement of nails both mechanical and rotary bur using sterile instrumentation to point of eminent bleeding. All nails left and right 1 through 5 performed without incident. Clotrimazole 1% solution prescribed: Apply one drop to each affected toenail once daily. Apply when nail is dry not after shower or bath. Use for at least 9-12 months for best clinical result. 30 mL dispensed with 3 refills. Follow-up: Space available basis. /berenice/ CORINA WAYNE DPM PODIATRY ATTENDING Signed: 02/19/2024 11:17 CORINA WAYNE [facility]
--- OUTSIDE RECORDS SUMMARY | 2025-01-12 12:33 | XMS_ITS ---
Author Name [facility] [place] Address [address] [place] [address] Care Team Providers Care Pharmacy Aide Name Role Phone RUEL DOUGLASS Primary Care [...] PLAN G Aug 01, 2017 PLAN G [id number] Raymond ARAIZA PATIENT AARP MED SUPP MEDICARE SUPPLEMEN RUBÉN PLANG Aug 01, 2017 PLANG [id number] Raymond ARAIZA PATIENT AARP MED SUPP MEDICARE SUPPLEMEN RUBÉN PLANG Aug 01, 2017 PLANG [id number] 1911 [phone] Raymond ARAIZA PATIENT AARP MED SUPP MEDIGAP PLAN G PLAN G Aug 01, 2017 PLAN G [id number] Raymond ARAIZA PATIENT AARP MED SUPP MEDIGAP PLAN G PLAN G Aug 01, 2017 PLAN G [id number] ARIRIRaymond MALHOTRASWORTH PATIENT AARP MED SUPP MEDIGAP PLAN G PLAN G Aug 01, 2017 PLAN G [id number] GERRITZ,Raymond LLSWORTH PATIENT MEDICARE (WNR) MEDICARE (M) PART B Sep 01, 2002 PART B [id number] GERRITZ,E LLSWORTH PATIENT MEDICARE (WNR) MEDICARE (M) PART B Sep 01, 2002 PART B [id number] GERRITZ,E LLSWORTH PATIENT MEDICARE (WNR) MEDICARE (M) PART B Sep 01, 2002 PART B [id number] GERRITZ,E LLSWORTH PATIENT MEDICARE (WNR) MEDICARE (M) PART B Sep 01, 2002 PART B [id number] GERRITZ,E LLSWORTH PATIENT MEDICARE (WNR) MEDICARE (M) PART A Apr 01, 2002 PART A [id number] GERRITZ,Raymond LLSWORTH PATIENT MEDICARE (WNR) MEDICARE (M) PART A Apr 01, 2002 PART A [id number] [phone] [id number] GERRITZ,Raymond LLSWORTH PATIENT MEDICARE (WNR) MEDICARE (M) PART A Apr 01, 2002 PART A [id number] GERRITZ,Raymond LLSWORTH PATIENT MEDICARE (WNR) MEDICARE (M) PART A Apr 01, 2002 PART A [id number] GERRITZ,Raymond LLSWORTH PATIENT Selected Encounter This section includes the information on record at [place] for the Encounter. Date/Time Encounter Type Encounter Description Reason Provider Source May 04, 2024 11:00 AM THERAPEUTIC EXERCISES PHYSICAL THERAPY ICD-10-CM M48.062 Spinal stenosis, lumbar region with neurogenic claudication AGUSTIN ALANIZ IN E Encounter Template Text not used by [facility] Assessments - Encounter Diagnoses This section includes the primary and secondary diagnoses documented for the Encounter. Date/Time Primary/Secondary Diagnosis Diagnosis Name Provider Source May 04, 2024 12:48 PM PRIMARY Spinal stenosis, lumbar region with neurogenic claudication AGUSTIN ALANIZ [facility] Plan of Treatment: Future Appointments (+ 6 months) and Future Tests (+/- 45 days) The Plan of Treatment section includes future care activities for the patient [place] [facility] [place]. This section includes future appointments and future orders which are active, pending or scheduled. Future Appointments This section includes appointments that were scheduled to occur 6 months from the date of the Encounter, up to a maximum of 20 appointments. The data comes from all [place] treatment facilities. Appointment Date/Time Appointment Type Appointme nt Facility Name May 18, 2024 10:30 AM AMBULATORY - MEDICINE [place] [facility] [facility] May 18, 2024 11:00 AM AMBULATORY - REHAB MEDICIN E [place] [facility] [facility] May 25, 2024 10:30 AM AMBULATORY - REHAB MEDICIN E [place] [facility] [facility] May 25, 2024 11:00 AM AMBULATORY - REHAB MEDICIN E [place] [facility] [place] [facility] Jun 08, 2024 11:30 AM AMBULATORY - REHAB MEDICIN [place] Jul 09, 2024 11:00 AM AMBULATORY - MEDICINE [place] [facility] [place] [facility] Jul 21, 2024 11:00 AM AMBULATORY - REHAB MEDICIN E [place] [facility] [place] [facility] Aug 19, 2024 11:30 AM AMBULATORY - MEDICINE [place] [facility] [place] [facility] Oct 04, 2024 11:30 AM AMBULATORY - MEDICINE [facility] [place] [facility] Social History: Smoking Status (Most [...] 20, 2023 11:00 AM [facility]-TOBACCO FOR[facility] Tobacco Use History This section includes a history of the smoking, or tobacco-related health factors, that were collected on or before the date of the Encounter. The data comes from the [place] facility where the Encounter took place. Date/Time Smoking Status/Tobacco Use Comment F acility Nov 20, 2023 11:00 AM [place] [address] [facility] Sep 05, 2022 11:00 AM [place]-TOBACCO FORMER [facility]ER [facility] Sep 05, 2022 11:00 AM [place]-TOBACCO QUIT 15 YRS OR MORE [facility] Encounter Notes: All associated encounter notes This section contains the clinical notes associated to the Encounter. Date/Time Encounter Note(s) Provider Source May 04, 2024 12:37 PM PHYSICAL THERAPY NOTE: LOCAL TITLE: PHYSICAL THERAPY STANDARD TITLE: PHYSICAL THERAPY NOTE DATE OF NOTE: MAY 04, 2024@12:37 ENTRY DATE: MAY 04, 2024@12:38:53 AUTHOR: TABATHA ALANIZ EXP COSIGNER: URGENCY: STATUS: COMPLETED Initial Evaluation date: 04/12/24 Treatment #: 3 Treatment time: 15 min Diagnosis: Spinal stenosis, lumbar region with neurogenic claudication (ICD-10- CM M48.062) (Primary) Provider: RAFAT SUBJECTIVE: Arrived on this date late, also complaining about having knee pain, when asked about the knee brace, states that he has not been wearing it secondary to not remembering how to don it, also did not bring his AFO, encouraged him to bring the items next visit. OBJECTIVE: THERAPEUTIC EXERCISE: MINUTES: 15 mins Nu-step 5 mins L3 seated clamshell ytband seated hip add tball squeeze MANUAL THERAPY: MINUTES: GAIT TRAINING: MINUTES: NEUROMUSCULAR EDUCATION: MINUTES: OTHER: MINUTES: MODALITIES: MINUTES: [] Contraindication screen completed prior to modality [] Skin intact pre/post SELF CARE/EDUCATION: MINUTES: Patient education was provided for all aspects of care during this clinical encounter. ASSESSMENT: Tolerated session well, feeling better after session, not having any knee pain after session, session short secondary to a bathroom break. PLAN: Please have bring in AFO for right drop foot for education to increase compliancy. Aerobic exercise. Mat hip and core stability. Parallel bars balance and proprioception activities. Functional movement patterns. Pre-gait and gait training. Edu on [employer]of[employer], may be a possible referral. /berenice/ DONATO TAYLOR LICENSE BARREL ASSEMBLER Signed: 05/04/2024 12:49 TABATHA ALANIZ [facility]
--- OUTSIDE RECORDS SUMMARY | 2025-01-12 12:33 | XMS_ITS | Encounter Summary ---
Author Name [facility] Organization [facility] [place] Address [address] [place] [address] Care Team Providers Care Team Assembler Name Role Phone SILVIA DAVID Primary Care [...] PLAN G Aug 01, 2017 PLAN G [id number] Raymond ARAIZA PATIENT AARP MED SUPP MEDIGAP PLAN G PLAN G Aug 01, 2017 PLAN G [id number] Raymond ARAIZA PATIENT AARP MED SUPP MEDIGAP PLAN G PLAN G Aug 01, 2017 PLAN G [id number] Raymond ARAIZA PATIENT AARP MED SUPP MEDICARE SUPPLEMEN RUBÉN PLANG Aug 01, 2017 PLANG [id number] Raymond ARAIZA PATIENT AARP MED SUPP MEDICARE SUPPLEMEN RUBÉN PLANG Aug 01, 2017 PLANG [id number] [phone] ARIRIRaymond MALHOTRA PATIENT AARP MED SUPP MEDIGAP PLAN G PLAN G Aug 01, 2017 PLAN G [id number] GERRITZ,Raymond [place] PATIENT MEDICARE (WNR) MEDICARE (M) PART B Sep 01, 2002 PART B [id number] GERRITZ,Raymond LLSWORTH PATIENT MEDICARE (WNR) MEDICARE (M) PART B Sep 01, 2002 PART B [id number] GERRITZ,Raymond LLSWORTH PATIENT MEDICARE (WNR) MEDICARE (M) PART B Sep 01, 2002 PART B [id number] [phone] GERRITZ,Raymond LLSWORTH PATIENT MEDICARE (WNR) MEDICARE (M) PART B Sep 01, 2002 PART B [id number] GERRITZ,Raymond LLSWORTH PATIENT MEDICARE (WNR) MEDICARE (M) PART A Apr 01, 2002 PART A [id number] GERRITZ,Raymond LLSWORTH PATIENT MEDICARE (WNR) MEDICARE (M) PART A Apr 01, 2002 PART A [id number] GERRITZ,Raymond LLSWORTH PATIENT MEDICARE (WNR) MEDICARE (M) PART A Apr 01, 2002 PART A [id number] [phone] GERRITZ,Raymond LLSWORTH PATIENT MEDICARE (WNR) MEDICARE (M) PART A Apr 01, 2002 PART A [id number] GERRIRaymond MALHOTRA PATIENT Selected Encounter This section includes the information on record at MD for the Encounter. Date/Time Encounter Type Encounter Description Reason Provider Source Oct 12, 2024 03:35 PM Outpatient Encounter ADMIN PAT ACTIVTIES (MASNONCT) DANGELO DOUGLASS Raymond Encounter Template Text not used by MD Plan of Treatment: Future Appointments (+ 6 months) and Future Tests (+/- 45 days) The Plan of Treatment section includes future care activities for the patient from all [facility] treatmentfacilities. This section includes future appointments and future orders which are active, pending or scheduled. Future Appointments This section includes appointments that were scheduled to occur 6 months from the date of the Encounter, up to a maximum of 20 appointments. The data comes from all MD treatment facilities. Appointment Date/Time Appointment Type Appointme nt Facility Name Nov 15, 2024 02:00 PM AMBULATORY - MEDICINE [place] [facility] [place] Dec 03, 2024 09:45 AM AMBULATORY - MEDICINE [facility] [place] Dec 06, 2024 10:00 AM AMBULATORY - SURGERY [facility] [place] [facility] Feb 01, 2025 11:30 AM AMBULATORY - MEDICINE [facility] [place] Mar 11, 2025 02:00 PM AMBULATORY - MEDICINE [facility] Mar 30, 2025 02:00 PM AMBULATORY - MEDICINE MD [facility] [place] Social History: Smoking Status (Most current) and Tobacco Use (All prior to encounter date) This section includes the most current, and the historical, smoking and tobacco- related health factors from the MD facility where the Encounter took place. Current Smoking Status This section includes the most current smoking, or tobacco-related health factor, from the [facility] facility where the Encounter took place. Date/Time Current Smoking Status Comment Chris ity Nov 20, 2023 11:00 AM VA-TOBACCO FORMER USER MD [facility] [place] [facility] Tobacco Use History This section includes a history of the smoking, or tobacco-related health factors, that were collected on or before the date of the Encounter. The data comes from the MD facility where the Encounter took place. Date/Time Smoking Status/Tobacco Use Comment F acility Nov 20, 2023 11:00 AM VA-TOBACCO QUIT 15 YRS OR MORE [facility] [place] [facility] Sep 05, 2022 11:00 AM VA-TOBACCO FORMER USER [facility] [place] Sep 05, 2022 11:00 AM VA-TOBACCO QUIT 15 YRS OR MORE [facility] [place] Encounter Notes: All associated encounter notes This section contains the clinical notes associated to the Encounter. Date/Time Encounter Note(s) Provider Source Oct 13, 2024 09:52 AM ADDENDUM: LOCAL TITLE: Addendum STANDARD TITLE: ADDENDUM DATE OF NOTE: OCT 13, 2024@09:52:12 ENTRY DATE: OCT 13, 2024@09:52:14 AUTHOR: NÉSTOR DOUGLASS EXP COSIGNER: URGENCY: STATUS: COMPLETED this real estate underwriter called vet and LM that he can call to make appt for a time that I can call and he will be available/ AND what is best phone # to use? thanks/ /es/ RUEL DOUGLASS MD PHYSICIAN Signed: 10/13/2024 09:53 Receipt Acknowledged By: 10/14/2024 13:16 /es/ SUNIL REESE Advanced Bank Worker ========= --- Original Document --- 10/12/24 PHARMACY MEDICATION MANAGEMENT: LUBNA ARAIZA PID: [id number] Ht(cm): 180.34 (09/05/2022) : Apr (87) Wt(kg): 87.72 (03/06/2023) SEX: MALE Non-VA Meds on File - Last Non-VA Entry on 09/05/22 CrCL: 64.5(est.) (CREAT: 0.86mg/dL 02/02/24) BSA (m2): 2.08 ISSUE LAST REF DAY # RX # DRUG QTY ST DATE FILL REM SUP ACTIVE--- 1 [id number]$ ASPIRIN 81MG EC TAB 120 E> 08-11 1 90 2 [id number]$ BETHANECHOL CHLORIDE 25MG TAB 360 A> 12-11 0 90 3 [id number] BRIEF,PROTECTIVE EXTRA ABS X-LG ATTENDS A> 02-10 3 28 Qty: 112 4 [id number]$ CLOPIDOGREL BISULFATE 75MG TAB 90 E> 07-28 1 90 5 [id number]$ CLOTRIMAZOLE 1% TOP SOLN 60 A> 02-18 3 90 6 [id number]$ DULOXETINE HCL 30MG EC CAP 90 A> 03-29 3 90 7 [id number]$ FERROUS SULFATE 325MG TAB 100 E> 07-28 08 0 90 8 [id number]$ FINASTERIDE 5MG TAB 90 A> 11-02 2 90 9 [id number] INCONT LINER DEPEND GUARDS 208 A> 08-12 2 55 + Enter ?? for more actions has concerns of increased drowiness. Counseled patient that may be caused by duloxetine. would like a call back from provider to discuss medications and possible D/C of some of his medications. /berenice/ DELLA CORREA PHARMACIST Signed: 10/12/2024 15:51 Receipt Acknowledged By: 10/12/2024 17:12 /berenice/ RUEL DOUGLASS MD PHYSICIAN 10/12/2024 ADDENDUM STATUS: COMPLETED Sunil, see below. vet cancelled 10/11 appt, plz book appt at next available slot, let him know I am aware of his concerns about drowsiness and if he is unable to make appt you schedule I will call him to get more details, thanks. /berenice/ RUEL DOUGLASS MD PHYSICIAN Signed: 10/12/2024 17:14 Receipt Acknowledged By: 10/13/2024 15:17 /berenice/ SUNIL REESE Advanced Bank Worker 10/14/2024 ADDENDUM STATUS: COMPLETED CRISTINA lm on both contact numbers to call back for appt. /berenice/ SUNIL REESE Advanced Bank Worker Signed: 10/14/2024 13:16 NÉSTOR DOUGLASS [facility] [place] Oct 12, 2024 05:12 PM ADDENDUM: LOCAL TITLE: Addendum STANDARD TITLE: ADDENDUM DATE OF NOTE: OCT 12, 2024@17:12:31 ENTRY DATE: OCT 12, 2024@17:12:32 AUTHOR: NÉSTOR DOUGLASS EXP COSIGNER: URGENCY: STATUS: COMPLETED Sunil, see below. vet cancelled 10/11 appt, plz book appt at next available slot, let him know I am aware of his concerns about drowsiness and if he is unable to make appt you schedule I will call him to get more details, thanks. /es/ RUEL DOUGLASS MD PHYSICIAN Signed: 10/12/2024 17:14 Receipt Acknowledged By: 10/13/2024 15:17 /berenice/ SUNIL REESE Advanced Bank Worker ========= --- Original Document --- 10/12/24 PHARMACY MEDICATION MANAGEMENT: LUBNA ARAIZA PID: [id number] Ht(cm): 180.34 (09/05/2022) : Apr (87) Wt(kg): 87.72 (03/06/2023) SEX: MALE Non-VA Meds on File - Last Non-VA Entry on 09/05/22 CrCL: 64.5(est.) (CREAT: 0.86mg/dL 02/02/24) BSA (m2): 2.08 ISSUE LAST REF DAY # RX # DRUG QTY ST DATE FILL REM SUP ACTIVE--- 1 [id number]$ ASPIRIN 81MG EC TAB 120 E> 08-11 1 90 2 [id number]$ BETHANECHOL CHLORIDE 25MG TAB 360 A> 12-11 0 90 3 [id number] BRIEF,PROTECTIVE EXTRA ABS X-LG ATTENDS A> 02-10 3 28 Qty: 112 4 [id number]$ CLOPIDOGREL BISULFATE 75MG TAB 90 E> 07-28 1 90 5 [id number]$ CLOTRIMAZOLE 1% TOP SOLN 60 A> 02-18 3 90 6 [id number]$ DULOXETINE HCL 30MG EC CAP 90 A> 03-29 3 90 7 [id number]$ FERROUS SULFATE 325MG TAB 100 E> 07-28 0 90 8 [id number]$ FINASTERIDE 5MG TAB 90 A> 11-02 2 90 9 [id number] INCONT LINER DEPEND GUARDS 208 A> 08-12 2 55 + Enter ?? for more actions [place] has concerns of increased drowiness. Counseled patient that may be caused by duloxetine. [place] would like a call back from provider to discuss medications and possible D/C of some of his medications. /berenice/ DELLA CORREA PHARMACIST Signed: 10/12/2024 15:51 Receipt Acknowledged By: 10/12/2024 17:12 /berenice/ RUEL DOUGLASS MD PHYSICIAN 10/13/2024 ADDENDUM STATUS: COMPLETED this real estate underwriter called vet and LM that he can call to make appt for a time that I can call and he will be available/ AND what is best phone # to use? thanks/ /berenice/ RUEL DOUGLASS MD PHYSICIAN Signed: 10/13/2024 09:53 Receipt Acknowledged By: * AWAITING SIGNATURE * SUNIL REESE MICHAE L G MD [facility] [place] [facility] Oct 12, 2024 03:36 PM PHARMACY MEDICATIO N MGT NOTE: LOCAL TITLE: PHARMACY MEDICATION MANAGEMENT STANDARD TITLE: PHARMACY MEDICATION MGT NOTE DATE OF NOTE: OCT 12, 2024@15:36 ENTRY DATE: OCT 12, 2024@15:36:14 AUTHOR: DELLA CORREA EXP COSIGNER: URGENCY: STATUS: COMPLETED PHARMACY MEDICATION MANAGEMENT Has ADDENDA LUBNA ARAIZA PID: [id number] Ht(cm): 180.34 (09/05/2022) : Apr (87) Wt(kg): 87.72 (03/06/2023) SEX: MALE Non-VA Meds on File - Last Non-VA Entry on 09/05/22 CrCL: 64.5(est.) (CREAT: 0.86mg/dL 02/02/24) BSA (m2): 2.08 ISSUE LAST REF DAY # RX # DRUG QTY ST DATE FILL REM SUP ACTIVE--- 1 [id number]$ ASPIRIN 81MG EC TAB 120 E> 08-11 1 90 2 [id number]$ BETHANECHOL CHLORIDE 25MG TAB 360 A> 12-11 0 90 3 [id number] BRIEF,PROTECTIVE EXTRA ABS X-LG ATTENDS A> 02-10 3 28 Qty: 112 4 [id number]$ CLOPIDOGREL BISULFATE 75MG TAB 90 E> 07-28 1 90 5 [id number]$ CLOTRIMAZOLE 1% TOP SOLN 60 A> 02-18 3 90 6 [id number]$ DULOXETINE HCL 30MG EC CAP 90 A> 03-29 3 90 7 [id number]$ FERROUS SULFATE 325MG TAB 100 E> 07-28 0 90 8 [id number]$ FINASTERIDE 5MG TAB 90 A> 11-02 2 90 9 [id number] INCONT LINER DEPEND GUARDS 208 A> 08-12 2 55 + Enter ?? for more actions has concerns of increased drowiness. Counseled patient that may be caused by duloxetine. would like a call back from provider to discuss medications and possible D/C of some of his medications. /berenice/ DELLA CORREA PHARMACIST Signed: 10/12/2024 15:51 Receipt Acknowledged By: 10/12/2024 17:12 /berenice/ RUEL DOUGLASS MD PHYSICIAN 10/12/2024 ADDENDUM STATUS: COMPLETED Sunil, see below. vet cancelled 10/11 appt, sai book appt at next available slot, let him know I am aware of his concerns about drowsiness and if he is unable to make appt you schedule I will call him to get more details, thanks. /berenice/ RUEL DOUGLASS MD PHYSICIAN Signed: 10/12/2024 17:14 Receipt Acknowledged By: 10/13/2024 15:17 /berenice/ SUNIL REESE Advanced Bank Worker 10/13/2024 ADDENDUM STATUS: COMPLETED this real estate underwriter called vet and LM that he can call to make appt for a time that I can call and he will be available/ AND what is best phone # to use? thanks/ /berenice/ RUEL DOUGLASS MD PHYSICIAN Signed: 10/13/2024 09:53 Receipt Acknowledged By: 10/14/2024 13:16 /berenice/ SUNIL REESE Advanced Bank Worker 10/14/2024 ADDENDUM STATUS: COMPLETED CRISTINA lm on both contact numbers to call back for appt. /berenice/ SUNIL REESE Advanced Bank Worker Signed: 10/14/2024 13:16 [facility]
--- OUTSIDE RECORDS SUMMARY | 2025-01-12 12:33 | XMS_ITS | Encounter Summary ---
Author Name [facility] [place] [facility] [place] [facility] [place] Address [address] [place] [address] Care Team Providers Care Data Warehousing Manager Name Role Phone RUEL DOULGASS Primary Care Provider Unav ailable SILVIA DVAID Primary Care Provider Unavailabl e Insurance Providers: [...] PLAN G Aug 01, 2017 PLAN G [id number] Raymond ARAIZA PATIENT AARP MED SUPP MEDIGAP PLAN G PLAN G Aug 01, 2017 PLAN G [id number] Raymond ARAIZA PATIENT AARP MED SUPP MEDICARE SUPPLEMEN RUBÉN PLANG Aug 01, 2017 PLAN [id number] Raymond ARAIZA PATIENT AARP MED SUPP MEDICARE SUPPLEMEN RUBÉN PLANG Aug 01, 2017 PLAN [id number] [phone] Raymond ARAIZA PATIENT AARP MED SUPP MEDIGAP PLAN G PLAN G Aug 01, 2017 PLAN G [id number] Raymond ARAIZA PATIENT AARP MED SUPP MEDIGAP PLAN G PLAN G Aug 01, 2017 PLAN G [id number] GERRITZRaymondORTH PATIENT MEDICARE (WNR) MEDICARE (M) PART B Sep 01, 2002 PART B [id number] GERRITZ,Raymond LLSWORTH PATIENT MEDICARE (WNR) MEDICARE (M) PART B Sep 01, 2002 PART B [id number] GERRITZ,Raymond [place] PATIENT MEDICARE (WNR) MEDICARE (M) PART B Sep 01, 2002 PART B [id number] GERRITZ,Raymond LLSWORTH PATIENT MEDICARE (WNR) MEDICARE (M) PART B Sep 01, 2002 PART B [id number] GERRITZ,Raymond LLSWORTH PATIENT MEDICARE (WNR) MEDICARE (M) PART A Apr 01, 2002 PART A [id number] GERRITZRaymondSWORTH PATIENT MEDICARE (WNR) MEDICARE (M) PART A Apr 01, 2002 PART A [id number] GERRITZRaymond LLSWORTH PATIENT MEDICARE (WNR) MEDICARE (M) PART A Apr 01, 2002 PART A [id number] GERRITZRaymondSWORTH PATIENT MEDICARE (WNR) MEDICARE (M) PART A Apr 01, 2002 PART A [id number] GERRIRaymond MALHOTRA PATIENT Selected Encounter This section includes the information on record at [place] for the Encounter. Date/Time Encounter Type Encounter Description Reason Pro vider Source Jul 21, 2024 11:00 AM Outpatient Encounter AUDIOLOGY IHE Encounter Template Text not used by [place] Plan of Treatment: Future Appointments (+ 6 months) and Future Tests (+/- 45 days) The Plan of Treatment section includes future care activities for the patient from all [place] treatmentfacilities. This section includes future appointments and future orders which are active, pending or scheduled. Future Appointments This section includes appointments that were scheduled to occur 6 months from the date of the Encounter, up to a maximum of 20 appointments. The data comes from all [place] treatment facilities. Appointment Date/Time Appointment Type Appointme nt Facility Name Aug 19, 2024 11:30 AM AMBULATORY - MEDICINE [place] [facility] [place] [facility] Oct 04, 2024 11:30 AM AMBULATORY - MEDICINE [facility] [place] [facility] Nov 15, 2024 02:00 PM AMBULATORY - MEDICINE [facility] [place] [facility] Dec 03, 2024 09:45 AM AMBULATORY - MEDICINE [facility] [place] [facility] Dec 06, 2024 10:00 AM [facility] Social History: Smoking Status (Most current) and Tobacco Use (All prior to encounter date) This section includes the most current, and the historical, smoking and tobacco- related health factors from the [place] facility where the Encounter took place. Current Smoking Status This section includes the most current smoking, or tobacco-related health factor, from the [place] facility where the Encounter took place. Date/Time Current Smoking Status Comment Facil ity Nov 20, 2023 11:00 AM VA-TOBACCO [facility] Tobacco Use History This section includes a history of the smoking, or tobacco-related health factors, that were collected on or before the date of the Encounter. The data comes from the [place] facility where the Encounter took place. Date/Time Smoking Status/Tobacco Use Comment F acility Nov 20, 2023 11:00 AM VA-TOBACCO QUIT 15 YRS OR MORE [facility] [place] [facility] Sep 05, 2022 11:00 AM VA-TOBACCO FORMER USER [facility] [place] [facility] Sep 05, 2022 11:00 AM VA-TOBACCO QUIT 15 YRS OR MORE [facility] [place] [facility] Encounter Notes: All associated encounter notes This section contains the clinical notes associated to the Encounter. Date/Time Encounter Note(s) Provider Source Jul 21, 2024 01:01 PM CLERICAL NOTE: LOCAL TITLE: APPOINTMENT NO SHOW STANDARD TITLE: CLERICAL NOTE DATE OF NOTE: JUL 21, 2024@13:01 ENTRY DATE: JUL 21, 2024@13:01:10 AUTHOR: DARION REAL COSIGNER: URGENCY: STATUS: COMPLETED Patient Name: LUBNA ARAIZA Patient SSN: [id number] Date and time of Appointment No show : 07/21/24 11:00 PATIENT PHONE - PHONE NUMBER [CELLULAR] - Patient's medical record was reviewed. Follow-up actions were determined and initiated: Please check/complete as applies: [ ]Telephoned Directly [ ]Re-scheduled for next available appt [X]Sent a N0-show letter ( must call for appointment) [ ]Other (Emergent/Overbook, etc.): Additional Comments: Future Clinic Visits 08/19/2024 11:30 CWM/NO/PODIATRY A 03/11/2025 14:00 CWM/NO/OPTOMETRY/ADRIANA /berenice/ DARION Mei, CCC-A CHIEF, AUDIOLOGY/ELECTRIC METER TECHNICIAN Signed: 07/21/2024 13:01 Receipt Acknowledged By: 07/21/2024 14:25 /berenice/ KAN [employer] MEDICAL LABORATORY TECHNOLOGIST DARION REAL [facility]
--- OUTSIDE RECORDS SUMMARY | 2025-01-12 12:33 | XMS_ITS | Encounter Summary ---
Author Name [facility] [place] [facility] [place] [facility] [place] Address [address] [place] [id number] Care Team Providers Care Pyridine Recovery Operator Name Role Phone SILVIA DAVID Primary Care [...] PLAN G Aug 01, 2017 PLAN G [id number] [phone] Raymond ARAIZA PATIENT AARP MED SUPP MEDIGAP PLAN G PLAN G Aug 01, 2017 PLAN G [id number] Raymond ARAIZA PATIENT AARP MED SUPP MEDIGAP PLAN G PLAN G Aug 01, 2017 PLAN G [id number] Raymond ARAIZA PATIENT AARP MED SUPP MEDICARE SUPPLEMEN RUBÉN PLANG Aug 01, 2017 PLAN [id number] Raymond ARAIZA PATIENT AARP MED SUPP MEDICARE SUPPLEMEN RUBÉN PLANG Aug 01, 2017 PLANG [id number] [phone] GERRITZ,Raymond LLSWORTH PATIENT AARP MED SUPP MEDIGAP PLAN G PLAN G Aug 01, 2017 PLAN G [id number] GERRITZ,E LLSWORTH PATIENT MEDICARE (WNR) MEDICARE (M) PART B Sep 01, 2002 PART B [id number] GERRITZ,E LLSWORTH PATIENT MEDICARE (WNR) MEDICARE (M) PART B Sep 01, 2002 PART B [id number] GERRITZ,E LLSWORTH PATIENT MEDICARE (WNR) MEDICARE (M) PART B Sep 01, 2002 PART B [id number] GERRITZ,E LLSWORTH PATIENT MEDICARE (WNR) MEDICARE (M) PART B Sep 01, 2002 PART B [id number] GERRITZ,E LLSWORTH PATIENT MEDICARE (WNR) MEDICARE () PART A Apr 01, 2002 PART A [id number] GERRITZ,E LLSWORTH PATIENT MEDICARE (WNR) MEDICARE (M) PART A Apr 01, 2002 PART A [id number] GERRITZ,E LLSWORTH PATIENT MEDICARE (WNR) MEDICARE (M) PART A Apr 01, 2002 PART A [id number] GERRITZ,E LLSWORTH PATIENT MEDICARE (WNR) MEDICARE (M) PART A Apr 01, 2002 PART A [id number] GERRITZ,Raymond LLSWORTH PATIENT Selected Encounter This section includes the information on record at [place] for the Encounter. Date/Time Encounter Type Encounter Description Reason Provider Source Mar 10, 2024 09:30 AM OFFICE O/P NEW MOD 45 MIN PM&RS PHYSICIAN ICD-10-CM M25.562 Pain in left knee BHAVNA ROME E Encounter Template Text not used by [place] Assessments - Encounter Diagnoses This section includes the primary and secondary diagnoses documented for the Encounter. Date/Time Primary/Secondary Diagnosis Diagnosis Name Provider Source Mar 10, 2024 10:38 AM PRIMARY Pain in left knee LILIA ROME [facility] Mar 10, 2024 10:38 AM SECONDARY Spinal stenosis, lumbar region with neurogenic claudication LILIA ROME [facility] [place] Mar 10, 2024 10:38 AM SECONDARY Unilateral primary osteoarthritis, left knee LILIA ROME [facility] [place] Mar 10, 2024 10:38 AM SECONDARY Unspecified urinary incontinence LILIA ROME [facility] Plan of Treatment: Future Appointments (+ 6 months) and Future Tests (+/- 45 days) The Plan of Treatment section includes future care activities for the patient [facility] [place] [facility] This section includes future appointments and future orders which are active, pending or scheduled. Future Appointments This section includes appointments that were scheduled to occur 6 months from the date of the Encounter, up to a maximum of 20 appointments. The data comes from all [place] treatment facilities. Appointment Date/Time Appointment Type Appointme nt Facility Name Mar 29, 2024 03:30 PM AMBULATORY - MEDICINE [facility] [place] Apr 12, 2024 10:30 AM AMBULATORY - [facility] [place] Apr 20, 2024 12:00 PM AMBULATORY - [facility] [place] Apr 21, 2024 02:30 PM AMBULATORY - [facility] [place] Apr 27, 2024 11:00 AM AMBULATORY - [facility] MED[facility]IN [facility] [place] May 04, 2024 11:00 AM AMBULATORY - [facility] [place] May 18, 2024 10:30 AM AMBULATORY - MEDICINE [facility] [place] May 18, 2024 11:00 AM AMBULATORY - [facility] [place] May 25, 2024 10:30 AM AMBULATORY - [facility]IN [facility] [place] May 25, 2024 11:00 AM AMBULATORY - [facility] [place] Jun 08, 2024 11:30 AM AMBULATORY - [facility] [place] Jul 09, 2024 11:00 AM AMBULATORY - MEDICINE [facility] [place] [facility] Jul 21, 2024 11:00 AM [facility] Aug 19, 2024 11:30 AM AMBULATORY - MEDICINE [facility] Vital Signs: All taken on the encounter date This section contains inpatient and outpatient Vital Signs collected on the date of the Encounter. Date/Time Temperature Pulse Blood Pressure Respiratory Rate SP02 Pain Height Weight Body Mass Index Source Mar 10, 2024 09:56 AM 122/80 2 [facility] Social History: Smoking Status (Most current) and Tobacco Use (All prior to encounter date) This section includes the most current, and the historical, smoking and tobacco- related health factors from the [place] facility where the Encounter took place. Current Smoking Status This section includes the most current smoking, or tobacco-related health factor, from the [place] facility where the Encounter took place. Date/Time Current Smoking Status Comment Facil ity Nov 20, 2023 11:00 AM VA-TOBACCO FORMER USER [facility] Tobacco Use History This section includes a history of the smoking, or tobacco-related health factors, that were collected on or before the date of the Encounter. The data comes from the [place] facility where the Encounter took place. Date/Time Smoking Status/Tobacco Use Comment F acility Nov 20, 2023 11:00 AM VA-TOBACCO QUIT 15 YRS OR MORE [facility] Sep 05, 2022 11:00 AM [facility]BACCO [facility] Sep 05, 2022 11:00 AM [place]-TOBACCO QUIT 15 YRS OR MORE [facility] Encounter Notes: All associated encounter notes This section contains the clinical notes associated to the Encounter. Date/Time Encounter Note(s) Provider Source Mar 10, 2024 10:01 AM PHYSICAL MEDICINE REHAB CONSULT: LOCAL TITLE: CONSULT REPORT/PM&R STANDARD TITLE: PHYSICAL MEDICINE REHAB CONSULT DATE OF NOTE: MAR 10, 2024@10:01 ENTRY DATE: MAR 10, 2024@10:01:56 AUTHOR: BHAVNA ROME EXP COSIGNER: URGENCY: STATUS: COMPLETED MAR 10, 2024 LUBNA ARAIZA Comfort is a 88 y/o RHD WHITE MALE, previously in [employer] FROM Jan TO Apr from [facility] [place] [facility], who was seen today for consultation requested by _ today for chief complaint of weakness in the low back. Onset/Course: [place] has had significant problems with ambulation for several years. Progressively he is losing his ability to walk and then developed some more incontinence issues. He presented to Dr. Lange in 2022. He had emergent decompression and has persistent issues with frequency and incontinence. His pain levels in the knees are not terrible but he does have significant difficulty with weakness. He has difficulties getting up from a seated position. 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 He uses a Rollator for shorter bouts of ambulation. Daily activities/exercise: Minimal. Unable to stand for more than just a few minutes. Pertinent prior procedures and/or imaging:Previous MRI in [place]. Xrays left knee show moderate to severe left oa and moderate right oa knee. PMHx as obtained from Chart: Active problems - Computerized Problem List is the source for the followin. Pain of left knee joint 2. History of actinic keratosis 3. Onychomycosis of toenails 4. Urinary incontinence 5. Hyperlipidemia ([facility] [id number]) 6. CAD - Coronary artery disease 7. Benign Prostatic Hypertrophy with Outflow Obstruction ([facility] [phone]) 8. Varicose veins of lower extremity 9. HTN - Hypertension ([facility] [id number]) 10. Degenerative lumbar spinal stenosis 11. 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 PSxHx:lumbar decompression Fam Hx: non contributory Soc Hx: MARITAL STATUS - [facility] FROM Jan TO Apr Service Connected Disabilities with % Eligibility: [facility] [place] VERIFIED ALL: Patient has answered NKA MEDS: Active Outpatient Medications (including Supplies): ASPIRIN 81MG EC TAB TAKE ONE TABLET BY MOUTH ONCE DAILY TO ACTIVE PREVENT STROKE/HEART ATTACK BETHANECHOL CHLORIDE 25MG TAB TAKE TWO TABLETS BY MOUTH ACTIVE TWICE DAILY FOR URINARY RETENTION BRIEF,PROTECTIVE EXTRA ABS X-LG ATTENDS USE 1 BRIEF ACTIVE DIRECTED FOUR TIMES A DAY CLOPIDOGREL BISULFATE 75MG TAB TAKE ONE TABLET BY MOUTH ACTIVE ONCE DAILY TO PREVENT BLOOD CLOTS CLOTRIMAZOLE 1% TOP SOLN APPLY 1 DROP TOPICALLY ONCE DAILY ACTIVE FOR FUNGAL INFECTION APPLY TO AFFECTED TOE NAILS WHEN DRY DULOXETINE HCL 30MG EC CAP TAKE ONE CAPSULE BY MOUTH ONCE ACTIVE DAILY FERROUS SULFATE 325MG TAB TAKE ONE TABLET BY MOUTH ONCE ACTIVE DAILY TO SUPPLEMENT IRON FINASTERIDE 5MG TAB TAKE ONE TABLET BY MOUTH ONCE DAILY ACTIVE LATANOPROST 0.005% OPH SOLN INSTILL 1 DROP INTO EACH EYE ACTIVE (S) AT BEDTIME FOR INCREASED PRESSURE IN THE EYE METOPROLOL SUCCINATE 25MG SA TAB TAKE ONE TABLET BY MOUTH ACTIVE ONCE DAILY FOR BLOOD PRESSURE/HEART MULTIVIT/OPHTH AREDS2/LUTE/ZEAX CAP/TAB TAKE 1 CAPSULE BY ACTIVE MOUTH TWICE DAILY IN THE MORNING AND EVENING, WITH FOOD OMEPRAZOLE 20MG EC CAP TAKE ONE CAPSULE BY MOUTH ONCE ACTIVE DAILY SIMVASTATIN 40MG TAB TAKE ONE TABLET BY MOUTH ONCE DAILY ACTIVE FOR CHOLESTEROL SUCRALFATE 500MG/5ML SUSP TAKE 5ML (1 TEASPOON) BY MOUTH ACTIVE TWICE DAILY FOR ULCER Non-VA ASPIRIN 81MG EC TAB 81MG BY MOUTH ONCE DAILY ACTIVE Non-VA MULTIVIT/OPHTH AREDS2/LUTE/ZEAX CHEW TAB 2 TABLETS ACTIVE BY MOUTH ONCE DAILY No Active Remote Medications for this patient ROS: Constitutional - Denies fever or chills, night sweats, or unexplained weight loss. Head/Eyes/Ears/Neck- Denies headaches, dizziness, visual changes. Cardiovascular - Denies chest pain/palpitations, lower extremity swelling. Respiratory - Denies shortness of breath, or cough. GI - Denies nausea, vomiting, or loss of bowel fx/control. - Denies urinary difficulties or loss of bladder function. Musculoskeletal - See HPI. Neuro - See HPI. Psychiatric - See PMHx. Denies mood swings or change in behavior. Sleep - Denies nocturnal pain or excessive daytime fatigue. Skin/integuments - Denies rashes, lesions, or skin breakdown in the extremities. All other systems reviewed and are negative. PHYSICAL EXAMINATION: Vitals in chart. GEN: WD, WN. Awake, alert, cooperative with exam. In NAD. PSYCH: Good eye contact. Normal mood. Appropriately concerned. CVS: Extremities warm/well perfused. No lower extremity edema appreciated. PULM: Breathing unlabored, no accessory muscle use. ABD: Nondistended. EXTREMITIES: Mild cyanosis and edema of the right lower extremity. Less and lower extremities. SKIN: No rashes, lesions, or skin breakdown over exposed areas. MUSCULOSKELETAL/NEURO EXAM: Well-healed incision from previous decompression. Anterior inclination of the waist. Weakness in hip flexors as well as abductors abductors. Knee extension was 4 months out of 5 on the right and 4+ out of 5 on the left. 3+ out of 5 dorsiflexion on the right foot He has slight varus alignment with bossing of the medial femoral condyle. He has no significant tenderness in the medial joint line majority of his pain is in the parapatellar region. He has a tight lateral retinaculum on the left side. No significant effusion is noted. 3+ out of 5 dorsiflexion on the right foot. Distal pulses are intact. He has dusky reddness of the lower extremities bilaterally right greater than left Gait: Abnormal, slow shuffled gait. Dropfoot right. Labs: Collection DT Spec WBC HGB HCT PLT K+/Pot Sodium HGBA1c 02/02/2024 11:37 BLOOD 5.7 H 02/02/2024 11:37 SERUM 4.4 136 07/28/2023 13:55 BLOOD 8.28 13.2 40.7 314 03/06/2023 16:08 BLOOD 5.5 03/06/2023 16:08 BLOOD 7.30 10.3 L 34.5 L 410 H Collection DT Spec GLUCOSE CREATIN AST ALT T BILI ALK SAJI CHOL 02/02/2024 11:37 SERUM 119 H 0.86 16 14 0.8 106 03/06/2023 16:08 SERUM 132 H 1.11 15 11 0.5 96 151 Collection DT Spec LDL-c HDL TRIG TSH 02/02/2024 11:37 SERUM 1.65 03/06/2023 16:08 SERUM 64 70 H 83 1.16 CHEM 7 TREND LAB CUMULATIVE SELECTED Collection [...] 138 4.6 105 25 132 H 21 Liver Function Tests Collection DT Spec AST ALT ALK SAJI ALBUMIN T BILI T. PROT 02/02/2024 11:37 SERUM 16 14 106 3.8 0.8 6.2 HEMOGLOBIN A1C TREND Collection DT Spec HGBA1c 02/02/2024 11:37 BLOOD 5.7 H 03/06/2023 16:08 BLOOD 5.5 Diagnostic Studies:See vista ASSESSMENT/PLAN: Patient is a 88-year-old [place] with previous history of spinal stenosis and cauda equina syndrome dating back to 2022. He had urgent decompression has residual incontinence as well as significant weakness in the lower extremities. He does have some significant osteoarthritis bilaterally of the knees but symptoms are primarily related to the weakness. Capsular restriction also is partially responsible for some of the occasional knee pain that he gets. We discussed intra-articular injection and it is not likely to make a significant change in his functional status nor in his comfort levels. A course of physical therapy was recommended. After physical therapy if the increased activity, increased walking, seems to worsen his symptoms then intra- articular injection may be considered. FOLLOW-UP:2 months Potential risks and side effects of any medication(s) prescribed today was reviewed with [place]. Patient had many excellent questions, which I answered to the best of my ability and to patient's apparent satisfaction. MDM:45minutes which includes reviewing records, evaluating patient, documenting in medical record, educating, counseling and coordinating care. Medication Reconciliation: Outpatient: Has the patient been taking medications as documented in the EMLR? YES: The patient has been taking medications as documented in the EMLR. Essential Medication List for Review used to complete this medication reconciliation. INCLUDED IN THIS LIST: Alphabetical list of active outpatient prescriptions dispensed from this [place] (local) and dispensed from another VA or [...] JLV. Allergies/ADRs (Tool #5) FACILITY ALLERGY/ADR -------- [facility] NO KNOWN ALLERGIES [facility] No Known Allergies [facility] (Tool #1) INCLUDED IN THIS LIST: Alphabetical list of active outpatient prescriptions dispensed from this [place] (local) and dispensed from another [place] or [facility]D facility (remote) as well as [...] the patient into personal health records (i.e. DepoMed) are NOT included in this list. Non-VA medications documented outside this [place], remote inpatient orders (regardless of status) and [...] ONCE DAILY TO PREVENT STROKE/HEART ATTACK Rx# [id number] Last Released: 11/04/23 Qty/Days Supply: 120/90 Rx Expiration Date: 08/11/24 Refills Remainin Indication: FOR TREATMENT TO PREVENT A HEART ATTACK OUTPT ATORVASTATIN CALCIUM 20MG TAB (Status = ) TAKE ONE TABLET BY MOUTH ONCE DAILY FOR CHOLESTEROL Rx# [id number] Last Released: 11/04/23 Qty/Days Supply: 30 Rx Expiration Date: 01/14/24 Refills Remainin OUTPT BETHANECHOL CHLORIDE 25MG TAB (Status = Discontinued) TAKE TWO TABLETS BY MOUTH TWICE DAILY FOR URINARY RETENTION Rx# [id number] Last Released: 10/24/23 Qty/Days Supply: 12030 Rx Expiration Date: 07/15/24 Refills Remainin OUTPT BETHANECHOL CHLORIDE 25MG TAB (Status = Active) TAKE TWO TABLETS BY MOUTH TWICE DAILY FOR URINARY RETENTION Rx# [id number] Last Released: 02/18/24 Qty/Days Supply: 360/ Rx Expiration Date: 12/12/24 Refills Remainin Indication: FOR URINARY RETENTION OUTPT CLOPIDOGREL BISULFATE 75MG TAB (Status = Active) TAKE ONE TABLET BY MOUTH ONCE DAILY TO PREVENT BLOOD CLOTS Rx# [id number] Last Released: 11/06/23 Qty/Days Supply: 90 Rx Expiration Date: 07/28/24 Refills Remainin Indication: TO PREVENT BLOOD CLOTS OUTPT CLOTRIMAZOLE 1% TOP SOLN (Status = Active) APPLY 1 DROP TOPICALLY ONCE DAILY FOR FUNGAL INFECTION APPLY TO AFFECTED TOE NAILS WHEN DRY Rx# [id number] Last Released: 02/23/24 Qty/Days Supply: 60 Rx Expiration Date: 02/19/25 Refills Remainin Indication: TOE NAIL FUNGUS OUTPT DULOXETINE HCL 30MG EC CAP (Status = Active) TAKE ONE CAPSULE BY MOUTH ONCE DAILY Rx# [id number] Last Released: 11/10/23 Qty/Days Supply: Rx Expiration Date: 11/06/24 Refills Remainin Indication: FOR CHRONIC MUSCLE OR BONE PAIN OUTPT FERROUS SULFATE 325MG TAB (Status = Active) TAKE ONE TABLET BY MOUTH ONCE DAILY TO SUPPLEMENT IRON Rx# [id number] Last Released: 11/06/23 Qty/Days Supply: Rx Expiration Date: 07/28/24 Refills Remainin OUTPT FINASTERIDE 5MG TAB (Status = Active) TAKE ONE TABLET BY MOUTH ONCE DAILY Rx# [id number] Last Released: 11/06/23 Qty/Days Supply: Rx Expiration Date: 11/03/24 Refills Remainin Indication: FOR ENLARGED PROSTATE OUTPT HYDROCORTISONE 2.5% CREAM (Status = ) APPLY A SMALL AMOUNT TOPICALLY ONCE DAILY NEEDED FOR ITCHING Rx# [id number] Last Released: 11/20/23 Qty/Days Supply: 6030 Rx Expiration Date: 12/20/23 Refills Remainin Indication: FOR ITCHING OUTPT LATANOPROST 0.005% OPH SOLN (Status = Active/Suspended) INSTILL 1 DROP INTO EACH EYE AT BEDTIME FOR INCREASED PRESSURE IN THE EYE Rx# [id number] Last Released: Supply: Rx Expiration Date: 12/04/24 Refills Remainin Indication: FOR INCREASED PRESSURE IN THE EYE OUTPT METOPROLOL SUCCINATE 25MG SA TAB (Status = Active) TAKE ONE TABLET BY MOUTH ONCE DAILY FOR BLOOD PRESSURE/HEART Rx# [id number] Last Released: 11/10/23 Qty/Days Supply: Rx Expiration Date: 11/06/24 Refills Remainin Indication: FOR HIGH BLOOD PRESSURE OUTPT MULTIVIT/OPHTH AREDS2/LUTE/ZEAX CAP/TAB (Status = Active) TAKE 1 CAPSULE BY MOUTH TWICE DAILY IN THE MORNING AND EVENING, WITH FOOD Rx# [id number] Last Released: 03/01/24 Qty/Days Supply: 120/60 Rx Expiration Date: 10/13/24 Refills Remainin Indication: FOR VITAMIN SUPPLEMENTATION Non-VA MULTIVIT/OPHTH AREDS2/LUTE/ZEAX CHEW TAB AREDS2/LUTE/ZEAX CHEW TABLET CHEW TWO TABLETS BY MOUTH ONCE DAILY Non-VA medication recommended by VA provider. Indication: FOR VITAMIN SUPPLEMENTATION OUTPT OMEPRAZOLE 20MG EC CAP (Status = Active) TAKE ONE CAPSULE BY MOUTH ONCE DAILY Rx# [id number] Last Released: 09/05/23 Qty/Days Supply: 90 Rx Expiration Date: 03/31/24 Refills Remainin OUTPT SIMVASTATIN 40MG TAB (Status = Active) TAKE ONE TABLET BY MOUTH ONCE DAILY FOR CHOLESTEROL Rx# [id number] Last Released: 11/10/23 Qty/Days Supply: 90 Rx Expiration Date: 11/06/24 Refills Remainin Indication: FOR HIGH CHOLESTEROL OUTPT SUCRALFATE 1GM TAB (Status = ) TAKE ONE TABLET BY MOUTH TWICE DAILY Rx# [id number] Last Released: 11/06/23 Qty/Days Supply: 180 Rx Expiration Date: 01/31/24 Refills Remainin OUTPT SUCRALFATE 500MG/5ML SUSP (Status = Active) TAKE 5ML (1 TEASPOON) BY MOUTH TWICE DAILY FOR ULCER Rx# [id number] Last Released: 02/18/24 Qty/Days Supply: 828/82 Rx Expiration Date: 02/16/25 Refills Remainin Indication: FOR ULCER SUPPLIES OUTPT BRIEF,PROTECTIVE EXTRA ABS X-LG ATTENDS (Status = Discontinued) USE 1 BRIEF DIRECTED FOUR TIMES A DAY Rx# [id number] Last Released: 12/24/23 Qty/Days Supply: 112/ Rx Expiration Date: 01/31/24 Refills Remainin Indication: INCONTINENCE OUTPT BRIEF,PROTECTIVE EXTRA ABS X-LG ATTENDS (Status = Active) USE 1 BRIEF DIRECTED FOUR TIMES A DAY Rx# [id number] Last Released: 02/14/24 Qty/Days Supply: Rx Expiration Date: 02/11/25 Refills Remainin Indication: INCONTINENCE /es/ BHAVNA ROME [facility] Signed: 03/10/2024 10:38 BHAVNA ROME [facility]
--- OUTSIDE RECORDS SUMMARY | 2025-01-12 12:33 | XMS_ITS | Encounter Summary ---
Author Organization [facility] Address [address] [place] [address] Care Team Providers Care Edger Machine Helper Name Role Phone Keaton Anton MD Primary Care Provider [phone] Encounter Details Date Type Department Care Team (Latest Contact Info) Description 07/21/2024 Lab Requisition [facility] - Main Lab [address] [place] [address] Keaton Anton MD [address] [place] [phone] Atherosclerotic heart disease of [place] coronary artery without angina pectoris; Elevated lipoprotein(a) [...] Associated Diagnosis Comments COMPLETE BLOOD COUNT Routine 07/22/2024 6:50 AM EST Atherosclerotic heart disease of [place] coronary artery without angina pectoris Elevated lipoprotein(a) BASIC METABOLIC PANEL Routine 07/22/2024 6:50 AM EST Atherosclerotic heart disease of [place] coronary artery without angina pectoris Elevated lipoprotein(a) documented in this encounter Results * Basic metabolic panel (07/22/2024 6:50 AM EST) Sodium 139 133 - 145 mmol/L LAB CHEMISTRY METHOD 07/22/2024 11:36 AM EST [facility] LAB Potassium 4.3 3.5 - 5.5 mmol/L LAB CHEMISTRY METHOD 07/22/2024 11:36 AM [facility] LAB Chloride 108 96 - 110 mmol/L LAB CHEMISTRY METHOD 07/22/2024 11:36 AM [facility] LAB CO2 25 21 - 32 mmol/L LAB CHEMISTRY METHOD 07/22/2024 11:36 AM [facility] LAB Anion Gap 6 3 - 11 LAB CHEMISTRY METHOD 07/22/2024 11:36 AM [facility] LAB Glucose 95 70 - 100 mg/dL LAB CHEMISTRY METHOD 07/22/2024 11:36 AM [facility] LAB BUN 25 5 - 25 mg/dL LAB CHEMISTRY METHOD 07/22/2024 11:36 AM [facility] LAB Creatinine 0.84 0.70 - 1.30 mg/dL LAB CHEMISTRY METHOD 07/22/2024 11:36 AM [facility] LAB eGFR 84 >=60 mL/min/1. 73m2 LAB CHEMISTRY METHOD 07/22/2024 11:36 AM [facility] LAB Comment:Calculation based on the??Chronic Kidney Disease Epidemiology Collaboration (CKD-EPI) equation refit??without adjustment for race. BUN/Creatinine Ratio 29.8 LAB CHEMISTRY METHOD 07/22/2024 11:36 AM [facility] LAB Calcium 8.5 8.5 - 10.5 mg/dL LAB CHEMISTRY METHOD 07/22/2024 11:36 AM [facility] LAB Blood Venous blood specimen / Unknown Venipuncture / Unknown 07/22/2024 6:50 AM EST 07/22/2024 10:52 AM EST us Keaton Anton MD LAB BLOOD ORDERABLES Final Resu lt [facility] LAB [address] [place] [address], [place] [phone] * (ABNORMAL) Complete blood count (07/22/2024 6:50 AM EST) WBC 7.4 4.8 - 10.8 K/[facility] LAB HEMETOLOGY METHOD 07/22/2024 11:21 AM [facility] LAB RBC 4.60 4.50 - 5.50 M/[facility] LAB HEMETOLOGY METHOD 07/22/2024 11:21 AM [facility] LAB Hemoglobin 13.6 13.5 - 17.5 g/dL LAB HEMETOLOGY METHOD 07/22/2024 11:21 AM [facility] LAB Hematocrit 42.8 42.0 - 54.0 % LAB HEMETOLOGY METHOD 07/22/2024 11:21 AM [facility] LAB MCV 92.4 79.0 - 98.0 FL LAB HEMETOLOGY METHOD 07/22/2024 11:21 AM [facility] LAB MCH 29.4 27.0 - 32.0 pcg LAB HEMETOLOGY METHOD 07/22/2024 11:21 AM [facility] LAB MCHC 31.8(L) 32.0 - 37.0 g/dL LAB HEMETOLOGY METHOD 07/22/2024 11:21 AM [facility] LAB RDW 13.8 11.0 - 15.0 % LAB HEMETOLOGY METHOD 07/22/2024 11:21 AM [facility] LAB Platelets 308 130 - 400 K/[facility] LAB HEMETOLOGY METHOD 07/22/2024 11:21 AM [facility] LAB MPV 9.7 7.0 - 11.0 FL LAB HEMETOLOGY METHOD 07/22/2024 11:21 AM [facility] LAB NRBC 0.0 <1.0 % LAB HEMETOLOGY METHOD 07/22/2024 11:21 AM [facility] LAB NRBC Absolute 0.00 <0.10 K/mcL LAB HEMETOLOGY METHOD 07/22/2024 11:21 AM [facility] LAB Blood Venous blood specimen / Unknown Venipuncture / Unknown 07/22/2024 6:50 AM EST 07/22/2024 10:52 AM EST Keaton Anton MD LAB BLOOD ORDERABLES Final Resu lt [facility] LAB [address] [place] [address], documented in this encounter Visit Diagnoses Diagnosis Atherosclerotic heart disease of [place] coronary artery without angina pectoris 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
--- OUTSIDE RECORDS SUMMARY | 2025-01-12 12:33 | XMS_ITS | Encounter Summary ---
Author Name [facility] [place] Address [address] [place] [address] Care Team Providers Care Disaster Recovery Analyst Name Role Phone RUEL DOUGLASS Primary Care [...] PLAN G Aug 01, 2017 PLAN G [id number] [id number] Raymond ARAIZA PATIENT AARP MED SUPP MEDIGAP PLAN G PLAN G Aug 01, 2017 PLAN G [id number] Raymond ARAIZA PATIENT AARP MED SUPP MEDICARE SUPPLEMEN RUBÉN PLANG Aug 01, 2017 PLANG [id number] Raymond ARAIZA PATIENT AARP MED SUPP MEDICARE SUPPLEMEN RUBÉN PLANG Aug 01, 2017 PLANG [id number] Raymond ARAIZA PATIENT AARP MED SUPP MEDIGAP PLAN G PLAN G Aug 01, 2017 PLAN G [id number] Raymond ARAIZA PATIENT AARP MED SUPP MEDIGAP PLAN G PLAN G Aug 01, 2017 PLAN G [id number] ARIRIRaymond MALHOTRA PATIENT MEDICARE ([place]NR) MEDICARE (M) PART B Sep 01, 2002 PART B [id number] GERRITZ,Raymond [place] PATIENT MEDICARE (WNR) MEDICARE (M) PART B Sep 01, 2002 PART B [id number] GERRITZ,Raymond [place] PATIENT MEDICARE (WNR) MEDICARE (M) PART B Sep 01, 2002 PART B [id number] GERRITZ,Raymond [place] PATIENT MEDICARE (WNR) MEDICARE (M) PART B Sep 01, 2002 PART B [id number] GERRITZ,Raymond [place] PATIENT MEDICARE (WNR) MEDICARE (M) PART A Apr 01, 2002 PART A [id number] GERRITZRaymondSWORTH PATIENT MEDICARE (WNR) MEDICARE (M) PART A Apr 01, 2002 PART A [id number] [phone] GERRITZRaymondSWORTH PATIENT MEDICARE (WNR) MEDICARE (M) PART A Apr 01, 2002 PART A [id number] ARIRIRaymond MALHOTRASWORTH PATIENT MEDICARE (WNR) MEDICARE (M) PART A Apr 01, 2002 PART A [id number] ARIRIRaymond MALHOTRA PATIENT Selected Encounter This section includes the information on record at [place] for the Encounter. Date/Time Encounter Type Encounter Description Reason Pro vider Source January 12, 2025 12:00 AM Outpatient Encounter EVENT (HISTORICAL) IHE Encounter Template Text not used by [place] Plan of Treatment: Future Appointments (+ 6 months) and Future Tests (+/- 45 days) The Plan of Treatment section includes future care activities for the patient from all [place] treatmentfacilities. This section includes future appointments and future orders which are active, pending or scheduled. Future Appointments This section includes appointments that were scheduled to occur 6 months from the date of the Encounter, up to a maximum of 20 appointments. The data comes from all [place] treatment facilities. Appointment Date/Time Appointment Type Appointme nt Facility Name Feb 01, 2025 11:30 AM [facility]ORY [place]ICINE [facility] [place] [facility] Mar 11, 2025 02:00 PM [facility] [place] [facility] [place] [facility] Mar 30, 2025 02:00 PM [facility] - [place] [facility] [place] [facility] Active, Pending, and Scheduled Orders This section includes a listing of several types of active, pending, and scheduled orders, including clinic medications orders, diagnostic test orders, procedure orders and consult orders; where the start date of the order is 45 days before the date of the Encounter or 45 days after the date of theEncounter. The data comes from all [place] treatment facilities. Test Date/Time Test Type Test Details Facility Name Nov 30, 2024 05:13 PM Consult Order [facility]-RADIOLOGY XRAY Cons Mysql Database Administrator's Choice [facility] [place] [facility] Dec 01, 2024 08:48 AM Consult Order [facility]-THORACIC SURGERY Cons Mysql Database Administrator's Choice [facility] [place] [facility] January 12, 2025 09:21 AM Consult Order BENEFICIAR Y TRAVEL (BT) CONSULT Cons Mysql Database Administrator's Choice [facility] Social History: Smoking Status (Most current) and Tobacco Use (All prior to encounter date) This section includes the most current, and the historical, smoking and tobacco- related health factors from the [place] facility where the Encounter took place. Current Smoking Status This section includes the most current smoking, or tobacco-related health factor, from the [place] facility where the Encounter took place. Date/Time Current Smoking Status Comment Facil ity Nov 15, 2024 02:00 PM VA-TOBACCO NEVER U SED [facility]IGARETTES [facility] Tobacco Use History This section includes a history of the smoking, or tobacco-related health factors, that were collected on or before the date of the Encounter. The data comes from the [place] facility where the Encounter took place. Date/Time Smoking Status/Tobacco Use Comment F acility Nov 15, 2024 02:00 PM VA-TOBACCO NEVER U SED OTHER TYPE [facility] Nov 20, 2023 11:00 AM VA-TOBACCO FORMER USER [facility] Nov 20, 2023 11:00 AM [facility]-TOBACCO QUIT 15 YRS OR MORE [facility] [place] [facility] Sep 05, 2022 11:00 AM [place]-TOBACCO FORMER USER [facility] [place] [facility] Sep 05, 2022 11:00 AM [place]-TOBACCO QUIT 15 YRS OR MORE [facility]
== END 2025-01-12 12:58 | disposition home or self-care (01) ==
LOC: HO.HMCHD 11:39
PROVIDERS: PCP Internal Medicine; Visit Provider Internal Medicine
DX: I25.10 Atherosclerotic heart disease of native coronary artery without angina pectoris (principal)

== ENCOUNTER → 2025-01-12 11:39 | Outpatient (BNVA) | payer MEDICARE, SELFPAY | PROVIDERS: PCP Internal Medicine; Visit Provider Internal Medicine ==

== ENCOUNTER 2025-01-12 12:27 | Outpatient (REF) | payer MEDICARE, SELFPAY ==
--- OUTSIDE RECORDS SUMMARY | 2025-01-12 12:55 | XMS_ITS | Encounter Summary ---
Author Organization [employer] 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) COMPREHENSIVE METABOLIC PANEL Routine 07/26/2024 6:19 AM EST 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) documented in this encounter Results * (ABNORMAL) Comprehensive metabolic panel (07/26/2024 6:19 AM EST) Sodium 139 133 - 145 mmol/L LAB CHEMISTRY METHOD 07/26/2024 10:19 AM EST [facility] Potassium 4.6 3.5 - 5.5 mmol/L LAB CHEMISTRY METHOD 07/26/2024 10:19 AM [facility] LAB Chloride 108 96 - 110 mmol/L LAB CHEMISTRY METHOD 07/26/2024 10:19 AM [facility] LAB CO2 24 21 - 32 mmol/L LAB CHEMISTRY METHOD 07/26/2024 10:19 AM [facility] LAB Anion Gap 7 3 - 11 LAB CHEMISTRY METHOD 07/26/2024 10:19 AM [facility] LAB Glucose 96 70 - 100 mg/dL LAB CHEMISTRY METHOD 07/26/2024 10:19 AM [facility] LAB BUN 18 5 - 25 mg/dL LAB CHEMISTRY METHOD 07/26/2024 10:19 AM [facility] LAB Creatinine 0.87 0.70 - 1.30 mg/dL LAB CHEMISTRY METHOD 07/26/2024 10:19 AM [facility] LAB eGFR 84 >=60 mL/min/1. 73m2 LAB CHEMISTRY METHOD 07/26/2024 10:19 AM [facility] LAB Comment:Calculation based on the??Chronic Kidney Disease Epidemiology Collaboration (CKD-EPI) equation refit??without adjustment for race. BUN/Creatinine Ratio 20.7 LAB CHEMISTRY METHOD 07/26/2024 10:19 AM [facility] LAB Calcium 8.9 8.5 - 10.5 mg/dL LAB CHEMISTRY METHOD 07/26/2024 10:19 AM [facility] LAB AST (SGOT) 19 10 - 42 unit/L LAB CHEMISTRY METHOD 07/26/2024 10:19 AM [facility] LAB ALT (SGPT) 28 10 - 60 unit/L LAB CHEMISTRY METHOD 07/26/2024 10:19 AM [facility] LAB Alkaline Phosphatase 111 42 - 121 unit/L LAB CHEMISTRY METHOD 07/26/2024 10:19 AM [facility] LAB Total Protein 5.8(L) 6.0 - 8.0 g/dL LAB CHEMISTRY METHOD 07/26/2024 10:19 AM [facility] LAB Albumin 3.1(L) 3.2 - 5.0 g/dL LAB CHEMISTRY METHOD 07/26/2024 10:19 AM [facility] LAB Total Bilirubin 0.9 0.0 - 1.4 mg/dL LAB CHEMISTRY METHOD 07/26/2024 10:19 AM [facility] LAB Blood Venous blood specimen / Unknown Venipuncture / Unknown 07/26/2024 6:19 AM EST 07/26/2024 9:35 AM EST us Keaton Anton MD LAB BLOOD ORDERABLES Final Resu lt [facility] LAB [address] [place] [address], [place] [phone] * Complete blood count (07/26/2024 6:19 AM EST) WBC 7.0 4.8 - 10.8 K/mcL LAB HEMETOLOGY METHOD 07/26/2024 9:53 AM [facility] LAB RBC 4.80 4.50 - 5.50 M/mcL LAB HEMETOLOGY METHOD 07/26/2024 9:53 AM [facility] LAB Hemoglobin 14.0 13.5 - 17.5 g/dL LAB HEMETOLOGY METHOD 07/26/2024 9:53 AM [facility] LAB Hematocrit 43.3 42.0 - 54.0 % LAB HEMETOLOGY METHOD 07/26/2024 9:53 AM [facility] LAB MCV 91.2 79.0 - 98.0 FL LAB HEMETOLOGY METHOD 07/26/2024 9:53 AM [facility] LAB MCH 29.5 27.0 - 32.0 pcg LAB HEMETOLOGY METHOD 07/26/2024 9:53 AM [facility] LAB MCHC 32.3 32.0 - 37.0 g/dL LAB HEMETOLOGY METHOD 07/26/2024 9:53 AM EST [facility] LAB RDW 13.8 11.0 - 15.0 % LAB HEMETOLOGY METHOD 07/26/2024 9:53 AM EST [facility] LAB Platelets 382 130 - 400 K/mcL LAB HEMETOLOGY METHOD 07/26/2024 9:53 AM [facility] LAB MPV 9.6 7.0 - 11.0 FL LAB HEMETOLOGY METHOD 07/26/2024 9:53 AM EST [facility] LAB NRBC 0.0 <1.0 % LAB HEMETOLOGY METHOD 07/26/2024 9:53 AM [facility] LAB NRBC Absolute 0.00 <0.10 K/mcL LAB HEMETOLOGY METHOD 07/26/2024 9:53 AM [facility] LAB Blood Venous blood specimen / Unknown Venipuncture / Unknown 07/26/2024 6:19 AM EST 07/26/2024 9:35 AM EST us Keaton Anton MD LAB BLOOD ORDERABLES Final Resu lt [facility] LAB [address] [place] [address], documented in this encounter Visit Diagnoses Diagnosis 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
--- OUTSIDE RECORDS SUMMARY | 2025-01-12 12:55 | XMS_ITS | Encounter Summary ---
Author Organization [employer] [facility] Address [address] [place] [address] Care Team Providers Care High School Music Instructor Name Role Phone Keaton Anton MD Primary Care Provider [phone] Encounter Details Date Type Department Care Team (Latest Contact Info) Description 07/30/[address] 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) documented in this encounter Results * (ABNORMAL) Comprehensive metabolic panel (08/02/2024 6:02 AM EST) Sodium 140 133 - 145 mmol/L LAB CHEMISTRY METHOD 08/02/2024 9:10 AM EST [facility] LAB Potassium 4.7 3.5 - 5.5 mmol/L LAB CHEMISTRY METHOD 08/02/2024 9:10 AM [facility] LAB Chloride 108 96 - 110 mmol/L LAB CHEMISTRY METHOD 08/02/2024 9:10 AM [facility] LAB CO2 26 21 - 32 mmol/L LAB CHEMISTRY METHOD 08/02/2024 9:10 AM [facility] LAB Anion Gap 6 3 - 11 LAB CHEMISTRY METHOD 08/02/2024 9:10 AM [facility] LAB Glucose 97 70 - 100 mg/dL LAB CHEMISTRY METHOD 08/02/2024 9:10 AM [facility] LAB BUN 17 5 - 25 mg/dL LAB CHEMISTRY METHOD 08/02/2024 9:10 AM [facility] LAB Creatinine 0.94 0.70 - 1.30 mg/dL LAB CHEMISTRY METHOD 08/02/2024 9:10 AM [facility] LAB eGFR 78 >=60 mL/min/1. 73m2 LAB CHEMISTRY METHOD 08/02/2024 9:10 AM [facility] LAB Comment:Calculation based on the??Chronic Kidney Disease Epidemiology Collaboration (CKD-EPI) equation refit??without adjustment for race. BUN/Creatinine Ratio 18.1 LAB CHEMISTRY METHOD 08/02/2024 9:10 AM [facility] LAB Calcium 8.8 8.5 - 10.5 mg/dL LAB CHEMISTRY METHOD 08/02/2024 9:10 AM [facility] LAB AST (SGOT) 20 10 - 42 unit/L LAB CHEMISTRY METHOD 08/02/2024 9:10 AM [facility] LAB ALT (SGPT) 20 10 - 60 unit/L LAB CHEMISTRY METHOD 08/02/2024 9:10 AM [facility] LAB Alkaline Phosphatase 111 42 - 121 unit/L LAB CHEMISTRY METHOD 08/02/2024 9:10 AM [facility] LAB Total Protein 5.7(L) 6.0 - 8.0 g/dL LAB CHEMISTRY METHOD 08/02/2024 9:10 AM [facility] LAB Albumin 3.0(L) 3.2 - 5.0 g/dL LAB CHEMISTRY METHOD 08/02/2024 9:10 AM [facility] LAB Total Bilirubin 0.8 0.0 - 1.4 mg/dL LAB CHEMISTRY METHOD 08/02/2024 9:10 AM [facility] LAB Blood Venous blood specimen / Unknown Venipuncture / Unknown 08/02/2024 6:02 AM EST 08/02/2024 8:25 AM EST us Keaton Anton MD LAB BLOOD ORDERABLES Final Resu lt [facility] LAB [address] [place] [address], [place] [phone] * (ABNORMAL) Complete blood count (08/02/2024 6:02 AM EST) WBC 6.4 4.8 - 10.8 K/mcL LAB HEMETOLOGY METHOD 08/02/2024 8:40 AM [facility] LAB RBC 4.60 4.50 - 5.50 M/mcL LAB HEMETOLOGY METHOD 08/02/2024 8:40 AM [facility] LAB Hemoglobin 13.7 13.5 - 17.5 g/dL LAB HEMETOLOGY METHOD 08/02/2024 8:40 AM [facility] LAB Hematocrit 42.9 42.0 - 54.0 % LAB HEMETOLOGY METHOD 08/02/2024 8:40 AM [facility] LAB MCV 92.9 79.0 - 98.0 FL LAB HEMETOLOGY METHOD 08/02/2024 8:40 AM [facility] LAB MCH 29.7 27.0 - 32.0 pcg LAB HEMETOLOGY METHOD 08/02/2024 8:40 AM [facility] LAB MCHC 31.9(L) 32.0 - 37.0 g/dL LAB HEMETOLOGY METHOD 08/02/2024 8:40 AM EST [facility] LAB RDW 14.1 11.0 - 15.0 % LAB HEMETOLOGY METHOD 08/02/2024 8:40 AM [facility] LAB Platelets 336 130 - 400 K/mcL LAB HEMETOLOGY METHOD 08/02/2024 8:40 AM EST [facility] LAB MPV 9.6 7.0 - 11.0 FL LAB HEMETOLOGY METHOD 08/02/2024 8:40 AM EST [facility] LAB NRBC 0.0 <1.0 % LAB HEMETOLOGY METHOD 08/02/2024 8:40 AM [facility] LAB NRBC Absolute 0.00 <0.10 K/mcL LAB HEMETOLOGY METHOD 08/02/2024 8:40 AM [facility] LAB Blood Venous blood specimen / Unknown Venipuncture / Unknown 08/02/2024 6:02 AM EST 08/02/2024 8:17 AM EST us Keaton Anton MD LAB BLOOD ORDERABLES Final Resu lt [facility] LAB [address] [place] [address], documented in this encounter Visit Diagnoses Diagnosis 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
--- OUTSIDE RECORDS SUMMARY | 2025-01-12 12:55 | XMS_ITS | Encounter Summary ---
Author Organization [facility] Address [address] [place] [address] Care Team Providers Care Music Manager Name Role Phone Keaton Anton MD Primary Care Provider [phone] Encounter Details Date Type Department Care Team (Late st Contact Info) Description 07/17/2024 Lab Requisition [facility] - Main Lab [address] [place] [address] Keaton Anton MD [address] [place] [address] Other hyperlipidemia; Atherosclerotic heart disease of [place] coronary artery without angina pectoris Social History [...] EST Other hyperlipidemia Atherosclerotic heart disease of [place] coronary artery without angina pectoris COMPREHENSIVE METABOLIC PANEL Routine 07/17/2024 6:46 AM EST Other hyperlipidemia Atherosclerotic heart disease of [place] coronary artery without angina pectoris documented in this encounter Results * (ABNORMAL) Comprehensive metabolic panel (07/17/2024 6:46 AM EST) Sodium 138 133 - 145 mmol/L LAB CHEMISTRY METHOD 07/17/2024 8:32 AM EST [facility] Potassium 4.3 3.5 - 5.5 mmol/L LAB CHEMISTRY METHOD 07/17/2024 8:32 AM [facility] LAB Chloride 108 96 - 110 mmol/L LAB CHEMISTRY METHOD 07/17/2024 8:32 AM [facility] LAB CO2 25 21 - 32 mmol/L LAB CHEMISTRY METHOD 07/17/2024 8:32 AM [facility] LAB Anion Gap 5 3 - 11 LAB CHEMISTRY METHOD 07/17/2024 8:32 AM [facility] LAB Glucose 101(H) 70 - 100 mg/dL LAB CHEMISTRY METHOD 07/17/2024 8:32 AM [facility] LAB BUN 19 5 - 25 mg/dL LAB CHEMISTRY METHOD 07/17/2024 8:32 AM [facility] LAB Creatinine 0.80 0.70 - 1.30 mg/dL LAB CHEMISTRY METHOD 07/17/2024 8:32 AM [facility] LAB eGFR 86 >=60 mL/min/1. 73m2 LAB CHEMISTRY METHOD 07/17/2024 8:32 AM [facility] LAB Comment:Calculation based on the??Chronic Kidney Disease Epidemiology Collaboration (CKD-EPI) equation refit??without adjustment for race. BUN/Creatinine Ratio 23.8 LAB CHEMISTRY METHOD 07/17/2024 8:32 AM [facility] LAB Calcium 9.0 8.5 - 10.5 mg/dL LAB CHEMISTRY METHOD 07/17/2024 8:32 AM [facility] LAB AST (SGOT) 55(H) 10 - 42 unit/L LAB CHEMISTRY METHOD 07/17/2024 8:32 AM [facility] LAB ALT (SGPT) 70(H) 10 - 60 unit/L LAB CHEMISTRY METHOD 07/17/2024 8:32 AM [facility] LAB Alkaline Phosphatase 122(H) 42 - 121 unit/L LAB CHEMISTRY METHOD 07/17/2024 8:32 AM [facility] LAB Total Protein 5.5(L) 6.0 - 8.0 g/dL LAB CHEMISTRY METHOD 07/17/2024 8:32 AM [facility] LAB Albumin 2.8(L) 3.2 - 5.0 g/dL LAB CHEMISTRY METHOD 07/17/2024 8:32 AM [facility] LAB Total Bilirubin 0.6 0.0 - 1.4 mg/dL LAB CHEMISTRY METHOD 07/17/2024 8:32 AM [facility] LAB Blood Venous blood specimen / Unknown Venipuncture / Unknown 07/17/2024 6:46 AM EST 07/17/2024 7:29 AM EST us Keaton Anton MD LAB BLOOD ORDERABLES Final Resu lt [facility] LAB [address] [place] [address], [place] [phone] * Complete blood count (07/17/2024 6:46 AM EST) WBC 8.8 4.8 - 10.8 K/mcL LAB HEMETOLOGY METHOD 07/17/2024 8:15 AM [facility] LAB RBC 4.80 4.50 - 5.50 M/[facility] LAB HEMETOLOGY METHOD 07/17/2024 8:15 AM [facility] LAB Hemoglobin 14.2 13.5 - 17.5 g/dL LAB HEMETOLOGY METHOD 07/17/2024 8:15 AM [facility] LAB Hematocrit 43.3 42.0 - 54.0 % LAB HEMETOLOGY METHOD 07/17/2024 8:15 AM [facility] LAB MCV 90.6 79.0 - 98.0 FL LAB HEMETOLOGY METHOD 07/17/2024 8:15 AM [facility] LAB MCH 29.7 27.0 - 32.0 pcg LAB HEMETOLOGY METHOD 07/17/2024 8:15 AM [facility] LAB MCHC 32.8 32.0 - 37.0 g/dL LAB HEMETOLOGY METHOD 07/17/2024 8:15 AM EST [facility] LAB RDW 13.3 11.0 - 15.0 % LAB HEMETOLOGY METHOD 07/17/2024 8:15 AM EST [facility] LAB Platelets 237 130 - 400 K/mcL LAB HEMETOLOGY METHOD 07/17/2024 8:15 AM EST [facility] LAB MPV 10.0 7.0 - 11.0 FL LAB HEMETOLOGY METHOD 07/17/2024 8:15 AM EST [facility] LAB NRBC 0.2 <1.0 % LAB HEMETOLOGY METHOD 07/17/2024 8:15 AM [facility] LAB NRBC Absolute 0.02 <0.10 K/mcL LAB HEMETOLOGY METHOD 07/17/2024 8:15 AM [facility] LAB Blood Venous blood specimen / Unknown Venipuncture / Unknown 07/17/2024 6:46 AM EST 07/17/2024 7:29 AM EST us Keaton Anton MD LAB BLOOD ORDERABLES Final Resu lt [facility] LAB [address] [place] [address], documented in this encounter Visit Diagnoses Diagnosis Other hyperlipidemia Atherosclerotic heart disease of enterprise coronary artery without angina pectoris documented in this encounter Care Teams Music Manager Relationship Specialty Start Date End Date Keaton Anton MD [address] [place] [address] PCP - General Internal Medicine 07/19/24 documented as of this encounter
--- OUTSIDE RECORDS SUMMARY | 2025-01-12 12:55 | XMS_ITS | Encounter Summary ---
Author Organization [facility] Address [address] [place] [address] Care Team Providers Care Food Products Sales Representative Name Role Phone Keaton Anton MD Primary Care Provider [phone] Encounter Details Date Type Department Care Team (Latest Contact Info) Description 07/21/[address] 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) documented in this encounter Results * Basic metabolic panel (07/22/2024 6:50 AM EST) Sodium 139 133 - 145 mmol/L LAB CHEMISTRY METHOD 07/22/2024 11:36 AM EST [facility] ([facility] LAB Potassium 4.3 3.5 - 5.5 mmol/L LAB CHEMISTRY METHOD 07/22/2024 11:36 AM [facility] LAB Chloride 108 96 - 110 mmol/L LAB CHEMISTRY METHOD 07/22/2024 11:36 AM [facility] LAB CO2 25 21 - 32 mmol/L LAB CHEMISTRY METHOD 07/22/2024 11:36 AM [facility] LAB Anion Gap 6 3 - 11 LAB CHEMISTRY METHOD 07/22/2024 11:36 AM [facility] LAB Glucose 95 70 - 100 mg/dL LAB CHEMISTRY METHOD 07/22/2024 11:36 AM [facility] LAB BUN 25 5 - 25 mg/dL LAB CHEMISTRY METHOD 07/22/2024 11:36 AM [facility] LAB Creatinine 0.84 0.70 - 1.30 mg/dL LAB CHEMISTRY METHOD 07/22/2024 11:36 AM [facility] LAB eGFR 84 >=60 mL/min/1. 73m2 LAB CHEMISTRY METHOD 07/22/2024 11:36 AM [facility] LAB Comment:Calculation based on the??Chronic Kidney Disease Epidemiology Collaboration (CKD-EPI) equation refit??without adjustment for race. BUN/Creatinine Ratio 29.8 LAB CHEMISTRY METHOD 07/22/2024 11:36 AM [facility] LAB Calcium 8.5 8.5 - 10.5 mg/dL LAB CHEMISTRY METHOD 07/22/2024 11:36 AM [facility] LAB Blood Venous blood specimen / Unknown Venipuncture / Unknown 07/22/2024 6:50 AM EST 07/22/2024 10:52 AM EST us Keaton Anton MD LAB BLOOD ORDERABLES Final Resu lt [facility] LAB [address] [place] [address], [place] [phone] * (ABNORMAL) Complete blood count (07/22/2024 6:50 AM EST) WBC 7.4 4.8 - 10.8 K/[facility] LAB HEMETOLOGY METHOD 07/22/2024 11:21 AM [facility] LAB RBC 4.60 4.50 - 5.50 M/[facility] LAB HEMETOLOGY METHOD 07/22/2024 11:21 AM [facility] LAB Hemoglobin 13.6 13.5 - 17.5 g/dL LAB HEMETOLOGY METHOD 07/22/2024 11:21 AM [facility] LAB Hematocrit 42.8 42.0 - 54.0 % LAB HEMETOLOGY METHOD 07/22/2024 11:21 AM [facility] LAB MCV 92.4 79.0 - 98.0 FL LAB HEMETOLOGY METHOD 07/22/2024 11:21 AM [facility] LAB MCH 29.4 27.0 - 32.0 pcg LAB HEMETOLOGY METHOD 07/22/2024 11:21 AM [facility] LAB MCHC 31.8(L) 32.0 - 37.0 g/dL LAB HEMETOLOGY METHOD 07/22/2024 11:21 AM [facility] LAB RDW 13.8 11.0 - 15.0 % LAB HEMETOLOGY METHOD 07/22/2024 11:21 AM [facility] LAB Platelets 308 130 - 400 K/[facility] LAB HEMETOLOGY METHOD 07/22/2024 11:21 AM [facility] LAB MPV 9.7 7.0 - 11.0 FL LAB HEMETOLOGY METHOD 07/22/2024 11:21 AM [facility] LAB NRBC 0.0 <1.0 % LAB HEMETOLOGY METHOD 07/22/2024 11:21 AM [facility] LAB NRBC Absolute 0.00 <0.10 K/mcL LAB HEMETOLOGY METHOD 07/22/2024 11:21 AM [facility] LAB Blood Venous blood specimen / Unknown Venipuncture / Unknown 07/22/2024 6:50 AM EST 07/22/2024 10:52 AM EST Keaton Anton MD LAB BLOOD ORDERABLES Final Resu lt [facility] ([facility]) [facility] [address] [place] [address], documented in this encounter Visit Diagnoses Diagnosis 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
--- OUTSIDE RECORDS SUMMARY | 2025-01-12 12:55 | XMS_ITS | Encounter Summary ---
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 BASIC METABOLIC PANEL Routine 08/05/2024 5:57 AM EST 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 documented in this encounter Results * Basic metabolic panel (08/05/2024 5:57 AM EST) Sodium 139 133 - 145 mmol/L LAB CHEMISTRY METHOD 08/05/2024 8:54 AM EST [facility] LAB Potassium 4.0 3.5 - 5.5 mmol/L LAB CHEMISTRY METHOD 08/05/2024 8:54 AM [facility] LAB Chloride 108 96 - 110 mmol/L LAB CHEMISTRY METHOD 08/05/2024 8:54 AM [facility] LAB CO2 24 21 - 32 mmol/L LAB CHEMISTRY METHOD 08/05/2024 8:54 AM [facility] LAB Anion Gap 7 3 - 11 LAB CHEMISTRY METHOD 08/05/2024 8:54 AM [facility] LAB Glucose 91 70 - 100 mg/dL LAB CHEMISTRY METHOD 08/05/2024 8:54 AM [facility] LAB BUN 17 5 - 25 mg/dL LAB CHEMISTRY METHOD 08/05/2024 8:54 AM [facility] LAB Creatinine 0.85 0.70 - 1.30 mg/dL LAB CHEMISTRY METHOD 08/05/2024 8:54 AM [facility] LAB eGFR 84 >=60 mL/min/1. 73m2 LAB CHEMISTRY METHOD 08/05/2024 8:54 AM [facility] LAB Comment:Calculation based on the??Chronic Kidney Disease Epidemiology Collaboration (CKD-EPI) equation refit??without adjustment for race. BUN/Creatinine Ratio 20.0 LAB CHEMISTRY METHOD 08/05/2024 8:54 AM [facility] LAB Calcium 8.9 8.5 - 10.5 mg/dL LAB CHEMISTRY METHOD 08/05/2024 8:54 AM [facility] LAB Blood Venous blood specimen / Unknown Venipuncture / Unknown 08/05/2024 5:57 AM EST 08/05/2024 8:20 AM EST us Keaton Anton MD LAB BLOOD ORDERABLES Final Resu lt [facility] LAB [address] [place] [address], [place] [phone] * Complete blood count (08/05/2024 5:57 AM EST) WBC 5.3 4.8 - 10.8 K/[facility] LAB HEMETOLOGY METHOD 08/05/2024 8:34 AM [facility] LAB RBC 4.70 4.50 - 5.50 M/[facility] LAB HEMETOLOGY METHOD 08/05/2024 8:34 AM [facility] LAB Hemoglobin 13.8 13.5 - 17.5 g/dL LAB HEMETOLOGY METHOD 08/05/2024 8:34 AM [facility] LAB Hematocrit 42.6 42.0 - 54.0 % LAB HEMETOLOGY METHOD 08/05/2024 8:34 AM [facility] LAB MCV 91.2 79.0 - 98.0 FL LAB HEMETOLOGY METHOD 08/05/2024 8:34 AM [facility] LAB MCH 29.6 27.0 - 32.0 pcg LAB HEMETOLOGY METHOD 08/05/2024 8:34 AM [facility] LAB MCHC 32.4 32.0 - 37.0 g/dL LAB HEMETOLOGY METHOD 08/05/2024 8:34 AM [facility] LAB RDW 13.9 11.0 - 15.0 % LAB HEMETOLOGY METHOD 08/05/2024 8:34 AM [facility] LAB Platelets 295 130 - 400 K/[facility] LAB HEMETOLOGY METHOD 08/05/2024 8:34 AM [facility] LAB MPV 9.7 7.0 - 11.0 FL LAB HEMETOLOGY METHOD 08/05/2024 8:34 AM [facility] LAB NRBC 0.0 <1.0 % LAB HEMETOLOGY METHOD 08/05/2024 8:34 AM [facility] LAB NRBC Absolute 0.00 <0.10 K/[facility] LAB HEMETOLOGY METHOD 08/05/2024 8:34 AM [facility] LAB Blood Venous blood specimen / Unknown Venipuncture / Unknown 08/05/2024 5:57 AM EST 08/05/2024 8:20 AM EST Keaton Anton MD LAB BLOOD ORDERABLES Final Resu lt [facility] ([facility]) [facility] [address] [place] [address], documented in this encounter Visit Diagnoses Diagnosis 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
--- OUTSIDE RECORDS SUMMARY | 2025-01-12 12:55 | XMS_ITS | Clinical Summary ---
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 from Last 3 Months or Most Recently Relevant to Health Maintenance Results * Basic metabolic panel (08/05/2024 5:57 AM EST) Sodium 139 133 - 145 mmol/L LAB CHEMISTRY METHOD 08/05/2024 8:54 AM [facility] LAB Potassium 4.0 3.5 - 5.5 mmol/L LAB CHEMISTRY METHOD 08/05/2024 8:54 AM [facility] LAB Chloride 108 96 - 110 mmol/L LAB CHEMISTRY METHOD 08/05/2024 8:54 AM [facility] LAB CO2 24 21 - 32 mmol/L LAB CHEMISTRY METHOD 08/05/2024 8:54 AM [facility] LAB Anion Gap 7 3 - 11 LAB CHEMISTRY METHOD 08/05/2024 8:54 AM [facility] LAB Glucose 91 70 - 100 mg/dL LAB CHEMISTRY METHOD 08/05/2024 8:54 AM [facility] LAB BUN 17 5 - 25 mg/dL LAB CHEMISTRY METHOD 08/05/2024 8:54 AM [facility] LAB Creatinine 0.85 0.70 - 1.30 mg/dL LAB CHEMISTRY METHOD 08/05/2024 8:54 AM [facility] LAB eGFR 84 >=60 mL/min/1. 73m2 LAB CHEMISTRY METHOD 08/05/2024 8:54 AM [facility] LAB Comment:Calculation based on the??Chronic Kidney Disease Epidemiology Collaboration (CKD-EPI) equation refit??without adjustment for race. BUN/Creatinine Ratio 20.0 LAB CHEMISTRY METHOD 08/05/2024 8:54 AM EST [facility] LAB Calcium 8.9 8.5 - 10.5 mg/dL LAB CHEMISTRY METHOD 08/05/2024 8:54 AM EST [facility] LAB Blood Venous blood specimen / Unknown Venipuncture / Unknown 08/05/2024 5:57 AM EST 08/05/2024 8:20 AM EST us Keaton Anton MD LAB BLOOD ORDERABLES Final Resu lt [facility] ([facility] LAB [address] [place] [address], from Last 3 Months or Most Recently Relevant to Health Maintenance Insurance MEDICARE [facility] Care Teams Motor Vehicle Or Caravan Salesperson Relationship Specialty Start Date End Date Keaton Anton MD [address] [place] [phone] PCP - General Internal Medicine 07/19/24
--- OUTSIDE RECORDS SUMMARY | 2025-01-12 12:55 | XMS_ITS | Encounter Summary ---
Author Organization [facility] Address [address] [place] [address] Care Team Providers Care Salesperson Burial Needs Name Role Phone Keaton Anton MD Primary Care Provider [phone] Encounter Details Date Type Department Care Team (Latest Contact Info) Description 07/28/2024 Lab Requisition [facility] - Main Lab [address] [place] [address] Keaton Anton MD [address] [place] [address] Atherosclerotic heart disease of [place] coronary artery without angina pectoris; Other hyperlipidemia [...] 6:15 AM EST Atherosclerotic heart disease of [place] coronary artery without angina pectoris Other hyperlipidemia BASIC METABOLIC PANEL Routine 07/30/2024 6:15 AM EST Atherosclerotic heart disease of [place] coronary artery without angina pectoris Other hyperlipidemia documented in this encounter Results * Basic metabolic panel (07/30/2024 6:15 AM EST) Sodium 139 133 - 145 mmol/L LAB CHEMISTRY METHOD 07/30/2024 11:26 AM EST [facility] LAB Potassium 5.2 3.5 - 5.5 mmol/L LAB CHEMISTRY METHOD 07/30/2024 11:26 AM EST [facility] LAB Comment:Hemolysis present Chloride 108 96 - 110 mmol/L LAB CHEMISTRY METHOD 07/30/2024 11:[address] [facility] CO2 22 21 - 32 mmol/L LAB CHEMISTRY METHOD 07/30/2024 11:[address] [facility] LAB Anion Gap 9 3 - 11 LAB CHEMISTRY METHOD 07/30/2024 11:[address] [facility] Glucose 81 70 - 100 mg/dL LAB CHEMISTRY METHOD 07/30/2024 11:[address] [facility] BUN 20 5 - 25 mg/dL LAB CHEMISTRY METHOD 07/30/2024 11:[address] [facility] Creatinine 0.92 0.70 - 1.30 mg/dL LAB CHEMISTRY METHOD 07/30/2024 11:[address] [facility] LAB eGFR 81 >=60 mL/min/1. 73m2 LAB CHEMISTRY METHOD 07/30/2024 11:[address] [facility] LAB Comment:Calculation based on the??Chronic Kidney Disease Epidemiology Collaboration (CKD-EPI) equation refit??without adjustment for race. BUN/Creatinine Ratio 21.7 LAB CHEMISTRY METHOD 07/30/2024 11:[address] [facility] Calcium 8.9 8.5 - 10.5 mg/dL LAB CHEMISTRY METHOD 07/30/2024 11:[address] [facility] Blood Venous blood specimen / Unknown Venipuncture / Unknown 07/30/2024 6:15 AM EST 07/30/2024 10:19 AM EST us Keaton Anton MD LAB BLOOD ORDERABLES Final Resu lt [facility] LAB [address] [place] [address], [place] [phone] * Complete blood count (07/30/2024 6:15 AM EST) WBC 5.9 4.8 - 10.8 K/mcL LAB HEMETOLOGY METHOD 07/30/2024 10:[address] [facility] RBC 4.70 4.50 - 5.50 M/mcL LAB HEMETOLOGY METHOD 07/30/2024 10:[address] [facility] Hemoglobin 13.8 13.5 - 17.5 g/dL LAB HEMETOLOGY METHOD 07/30/2024 10:[address] [facility] LAB Hematocrit 43.1 42.0 - 54.0 % LAB HEMETOLOGY METHOD 07/30/2024 10:[address] [facility] LAB MCV 91.9 79.0 - 98.0 FL LAB HEMETOLOGY METHOD 07/30/2024 10:[address] [facility] MCH 29.4 27.0 - 32.0 pcg LAB HEMETOLOGY METHOD 07/30/2024 10:[address] [facility] MCHC 32.0 32.0 - 37.0 g/dL LAB HEMETOLOGY METHOD 07/30/2024 10:[address] [facility] RDW 14.1 11.0 - 15.0 % LAB HEMETOLOGY METHOD 07/30/2024 10:[address] [facility] Platelets 375 130 - 400 K/mcL LAB HEMETOLOGY METHOD 07/30/2024 10:[address] [facility] MPV 9.8 7.0 - 11.0 FL LAB HEMETOLOGY METHOD 07/30/2024 10:[address] [facility] NRBC 0.0 <1.0 % LAB HEMETOLOGY METHOD 07/30/2024 10:[address] [facility] NRBC Absolute 0.00 <0.10 K/mcL LAB HEMETOLOGY METHOD 07/30/2024 10:[address] [facility] Blood Venous blood specimen / Unknown Venipuncture / Unknown 07/30/2024 6:15 AM EST 07/30/2024 10:19 AM EST Keaton Anton MD LAB BLOOD ORDERABLES Final Resu lt [facility] ([facility]) [facility] [address] [place] [address], documented in this encounter Visit Diagnoses Diagnosis Atherosclerotic heart disease of [place] coronary artery without angina pectoris Other hyperlipidemia documented in this encounter Care Teams Salesperson Burial Needs Relationship Specialty Start Date End Date Keaton Anton MD [address] [place] [phone] PCP - General Internal Medicine 07/19/24 documented as of this encounter
--- OUTSIDE RECORDS SUMMARY | 2025-01-12 12:55 | XMS_ITS | Continuity of Care Document ---
Author Name [facility] Organization [facility] Care Team Providers Care Travelift Operator Name Role Phone [facility] Unavailable Unavailable Problems Combined list of problems from Department of Defense and Veterans Affairs facilities. It does not include entries that were removed or entered in error. 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 [facility] Bilateral osteoarthritis of knees Active Condition Nov 15, 2024 Entered By: CAROLYN DOUGLASS Comment: mod DJD per xrays done 2023 [facility] CAD - Coronary artery disease Active Condition [facility] Coronary artery disease Active Condition [facility] Degenerative lumbar spinal stenosis Active Condition Sep 05, 2022 Entered By: CAROLYN DOUGLASS Comment: vet has tried epidural injxns w/o relief/ Duloxetine helps [facility] Dry skin dermatitis Active Condition [facility] Enlarged prostate Active Condition [facility] First myocardial infarction Active Condition Feb 05, 2017 Entered By: ATUL FAUSTIN Comment: 01/31/17 with stent placement [facility] Glaucoma Active Condition [facility] History of actinic keratosis Active Condition [facility] HTN - Hypertension (SCT [id number]) Active Condition [facility] Hyperlipidemia Active Condition [facility] Hyperlipidemia (SCT [id number]) Active Condition [facility] Hypertension Active Condition [facility] Neurogenic dysfunction of urinary bladder Active Condition Jun 23, 2024 Entered By: CAROLYN DOUGLASS Comment: followed by [facility] Onychomycosis of toenails Active Condition Jul 28, 2023 Entered By: CAROLYN DOUGLASS Comment: vet needs podiatry eval [facility] Pain of left knee joint Active Condition Feb 02, 2024 Entered By: CAROLYN DOUGLASS Comment: intermittent pain/bony enlargement on exam-2023 [facility] Seborrheic dermatitis Active Condition [facility] Seborrhoeic eczema Active Condition Sep 05, 2022 Entered By: CAROLYN DOUGLASS Comment[facility] for precancerous growths- 2019 [facility] Tinea unguium Active Condition [facility] Urinary incontinence Active Condition [facility] Varicose veins of bilateral lower limbs Active Condition 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 Active Diagnosis [facility] Diagnosis: ICD-10-CM M48.062 Spinal stenosis, lumbar region with neurogenic claudication Active Diagnosis [facility] Diagnosis: ICD-10-CM Z46.1 Encounter for fitting and [...] ICD-10-CM L21.9 Seborrheic dermatitis, unspecified Active Diagnosis [facility] Diagnosis: ICD-10-CM R60.1 Generalized edema Active Diagnosis [facility] Diagnosis: ICD-10-CM M48.061 Spinal stenosis, lumbar region without neurogenic ying Active Diagnosis [facility] Medications Combined list of outpatient medications from Department of Defense and [facility] Affairs facilities.Medications provided include 1) outpatient medications from the last 15 months, and 2) patient-reported medications. Medication Details Route Status Patient Instructions Prescription Expires Prescription Number Last Dispense Date Ordering Provider Order Date Order Qty Source AMMONIUM LACTATE 12% LOTION APPLY MODERATE AMOUNT TO AFFECTED AREA TWICE A DAY NEEDED JOANA ALVERTO JONES 2015 [facility] ASPIRIN 81MG TAB,EC TAKE ONE TABLET BY MOUTH ONCE DAILY TO PREVENT STROKE/H EART ATTACK ORAL 08/11/2024 [id number] 4 DARRON OSMAN 2022 120 [facility] ASPIRIN 81MG TAB,EC TAKE ONE TABLET BY MOUTH ONCE DAILY ORAL DARRON HICKS 2022 [facility] ASPIRIN EC (U/D) 81 MG ORAL TBEC TAKE ONE TABLET BY MOUTH ONCE DAILY TO PREVENT STROKE/H EART ATTACK 08/11/2024 [id number] 4 RUEL PRICE 2023 120 [facility] ASPIRIN. TAB TAKE 81MG BY MOUTH EVERY OTHER DAY ORAL ALVERTO REESE 2015 [facility] atorvastati n (U/D) 20 MG ORAL TAB TAKE ONE TABLET BY MOUTH ONCE DAILYFOR CHOLESTE ROL 01/14/2024 [id number] 4 STEFFANY MCINTOSH 2023 30 [facility] ATORVASTATI N CA 20MG TAB TAKE ONE TABLET BY MOUTH ONCE DAILY FOR CHOLESTE ROL ORAL 01/14/2024 [id number] GERMANIA MCINTOSHS M 2022 30 [facility] Bethanechol Chloride (Urecholine Eq.) Tablet 25mg Oral TAKE TWO TABLETS BY MOUTH TWICE DAILY FOR URINARY RETENTIO N 12/12/2024 [id number] RUEL PRICE 2023 360 [facility] Bethanechol Chloride (Urecholine Eq.) Tablet 25mg Oral TAKE TWO TABLETS BY MOUTH TWICE DAILYFOR URINARY RETENTIO N Discont inued 07/15/2024 [id number] 4 EDGAR MUNOZ 2023 120 [facility] BETHANECHOL CL 25MG TAB TAKE TWO TABLETS BY MOUTH TWICE DAILY FOR URINARY RETENTIO N ORAL DISCONT INUED (EDIT) 07/15/2024 [id number] 4 YULIANA MUNOZ 2022 120 [facility] BETHANECHOL CL 25MG TAB TAKE TWO TABLETS BY MOUTH TWICE DAILY FOR URINARY RETENTIO N ORAL 12/12/2024 [id number] 4 DARRON OSMAN 2023 360 [facility] CARAFATE (BRAND) 1 GM/10 ML ORAL SUSP TAKE 5ML (1 TEASPOON ) BY MOUTH TWICE DAILY FOR ULCER Active 02/16/2025 [id number] RUEL PRICE 2023 828 [facility] CHOLECALCIF BOBBY (VITAMIN D3) LOW TAB TAKE 200 UNITS BY MOUTH EVERY DAY ORAL ACTIVE ALVERTO SANTOS 2015 [facility] CLOPIDOGREL (U/D) 75 MG ORAL TAB TAKE ONE TABLET BY MOUTH ONCE DAILY TO PREVENT BLOOD CLOTS 07/28/2024 [id number] RUEL PRICE 2023 90 [facility] CLOPIDOGREL BISULFATE 75MG TAB TAKE ONE TABLET BY MOUTH ONCE DAILY TO PREVENT BLOOD CLOTS ORAL 07/28/2024 [id number] 4 DARRON OSMAN 2022 90 [facility] CLOPIDOGREL BISULFATE 75MG TAB TAKE ONE TABLET BY MOUTH EVERY DAY ORAL ACTIVE ALVERTO SANTOS 2017 [facility] ([place] CLOTRIMAZOL E 1 % TOP SOLN [30 ML] APPLY 1 DROP TOPICALL Y ONCE DAILY FOR FUNGAL INFECTIO N APPLY TO AFFECTED TOE NAILS WHEN DRY Active 02/19/2025 [id number] CORINA WAYNE D 2023 60 [facility] CLOTRIMAZOL E 1% SOLN,TOP APPLY 1 DROP TOPICALL Y ONCE DAILY FOR FUNGAL INFECTIO N APPLY TO AFFECTED TOE NAILS WHEN DRY TOPICA L ACTIVE 02/19/2025 [id number] 4 GERMÁN WAYNE D 2023 60 [facility] CYMBALTA (BRAND) 30 MG ORAL CPDR TAKE ONE CAPSULE BY MOUTH ONCE DAILY 11/06/2024 [id number] RUEL PRICE 2023 90 [facility] DULOXETINE HCL 30MG CAP,EC TAKE ONE CAPSULE BY MOUTH ONCE DAILY ORAL ACTIVE 03/30/2025 [id number] 4 DARRON OSMAN 2023 90 [facility] DULOXETINE HCL 30MG CAP,EC TAKE ONE CAPSULE BY MOUTH ONCE DAILY ORAL DISCONT INUED (EDIT) 11/06/2024 [id number] 4 DARRON OSMAN 2023 90 [facility] FERROUS SO4 325MG TAB TAKE ONE TABLET BY MOUTH ONCE DAILY TO SUPPLEME NT IRON ORAL 07/28/2024 [id number] 4 DARRON OSMAN 2022 100 [facility] ferrous sulf (U/D) 65MG (325MG) ORAL TAB TAKE ONE TABLET BY MOUTH ONCE DAILYTO SUPPLEME NT IRON 07/28/2024 [id number] 4 RUEL PRICE 2023 100 [facility] FINASTERIDE 5 MG ORAL TAB TAKE ONE TABLET BY MOUTH ONCE DAILY 11/03/2024 [id number] RUEL PRICE 2023 90 [facility] FINASTERIDE 5MG TAB TAKE ONE TABLET BY MOUTH ONCE DAILY ORAL 11/03/2024 [id number] 4 DARRON OSMAN 2023 90 [facility] FINASTERIDE 5MG TAB TAKE ONE TABLET BY MOUTH EVERY DAY ORAL ACTIVE JOSE SALGUERO 2015 [facility] Hydrocortis one (ProctoCrea m-HC Eq.) Cream 2.5% Topical APPLY A SMALL AMOUNT TOPICALL Y ONCE DAILY NEEDED FOR ITCHING 12/20/2023 [id number] RYLEY KING RUEL Carney 2023 60 [facility] HYDROCORTIS ONE 2.5% CREAM,TOP APPLY A SMALL AMOUNT TOPICALL Y ONCE DAILY NEEDED FOR ITCHING TOPICA L 12/20/2023 [id number] 4 DARRON OSMAN 2023 60 [facility] IPRATROPIUM BR 0.06% SOLN,SPRAY, NASAL INSTILL 2 SPRAYS INTO EACH NOSTRIL THREE TIMES A DAY FOR RUNNY NOSE NASAL ACTIVE 03/30/2025 [id number] 4 DARRON OSMAN 2023 45 [facility] KETOCONAZOL E 2% SHAMPOO SHAMPOO MODERATE AMOUNT INTO AFFECTED AREA DIRECTED TOPICA L ACTIVE ALVERTO SANTOS 2015 [facility] Latanoprost (Xalatan Eq.) Solution 0.005% Optical INSTILL 1 DROP INTO EACH EYE AT BEDTIME FOR INCREASE D PRESSURE IN THE EYE 12/04/2024 [id number] 4 KHARI WRIGHT 2023 0 [facility] Latanoprost (Xalatan Eq.) Solution 0.005% Optical INSTILL 1 DROP INTO EACH EYE AT BEDTIME FOR INCREASE D PRESSURE IN THE EYE Discont inued 11/06/2024 [id number] [facility], KHARI B 2023 0 [facility] LATANOPROST 0.005% SOLN,OPH INSTILL 1 DROP INTO EACH EYE AT BEDTIME FOR INCREASE D PRESSURE IN THE EYE OPHTHA LMIC DISCONT INUED 11/06/2024 [id number] 4 [facility],NO B 2023 12.5 [facility] LATANOPROST 0.005% SOLN,OPH INSTILL 1 DROP INTO EACH EYE AT BEDTIME FOR INCREASE D PRESSURE IN THE EYE OPHTHA LMIC 12/04/2024 [id number] [facility] B 2023 7.5 [facility] LATANOPROST 0.005% SOLN,OPH INSTILL 1 DROP INTO BOTH EYES EVERY DAY OPHTHA LMIC ACTIVE ALVERTO SANTOS 2015 [facility] LATANOPROST 0.005% SOLN,OPH INSTILL 1 DROP INTO BOTH EYES DAILY AT BEDTIME BOTH EYES complet ed MACARIO KING 2018 [facility] metoprolol succ (U/D) 25 MG ORAL TB24 TAKE ONE TABLET BY MOUTH ONCE DAILY FOR BLOOD PRESSURE /HEART 11/06/2024 [id number] 4 RUEL PRICE 2023 90 [facility] METOPROLOL SUCCINATE 100MG TAB,SA TAKE ONE-HALF TABLET BY MOUTH EVERY DAY ORAL ACTIVE SALLIE LEROY 2016 [facility] METOPROLOL SUCCINATE 25MG TAB,SA TAKE ONE TABLET BY MOUTH ONCE DAILY FOR BLOOD PRESSURE /HEART ORAL 11/06/2024 [id number] 4 DARRON OSMAN 2023 90 [facility] MULTIVIT/OP HTH AREDS2/LUTE IN/ZEAXANTH IN CAP/TAB TAKE 1 CAPSULE BY MOUTH TWICE DAILY IN THE MORNING AND EVENING, WITH FOOD ORAL 10/13/2024 [id number] 4 CHAPO WRIGHT 2023 120 [facility] MULTIVIT/OP HTH AREDS2/LUTE IN/ZEAXANTH IN CAP/TAB TAKE 1 CAP/TAB BY MOUTH TWICE DAILY WITH MEALS ORAL ACTIVE ALVERTO SANTOS 2017 [facility] MULTIVIT/OP HTH AREDS2/LUTE IN/ZEAXANTH IN TAB,CHEW CHEW TWO TABLETS BY MOUTH ONCE DAILY ORAL ACTIVE DARRON OSMAN 2022 [facility] MULTIVITAMI N/OPTH AREDS2/LUTE /ZEAX CAP/TAB TAKE BY MOUTH TWICE DAILY WITH MEALS ORAL complet MACARIO Puentes 2018 [facility] MULTIVITAMI NS CAP/TAB TAKE 1 CAP/TAB BY MOUTH EVERY DAY ORAL ACTIVE ALVERTO SANTOS 2015 [facility] OMEPRAZOLE 20MG CAP,EC TAKE ONE CAPSULE BY MOUTH EVERY MORNING 30 MINUTES BEFORE BREAKFAS T ORAL ACTIVE 03/12/2025 [id number] 4 DARRON OSMAN [address] [facility] simvastatin (U/D) 40 MG ORAL TAB TAKE ONE TABLET BY MOUTH ONCE DAILY FOR CHOLESTE ROL 11/06/2024 [id number] RUEL PRICE 2023 90 [facility] SIMVASTATIN 40MG TAB TAKE ONE TABLET BY MOUTH ONCE DAILY FOR CHOLESTE ROL ORAL 11/06/2024 [id number] 4 DARRON OSMAN 2023 90 [facility] SIMVASTATIN 80MG TAB TAKE ONE-HALF TABLET BY MOUTH EVERY EVENING ORAL ACTIVE ALVERTO SANTOS 2017 [facility] ([place]) sucralfate (U/D) 1 GM ORAL TAB TAKE ONE TABLET BY MOUTH TWICE DAILY 01/31/2024 [id number] RUEL PRICE 2023 180 [facility] sucralfate (U/D) 1 GM ORAL TAB TAKE ONE TABLET BY MOUTH TWICE DAILY 01/31/2024 [id number] RUEL PRICE 2023 180 [facility] SUCRALFATE 1GM TAB TAKE ONE TABLET BY MOUTH TWICE DAILY FOR ULCER ORAL ACTIVE 03/12/2025 [id number] 4 DARRON OSMAN [address] [facility] SUCRALFATE 1GM TAB TAKE ONE TABLET BY MOUTH TWICE DAILY ORAL 01/31/2024 [id number] 4 DARRON OSMAN [address] [facility] SUCRALFATE 500MG/5ML SUSP,ORAL TAKE 5ML (1 TEASPOON ) BY MOUTH TWICE DAILY FOR ULCER ORAL DISCONT INUED BY PROVIDE R 02/16/2025 [id number] 4 D[facility]SMAN [facility] Immunizations Combined list of available immunizations from the Department of Defense and Veterans Affairs facilities. Immunization Series Date Given Administered By Site Reaction Lot Number CVX Code Drug Presser All Around Status Comments Source INFLUENZA, UNSPECIFIED FORMULATION 2022 88 complet ed HISTORICA L INFORMATI ON - SOURCE UNSPECIFI , [facility] COVID-19 (MODERNA), MRNA, LNP-S, BIVALENT BOOSTER, PF, 50 MCG/0.5 ML OR 25MCG/0.25 ML DOSE 2021 229 complet ed HISTORICA L INFORMATI ON - SOURCE UNSPECIFI , [facility] INFLUENZA, UNSPECIFIED FORMULATION 2021 88 complet ed HISTORICA L INFORMATI ON - SOURCE UNSPECIFI ED, [facility] COVID-19 (MODERNA), MRNA, LNP-S, PF, 100 MCG/0.5ML DOSE OR 50 MCG/0.25ML DOSE 2021 207 complet ed HISTORICA L INFORMATI ON - SOURCE UNSPECIFI ED, [facility] COVID-19 (MODERNA), MRNA, LNP-S, PF, 100 MCG/0.5ML DOSE OR 50 MCG/0.25ML DOSE 3 2020 207 complet ed HISTORICA L INFORMATI ON - SOURCE UNSPECIFI ED, [facility] COVID-19 (MODERNA), MRNA, LNP-S, PF, 100 MCG/0.5ML DOSE OR 50 MCG/0.25ML DOSE 2 2020 207 complet ed HISTORICA L INFORMATI ON - SOURCE UNSPECIFI ED, [facility] COVID-19 (MODERNA), MRNA, LNP-S, PF, 100 MCG/0.5ML DOSE OR 50 MCG/0.25ML DOSE 1 2020 207 complet ed HISTORICA L INFORMATI ON - SOURCE UNSPECIFI ED, [facility] INFLUENZA, UNSPECIFIED FORMULATION 2019 88 complet ed [facility] INFLUENZA, UNSPECIFIED FORMULATION 2018 88 complet ed verbal [facility] TDAP 2017 115 complet ed HISTORICA L INFORMATI ON - SOURCE UNSPECIFI ED, Given at another [facility] PNEUMOCOCCAL POLYSACCHARID E PPV23 2016 33 complet ed HISTORICA L INFORMATI ON - FROM OTHER REGISTRY, Records in [facility] PNEUMOCOCCAL POLYSACCHARID E PPV23 2016 33 complet ed yes [facility] INFLUENZA, UNSPECIFIED FORMULATION 2015 88 complet ed Verbal [facility] PNEUMOCOCCAL CONJUGATE PCV 13 2014 133 complet ed HISTORICA L INFORMATI ON - FROM OTHER REGISTRY, Had out another [place] [facility] PNEUMOCOCCAL CONJUGATE PCV 13 2014 133 complet ed Yes. ASHLI GONZALEZ [facility] Results Combined list of recent chemistry, hematology and other laboratory results from Department of Defense and Veterans Affairs, ranging from 15 months to all on record, depending upon the facility. Order Name Results Value Reference Range Date Interpretation Specimen Comments Source BASIC METABOLIC PANEL (non-fast ing) UREA NITROGEN [MASS/VOLUM E] IN SERUM OR PLASMA 17 mg/dL 7 - 25 02/01 Specimen Type: SERUM No comment entered. Ordering Provider: RUEL BROOKS Report Released Date/Time: Feb 02, 2024 11:25 AM Reporting Lab: [facility] [place] [address] [address] Performing Lab: [facility] [address] [facility] BASIC METABOLIC PANEL (non-fast ing) GLUCOSE [MASS/VOLUM E] IN SERUM OR PLASMA 119 mg/dL 65 - 100 02/01 H Specimen Type: SERUM No comment entered. Ordering Provider: RUEL BROOKS Report Released Date/Time: Feb 02, 2024 11:25 AM Reporting Lab: [facility] [place] [facility] [address] [facility] [address] Performing Lab: [facility] [address] [address] [facility] [place] [facility] BASIC METABOLIC PANEL (non-fast ing) SODIUM [MOLES/VOLU ME] IN SERUM OR PLASMA 136 mmol/L 135 - 145 02/01 Specimen Type: SERUM No comment entered. Ordering Provider: RUEL BROOKS Report Released Date/Time: Feb 02, 2024 11:25 AM Reporting Lab: [facility] [place] [address] [address] Performing Lab: [facility] [address] [facility] BASIC METABOLIC PANEL (non-fast ing) POTASSIUM [MOLES/VOLU ME] IN SERUM OR PLASMA 4.4 mmol/L 3.5 - 5.0 02/01 Specimen Type: SERUM No comment entered. Ordering Provider: RUEL BROOKS Report Released Date/Time: Feb 02, 2024 11:25 AM Reporting Lab: [address] [address] Performing Lab: [address] [address] [facility] BASIC METABOLIC PANEL (non-fast ing) CHLORIDE [MOLES/VOLU ME] IN SERUM OR PLASMA 105 mmol/L 100 - 110 02/01 Specimen Type: SERUM No comment entered. Ordering Provider: RUEL BROOKS Report Released Date/Time: Feb 02, 2024 11:25 AM Reporting Lab: [address] [address] Performing Lab: [phone] [place] [address] BASIC METABOLIC PANEL (non-fast ing) CARBON DIOXIDE, TOTAL [MOLES/VOLU ME] IN SERUM OR PLASMA 23 meq/L 20 - 30 02/01 Specimen Type: SERUM No comment entered. Ordering Provider: RUEL BROOKS Report Released Date/Time: Feb 02, 2024 11:25 AM Reporting Lab: [facility] [address] [address] Performing Lab: [address] [address] [facility] BASIC METABOLIC PANEL (non-fast ing) CREATININE [MASS/VOLUM E] IN SERUM OR PLASMA 0.86 mg/dL 0.50 - 1.40 02/01 Specimen Type: SERUM No comment entered. Ordering Provider: RUEL BROOKS Report Released Date/Time: Feb 02, 2024 11:25 AM Reporting Lab: [facility] [address] [facility] [address] Performing Lab: [facility] [address] [facility] [address] [facility] BASIC METABOLIC PANEL (non-fast ing) GLOMERULAR FILTRATION RATE/1.73 SQ M.PREDICTED [VOLUME RATE/AREA] IN SERUM, PLASMA OR BLOOD BY CREATININE- BASED FORMULA (CKD-EPI 2020) 84 mL/min 60 02/01 Specimen Type: SERUM No comment entered. Ordering Provider: RUEL BROOKS Report Released Date/Time: Feb 02, 2024 11:25 AM Reporting Lab: [facility] [address] [facility] [address] Performing Lab: [facility] [address] [address] [facility] HEMOGLOBI N A1C PANEL HEMOGLOBIN A1C/HEMOGLO BIN.TOTAL [...] 2024 11:25 AM Reporting Lab: [facility] [address] [facility] [address] Performing Lab: [address] [address] [facility] LIVER FUNCTION PROTEIN [MASS/VOLUM E] IN SERUM OR PLASMA 6.2 g/dL 6.0 - 8.3 02/01 Specimen Type: SERUM No comment entered. Ordering Provider: RUEL BROOKS Report Released Date/Time: Feb 02, 2024 11:25 AM Reporting Lab: [facility] [place] [facility] [address] [facility] [address] Performing Lab: [facility] [place] [facility] [address] [facility] [address] [facility] [place] [facility] LIVER FUNCTION ALBUMIN [MASS/VOLUM E] IN SERUM OR PLASMA 3.8 g/dL 3.5 - 5.0 02/01 Specimen Type: SERUM No comment entered. Ordering Provider: RUEL BROOKS Report Released Date/Time: Feb 02, 2024 11:25 AM Reporting Lab: [facility] [place] [facility] [address] [facility] [address] Performing Lab: [facility] [place] [facility] [address] [facility] [address] [facility] [place] [facility] LIVER FUNCTION ALKALINE PHOSPHATASE [ENZYMATIC ACTIVITY/VO LUME] IN SERUM OR PLASMA 106 U/L 40 - 150 02/01 Specimen Type: SERUM No comment entered. Ordering Provider: RUEL BROOKS Report Released Date/Time: Feb 02, 2024 11:25 AM Reporting Lab: [facility] [place] [facility] [address] [facility] [address] Performing Lab: [facility] [place] [facility] [address] [facility] [address] [facility] [place] [facility] LIVER FUNCTION ASPARTATE AMINOTRANSF ERASE [ENZYMATIC ACTIVITY/VO LUME] IN SERUM OR PLASMA 16 U/L 5 - 34 02/01 Specimen Type: SERUM No comment entered. Ordering Provider: RUEL BROOKS Report Released Date/Time: Feb 02, 2024 11:25 AM Reporting Lab: [facility] [place] [facility] [address] [facility] [address] Performing Lab: [facility] [place] [facility] [address] [facility] [address] [facility] [place] [facility] LIVER FUNCTION ALANINE AMINOTRANSF ERASE [ENZYMATIC ACTIVITY/VO LUME] IN SERUM OR PLASMA 14 U/L 02/01 Specimen Type: SERUM No comment entered. Ordering Provider: RUEL BROOKS Report Released Date/Time: Feb 02, 2024 11:25 AM Reporting Lab: [facility] [place] [facility] [address] [facility] [address] Performing Lab: [facility] [place] [facility] [address] [facility] [address] [facility] [place] [facility] LIVER FUNCTION BILIRUBIN.T OTAL [MASS/VOLUM E] IN SERUM OR PLASMA 0.8 mg/dL 0.2 - 1.2 02/01 Specimen Type: SERUM No comment entered. Ordering Provider: RUEL BROOKS Report Released Date/Time: Feb 02, 2024 11:25 AM Reporting Lab: [facility] [place] [address] [address] Performing Lab: [facility] [place] [address] [address] [facility] [place] [facility] TSH THYROTROPIN [UNITS/VOLU ME] IN SERUM OR PLASMA 1.65 u[IU]/ mL 0.35 - 5.00 02/01 Specimen Type: SERUM No comment entered. Ordering Provider: RUEL BROOKS Report Released Date/Time: Feb 02, 2024 11:25 AM Reporting Lab: [facility] [place] [address] [address] Performing Lab: [facility] [place] [address] [address] [facility] [place] [facility] CBC AND DIFF (AUTO) LEUKOCYTES [#/VOLUME] IN BLOOD BY AUTOMATED COUNT 8.28 10*3/u L 4.50 - 11.00 07/28 Specimen Type: BLOOD No comment entered. Ordering Provider: RUEL BROOKS Report Released Date/Time: Jul 28, 2023 01:41 PM Reporting Lab: [facility] [place] [address] [address] Performing Lab: [facility] [place] [address] [address] [facility] [place] CBC AND DIFF (AUTO) ERYTHROCYTE S [#/VOLUME] IN BLOOD BY AUTOMATED COUNT 4.58 10*6/u L 4.23 - 5.66 07/28 Specimen Type: BLOOD No comment entered. Ordering Provider: RUEL BROOKS Report Released Date/Time: Jul 28, 2023 01:41 PM Reporting Lab: [facility] [place] [facility] [address] [facility] [address] Performing Lab: [facility] [place] [facility] [address] [facility] [address] [facility] CBC AND DIFF (AUTO) HEMOGLOBIN [MASS/VOLUM E] IN BLOOD 13.2 g/dL 12.8 - 17 07/28 Specimen Type: BLOOD No comment entered. Ordering Provider: RUEL BROOKS Report Released Date/Time: Jul 28, 2023 01:41 PM Reporting [facility] [place] [facility] [address] [facility] [address] Performing Lab: [facility] [place] [facility] [address] [facility] [address] [facility] [place] [facility] CBC AND DIFF (AUTO) HEMATOCRIT [VOLUME FRACTION] OF BLOOD BY AUTOMATED COUNT 40.7 39.2 - 50.4 07/28 Specimen Type: BLOOD No comment entered. Ordering Provider: RUEL BROOKS Report Released Date/Time: Jul 28, 2023 01:41 PM Reporting Lab: [facility] [place] [facility] [address] [facility] [address] Performing Lab: [facility] [place] [facility] [address] [facility] [address] [facility] [place] [facility] CBC AND DIFF (AUTO) MCV [ENTITIC VOLUME] BY AUTOMATED COUNT 88.9 fL 82 - 99 07/28 Specimen Type: BLOOD No comment entered. Ordering Provider: RUEL BROOKS Report Released Date/Time: Jul 28, 2023 01:41 PM Reporting Lab: [facility] [place] [facility] [address] [facility] [address] Performing Lab: [facility] [place] [facility] [address] [facility] [address] [facility] CBC AND DIFF (AUTO) MCHC [MASS/VOLUM E] BY AUTOMATED COUNT 32.4 g/dL 30.8 - 35.1 07/28 Specimen Type: BLOOD No comment entered. Ordering Provider: RUEL BROOKS Report Released Date/Time: Jul 28, 2023 01:41 PM Reporting Lab: [facility] [place] [facility] [address] [facility] [address] Performing Lab: [facility] [place] [facility] [address] [facility] [address] [facility] CBC AND DIFF (AUTO) PLATELETS [#/VOLUME] IN BLOOD BY AUTOMATED COUNT 314 10*3/u L 140 - 360 07/28 Specimen Type: BLOOD No comment entered. Ordering Provider: RUEL BROOKS Report Released Date/Time: Jul 28, 2023 01:41 PM Reporting Lab: [facility] [place] [facility] [address] [facility] [address] Performing Lab: [facility] [place] [facility] [address] [facility] [address] [facility] CBC AND DIFF (AUTO) ERYTHROCYTE DISTRIBUTIO N WIDTH [RATIO] BY AUTOMATED COUNT 14.2 12.0 - 16.0 07/28 Specimen Type: BLOOD No comment entered. Ordering Provider: RUEL BROOKS Report Released Date/Time: Jul 28, 2023 01:41 PM Reporting Lab: [facility] [place] [facility] [address] [facility] [address] Performing Lab: [facility] [place] [facility] [address] [facility] [address] [facility] CBC AND DIFF (AUTO) MONOCYTES [#/VOLUME] IN BLOOD BY AUTOMATED COUNT 0.97 10*3/u L 0.30 - 1.10 07/28 Specimen Type: BLOOD No comment entered. Ordering Provider: RUEL BROOKS Report Released Date/Time: Jul 28, 2023 01:41 PM Reporting Lab: [facility] [place] [facility] [address] [facility] [address] Performing Lab: [facility] [place] [facility] [address] [facility] [address] [facility] CBC AND DIFF (AUTO) MCH [ENTITIC MASS] BY AUTOMATED COUNT 28.8 pg 26.2 - 32.6 07/28 Specimen Type: BLOOD No comment entered. Ordering Provider: RUEL BROOKS Report Released Date/Time: Jul 28, 2023 01:41 PM Reporting Lab: [facility] [place] [facility] [address] [facility] [address] Performing Lab: [facility] [place] [facility] [address] [facility] [address] [facility] [place] [facility] CBC AND DIFF (AUTO) NEUTROPHILS /100 LEUKOCYTES IN BLOOD BY AUTOMATED COUNT 66.7 43.7 - 75.8 07/28 Specimen Type: BLOOD No comment entered. Ordering Provider: RUEL BROOKS Report Released Date/Time: Jul 28, 2023 01:41 PM Reporting Lab: [facility] [place] [facility] [address] [facility] [address] Performing Lab: [facility] [place] [facility] [address] [facility] [address] [facility] CBC AND DIFF (AUTO) LYMPHOCYTES /100 LEUKOCYTES IN BLOOD BY AUTOMATED COUNT 17.3 14.0 - 42.3 07/28 Specimen Type: BLOOD No comment entered. Ordering Provider: RUEL BROOKS Report Released Date/Time: Jul 28, 2023 01:41 PM Reporting Lab: [facility] [place] [facility] [address] [facility] [address] Performing Lab: [facility] [place] [facility] [address] [facility] [address] [facility] CBC AND DIFF (AUTO) MONOCYTES/1 00 LEUKOCYTES IN BLOOD BY AUTOMATED COUNT 11.7 5.1 - 13.7 07/28 Specimen Type: BLOOD No comment entered. Ordering Provider: RUEL BROOKS Report Released Date/Time: Jul 28, 2023 01:41 PM Reporting Lab: [facility] [place] [address] [address] Performing Lab[facility] [place] [facility] [address] [facility] [address] [facility] [place] CBC AND DIFF (AUTO) EOSINOPHILS /100 LEUKOCYTES IN BLOOD BY AUTOMATED COUNT 3.7 0.4 - 6.8 07/28 Specimen Type: BLOOD No comment entered. Ordering Provider: RUEL BROOKS Report Released Date/Time: Jul 28, 2023 01:41 PM Reporting Lab: [facility] [place] [address] [address] Performing Lab: [facility] [place] [address] [address] [facility] [place] [facility] CBC AND DIFF (AUTO) BASOPHILS/1 00 LEUKOCYTES IN BLOOD BY AUTOMATED COUNT 0.4 0.1 - 2.0 07/28 Specimen Type: BLOOD No comment entered. Ordering Provider: RUEL BROOKS Report Released Date/Time: Jul 28, 2023 01:41 PM Reporting Lab: [facility] [place] [address] [address] Performing Lab: [facility] [place] [address] [address] [facility] CBC AND DIFF (AUTO) NEUTROPHILS [#/VOLUME] IN BLOOD BY AUTOMATED COUNT 5.52 10*3/u L 2.20 - 7.60 07/28 Specimen Type: BLOOD No comment entered. Ordering Provider: RUEL BROOKS Report Released Date/Time: Jul 28, 2023 01:41 PM Reporting Lab: [facility] [place] [address] [address] Performing Lab: [facility] [place] [facility] [address] [facility] [address] [facility] [place] [facility] CBC AND DIFF (AUTO) LYMPHOCYTES [#/VOLUME] IN BLOOD BY AUTOMATED COUNT 1.43 10*3/u L 1.00 - 3.20 07/28 Specimen Type: BLOOD No comment entered. Ordering Provider: RUEL BROOKS Report Released Date/Time: Jul 28, 2023 01:41 PM Reporting Lab: [facility] [place] [facility] [address] [facility] [address] Performing Lab: [facility] [place] [facility] [address] [facility] [address] [facility] [place] [facility] CBC AND DIFF (AUTO) EOSINOPHILS [#/VOLUME] IN BLOOD BY AUTOMATED COUNT 0.31 10*3/u L 0.03 - 0.44 07/28 Specimen Type: BLOOD No comment entered. Ordering Provider: RUEL BROOKS Report Released Date/Time: Jul 28, 2023 01:41 PM Reporting Lab: [facility] [place] [address] [address] Performing Lab: [facility] [place] [facility] [address] [facility] [address] [facility] CBC AND DIFF (AUTO) BASOPHILS [#/VOLUME] IN BLOOD BY AUTOMATED COUNT 0.03 10*3/u L 0.01 - 0.13 07/28 Specimen Type: BLOOD No comment entered. Ordering Provider: RUEL BROOKS Report Released Date/Time: Jul 28, 2023 01:41 PM Reporting Lab: [facility] [place] [address] [address] Performing Lab: [facility] [place] [address] [address] [facility] [place] [facility] CBC AND DIFF (AUTO) IMMATURE GRANULOCYTE S/100 LEUKOCYTES IN BLOOD BY AUTOMATED COUNT 0.2 0.0 - 0.7 07/28 Specimen Type: BLOOD No comment entered. Ordering Provider: RUEL BROOKS Report Released Date/Time: Jul 28, 2023 01:41 PM Reporting Lab: [facility] [place] [facility] [address] [facility] [address] Performing Lab: [facility] [place] [facility] [address] [facility] [address] [facility] [place] [facility] CBC AND DIFF (AUTO) IMMATURE GRANULOCYTE S [#/VOLUME] IN BLOOD 0.02 10*3/u L 0.00 - 0.06 07/28 Specimen Type: BLOOD No comment entered. Ordering Provider: RUEL BROOKS Report Released Date/Time: Jul 28, 2023 01:41 PM Reporting Lab: [facility] [place] [facility] [address] [facility] [address] Performing Lab: [facility] [place] [facility] [address] [facility] [address] [facility] [place] [facility] FERRITIN FERRITIN [MASS/VOLUM E] IN SERUM OR PLASMA 76 ng/mL 20 - 300 07/28 Specimen Type: SERUM No comment entered. Ordering Provider: RUEL BROOKS Report Released Date/Time: Jul 28, 2023 01:41 PM Reporting Lab: [facility] [place] [facility] [address] [facility] [address] Performing Lab: [facility] [place] [facility] [address] [facility] [address] [facility] [place] [facility] IRON & TIBC PANEL IRON BINDING CAPACITY [MASS/VOLUM E] IN SERUM OR PLASMA 259 ug/dL 204 - 475 07/28 Specimen Type: SERUM No comment entered. Ordering Provider: RUEL BROOKS Report Released Date/Time: Jul 28, 2023 01:41 PM Reporting Lab: [facility] [place] [facility] [address] [facility] [address] Performing Lab: [facility] [place] [facility] [address] [facility] [address] [facility] [place] [facility] IRON & TIBC PANEL IRON [MASS/VOLUM E] IN SERUM OR PLASMA 32 ug/dL 40 - 160 07/28 L Specimen Type: SERUM No comment entered. Ordering Provider: RUEL BROOKS Report Released Date/Time: Jul 28, 2023 01:41 PM Reporting Lab: [facility] [address] [facility] [address] Performing Lab: [address] [address] [facility] IRON & TIBC PANEL IRON/IRON BINDING CAPACITY.TO RUBÉN [MASS RATIO] IN SERUM OR PLASMA 12.4 20.0 - 50.0 07/28 L Specimen Type: SERUM No comment entered. Ordering Provider: RUEL BROOKS Report Released Date/Time: Jul 28, 2023 01:41 PM Reporting Lab: [facility] [address] [facility] [address] Performing Lab: [address] [address] [facility] HEMOGLOBI N A1C PANEL HEMOGLOBIN A1C/HEMOGLO BIN.TOTAL [...] Mar 06, 2023 03:28 PM Reporting Lab: [facility] [address] [facility] [address] Performing Lab: [address] [address] [facility] SMEAR EXAMINATI ON PLATELET MORPHOLOGY FINDING [IDENTIFIER ] IN BLOOD ADEQ10 *3/uL 03/06 Specimen Type: BLOOD No comment entered. Ordering Provider: RUEL BROOKS Report Released Date/Time: Mar 06, 2023 03:28 PM Reporting Lab: [facility] [place] [facility] [address] [facility] [address] Performing Lab: [facility] [place] [facility] [address] [facility] [address] [facility] SMEAR EXAMINATI ON ANISOCYTOSI S [PRESENCE] IN BLOOD BY LIGHT MICROSCOPY 103/06 Specimen Type: BLOOD No comment entered. Ordering Provider: RUEL BROOKS Report Released Date/Time: Mar 06, 2023 03:28 PM Reporting Lab: [facility] [place] [facility] [address] [facility] [address] Performing Lab: [facility] [place] [facility] [address] [facility] [address] [facility] SMEAR EXAMINATI ON MICROCYTES [PRESENCE] IN BLOOD BY LIGHT MICROSCOPY 03/06 Specimen Type: BLOOD No comment entered. Ordering Provider: RUEL BROOKS Report Released Date/Time: Mar 06, 2023 03:28 PM Reporting Lab: [facility] [place] [facility] [address] [facility] [address] Performing Lab: [facility] [place] [address] [facility] [address] [facility] SMEAR EXAMINATI ON MACROCYTES [PRESENCE] IN BLOOD BY LIGHT MICROSCOPY 03/06 Specimen Type: BLOOD No comment entered. Ordering Provider: RUEL BROOKS Report Released Date/Time: Mar 06, 2023 03:28 PM Reporting Lab: [facility] [place] [address] [facility] [address] Performing Lab: [facility] [place] [facility] [address] [facility] [address] [facility] SMEAR EXAMINATI ON POLYCHROMAS IA [PRESENCE] IN BLOOD BY LIGHT MICROSCOPY 1+ 03/06 Specimen Type: BLOOD No comment entered. Ordering Provider: RUEL BROOKS Report Released Date/Time: Mar 06, 2023 03:28 PM Reporting Lab: [facility] [place] [facility] [address] [facility] [address] Performing Lab: [facility] [place] [facility] [address] [facility] [address] [facility] [place] [facility] SMEAR EXAMINATI ON HYPOCHROMIA [PRESENCE] IN BLOOD BY LIGHT MICROSCOPY 103/06 Specimen Type: BLOOD No comment entered. Ordering Provider: RUEL BROOKS Report Released Date/Time: Mar 06, 2023 03:28 PM Reporting Lab: [facility] [place] [facility] [address] [facility] [address] Performing Lab: [facility] [place] [facility] [address] [facility] [address] [facility] [place] [facility] THYROID T4 FREE(FT4) THYROXINE (T4) FREE [MASS/VOLUM E] IN SERUM OR PLASMA 0.80 ng/dL 0.6 - 1.6 03/06 Specimen Type: SERUM No comment entered. Ordering Provider: RUEL BROOKS Report Released Date/Time: Mar 06, 2023 03:28 PM Reporting Lab: [facility] [place] [facility] [address] [facility] [address] Performing Lab: [facility] [place] [facility] [address] [facility] [address] [facility] [place] [facility] Vital Signs Combined list of inpatient and outpatient Vital Signs from Department of Defense and Veterans Affairs, ranging from 12 months to all on record, depending upon the facility. Vital Sign Value Date Comments Source SYSTOLIC BLOOD PRESSURE 133 11/16/19 25 14:15:15 [facility] [place] [facility] DIASTOLIC BLOOD PRESSURE 78 025 14[facility]15:15 [facility] [place] [facility] PULSE OXIMETRY 95 11/15/2024 14:15:15 [facility] [...] ADM Date DC Date Status Disposition Source [facility] OUTPATIENT [id number] LUMBAR SPINE STENOSI S PARIS GARZA 03/19 Released w/o Limitations [facility] En[facility] [id number] 07/15 [facility] OFFICE O/P EST MOD 30-39 MIN [id number] Diagnos is: ICD-10- CM M48.061 Spinal stenosi s, lumbar region without neuroge ashley ying KIARA SZYMANSKI H 07/28 [facility] En[facility] [id number] 08/04 [facility] En[facility] [id number] 08/11 [facility] OFFICE O/P NEW SF 15 MIN [id number] Diagnos is: ICD-10- CM R60.[address] ized edema [address] PHIPPS JUAN PABLOD 10/01 [facility] En[facility] [id number] 10/01 [facility] En[facility] [id number] 10/13 [facility] En[facility] [id number] 11/02 [facility] En[facility] [id number] 11/05 [facility] En[facility] [id number] 11/05 [facility] En[facility] [id number] 11/17 [facility] Encounter [id number] DAKSHA WAYNE 11/18 [facility] OFF[facility] O/P EST MOD 30 MIN [id number] Diagnos is: ICD-10- CM L21.9 Seborrh eic dermati tis, unspeci RUEL Bowens 11/19 [facility] En[facility] [id number] 11/25 [facility] En[facility] [id number] 12/11 [facility] Encounter [id number] 12/22 [facility] En[facility] [id number] 01/04 [facility] Encounter [id number] 01/07 [facility] En[facility] [id number] 01/21 [facility] En[facility] [id number]/21 [facility] HEARING AID REPAIR/MOD IFYING [id number] Diagnos is: ICD-10- CM Z46.1 Encount er for fitting and adjustm ent of hearing aid AKIL HOLDEN 01/29 [facility] OFFICE O/P EST MOD 30 MIN [id number] Diagnos is: ICD-10- CM M25.562 Pain in left knee DRUEL WILSON 02/01 [facility] Out[facility] En[facility] [id number] 02/10 [facility] Encounter [id number] 02/15 [facility] TRIM NAIL(S) ANY NUMBER [id number] Diagnos is: ICD-10- CM B35.1 Tinea unguialex WAYNE CHA DELTAMADELEINE Lane 02/18 [facility] En[facility] [id number] 03/01 [facility] OFFICE O/P NEW MOD 45 MIN [id number] Diagnos is: ICD-10- CM M25.562 Pain in left knee Lane ROME 03/10 [facility] Out[facility] Encounter [id number] 03/11 [facility] Out[facility] Encounter [id number] 03/19 [facility] Encounter [id number] 03/26 [facility] Out[facility] Encounter [id number] 03/26 [facility] Out[facility] Encounter [id number] 03/26 [facility] OFFICE O/P EST LOW 20 MIN [id number] Diagnos is: ICD-10- CM J30.0 Vasomot or rhiniti s RUEL RICE 03/29 [facility] Out[facility] Encounter [id number] 03/30 [facility] GAIT TRAINING THERAPY [id number] Diagnos is: ICD-10- CM M48.062 Spinal stenosi s, lumbar region with neuroge ashley claudic ation ALBARADO TOBIAS REA 04/12 [place] [facility] Out[facility] Encounter [id number] SCOT KINGRUEL Carney 04/12 [facility] HEARING AID REPAIR/MOD IFYING [id number] Diagnos is: ICD-10- CM Z46.1 Encount er for fitting and adjustm ent of hearing aid ORTIZ REAL 04/20 [facility] THERAPEUTI C EXERCISES [id number] Diagnos is: ICD-10- CM M48.062 Spinal stenosi s, lumbar region with neuroge ashley claudic ation Davy ALANIZ JODIE 04/21 [facility] THERAPEUTI C EXERCISES [id number] Diagnos is: ICD-10- CM M48.062 Spinal stenosi s, lumbar region with neuroge ashley claudic ation Davy ALANIZ JODIE 04/27 [facility] THERAPEUTI C EXERCISES [id number] Diagnos is: ICD-10- CM M48.062 Spinal stenosi s, lumbar region with neuroge ashley claudic ation Davy ALANIZ JODIE 05/04 [facility] OFFICE O/P EST LOW 20 MIN [id number] Diagnos is: ICD-10- CM M17.12 Unilate ral primary osteoar thritis , left knee WILDLaen MATHEW Norm 05/18 [facility] Out[facility] Encounter [id number] 05/18 [facility] SELF CARE MNGMENT TRAINING [id number] Diagnos is: ICD-10- CM M48.062 Spinal stenosi s, lumbar region with neuroge ashley Davy Mathews 05/18 [facility] Out[facility] Encounter [id number] RUEL RICE 05/19 [facility] HEARING AID REPAIR/MOD IFYING [id number] Diagnos is: ICD-10- CM Z46.1 Encount er for fitting and adjustm ent of hearing aid SENIORASHLEY 05/25 [facility] THERAPEUTI C EXERCISES [id number] Diagnos is: ICD-10- CM M48.062 Spinal stenosi s, lumbar region with neuroge ashley claudDavy Alonso 05/25 [facility] [place] [facility] MNGMENT TRAINING [id number] Diagnos is: ICD-10- CM M48.062 Spinal stenosi s, lumbar region with neuroge ashley claudic atTOBIAS Andrews 06/08 [place] [facility] Outpatient Encounter [id number] [facility] [id number] [facility] [id number] 07/09 [facility] [id number] 07/13 [facility] [id number] 1.07/13 [facility] [id number] 1.07/14 [facility] [id number] 07/15 [facility] [id number] 07/21 [facility] [id number] 08/11 [facility] [id number] 1.08/11 [facility] [id number] 1[facility]08/12 [facility] [id number] 1.08/13 [facility] [id number] 08/13 [facility] [id number] 08/14 [facility] [id number] 08/16 [facility] OFFICE O/P EST MOD 30 MIN [id number] Diagnos is: ICD-10- CM 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 ROSANA,JESSICA RLES D 08/19 [facility] [id number] 08/19 [facility] [id number] [facility] [id number] 09/03 [facility] [id number] 09/09 [facility] [id number] 09/14 [facility] [id number] 09/15 [facility] [facility] En[facility] [id number] 09/16 [facility] En[facility] [id number] 09/29 [facility] En[facility] [id number] 09/29 [facility] En[facility] [id number] 09/29 [facility] En[facility] [id number] 10/01 [facility] En[facility] [id number] 10/04 [facility] En[facility] [id number] 10/06 [facility] En[facility] [id number] 10/08 [facility] En[facility] [id number] 10/08 [facility] En[facility] [id number] 10/11 [facility] En[facility] [id number] 10/11 [facility] En[facility] [id number] RUEL RICE 10/12 [facility] En[facility] [id number] 10/14 [facility] En[facility] [id number] 10/20 [facility] En[facility] [id number] 10/20 [facility] En[facility] [id number] 11/15 [facility] OFFICE O/P EST MOD 30 MIN [id number] Diagnos is: ICD-10- CM 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 , unspeci fied RUEL RICE 11/15 [facility] En[facility] [id number] 11/19 [facility] Encounter [id number] 11/30 [facility] En[facility] [id number] 12/03 [facility] En[facility] [id number] 12/06 [facility] En[facility] [id number] 04/10 /2025 [facility] En[facility] [id number] 12/30 [facility] En[facility] [id number] 01/04 [facility] En[facility] [id number] 01/10 [facility] En[facility] [id number] 01/12 [facility] Social History Combined list of available smoking, tobacco, and other social history from Department of Defense and Veterans Affairs facilities. Social History Type Response Date Comment Sour e Tobacco smoking status NHIS VA-TOBACCO NEVER USED CIGARETTES 11/15/2024 [facility] [place] History of tobacco use MI-TOBACCO NEVER USED OTHER TYPE 11/15/2024 [facility] [place] History of tobacco use VA-TOBACCO FORMER USER 11/20/2023 [facility] [place] History of tobacco use VA-TOBACCO FORMER USER 09/05/2022 [facility] [place] History of tobacco use VA-TOBACCO FORMER USER 03/26/2021 [facility] [place] of tobacco use VA-TOBACCO NEVER USED 03/20/2020 [facility] [place] History of tobacco use LIFETIME NON-USER OF TOBACCO 04/15/2017 [facility] [place] This section is an empty social history section. DoD Plan of Care List of future care activities from Department of Veterans Affairs facilities. Additional future care activities may be listed in the Assessment and Plan section. Date/Time Care Activity Care Activity Detail Facili ty 02/01/2025 AMBULATORY - MEDICINE AMBULATORY - MEDICI [facility] [place] [facility]
--- OUTSIDE RECORDS SUMMARY | 2025-01-12 12:55 | XMS_ITS | Encounter Summary ---
Author Organization [facility] Address [address] [place] [address] Care Team Providers Care Spar Finisher Name Role Phone Keaton Anton MD Primary Care Provider [phone] Encounter Details Date Type Department Care Team (Late st Contact Info) Description 07/19/2024 Lab Requisition [facility] - Main Lab [address] [place] [address] Keaton Anton MD [address] [place] [address] Other hyperlipidemia Social History Tobacco [...] LAB CHEMISTRY METHOD 07/19/2024 12:43 PM EST [facility] Potassium 4.2 3.5 - 5.5 mmol/L LAB CHEMISTRY METHOD 07/19/2024 12:43 PM EST [facility] Chloride 104 96 - 110 mmol/L LAB CHEMISTRY METHOD 07/19/2024 12:43 PM [facility] CO2 22 21 - 32 mmol/L LAB CHEMISTRY METHOD 07/19/2024 12:43 PM [facility] Anion Gap 10 3 - 11 LAB CHEMISTRY METHOD 07/19/2024 12:43 PM [facility] Glucose 87 70 - 100 mg/dL LAB CHEMISTRY METHOD 07/19/2024 12:43 PM [facility] BUN 20 5 - 25 mg/dL LAB CHEMISTRY METHOD 07/19/2024 12:43 PM [facility] Creatinine 0.82 0.70 - 1.30 mg/dL LAB CHEMISTRY METHOD 07/19/2024 12:43 PM [facility] eGFR 85 >=60 mL/min/1. 73m2 LAB CHEMISTRY METHOD 07/19/2024 12:43 PM [facility] Comment:Calculation based on the??Chronic Kidney Disease Epidemiology Collaboration (CKD-EPI) equation refit??without adjustment for race. BUN/Creatinine Ratio 24.4 LAB CHEMISTRY METHOD 07/19/2024 12:43 PM [facility] Calcium 8.9 8.5 - 10.5 mg/dL LAB CHEMISTRY METHOD 07/19/2024 12:43 PM [facility] AST (SGOT) 47(H) 10 - 42 unit/L LAB CHEMISTRY METHOD 07/19/2024 12:43 PM [facility] ALT (SGPT) 75(H) 10 - 60 unit/L LAB CHEMISTRY METHOD 07/19/2024 12:43 PM [facility] Alkaline Phosphatase 113 42 - 121 unit/L LAB CHEMISTRY METHOD 07/19/2024 12:43 PM [facility] Total Protein 5.4(L) 6.0 - 8.0 g/dL LAB CHEMISTRY METHOD 07/19/2024 12:43 PM [facility] Albumin 2.9(L) 3.2 - 5.0 g/dL LAB CHEMISTRY METHOD 07/19/2024 12:43 PM EST [facility] Total Bilirubin 0.6 0.0 - 1.4 mg/dL LAB CHEMISTRY METHOD 07/19/2024 12:43 PM [facility] Blood Venous blood specimen / Unknown Venipuncture / Unknown 07/19/2024 6:20 AM EST 07/19/2024 9:39 AM EST us Keaton Anton MD LAB BLOOD ORDERABLES Final Resu lt [facility] [address] [place] [address], * Basic metabolic panel (07/19/2024 6:20 AM EST) Sodium 140 133 - 145 mmol/L LAB CHEMISTRY METHOD 07/19/2024 11:08 AM [facility] Potassium 4.3 3.5 - 5.5 mmol/L LAB CHEMISTRY METHOD 07/19/2024 11:08 AM [facility] Chloride 108 96 - 110 mmol/L LAB CHEMISTRY METHOD 07/19/2024 11:08 AM [facility] CO2 23 21 - 32 mmol/L LAB CHEMISTRY METHOD 07/19/2024 11:08 AM [facility] Anion Gap 9 3 - 11 LAB CHEMISTRY METHOD 07/19/2024 11:08 AM [facility] Glucose 83 70 - 100 mg/dL LAB CHEMISTRY METHOD 07/19/2024 11:08 AM [facility] BUN 20 5 - 25 mg/dL LAB CHEMISTRY METHOD 07/19/2024 11:08 AM [facility] Creatinine 0.84 0.70 - 1.30 mg/dL LAB CHEMISTRY METHOD 07/19/2024 11:08 AM [facility] eGFR 84 >=60 mL/min/1. 73m2 LAB CHEMISTRY METHOD 07/19/2024 11:08 AM [facility] Comment:Calculation based on the??Chronic Kidney Disease Epidemiology Collaboration (CKD-EPI) equation refit??without adjustment for race. BUN/Creatinine Ratio 23.8 LAB CHEMISTRY METHOD 07/19/2024 11:08 AM [facility] Calcium 8.8 8.5 - 10.5 mg/dL LAB CHEMISTRY METHOD 07/19/2024 11:08 AM [facility] Blood Venous blood specimen / Unknown Venipuncture / Unknown 07/19/2024 6:20 AM EST 07/19/2024 9:39 AM EST us Keaton Anton MD LAB BLOOD ORDERABLES Final Resu lt [facility] [address] [place] [address], * (ABNORMAL) Complete blood count (07/19/2024 6:20 AM EST) WBC 11.2(H) 4.8 - 10.8 K/[facility] LAB HEMETOLOGY METHOD 07/19/2024 10:43 AM [facility] RBC 4.70 4.50 - 5.50 M/[facility] LAB HEMETOLOGY METHOD 07/19/2024 10:43 AM [facility] Hemoglobin 14.0 13.5 - 17.5 g/dL LAB HEMETOLOGY METHOD 07/19/2024 10:43 AM [facility] Hematocrit 43.5 42.0 - 54.0 % LAB HEMETOLOGY METHOD 07/19/2024 10:43 AM [facility] MCV 91.8 79.0 - 98.0 FL LAB HEMETOLOGY METHOD 07/19/2024 10:43 AM [facility] MCH 29.5 27.0 - 32.0 pcg LAB HEMETOLOGY METHOD 07/19/2024 10:43 AM EST [facility] MCHC 32.2 32.0 - 37.0 g/dL LAB HEMETOLOGY METHOD 07/19/2024 10:43 AM [facility] RDW 13.4 11.0 - 15.0 % LAB HEMETOLOGY METHOD 07/19/2024 10:43 AM [facility] Platelets 276 130 - 400 K/mcL LAB HEMETOLOGY METHOD 07/19/2024 10:43 AM [facility] MPV 9.9 7.0 - 11.0 FL LAB HEMETOLOGY METHOD 07/19/2024 10:43 AM [facility] NRBC 0.0 <1.0 % LAB HEMETOLOGY METHOD 07/19/2024 10:43 AM [facility] NRBC Absolute 0.00 <0.10 K/mcL LAB HEMETOLOGY METHOD 07/19/2024 10:43 AM [facility] Blood Venous blood specimen / Unknown Venipuncture / Unknown 07/19/2024 6:20 AM EST 07/19/2024 9:39 AM EST us Keaton Anton MD LAB BLOOD ORDERABLES Final Resu lt [facility] [address] [place] [address], documented in this encounter Visit Diagnoses Diagnosis Other hyperlipidemia documented in this encounter Care Teams Spar Finisher Relationship Specialty Start Date End Date Keaton Anton MD [address] [place] [address] PCP - General Internal Medicine 07/19/24 documented as of this encounter
[2025-01-12 13:11] LABS: Hematocrit 45.8 % (42.0-52.0); Hemoglobin 15.6 g/dl (14.0-18.0); Mean Corpuscular HGB Conc 34.1 g/dl (31.0-36.0); Mean Corpuscular Hemoglobin 29.9 pg (27.0-33.0); Mean Corpuscular Volume 87.7 fL (80.0-98.0); Mean Platelet Volume 9.1 fL (9.4-12.4); Platelet Count 320 X10*3/uL (160-400); Red Blood Count 5.22 X10*6/uL (4.60-5.80); Red Cell Distribution Width 13.6 % (11.0-16.0); White Blood Count 8.2 X10*3/uL (4.8-10.8)
[2025-01-12 13:28] LABS: Alanine Aminotransferase 13 U/L (0-40); Albumin Level 4.2 g/dL (3.5-5.0); Alkaline Phosphatase 102 U/L (39-117); Anion Gap 14 (12-20); Aspartate Amino Transferase 19 U/L (5-37); Bilirubin Direct 0.2 mg/dL (0.0-0.5); Bilirubin Total 1.2 mg/dL (0.0-1.0); Blood Urea Nitrogen 16 mg/dL (9-16); Calcium 9.3 mg/dL (8.4-10.2); Carbon Dioxide 24 mmol/L (22-29); Chloride 107 mmol/L (96-108); Cholesterol 222 mg/dL (<200); Estimated Glomerular Filt Rate > 60; Glucose Random 99 mg/dL (60-115); HDL Cholesterol 66 mg/dL (>40); LDL Cholesterol Calculated 135 mg/dL (<100); Potassium 4.5 mmol/L (3.3-5.1); Sodium 140 mmol/L (135-145); Triglycerides 107 mg/dL (<150)
== END 2025-01-12 12:28 | disposition home or self-care (01) ==
LOC: HO.10HDL 12:27
PROVIDERS: Visit Provider Internal Medicine
DX: I25.10 Atherosclerotic heart disease of native coronary artery without angina pectoris (principal); R32 Unspecified urinary incontinence; K44.9 Diaphragmatic hernia without obstruction or gangrene; R41.3 Other amnesia; E78.5 Hyperlipidemia, unspecified; F32.A Depression, unspecified; N40.0 Benign prostatic hyperplasia without lower urinary tract symptoms; Z79.899 Other long term (current) drug therapy
CPT/HCPCS: 36415; 80048; 80061; 80076; 84443; 85027; 96127; 99202

== ENCOUNTER 2025-07-13 11:07 | Outpatient (AMB) | payer MEDICARE, SELFPAY ==
--- OUTSIDE RECORDS SUMMARY | 2022-06-24 07:46 | XMS_ITS | Continuity of Care Document ---
Author Organization [facility] Address [address] [place] [address] Phone Care Team Providers Care Coil Tier Name Role Phone Henrry Haley MD Unavailable Unavailable Allergies, Adverse Reactions, Alerts Substance Reaction Status Criticality Tetanus Vaccines and Toxoid Active No Information Medications Medication Instructions Dosage Effective Dates (start - stop) Status Comments metoprolol succinate ER 100 mg tablet,extended release 24 hr - Active simvastatin 10 mg tablet - Activ e finasteride 5 mg tablet - Active latanoprost 0.005 % eye drops - Active Aspir-81 81 mg tablet,delayed release - Active multivitamin tablet - Active ibuprofen 200 mg capsule - Activ e Procedures Procedure Date Office/outpatient visit,est, mod 2021 Inject foramin, lumb/sacral, single Office/outpatient visit,est, mod 2021 Inject foramin, lumb/sacral, single Office/outpatient visit,est, mod 2019 Inject foramin, lumb/sacral, single Brief check in by md/qhp Office/outpatient visit,est, mod 2019 Office/outpatient visit,est, mod 2019 Inject foramin, lumb/sacral, single Office/outpatient visit,est, mod 2019 MRI Lumbar Spine wo Contrast Office/outpatient visit,est, mod 2019 Inject foramin, lumb/sacral, single Office/outpatient visit,est, mod 2018 Inject foramin, lumb/sacral, single Office/outpatient visit,est, mod 2018 X-ray exam lower spine 2-3 views 2018 Inject foramin, lumb/sacral, single Office/outpatient visit,est, mod 2016 Office/outpatient visit,new, mod 2016 Advance Directives Directive Yes / No Effective Date File Name No Information Encounters Encounter Description Practice Location Reason(s) For Visit Diagnoses Date Provider Providers Copied on Encounter [facility], [facility] [address], [place], [place], [facility], tel:[phone] [facility] No Information 2 Sudha Sales. [address], [address], [place], [place], [id number] , [place]. tel:[phone] Referring Provider: Henrry Sanches [address], [place], [address] . tel:[phone] Office/outpa tient visit,est, mod [facility], [address], [place], [address], [place] tel:[phone] [facility] Spinal stenosis, lumbar region without neurogenic claudOther spondylosis, lumbar regionOther low back pain 2 Sudha Sales. [address], [facility] [place] [id number] , [place]. tel:[phone] Primary Practice Provider: Henrry Pan, [address] [place], [address] . tel:[phone] erring Provider: Henrry Sanches [address], [facility] [place], [address] . tel:[phone] [facility], [facility] [address], [place], [address], [place] tel:[phone] [facility] No Information 2 Sudha Sales. [address], [facility] [place] [id number] , [place]. tel:[phone] Referring Provider: Henrry Sanches, [address], [place], [address] . tel:[phone] Office/outpa tient visit,est, mod [facility], [address], [place], [address], [place] tel:[phone] Other low back painSpondylosi s w/o myelopathy or radiculopathy, lumbar regionSpinal stenosis, lumbar region without neurogenic ying Sep-2 2 Sudha Sales. [address], [place], [id number] , [place]. tel:[phone] Referring Provider: Henrry Sanches, [address], [facility], [address] . tel:[phone] [facility], [facility] [place], [address], [place] tel:[phone] [facility] No Information 0 Elliot Sales. [address] [facility], [place], [place], [id number] , [place]. tel:[phone] Referring Provider: Henrry Hogan, [address] [facility], [place], [address] . tel:[phone] Office/outpa tient visit,est, mod [facility], [facility] [place], [address], [place] tel:[phone] [facility] No Information 0 Elliot Sales. [address], [place], [place], [id number] , [place]. tel:[phone] [facility], [facility] [place], [address], [place] tel:[phone] [address] [place] [address] No Information 0 Elliot Sales. [address], [id number] , [place]. tel:[phone] Referring Provider: Henrry Hogan, [address] [place], [address] . tel:[phone] [facility], [facility] [address] [place], [place], [facility], [place] tel:[phone] 700 [facility] No Information 0 Elliot Sales. [address] [facility], [place], [place], [id number] , [place]. tel:[phone] Office/outpa tient visit,est, mod [facility], [facility] [address] [place], [place], [facility], [place] tel:[phone] [facility] No Information 0 Elliot Sales. [address] [place], [place], [id number] , [place]. tel:[phone] Office/outpa tient visit,est, mod [facility], [facility] [address] [place], [facility], [place] tel:[phone] 700 [facility] No Information 0 Elliot Sales. [address] [place], [place], [id number] , [place]. tel:[phone] [facility], [facility] [address] [place], [facility], [place] tel:[phone] 700 [facility] No Information 0 Elliot Sales. [address] [place], [place], [id number] , [place]. tel:[phone] Referring Provider: Henrry Hogan, [address] [place], [address] . tel:[phone] Office/outpa tient visit,est, mod [facility], [facility] [address] [place], [facility], [place] tel:[phone] 700 [facility] No Information 0 Elliot Sales. [address] [place], [place], [id number] , [place]. tel:[phone] [facility], [address] [facility], [place], [facility], [place] tel:[phone] 700 [facility] No Information 0 Elliot Sales. [address] [place], [place], [id number] , [place]. tel:[phone] Referring Provider: Henrry Hogan, [address] [place], [address] . tel:[phone] Office/outpa tient visit,est, mod [facility], [facility] [address] [place], [facility], [place] tel:[phone] 700 [facility] No Information 0 Elliot Sales. [address] [place], [place], [id number] , [place]. tel:[phone] [facility], [facility] [address] [place], [facility], [place] tel:[phone] [facility] No Information 9 Elliot Sales. [address] [place], [place], [id number] , [place]. tel:[phone] Office/outpa tient visit,est, mod [facility], [facility] [address] [place], [facility], [place] tel:[phone] 700 [facility] No Information 9 Ellioteliseo Sales. [address] [place], [place], [id number] , [place]. tel:[phone] [facility], [facility] [address] [place], [facility], [place] tel:[phone] 700 [facility] No Information 9 Ellioteliseo Sales. [address] [place], [place], [id number] , [place]. tel:[phone] Referring Provider: Henrry Hogan, [address] [place], [address] . tel:[phone] Office/outpa tient visit,est, mod [facility], [address] [place], [place], [facility], [place] tel:[phone] 700 [facility] No Information 9 Elliot Sales. [address] [place], [place], [id number] , [place]. tel:[phone] [facility], [facility] [address] [place], [facility], [place] tel:[phone] 700 [facility] No Information 7 Elliot Sales. [address] [place], [place], [id number] , [place]. tel:[phone] Referring Provider: Henrry Hogan, [address] [place] [address], [address] . tel:[phone] Office/outpa tient visit,[facility], [address] [place], [place], [facility], [place] tel:[phone] 700 [facility] No Information 7 Elliot Sales. [address] [place], [place], [id number] , [place]. tel:[phone] Referring Provider: Hannah Trujillo, [address] [place] [address], [address] . tel:[phone] Office/outpa tient visit,[facility], [address] [place], [place], [facility], tel:[phone] [facility] lumbar spine (chief complaint) No Information 7 Cassandra Young. [address] [place] [address], [id number] , [place]. tel:[phone] Family History Family Member Type Diagnosis Age At Onset No Information Payers Payer name Insurance type Covered alliance party ID Authoriza tion(s) Medicare [place] MB [id number] AARP Supplemental CI [id number] Social History Type Description Quantity Date Captured Comments Sex Male Smoking Status No Information Chief Complaint And Reason For Visit No Information Reason For Referral Reason For Referral No Information Plan Of Treatment Date Type Action Status Future Order: Radiology Order MR I Lumbar Spine WO Contrast ([id number]), Collected on: , Sent on: Sent Future Order: Radiology Order MR I Lumbar Spine WO Contrast ([id number]), Ordered on: Ordered History Of Present Illness Encounter Date Complaint History Of Prese nt Illness lumbar spine Pain is radiated to the right thigh. Additional information: lumbar pain for a few weeks has been working with Joselyn at [facility], have relieved symptoms of sciatica but still having pain in R leg. Functional Status Date Functional Assessmen t No Information Instructions Date Instruction Additional Infor mation No Information Assessments Type Assessment Date No Information Patient Care Teams Name Effective Dates (start - stop) Status Members No Information
--- NOTE | 2025-07-13 09:44 | A.OFFPC_ITS ---
Vital Signs 07/13/25 11:09 Height 5 ft 6 in Weight 188 lb BMI 30.3 BP 98/56 L Blood Pressure Location Lt brachial Position Sitting Respiration 22 H Pulse 88 Pulse Source Pulse Oximeter Temp 97.5 F Temp Source Temporal Artery Scan Pulse Oximetry (%) 97 Oxygen Delivery Method Room Air Intake Visit Reasons: 6 Month F/U Customer Insight Analyst Required: No Accompanied by: spouse and friend Yanet Allergies No Known Allergies Allergy (Verified 07/13/25 09:44) Medication List - Last Reconciled 07/13/25 by Abilio Tello MD aspirin (Adult Aspirin Regimen) 81 mg PO DAILY duloxetine 30 mg PO DAILY finasteride 5 mg PO DAILY latanoprost 0.005% 1 drp ophthalmic (eye) QPM metoprolol tartrate 25 mg PO DAILY Tobacco use date assessed: 01/12/25 Dental Screening Dental Screen Date: 01/12/25 HPI HPI Comments History of Present Illness Details The patient is an 89-year-old male presenting for medication review and management. He has a history of coronary artery disease for which he takes aspirin, and hypertension, managed with metoprolol 25 mg once daily, although his recent blood pressure readings have trended low. His medical history is also significant for hyperlipidemia, with recent labs showing an LDL of 135 and total cholesterol of 222, for which he takes atorvastatin 20 mg. 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 Several medications, including multivitamins and sucralfate, have been discontinued since his last visit in December as part of a deprescribing effort. He reports ambulating with some difficulty due to his spine injury. He has received his COVID and flu shots for the year. 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 Social History: - Housing: Lives in an assisted living [facility]. - Activities: He attends meals and movie s at his residence. - Functional Status: Ambulation is somew hat slowed due to a spine injury, but he is encouraged to keep moving and perform push-ups. 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 - Education: Graduated from [employer] in [place]. [facility] [facility] Medical History (Updated 07/13/25 @ 11:31 by Abilio Tello MD) Low back pain BPH loc w/o ur obs/LUTS Hypertension Hyperlipidemia Surgical History History of lumbar surgery History of esophagogastroduodenoscopy (EGD) Hx of colonoscopy Family History (Updated 01/12/25 @ 11:52 by Eliz Soares MA) Mother No problems noted. Father No problems noted. Social History Housing: House Alcohol intake: current Alcohol intake frequency: holidays/special occasions only Patient Tobacco Use Status: Former Tobacco user e-Cigarette/Vaping Use: Former Use service: No Current occupational status: retired Cognitive needs: Yes (walker) Hearing needs: Yes (bilateral hearing aids) Vision needs: Yes (rx glasses) Questionnaire Thrive Questionnaire Date Thrive assessed: 01/12/25 DAISY-7 AMB Questionnaire DAISY-7 Date DAISY - 7 assessed: 01/12/25 Source: Developed by Drs. Octavio Carrillo, Shannan Vargas, Rene Carrillo and colleagues, with an educational glenna from [facility]. Review of Systems Narrative - General: Reports feeling well overall. - Constitutional: Denies nausea or vomiting. - Cardiovascular: Denies chest pain or palpitations. - Respiratory: Denies shortness of breath. - Neurological: Denies headaches. - Genitourinary: Reports normal urination. - Gastrointestinal: Reports normal bowel movements. - Musculoskeletal: Reports slowed ambulation due to a spine injury. All systems reviewed & are unremarkable except as reviewed in HPI and above Physical exam (Primary Care) Vital Signs: Last Vital Signs Temp 97.5 F 07/13/25 11:09 Pulse 88 07/13/25 11:09 Resp 22 H 07/13/25 11:09 BP 98/56 L 07/13/25 11:09 Pulse Ox 97 07/13/25 11:09 Oxygen Delivery Method Room Air 07/13/25 11:09 BMI result Body Mass Index 30.3 Tobacco/Smoking Status: Tobacco use Status Tobacco use date assessed 01/12/25 07/13/25 09:46 Patient Tobacco Use Status Former Tobacco user 07/13/25 09:46 e-Cigarette/Vaping Use Former Use 07/13/25 09:46 Thrive Assessment: Date of Thrive Assessment Date Thrive assessed 01/12/25 07/13/25 09:46 Narrative General: Alert and oriented, Well nourished, No acute distress. Eye: Pupils are equal, round and reactive to light, Intact accommodation, Extraocular movements are intact, Normal conjunctiva, Vision unchanged. HENT: Normocephalic, Atraumatic, Tympanic membranes are clear, Normal hearing, Oral mucosa is moist, No pharyngeal erythema, Ear canals patent. Respiratory: Lungs CTA bilaterally, No wheeze, Respirations are non-labored. Cardiovascular: Regular rate, Regular rhythm, S1 auscultated, S2 auscultated, No murmur, Good pulses equal in all extremities, Normal peripheral perfusion, No edema. Gastrointestinal: Soft, Non-tender, Non-distended, Normal bowel sounds, No organomegaly. Musculoskeletal: Normal range of motion, Normal strength, No tenderness, No swelling, No deformity, Normal gait. Integumentary: Warm, Dry, Davy, Intact. Neurologic: Alert, Oriented, Normal sensory, Normal motor function, No focal defects, Cranial Nerves II-XII are grossly intact, Normal deep tendon reflexes. Psychiatric: Cooperative, Appropriate mood & affect, Normal judgment. Coding Level of Care Code Est Pt Level 4 (35211) Complex EM visit Add On G2211 Diagnoses Other hyperlipidemia E78.49 Hyperlipidemia type: other hyperlipidemia Hypertension, unspecified type I10 Hypertension type: unspecified BPH loc w/o ur obs/LUTS N40.0 Coronary artery disease, unspecified vessel or lesion type, unspecified whether angina present, unspecified whether [place] or transplanted heart I25.10 Coronary Disease-Associated Artery/Lesion type: unspecified vessel or lesion type [place] vs. transplanted heart: unspecified whether [place] or transplanted heart Associated angina: unspecified whether angina present Chronic low back pain without sciatica, unspecified back pain laterality M54.50; G89.29 Chronicity: chronic Back pain laterality: unspecified Sciatica presence: without sciatica Assessment & Plan Assessment & Plan (1) Hyperlipidemia: Comment: - The patient has a recent LDL of 135 and total cholesterol of 222. - Given the lack of clinical evidence for cholesterol medication over the age of 80 and the goal of reducing pill burden, atorvastatin will be discontinued. - This will also allow all medications to be taken once daily in the morning. Code(s): E78.5 - Hyperlipidemia, unspecified Category: Medical Qualifiers: Hyperlipidemia type: other hyperlipidemia Qualified Code(s): E78.49 - Other hyperlipidemia (2) Hypertension: Comment: - The patient's blood pressure is noted to be on the lower side today, with a systolic reading of 100. - He is on a very low dose of metoprolol 25 mg once daily. - We will continue to monitor his blood pressure. - If his pressures remain low at the next visit in six months, we will consider discontinuing the metoprolol, paying close attention to avoiding potential hypotension. Code(s): I10 - Essential (primary) hypertension Category: Medical Qualifiers: Hypertension type: unspecified Qualified Code(s): I10 - Essential (primary) hypertension (3) BPH loc w/o ur obs/LUTS: Comment: - The patient will continue taking finasteride as it is essential for preventing urinary retention and associated discomfort. Code(s): N40.0 - Benign prostatic hyperplasia without lower urinary tract symptoms Category: Medical (4) Coronary artery disease: Comment: - For now, the patient will continue his daily aspirin. - There is a potential plan to slowly discontinue this medication in the future after addressing other medications first. Code(s): I25.10 - Atherosclerotic heart disease of [place] coronary artery without angina pectoris Category: Medical Qualifiers: Coronary Disease-Associated Artery/Lesion type: unspecified vessel or lesion type [place] vs. transplanted heart: unspecified whether [place] or transplanted heart Associated angina: unspecified whether angina present Qualified Code(s): I25.10 - Atherosclerotic heart disease of [place] coronary artery without angina pectoris (5) Low back pain: Comment: - The patient will continue taking duloxetine for chronic back pain, which is reported to be helpful. - He is encouraged to remain active and mobile while being cautious and safe. Code(s): M54.50 - Low back pain, unspecified Category: Medical Qualifiers: Chronicity: chronic Back pain laterality: unspecified Sciatica presence: without sciatica Qualified Code(s): M54.50 - Low back pain, unspecified; G89.29 - Other chronic pain Plan: Health Maintenance: - Vaccinations: Patient is up to date on COVID and flu shots for the year. - Healthy Lifestyle: Encouraged to maintain physical activity and mobility, such as doing push-ups, while being cautious to prevent falls. - Follow-up: A follow-up visit is scheduled for six months to perform an annual physical and reassess his condition, particularly his blood pressure. This timing avoids winter months to ensure safer travel. Patient was informed and verbally consented to the use of an ambient scribe for clinic note documentation during this visit. Plan I had a discussion with the patient and his regarding his current medications with a goal of deprescribing to simplify his regimen. I explained that for patients over the age of 80, there is no clinical evidence supporting the use of cholesterol medication, and his recent labs showed an LDL of 135 and total cholesterol of 222. We mutually agreed to discontinue the atorvastatin, which would reduce his pill burden and allow him to take all his remaining medications once a day in the morning. I also noted that his blood pressure today was on the lower side, with a systolic of 100. I informed them that we will monitor this, and if his blood pressure remains low at his next visit in six months, we will also discontinue the metoprolol, as hypotension can be a risk in the older population. We agreed that continuing the finasteride for his prostate is essential. I encouraged the patient to continue staying active to the best of his ability despite his spine injury, while exercising caution to prevent falls. We scheduled a follow-up appointment in six months, during a warmer season, to ensure safer travel for his annual physical. Medications: Discontinued atorvastatin Discontinued Reason: Doctor's Order 20 mg PO BEDTIME 90 tabs 1RF Patient Instructions: - You can stop taking your cholesterol pill, atorvastatin. - From now on, you can take all your pills together just once a day in the morning. This will be four pills instead of five. - Continue taking your aspirin, duloxetine for pain, finasteride for your prostate, and metoprolol for blood pressure as scheduled. - It is important to keep moving and stay active, but please be careful to avoid falls or strenuous activities like cartwheels. - We will see you back in the office in about six months for your next check-up.
[2025-07-13 11:09] VITALS: BP 98/56; PULSE 88; RESP 22; TEMP 36.4; O2SAT 97; BMI 30.3
--- OUTSIDE RECORDS SUMMARY | 2025-07-13 13:44 | XMS_ITS | Encounter Summary ---
Author Organization [facility] Address [address] [place] [address] Care Team Providers Care Court Supervisor Name Role Phone Keaton Anton MD Primary Care Provider [phone] Encounter Details Date Type Department Care Team (Latest Contact Info) Description 07/30/2024 Lab Requisition [facility] - Main Lab [address] [place] [address] Keaton Anton MD [address] [place] [phone] Atherosclerotic heart disease of [place] [...] 6:02 AM EST Atherosclerotic heart disease of [place] coronary artery without angina pectoris Elevated lipoprotein(a) COMPREHENSIVE METABOLIC PANEL Routine 08/02/2024 6:02 AM EST Atherosclerotic heart disease of [place] coronary artery without angina pectoris Elevated lipoprotein(a) documented in this encounter Results * (ABNORMAL) Comprehensive metabolic panel (08/02/2024 6:02 AM EST) Sodium 140 133 - 145 mmol/L LAB CHEMISTRY METHOD 08/02/2024 9:10 AM EST [facility] Potassium 4.7 3.5 - 5.5 [...] [facility] Comment:Calculation based on the Chronic Kidney Disease Epidemiology Collaboration (CKD-EPI) equation refit without adjustment for race. BUN/Creatinine Ratio 18.1 LAB [...] g/dL LAB CHEMISTRY METHOD 08/02/2024 9:10 AM EST [facility] Total Bilirubin 0.8 0.0 - 1.4 mg/dL LAB CHEMISTRY METHOD 08/02/2024 9:10 AM [facility] Blood Venous blood specimen / Unknown Venipuncture / Unknown 08/02/2024 6:02 AM EST 08/02/2024 8:25 AM EST us Keaton Anton MD LAB BLOOD ORDERABLES Final Resu lt [facility] [address] [place] [address], [place] [phone] * (ABNORMAL) Complete blood count (08/02/2024 6:02 [...] LAB HEMETOLOGY METHOD 08/02/2024 8:40 AM EST [facility] RDW 14.1 11.0 - 15.0 % LAB HEMETOLOGY METHOD 08/02/2024 8:40 AM EST [facility] Platelets 336 130 - 400 K/mcL LAB HEMETOLOGY METHOD 08/02/2024 8:40 AM EST [facility] MPV 9.6 7.0 - 11.0 FL LAB HEMETOLOGY METHOD 08/02/2024 8:40 AM EST [facility] NRBC 0.0 <1.0 % LAB HEMETOLOGY METHOD 08/02/2024 8:40 AM EST [facility] NRBC Absolute 0.00 <0.10 K/mcL LAB HEMETOLOGY METHOD 08/02/2024 8:40 AM [facility] Blood Venous blood specimen / Unknown Venipuncture / Unknown 08/02/2024 6:02 AM EST 08/02/2024 8:17 AM EST us Keaton Anton MD LAB BLOOD ORDERABLES Final Resu lt [facility] [address] [place] [address], documented in this encounter Visit Diagnoses Diagnosis Atherosclerotic heart disease of [place] coronary artery without angina pectoris 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
--- OUTSIDE RECORDS SUMMARY | 2025-07-13 13:44 | XMS_ITS | Clinical Summary ---
Author Organization [facility] Address [address] [place] [address] Phone Care Team Providers Care Metal Fabricator Name Role Phone Keaton Anton MD Primary Care Provider [phone] Social History Tobacco Use Types Packs/Day Years [...] series) 2012 Cholesterol Screening (Lipid Panel) 09/26/2023 Falls Risk Assessment 09/26/2023 Medicare Annual Wellness Visit 09/26/2023 Social Influencers of Health Screening 09/26/2023 Depression Screening 09/01/2024 COVID-19 Vaccine ( season) 2025 Influenza Vaccine (#1) 2025 Hypertension/CHF/CAD Annual BMP Blood Test 08/05/2025 [...] 5:57 AM EST Atherosclerotic heart disease of [place] coronary artery without angina pectoris Mixed disorder of acid-base balance from Last 3 Months or Most Recently Relevant to Health Maintenance Results * Basic metabolic panel (08/05/2024 5:57 AM EST) Sodium 139 133 - 145 mmol/L LAB CHEMISTRY METHOD 08/05/2024 8:54 AM [facility] Potassium 4.0 3.5 - 5.5 mmol/L LAB CHEMISTRY METHOD 08/05/2024 8:54 AM [facility] Chloride 108 96 - 110 mmol/L LAB CHEMISTRY METHOD 08/05/2024 8:54 AM [facility] CO2 24 21 - 32 mmol/L LAB CHEMISTRY METHOD 08/05/2024 8:54 AM [facility] Anion Gap 7 3 - 11 LAB CHEMISTRY METHOD 08/05/2024 8:54 AM [facility] Glucose 91 70 - 100 mg/dL LAB CHEMISTRY METHOD 08/05/2024 8:54 AM [facility] BUN 17 5 - 25 mg/dL LAB CHEMISTRY METHOD 08/05/2024 8:54 AM [facility] Creatinine 0.85 0.70 - 1.30 mg/dL LAB CHEMISTRY METHOD 08/05/2024 8:54 AM [facility] eGFR 84 >=60 mL/min/1. 73m2 LAB CHEMISTRY METHOD 08/05/2024 8:54 AM [facility] Comment:Calculation based on the Chronic Kidney Disease Epidemiology Collaboration (CKD-EPI) equation refit without adjustment for race. BUN/Creatinine Ratio 20.0 LAB CHEMISTRY METHOD 08/05/2024 8:54 AM EST [facility] Calcium 8.9 8.5 - 10.5 mg/dL LAB CHEMISTRY METHOD 08/05/2024 8:54 AM EST [facility] Blood Venous blood specimen / Unknown Venipuncture / Unknown 08/05/2024 5:57 AM EST 08/05/2024 8:20 AM EST Keaton Anton MD LAB BLOOD ORDERABLES Final Resu lt [facility] [address] [place] [address], [place] [phone] from Last 3 Months or Most Recently Relevant to Health Maintenance Insurance MEDICARE [facility] Care Teams Metal Fabricator Relationship Specialty Start Date End Date Keaton Anton MD [address] [place] [address] PCP - General Internal Medicine 07/19/24
--- OUTSIDE RECORDS SUMMARY | 2025-07-13 13:44 | XMS_ITS | Encounter Summary ---
Author Organization [facility] Address [address] [address] Phone Care Team Providers Care Pre School Teacher Name Role Phone Pcp, Unknown Primary Care Provider Unavailabl e Encounter Details Date Type Department Care Team (Late st Contact Info) Description 10/07/2022 Transcribe Orders [facility] Specimen Processing [address] [place] [address] Raman Galvez MD [address] [place] [phone] [email or web address] Fall, initial encounter (Primary Dx) Social History Tobacco Use Types Packs/Day Years Used Date Smoking Tobacco: Never Assessed Sex and Gender Information Value Date Recorded Sex Assigned at Not on file Legal Sex Male 8:12 AM EST Gender Identity Not on file Sexual Orientation Not on file documented as of this encounter Plan of Treatment Not on file documented as of this encounter Results * (ABNORMAL) Comprehensive metabolic panel (10/07/2022 6:55 AM EST) SODIUM 136 133 - 146 mmol/L [facility] POTASSIUM 4.9 3.3 - 5.1 mmol/L [facility] CHLORIDE 101 96 - 108 mmol/L [facility] CO2 25 21 - 35 mmol/L [facility] BUN 27(H) 6 - 19 mg/dL [facility] CREATININE 1.00 0.5 - 1.5 mg/dL [facility] GLUCOSE 109(H) 70 - 99 mg/dL [facility] ALBUMIN 4.3 3.9 - 4.8 g/dL [facility] TOTAL PROTEIN 6.6 6.5 - 8.0 g/dL [facility] CALCIUM 9.9 8.4 - 10.3 mg/dL [facility] ALKALINE PHOSPHATASE 94 39 - 117 U/L [facility] TOTAL BILIRUBIN 0.7 0.0 - 1.2 mg/dL [facility] AST 24 0 - 37 U/L [facility] ALT 21 0 - 40 U/L [facility] GLOBULIN 2.3 1 - 4.8 g/dL [facility] EGFR 74 >59 mL/min/1.7 3m2 [facility] Comment:Estimated glomerular filtration rate calculated using the CKD-EPI refit equation. ANION GAP 15 10 - 20 mmol/L [facility] 10/07/2022 6:55 AM EST 10/07/2022 8:40 AM EST us Raman Galvez MD LAB BLOOD BKR ORDERABLES Final Result Performing Organization Address City/State/[facility] Co de Phone Number [address] [address] * CBC (10/07/2022 6:55 AM EST) WBC 8.06 4.00 - 11.00 K/uL [facility] RBC 4.81 3.90 - 5.69 M/uL [facility] HGB 14.5 12.4 - 17.3 g/dL [facility] HCT 43.5 37.0 - 51.0 % [facility] PLT 366 140 - 430 K/uL [facility] MCV 90.4 78.0 - 97.0 fL [facility] MCH 30.1 25.0 - 33.0 pg [facility] MCHC 33.3 32.0 - 36.0 g/dL [facility] RDW 13.8 11.0 - 15.0 % [facility] MPV 9.2 8.4 - 12.8 fl [facility] 10/07/2022 6:55 AM EST 10/07/2022 8:40 AM EST us [place] F Lenny MD LAB BLOOD BKR ORDERABLES Final Result [facility] [address] [place] [address] documented in this encounter Visit Diagnoses Diagnosis Fall, initial encounter- Primary documented in this encounter Care Teams Pre School Teacher Relationship Specialty Start Date End Date Pcp, Unknown PCP - General 10/07/22 documented as of this encounter Additional Source Comments The information contained in this document represents components of the legal health record. It is not the complete legal health record.[facility]
--- OUTSIDE RECORDS SUMMARY | 2025-07-13 13:44 | XMS_ITS | Clinical Summary ---
Author Organization [facility] Address [address] [place] [phone] Phone Care Team Providers Care Personal Computer Network Engineer Name Role Phone Pcp, Unknown Primary Care Provider Unavailabl e Social History Tobacco Use Types Packs/Day Years Used Date Smoking Tobacco: Never Assessed Education Answer Date Recorded Are you interested in more education? Not on savi e 12/28/2022 Are you concerned about learning? Not on file 12/28/2022 No 12/28/2022 No 12/28/2022 Digital Access Answer Date Recorded No 01/28/2023 No 01/28/2023 Reliable internet access at home? Not on file 01/28/2023 Device with a working camera? Not on file Sex and Gender Information Value Date Recorded Sex Assigned at Not on file Legal Sex Male 8:12 AM EST Gender Identity Not on file Sexual Orientation Not on file Plan of Treatment Not on file Medical Devices Not on file Insurance MEDICARE PART A & B MEDICARE PART A & B MEDICARE PART A & B MEDICARE PART A & B MEDICARE PART A & B MEDICARE PART A & B Care Teams Personal Computer Network Engineer Relationship Specialty Start Date End Date Pcp, Unknown PCP - General 10/07/22 Additional Source Comments The information contained in this document represents components of the legal health record. It is not the complete legal health record.[facility]
--- OUTSIDE RECORDS SUMMARY | 2025-07-13 13:44 | XMS_ITS | Encounter Summary ---
Author Organization [facility] Address [address] [place] [address] Care Team Providers Care Rehab Nurse Name Role Phone Keaton Anton MD Primary Care Provider [phone] Encounter Details Date Type Department Care Team (Late st Contact Info) Description 07/17/2024 Lab Requisition [facility] - Main Lab [address] [place] [address] Keaton Anton MD [address] [place] [address] Other hyperlipidemia; Atherosclerotic heart disease of [place] coronary artery without angina pectoris Social History [...] EST Other hyperlipidemia Atherosclerotic heart disease of [place] coronary artery without angina pectoris COMPREHENSIVE METABOLIC PANEL Routine 07/17/2024 6:46 AM EST Other hyperlipidemia Atherosclerotic heart disease of [place] coronary artery without angina pectoris documented in this encounter Results * (ABNORMAL) Comprehensive metabolic panel (07/17/2024 6:46 AM EST) Sodium 138 133 - 145 mmol/L LAB CHEMISTRY METHOD 07/17/2024 8:32 AM EST [facility] Potassium 4.3 3.5 - 5.5 mmol/L LAB CHEMISTRY METHOD 07/17/2024 8:[address] [facility] Chloride 108 96 - 110 mmol/L LAB CHEMISTRY METHOD 07/17/2024 8:[address] [facility] CO2 25 21 - 32 mmol/L LAB CHEMISTRY METHOD 07/17/2024 8:[address] [facility] Anion Gap 5 3 - 11 LAB CHEMISTRY METHOD 07/17/2024 8:[address] [facility] Glucose 101(H) 70 - 100 mg/dL LAB CHEMISTRY METHOD 07/17/2024 8:[address] [facility] BUN 19 5 - 25 mg/dL LAB CHEMISTRY METHOD 07/17/2024 8:[address] [facility] Creatinine 0.80 0.70 - 1.30 mg/dL LAB CHEMISTRY METHOD 07/17/2024 8:[address] [facility] eGFR 86 >=60 mL/min/1. 73m2 LAB CHEMISTRY METHOD 07/17/2024 8:[address] [facility] Comment:Calculation based on the Chronic Kidney Disease Epidemiology Collaboration (CKD-EPI) equation refit without adjustment for race. BUN/Creatinine Ratio 23.8 LAB CHEMISTRY METHOD 07/17/2024 8:[address] [facility] Calcium 9.0 8.5 - 10.5 mg/dL LAB CHEMISTRY METHOD 07/17/2024 8:[address] [facility] AST (SGOT) 55(H) 10 - 42 unit/L LAB CHEMISTRY METHOD 07/17/2024 8:[address] [facility] ALT (SGPT) 70(H) 10 - 60 unit/L LAB CHEMISTRY METHOD 07/17/2024 8:[address] [facility] Alkaline Phosphatase 122(H) 42 - 121 unit/L LAB CHEMISTRY METHOD 07/17/2024 8:[address] [facility] Total Protein 5.5(L) 6.0 - 8.0 g/dL LAB CHEMISTRY METHOD 07/17/2024 8:[address] [facility] Albumin 2.8(L) 3.2 - 5.0 g/dL LAB CHEMISTRY METHOD 07/17/2024 8:32 AM EST [facility] Total Bilirubin 0.6 0.0 - 1.4 mg/dL LAB CHEMISTRY METHOD 07/17/2024 8:[address] [facility] Blood Venous blood specimen / Unknown Venipuncture / Unknown 07/17/2024 6:46 AM EST 07/17/2024 7:29 AM EST us Keaton Anton MD LAB BLOOD ORDERABLES Final Resu lt [facility] [address] [place] [address], [place] [phone] * Complete blood count (07/17/2024 6:46 AM EST) WBC 8.8 4.8 - 10.8 K/mcL LAB HEMETOLOGY METHOD 07/17/2024 8:[address] [facility] RBC 4.80 4.50 - 5.50 M/mcL LAB HEMETOLOGY METHOD 07/17/2024 8:[address] [facility] Hemoglobin 14.2 13.5 - 17.5 g/dL LAB HEMETOLOGY METHOD 07/17/2024 8:[address] [facility] Hematocrit 43.3 42.0 - 54.0 % LAB HEMETOLOGY METHOD 07/17/2024 8:[address] [facility] MCV 90.6 79.0 - 98.0 FL LAB HEMETOLOGY METHOD 07/17/2024 8:[address] [facility] MCH 29.7 27.0 - 32.0 pcg LAB HEMETOLOGY METHOD 07/17/2024 8:[address] [facility] MCHC 32.8 32.0 - 37.0 g/dL LAB HEMETOLOGY METHOD 07/17/2024 8:15 AM EST [facility] RDW 13.3 11.0 - 15.0 % LAB HEMETOLOGY METHOD 07/17/2024 8:15 AM EST [facility] Platelets 237 130 - 400 K/mcL LAB HEMETOLOGY METHOD 07/17/2024 8:[address] [facility] MPV 10.0 7.0 - 11.0 FL LAB HEMETOLOGY METHOD 07/17/2024 8:15 AM EST [facility] NRBC 0.2 <1.0 % LAB HEMETOLOGY METHOD 07/17/2024 8:[address] [facility] NRBC Absolute 0.02 <0.10 K/mcL LAB HEMETOLOGY METHOD 07/17/2024 8:[address] [facility] Blood Venous blood specimen / Unknown Venipuncture / Unknown 07/17/2024 6:46 AM EST 07/17/2024 7:29 AM EST us Keaton Anton MD LAB BLOOD ORDERABLES Final Resu lt [facility] [address] [place] [address], documented in this encounter Visit Diagnoses Diagnosis Other hyperlipidemia Atherosclerotic heart disease of [place] coronary artery without angina pectoris documented in this encounter Care Teams Rehab Nurse Relationship Specialty Start Date End Date Keaton Anton MD [address] [place] [address] PCP - General Internal Medicine 07/19/24 documented as of this encounter
--- OUTSIDE RECORDS SUMMARY | 2025-07-13 13:44 | XMS_ITS | Encounter Summary ---
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) COMPREHENSIVE METABOLIC PANEL Routine 07/26/2024 6:19 AM EST 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) documented in this encounter Results * (ABNORMAL) Comprehensive metabolic panel (07/26/2024 6:19 AM EST) Sodium 139 133 - 145 mmol/L LAB CHEMISTRY METHOD 07/26/2024 10:19 AM EST [facility] Potassium 4.6 3.5 - 5.5 mmol/L LAB CHEMISTRY METHOD 07/26/2024 10:19 AM [facility] Chloride 108 96 - 110 mmol/L LAB CHEMISTRY METHOD 07/26/2024 10:19 AM [facility] CO2 24 21 - 32 mmol/L LAB CHEMISTRY METHOD 07/26/2024 10:19 AM [facility] Anion Gap 7 3 - 11 LAB CHEMISTRY METHOD 07/26/2024 10:19 AM [facility] Glucose 96 70 - 100 mg/dL LAB CHEMISTRY METHOD 07/26/2024 10:19 AM [facility] BUN 18 5 - 25 mg/dL LAB CHEMISTRY METHOD 07/26/2024 10:19 AM [facility] Creatinine 0.87 0.70 - 1.30 mg/dL LAB CHEMISTRY METHOD 07/26/2024 10:19 AM [facility] eGFR 84 >=60 mL/min/1. 73m2 LAB CHEMISTRY METHOD 07/26/2024 10:19 AM [facility] Comment:Calculation based on the Chronic Kidney Disease Epidemiology Collaboration (CKD-EPI) equation refit without adjustment for race. BUN/Creatinine Ratio 20.7 LAB CHEMISTRY METHOD 07/26/2024 10:19 AM [facility] Calcium 8.9 8.5 - 10.5 mg/dL LAB CHEMISTRY METHOD 07/26/2024 10:19 AM [facility] AST (SGOT) 19 10 - 42 unit/L LAB CHEMISTRY METHOD 07/26/2024 10:19 AM [facility] ALT (SGPT) 28 10 - 60 unit/L LAB CHEMISTRY METHOD 07/26/2024 10:19 AM [facility] Alkaline Phosphatase 111 42 - 121 unit/L LAB CHEMISTRY METHOD 07/26/2024 10:19 AM [facility] Total Protein 5.8(L) 6.0 - 8.0 g/dL LAB CHEMISTRY METHOD 07/26/2024 10:19 AM [facility] Albumin 3.1(L) 3.2 - 5.0 g/dL LAB CHEMISTRY METHOD 07/26/2024 10:19 AM EST [facility] Total Bilirubin 0.9 0.0 - 1.4 mg/dL LAB CHEMISTRY METHOD 07/26/2024 10:19 AM [facility] Blood Venous blood specimen / Unknown Venipuncture / Unknown 07/26/2024 6:19 AM EST 07/26/2024 9:35 AM EST us Keaton Anton MD LAB BLOOD ORDERABLES Final Resu lt [facility] [address] [place] [address], [place] [phone] * Complete blood count (07/26/2024 6:19 AM EST) WBC 7.0 4.8 - 10.8 K/[facility] LAB HEMETOLOGY METHOD 07/26/2024 9:53 AM [facility] RBC 4.80 4.50 - 5.50 M/[facility] LAB HEMETOLOGY METHOD 07/26/2024 9:53 AM [facility] Hemoglobin 14.0 13.5 - 17.5 g/dL LAB HEMETOLOGY METHOD 07/26/2024 9:53 AM [facility] Hematocrit 43.3 42.0 - 54.0 % LAB HEMETOLOGY METHOD 07/26/2024 9:53 AM [facility] MCV 91.2 79.0 - 98.0 FL LAB HEMETOLOGY METHOD 07/26/2024 9:53 AM [facility] MCH 29.5 27.0 - 32.0 pcg LAB HEMETOLOGY METHOD 07/26/2024 9:53 AM [facility] MCHC 32.3 32.0 - 37.0 g/dL LAB HEMETOLOGY METHOD 07/26/2024 9:53 AM EST [facility] RDW 13.8 11.0 - 15.0 % LAB HEMETOLOGY METHOD 07/26/2024 9:53 AM EST [facility] Platelets 382 130 - 400 K/mcL LAB HEMETOLOGY METHOD 07/26/2024 9:53 AM [facility] MPV 9.6 7.0 - 11.0 FL LAB HEMETOLOGY METHOD 07/26/2024 9:53 AM EST [facility] NRBC 0.0 <1.0 % LAB HEMETOLOGY METHOD 07/26/2024 9:53 AM [facility] NRBC Absolute 0.00 <0.10 K/mcL LAB HEMETOLOGY METHOD 07/26/2024 9:53 AM [facility] Blood Venous blood specimen / Unknown Venipuncture / Unknown 07/26/2024 6:19 AM EST 07/26/2024 9:35 AM EST us Keaton Anton MD LAB BLOOD ORDERABLES Final Resu lt [facility] [address] [place] [address], documented in this encounter Visit Diagnoses Diagnosis 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
--- OUTSIDE RECORDS SUMMARY | 2025-07-13 13:44 | XMS_ITS | Encounter Summary ---
Author Organization [facility] Address [address] [place] [address] Care Team Providers Care Lead Enterprise Architect Name Role Phone Keaton Anton MD Primary Care Provider [phone] Encounter Details Date Type Department Care Team (Latest Contact Info) Description 07/28/2024 Lab Requisition [facility] - Main Lab [address] [place] [address] Keaton Anton MD [address] [place] [phone] Atherosclerotic heart disease of [place] coronary artery without angina pectoris; Other hyperlipidemia [...] 6:15 AM EST Atherosclerotic heart disease of [place] coronary artery without angina pectoris Other hyperlipidemia BASIC METABOLIC PANEL Routine 07/30/2024 6:15 AM EST Atherosclerotic heart disease of [place] coronary artery without angina pectoris Other hyperlipidemia documented in this encounter Results * Basic metabolic panel (07/30/2024 6:15 AM EST) Sodium 139 133 - 145 mmol/L LAB CHEMISTRY METHOD 07/30/2024 11:26 AM EST [facility] Potassium 5.2 3.5 - 5.5 mmol/L LAB CHEMISTRY METHOD 07/30/2024 11:26 AM EST [facility] LAB Comment:Hemolysis present Chloride 108 96 - 110 mmol/L LAB CHEMISTRY METHOD 07/30/2024 11:26 AM [facility] CO2 22 21 - 32 mmol/L LAB CHEMISTRY METHOD 07/30/2024 11:26 AM [facility] Anion Gap 9 3 - 11 LAB CHEMISTRY METHOD 07/30/2024 11:26 AM [facility] Glucose 81 70 - 100 mg/dL LAB CHEMISTRY METHOD 07/30/2024 11:26 AM [facility] BUN 20 5 - 25 mg/dL LAB CHEMISTRY METHOD 07/30/2024 11:26 AM [facility] Creatinine 0.92 0.70 - 1.30 mg/dL LAB CHEMISTRY METHOD 07/30/2024 11:26 AM [facility] eGFR 81 >=60 mL/min/1. 73m2 LAB CHEMISTRY METHOD 07/30/2024 11:26 AM [facility] Comment:Calculation based on the Chronic Kidney Disease Epidemiology Collaboration (CKD-EPI) equation refit without adjustment for race. BUN/Creatinine Ratio 21.7 LAB CHEMISTRY METHOD 07/30/2024 11:26 AM [facility] Calcium 8.9 8.5 - 10.5 mg/dL LAB CHEMISTRY METHOD 07/30/2024 11:26 AM [facility] Blood Venous blood specimen / Unknown Venipuncture / Unknown 07/30/2024 6:15 AM EST 07/30/2024 10:19 AM EST us Keaton Anton MD LAB BLOOD ORDERABLES Final Resu lt [facility] [address] [place] [address], * Complete blood count (07/30/2024 6:15 AM EST) WBC 5.9 4.8 - 10.8 K/mcL LAB HEMETOLOGY METHOD 07/30/2024 10:42 AM [facility] RBC 4.70 4.50 - 5.50 M/mcL LAB HEMETOLOGY METHOD 07/30/2024 10:42 AM [facility] Hemoglobin 13.8 13.5 - 17.5 g/dL LAB HEMETOLOGY METHOD 07/30/2024 10:42 AM [facility] Hematocrit 43.1 42.0 - 54.0 % LAB HEMETOLOGY METHOD 07/30/2024 10:42 AM [facility] MCV 91.9 79.0 - 98.0 FL LAB HEMETOLOGY METHOD 07/30/2024 10:42 AM [facility] MCH 29.4 27.0 - 32.0 pcg LAB HEMETOLOGY METHOD 07/30/2024 10:42 AM [facility] MCHC 32.0 32.0 - 37.0 g/dL LAB HEMETOLOGY METHOD 07/30/2024 10:42 AM [facility] RDW 14.1 11.0 - 15.0 % LAB HEMETOLOGY METHOD 07/30/2024 10:42 AM [facility] Platelets 375 130 - 400 K/mcL LAB HEMETOLOGY METHOD 07/30/2024 10:42 AM [facility] MPV 9.8 7.0 - 11.0 FL LAB HEMETOLOGY METHOD 07/30/2024 10:42 AM [facility] NRBC 0.0 <1.0 % LAB HEMETOLOGY METHOD 07/30/2024 10:42 AM [facility] NRBC Absolute 0.00 <0.10 K/mcL LAB HEMETOLOGY METHOD 07/30/2024 10:42 AM [facility] Blood Venous blood specimen / Unknown Venipuncture / Unknown 07/30/2024 6:15 AM EST 07/30/2024 10:19 AM EST us Keaton Anton MD LAB BLOOD ORDERABLES Final Resu lt [facility] ([facility]) [facility] [address] [place] [address], documented in this encounter Visit Diagnoses Diagnosis Atherosclerotic heart disease of [place] coronary artery without angina pectoris Other hyperlipidemia documented in this encounter Care Teams Lead Enterprise Architect Relationship Specialty Start Date End Date Keaton Anton MD [address] [place] [address] PCP - General Internal Medicine 07/19/24 documented as of this encounter
--- OUTSIDE RECORDS SUMMARY | 2025-07-13 13:44 | XMS_ITS | Encounter Summary ---
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 BASIC METABOLIC PANEL Routine 08/05/2024 5:57 AM EST 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 documented in this encounter Results * Basic metabolic panel (08/05/2024 5:57 AM EST) Sodium 139 133 - 145 mmol/L LAB CHEMISTRY METHOD 08/05/2024 8:54 AM EST [facility] Potassium 4.0 3.5 - 5.5 mmol/L LAB CHEMISTRY METHOD 08/05/2024 8:54 AM [facility] Chloride 108 96 - 110 mmol/L LAB CHEMISTRY METHOD 08/05/2024 8:54 AM [facility] CO2 24 21 - 32 mmol/L LAB CHEMISTRY METHOD 08/05/2024 8:54 AM [facility] LAB Anion Gap 7 3 - 11 LAB CHEMISTRY METHOD 08/05/2024 8:54 AM [facility] Glucose 91 70 - 100 mg/dL LAB CHEMISTRY METHOD 08/05/2024 8:54 AM [facility] BUN 17 5 - 25 mg/dL LAB CHEMISTRY METHOD 08/05/2024 8:54 AM [facility] Creatinine 0.85 0.70 - 1.30 mg/dL LAB CHEMISTRY METHOD 08/05/2024 8:54 AM [facility] LAB eGFR 84 >=60 mL/min/1. 73m2 LAB CHEMISTRY METHOD 08/05/2024 8:54 AM [facility] LAB Comment:Calculation based on the Chronic Kidney Disease Epidemiology Collaboration (CKD-EPI) equation refit without adjustment for race. BUN/Creatinine Ratio 20.0 LAB CHEMISTRY METHOD 08/05/2024 8:54 AM [facility] Calcium 8.9 8.5 - 10.5 mg/dL LAB CHEMISTRY METHOD 08/05/2024 8:54 AM [facility] LAB Blood Venous blood specimen / Unknown Venipuncture / Unknown 08/05/2024 5:57 AM EST 08/05/2024 8:20 AM EST us Keaton Anton MD LAB BLOOD ORDERABLES Final Resu lt [facility] [address] [place] [address], [place] [phone] * Complete blood count (08/05/2024 5:57 AM EST) WBC 5.3 4.8 - 10.8 K/mcL LAB HEMETOLOGY METHOD 08/05/2024 8:34 AM [facility] LAB RBC 4.70 4.50 - 5.50 [facility] LAB HEMETOLOGY METHOD 08/05/2024 8:34 AM [facility] LAB Hemoglobin 13.8 13.5 - 17.5 g/dL LAB HEMETOLOGY METHOD 08/05/2024 8:34 AM [facility] LAB Hematocrit 42.6 42.0 - 54.0 % LAB HEMETOLOGY METHOD 08/05/2024 8:34 AM [facility] LAB MCV 91.2 79.0 - 98.0 FL LAB HEMETOLOGY METHOD 08/05/2024 8:34 AM [facility] LAB MCH 29.6 27.0 - 32.0 pcg LAB HEMETOLOGY METHOD 08/05/2024 8:34 AM [facility] LAB MCHC 32.4 32.0 - 37.0 g/dL LAB HEMETOLOGY METHOD 08/05/2024 8:34 AM [facility] LAB RDW 13.9 11.0 - 15.0 % LAB HEMETOLOGY METHOD 08/05/2024 8:34 AM [facility] LAB Platelets 295 130 - 400 K/mcL LAB HEMETOLOGY METHOD 08/05/2024 8:34 AM [facility] LAB MPV 9.7 7.0 - 11.0 FL LAB HEMETOLOGY METHOD 08/05/2024 8:34 AM [facility] LAB NRBC 0.0 <1.0 % LAB HEMETOLOGY METHOD 08/05/2024 8:34 AM [facility] LAB NRBC Absolute 0.00 <0.10 [facility] LAB HEMETOLOGY METHOD 08/05/2024 8:34 AM [facility] LAB Blood Venous blood specimen / Unknown Venipuncture / Unknown 08/05/2024 5:57 AM EST 08/05/2024 8:20 AM EST Keaton Anton MD LAB BLOOD ORDERABLES Final Resu lt [facility]) [facility] [address] [place] [address], documented in this encounter Visit Diagnoses Diagnosis 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
--- OUTSIDE RECORDS SUMMARY | 2025-07-13 13:44 | XMS_ITS | Encounter Summary ---
Author Organization [facility] Address [address] [place] [address] Care Team Providers Care Astronomy Department Chair Name Role Phone Keaton Anton MD Primary Care Provider [phone] Encounter Details Date Type Department Care Team (Latest Contact Info) Description 07/21/2024 Lab Requisition [facility] - Main Lab [address] [place] [address] Keaton Anton MD [address] [place] [phone] Atherosclerotic heart disease of [place] coronary artery without angina pectoris; Elevated lipoprotein(a) [...] 6:50 AM EST 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) BASIC METABOLIC PANEL Routine 07/22/2024 6:50 AM EST 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) documented in this encounter Results * Basic metabolic panel (07/22/2024 6:50 AM EST) Sodium 139 133 - 145 mmol/L LAB CHEMISTRY METHOD 07/22/2024 11:36 AM EST [facility] Potassium 4.3 3.5 - 5.5 mmol/L LAB CHEMISTRY METHOD 07/22/2024 11:36 AM [facility] LAB Chloride 108 96 - 110 mmol/L LAB CHEMISTRY METHOD 07/22/2024 11:36 AM [facility] CO2 25 21 - 32 mmol/L LAB CHEMISTRY METHOD 07/22/2024 11:36 AM [facility] Anion Gap 6 3 - 11 LAB CHEMISTRY METHOD 07/22/2024 11:36 AM [facility] LAB Glucose 95 70 - 100 mg/dL LAB CHEMISTRY METHOD 07/22/2024 11:36 AM [facility] BUN 25 5 - 25 mg/dL LAB CHEMISTRY METHOD 07/22/2024 11:36 AM [facility] Creatinine 0.84 0.70 - 1.30 mg/dL LAB CHEMISTRY METHOD 07/22/2024 11:36 AM [facility] LAB eGFR 84 >=60 mL/min/1. 73m2 LAB CHEMISTRY METHOD 07/22/2024 11:36 AM [facility] LAB Comment:Calculation based on the Chronic Kidney Disease Epidemiology Collaboration (CKD-EPI) equation refit without adjustment for race. BUN/Creatinine Ratio 29.8 LAB CHEMISTRY METHOD 07/22/2024 11:36 AM [facility] Calcium 8.5 8.5 - 10.5 mg/dL LAB CHEMISTRY METHOD 07/22/2024 11:36 AM [facility] LAB Blood Venous blood specimen / Unknown Venipuncture / Unknown 07/22/2024 6:50 AM EST 07/22/2024 10:52 AM EST us Keaton Anton MD LAB BLOOD ORDERABLES Final Resu lt [facility] [address] [place] [address], [place] [phone] * (ABNORMAL) Complete blood count (07/22/2024 6:50 AM EST) WBC 7.4 4.8 - 10.8 K/mcL LAB HEMETOLOGY METHOD 07/22/2024 11:21 AM [facility] RBC 4.60 4.50 - 5.50 M/mcL LAB HEMETOLOGY METHOD 07/22/2024 11:21 AM [facility] Hemoglobin 13.6 13.5 - 17.5 g/dL LAB HEMETOLOGY METHOD 07/22/2024 11:21 AM [facility] LAB Hematocrit 42.8 42.0 - 54.0 % LAB HEMETOLOGY METHOD 07/22/2024 11:21 AM [facility] LAB MCV 92.4 79.0 - 98.0 FL LAB HEMETOLOGY METHOD 07/22/2024 11:21 AM [facility] LAB MCH 29.4 27.0 - 32.0 pcg LAB HEMETOLOGY METHOD 07/22/2024 11:21 AM [facility] LAB MCHC 31.8(L) 32.0 - 37.0 g/dL LAB HEMETOLOGY METHOD 07/22/2024 11:21 AM [facility] LAB RDW 13.8 11.0 - 15.0 % LAB HEMETOLOGY METHOD 07/22/2024 11:21 AM [facility] LAB Platelets 308 130 - 400 K/mcL LAB HEMETOLOGY METHOD 07/22/2024 11:21 AM [facility] LAB MPV 9.7 7.0 - 11.0 FL LAB HEMETOLOGY METHOD 07/22/2024 11:21 AM [facility] LAB NRBC 0.0 <1.0 % LAB HEMETOLOGY METHOD 07/22/2024 11:21 AM [facility] LAB NRBC Absolute 0.00 <0.10 K/mcL LAB HEMETOLOGY METHOD 07/22/2024 11:21 AM [facility] LAB Blood Venous blood specimen / Unknown Venipuncture / Unknown 07/22/2024 6:50 AM EST 07/22/2024 10:52 AM EST Keaton Anton MD LAB BLOOD ORDERABLES Final Resu lt [facility] ([facility]) [facility] [address] [place] [address], documented in this encounter Visit Diagnoses Diagnosis 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
--- OUTSIDE RECORDS SUMMARY | 2025-07-13 13:44 | XMS_ITS | Encounter Summary ---
Author Organization [facility] Address [address] [place] [address] Care Team Providers Care Seed Core Operator Name Role Phone Keaton Anton MD Primary Care Provider [phone] Encounter Details Date Type Department Care Team (Late st Contact Info) Description 07/19/2024 Lab Requisition [facility] - Main Lab [address] [place] [address] Keaton Anton MD [address] [place] [address] Other hyperlipidemia Social History Tobacco [...] LAB CHEMISTRY METHOD 07/19/2024 12:43 PM EST [facility] Potassium 4.2 3.5 - 5.5 mmol/L LAB CHEMISTRY METHOD 07/19/2024 12:43 PM EST [facility] Chloride 104 96 - 110 [...] [facility] Comment:Calculation based on the Chronic Kidney Disease Epidemiology Collaboration (CKD-EPI) equation refit without adjustment for race. BUN/Creatinine Ratio 24.4 LAB [...] 12:43 PM [facility] Total Bilirubin 0.6 0.0 - 1.4 mg/dL LAB CHEMISTRY METHOD 07/19/2024 12:43 PM [facility] Blood Venous blood specimen / Unknown Venipuncture / Unknown 07/19/2024 6:20 AM EST 07/19/2024 9:39 AM EST us Keaton Anton MD LAB BLOOD ORDERABLES Final Resu lt [facility] [address] [place] [address], * Basic metabolic panel (07/19/2024 6:20 AM [...] 73m2 LAB CHEMISTRY METHOD 07/19/2024 11:08 AM EST [facility] Comment:Calculation based on the Chronic [...] 6:20 AM EST 07/19/2024 9:39 AM EST Keaton Anton MD LAB BLOOD ORDERABLES Final Resu lt [facility] [address] [place] [address], * (ABNORMAL) Complete blood count (07/19/2024 6:20 AM EST) WBC 11.2(H) 4.8 - 10.8 K/mcL LAB HEMETOLOGY METHOD 07/19/2024 10:43 AM [facility] RBC 4.70 4.50 - 5.50 M/mcL LAB HEMETOLOGY METHOD 07/19/2024 10:43 AM [facility] [...] LAB HEMETOLOGY METHOD 07/19/2024 10:43 AM EST [facility] MCHC 32.2 32.0 - 37.0 [...] LAB BLOOD ORDERABLES Final Resu lt [facility] [address] [place] [address], documented in this encounter Visit Diagnoses Diagnosis Other hyperlipidemia documented in this encounter Care Teams Seed Core Operator Relationship Specialty Start Date End Date Keaton Anton MD [address] [place] [address] PCP - General Internal Medicine 07/19/24 documented as of this encounter
== END 2025-07-13 11:33 | disposition home or self-care (01) ==
LOC: HO.HMCHD 11:07
PROVIDERS: PCP Student in an Organized Health Care Education/Training Program; Visit Provider Student in an Organized Health Care Education/Training Program
DX: E78.49 Other hyperlipidemia (principal); I10 Essential (primary) hypertension; N40.0 Benign prostatic hyperplasia without lower urinary tract symptoms; I25.10 Atherosclerotic heart disease of native coronary artery without angina pectoris; M54.50 Low back pain, unspecified; G89.29 Other chronic pain

== ENCOUNTER → 2025-07-13 11:07 | Outpatient (BNVA) | payer MEDICARE, SELFPAY | PROVIDERS: PCP Student in an Organized Health Care Education/Training Program; Visit Provider Student in an Organized Health Care Education/Training Program | DX: E78.49 Other hyperlipidemia (principal); I10 Essential (primary) hypertension; N40.0 Benign prostatic hyperplasia without lower urinary tract symptoms; I25.10 Atherosclerotic heart disease of native coronary artery without angina pectoris; M54.50 Low back pain, unspecified; G89.29 Other chronic pain; Z79.82 Long term (current) use of aspirin; Z79.899 Other long term (current) drug therapy | CPT/HCPCS: 99212 ==